=== PATIENT | male | born 1970 | race Caucasian/White ===

== ENCOUNTER 2024-03-23 19:51 | Emergency (ER) | payer MEDICARE, SELFPAY ==
[2024-03-23 20:01] VITALS: BP 140/60; PULSE 139; O2SAT 95
[2024-03-23 20:04] VITALS: BP 141/92; PULSE 102; RESP 14; TEMP 37.3; O2SAT 97; BMI 25.1
[2024-03-23 20:07] LABS: Glucose, Whole Blood 237 mg/dL (60-115)
[2024-03-23 20:10] VITALS: BP 141/92; PULSE 102; RESP 14; TEMP 37.3; O2SAT 97
--- NOTE | 2024-03-23 20:10 | PC.NURSE ---
Pt ca&ox4, no signs of distress. Pt reports chronic 9/10 knee and back pain. Pt reports here due to dm Plan of care ongoing.
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
--- NOTE | 2024-03-23 21:05 | ED_ITS ---
HPI - General Adult General Chief complaint: General Medical Stated complaint: DIZZY, FEELS SICK, HAD SOME LIQUOR TO DRINK Time Seen by Provider: 03/23/24 21:05 Source: patient Mode of arrival: ambulatory Limitations: no limitations History of Present Illness ED Provider: christin SHRESTHA narrative: Patient diabetic came here as he needs insulin prescription also been drinking outside ambulatory in his steady gait patient took his Lantus insulin a.m. blood sugar on arrival was 237 Related Data Previous Rx's ?Medication ?Instructions ?Recorded flash glucose sensor (FreeStyle #1 ea 03/23/24 [place] 14 Day Sensor kit) insulin glargine 100 unit/mL (3 50 unit (0.5 mL) subcut QPM #15 mL 03/23/24 mL) subcutaneous pen (Lantus Solostar U-100 Insulin) insulin lispro 100 unit/mL 1 sliding scale dose subcut 03/23/24 subcutaneous pen (Humalog KwikPen USEASDIRECTD #15 mL (U-100) Insulin) Allergies Allergy/AdvReac Type Severity Reaction Status Date / Time No Known Allergies Allergy Verified 03/23/24 20:07 Review of Systems Review of Systems: Yes all other systems are reviewed and are negative [facility] Social History Social History Alcohol intake: current Smoked in Last 30 Days: No Use of substances other than those prescribed or required for medical reasons: No Advance Directives: No Advance Directives Information Provided: No Do you have a plan to hurt others: No Plan Physical Exam ED Vital Signs: Vital Signs - 24 hr 03/23/24 20:04 03/23/24 20:10 03/23/24 21:20 Temperature 99.2 F 99.2 F 99.2 F Pulse Rate 102 H 102 H 102 H Respiratory Rate 14 14 14 Blood Pressure 141/92 H 141/92 H 141/92 H Pulse Oximetry 97 97 97 Oxygen Delivery Method Room Air Room Air Room Air BMI result Body Mass Index 25.1 Appearance: Alert. Oriented X3. No acute distress. Intoxicated walking in his steady gait Eyes: No pallor or icterus ENT: Pharynx normal. Oral Mucosa moist Neck: Normal inspection. Neck supple. CVS: Normal heart rate and rhythm. Pulses normal. Respiratory: No respiratory distress. Equal air entry bilateral, Abdomen: Soft and nontender. Bowel sounds are present, Skin: Skin warm and dry. Normal skin color. Normal skin turgor. Extremities: No lower extremity edema. No calf tenderness Neuro: Oriented X 3. No motor deficit. Normal gait Medical Decision Making Medical Decision Making [facility] Narrative: Patient's medications were refilled does not want any detox or any help regarding his alcohol use Lab Data [facility] Lab Attestation statement: I reviewed the patient's lab results. Labs: Lab Results 03/23/24 Range/Units 20:03 POC Glucose 237 H (60-115) mg/dL Discharge Plan Discharge Clinical Impression: Diabetes mellitus Patient Disposition: Home, Self-Care Instructions: Type 2 Diabetes Management for Adults (ED) Additional Instructions: stop Drink alcohol Take your insulin on time 3 times a day before meals as advised Prescriptions: New insulin glargine [Lantus Solostar U-100 Insulin] 100 unit/mL (3 mL) insulin pen 50 unit subcut QPM Qty: 15 1RF insulin lispro [Humalog KwikPen Insulin] 100 unit/mL insulin pen 1 sliding scale dose subcut USEASDIRECTD Qty: 15 1RF Rx Instructions: BG <111 0 units, 111-150 - 0 units, 151-200 2 units, 201-250 4 units, 251-300 6 units, 301-350 8 units, >350 10 units (DME) FreeStyle [place] 14 Day Sensor Kit See Rx Instructions .Route Qty: 1 0RF Rx Instructions: As directed Interventions: ED Discharge Assessment Last Done: 03/23/24 21:20 Discharge Date/Time: 03/23/24 21:29 Print Language: Hebrew
[2024-03-23 21:20] VITALS: BP 141/92; PULSE 102; RESP 14; TEMP 37.3; O2SAT 97
== END 2024-03-23 21:29 | disposition home or self-care (01) ==
PROVIDERS: Emergency Provider Internal Medicine
DX: E11.9 Type 2 diabetes mellitus without complications (principal)
CPT/HCPCS: 82947; 99283; 99284

== ENCOUNTER 2024-03-24 18:42 | Emergency (ER) | payer MEDICARE, SELFPAY ==
--- NOTE | ~2024-03-24 | CT_ITS ---
EXAMINATION: CT HEAD WITHOUT CONTRAST CT CERVICAL SPINE WITHOUT CONTRAST CLINICAL INFORMATION: Fall. Injury. COMPARISON: None available. TECHNIQUE: Contiguous axial imaging was performed from the skull base to vertex without intravenous administration of contrast. Contiguous axial imaging was performed from the upper chest through the skull base without intravenous administration of contrast. Coronal and sagittal reformats were obtained at the acquisition workstation. This CT examination was performed using dose optimization techniques as appropriate, variously including the following: *Automated exposure control. *Adjustment of mA and/or kV according to patient size (this includes techniques or standardized protocols for targeted exams where dose is matched to indication/reason for exam; i.e. extremities or head). *Use of iterative reconstruction technique. DLP: 1507 mGy-cm FINDINGS: Head: There is chronic encephalomalacia within the anterior right frontal lobe with associated volume loss. No additional loss of montanez-white matter differentiation. No evidence of acute intracranial hemorrhage. A few foci of hypoattenuation in the periventricular and deep white matter are consistent with mild microangiopathy. Proportional prominence of the ventricles and sulcal spaces without evidence of obstructive hydrocephalus. No abnormal mass effect or midline shift. No extra-axial fluid collections. No acute soft tissue or osseous abnormalities. Moderate mucosal thickening of the right maxillary sinus. Mild mucosal thickening of the remaining paranasal sinuses. The mastoid air cells and middle ear cavities are clear. Odontogenic enamel erosion and periapical lucencies of the maxillary left molar. Cervical Spine: The atlantooccipital and atlantoaxial articulations remain well aligned. Straightening of the normal cervical lordosis. Otherwise, there is anatomic alignment of the vertebral bodies and posterior elements. No evidence of acute fracture or subluxation. The vertebral body heights are maintained. Moderate degenerative disc disease at C3-C4 and C5-C6. Mild degenerative disc disease at all additional levels. Facet and uncovertebral joint arthropathy leads to osseous encroachment on the neural foramina from C5-C7. There is no prevertebral soft tissue swelling. The thyroid gland and remaining cervical soft tissues are within normal limits. The lung apices demonstrate no abnormalities. CT/CT cervical spine wo IV con IMPRESSION: 1. No evidence of acute intracranial hemorrhage or edematous territorial infarction. 2. Chronic encephalomalacia of the anterior right frontal lobe. Mild underlying microangiopathy and generalized cerebral volume loss. 3. No evidence of acute fracture or traumatic subluxation of the cervical spine. Mild to moderate multilevel degenerative spondyloarthropathy of the cervical spine. Electronically signed by: Stan Perez DO 03/24/2024 08:14 PM EDT RP
[2024-03-24 18:49] VITALS: BP 130/70; PULSE 120; O2SAT 95
--- NOTE | 2024-03-24 18:52 | ED_ITS ---
HPI - General Adult General Chief complaint: Fall Stated complaint: ETOH, FALL,DIABETIC Time Seen by Provider: 03/24/24 18:52 Source: patient and EMS Mode of arrival: EMS Limitations: no limitations History of Present Illness ED Provider: Chery Sena PA-C HPI narrative: Patient is a 54 year old assigned male at with a history of DM presenting to the emergency department today after a trip and fall. Patient states that he had been drinking this morning and while walking, he tripped and fell. Patient states that he hit his head but did not have any loss of consciousness. Patient denies any dizziness, lightheadedness, abdominal pain, nausea, vomiting, fever, chills, blurry vision, double vision, loss of vision, chest pain, difficulty breathing, shortness of breath, back pain, night sweats, pain with urination, increased urinary frequency, increased urinary urgency, blood in his urine or stool, syncope or a near syncopal episode, bowel incontinence, bladder incontinence, or any other complaints at this time. Relieving factors: none Exacerbating factors: none Associated symptoms: denies other symptoms Treatments prior to arrival: none Related Data Previous Rx's ?Medication ?Instructions ?Recorded flash glucose sensor (FreeStyle #1 ea 03/23/24 [place] 14 Day Sensor kit) insulin glargine 100 unit/mL (3 50 unit (0.5 mL) subcut QPM #15 mL 03/23/24 mL) subcutaneous pen (Lantus Solostar U-100 Insulin) insulin lispro 100 unit/mL 1 sliding scale dose subcut 03/23/24 subcutaneous pen (Humalog KwikPen USEASDIRECTD #15 mL (U-100) Insulin) Allergies Allergy/AdvReac Type Severity Reaction Status Date / Time No Known Allergies Allergy Verified 03/24/24 18:56 Review of Systems Constitutional: Constitutional: Reports no additional constitutional complaints, Denies chills, Denies fever(s) and Denies night sweats Eyes: Eyes: Reports no additional eye complaints, Denies blurry vision, Denies change in vision, Denies diplopia, Denies eye discharge, Denies loss of vision and Denies eye pain ENT: Denies dizziness Comments: dried blood present to the right ear secondary to abrasion - no gaping areas Cardiovascular: Cardiovascular: Reports no additional cardiovascular complaints, Denies chest pain, Denies lightheadedness, Denies Loss of Consciousness and Denies dyspnea Respiratory: Respiratory: Reports no additional respiratory complaints and Denies dyspnea Gastrointestinal: Gastrointestinal: Reports no additional gastrointestinal complaints, Denies abdominal pain, Denies melena, Denies hematochezia, Denies change in bowel habits and Denies change in stool character Genitourinary: Genitourinary: Reports no additional male genitourinary complaints, Denies hematuria, Denies oliguria, Denies difficulty urinating, Denies dysuria, Denies urinary frequency, Denies urinary hesitancy, Denies urinary incontinence and Denies urinary urgency Musculoskeletal: Musculoskeletal: Reports no additional musculoskeletal complaints, Denies numbness and Denies tingling Comments: dried blood to the bilateral lower secondary to abrasions - no open areas Neurologic: Denies dizziness, Denies loss of vision, Denies numbness and Denies tingling Psychiatric: Psychiatric: Reports no additional psychiatric complaints Endocrine: Endocrine: Reports no additional endocrine complaints Hematologic/Lymphatic: Hematologic/Lymphatic: Reports no additional hematologic/lymphatic complaints Allergic/Immunologic: Allergic/Immunologic: Reports no additional allergic/immunologic complaints PMFSH Past Medical History Attestation statement: The following information was validated with the patient. Source: old records reviewed and nursing notes reviewed Social History Social History Alcohol intake: current Alcohol intake frequency: 3 or more drinks per day Alcohol type: hard liquor Use of substances other than those prescribed or required for medical reasons: No Advance Directives: No Advance Directives Information Provided: No Do you have a plan to hurt others: No Plan Physical Exam ED Vital Signs: Vital Signs - 24 hr 03/24/24 18:55 03/24/24 20:29 Temperature 98.2 F 0 F L Pulse Rate 120 H 0 L Respiratory Rate 20 0 L Blood Pressure 126/78 0/0 L Pulse Oximetry 96 Oxygen Delivery Method Room Air BMI result Body Mass Index 23.2 Const General: cooperative, no acute distress, alert and awake Nutritional Appearance: well nourished Orientation/consciousness: patient oriented x3 Limitations: no limitations HENMT Other: dried blood in the right ear secondary to an abrasion - no gaping areas or active bleeding Ears: hearing grossly normal bilaterally General nose exam: Normal external nose present, no nasal discharge noted and no epistaxis Face and sinus: Yes normal facial exam, No abrasion and No laceration Mouth: Normal oral and palatal mucosa present, no drooling and no muffled voice Eyes General: appearance normal, both eyes and all related structures Periorbital: periorbital findings normal Eyelids: Yes eyelids normal Conjunctivae: conjunctivae normal Pupils: Equal, round and reactive pupils present EOM: EOMs intact bilaterally Neck Neck: Yes normal visual inspection, Yes full ROM and Yes no lymphadenopathy Chest Chest palpation & inspection: normal inspection of the chest Resp Effort & Inspection: normal respiratory effort and able to speak in complete sentences GI Inspection: Yes normal to inspection Neuro General: patient oriented x3 and moves all extremities Cranial nerves: Yes Equal, round and reactive pupils present Cognition (Neuro): normal cognition Extrem Other: bilateral lower leg abrasions with no active bleeding dried blood present to the bilateral lower legs General: Yes full ROM and Yes capillary refill normal Psych Appearance: grossly normal Mental Status: mental status grossly normal Affect: normal affect Attitude: cooperative Thought process: Normal thought process present Thought content: Normal thought content present Insight: Good insight present (Psych) Medical Decision Making Medical Decision Making MDM Narrative: Patient is a 54 year old assigned male at with a history of DM presenting to the emergency department today after a trip and fall, intoxicated. Patient's physical exam was as noted in the physical exam portion of this note. Patient removed his c-collar before I could evaluate him or before he obtained his CT scans. Patient's CT head and c-spine showed no acute process. I explained my physical exam findings as well as all test results to the patient. I answered all questions asked by the patient. Patient refused to allow us to clean the dried blood from his right ear or bilateral lower extremities. Patient was steady on his feet and requesting to leave as soon as possible so that he could get his property back from [place] [employer]. I stressed the importance of the patient taking his medication as directed (either prescribed or as the over the counter packaging recommends). I stressed the importance of the patient following up with his primary care provider. I stressed the importance of the patient returning to the emergency department immediately if his symptoms were to worsen or if he were to develop any dizziness, shortness of breath, difficulty breathing, chest pain, blurry vision, loss of vision, nausea, vomiting, abdominal pain, fever, chills, back pain, or any other complaints. Patient verbalized agreement and understanding with this treatment plan and dis charge. Patient requested to leave before he could be given his discharge paperwork. Differential Diagnosis Differential Diagnoses: The differential diagnosis associated with the presentation includes Fall Abrasions Alcohol intoxication Admission/Observation Consideration of admission/observation: Escalation of care including admission/observation considered Patient would have been admitted to the hospital had his work up had any findings where hospital admission was appropriate and his clinical presentation warranted hospital admission. Independent Interpretation I performed an independent interpretation of an: CT Scan Interpretation: My interpretation is in agreement with the radiologist's impression of these imaging studies. EXAMINATION: CT HEAD WITHOUT CONTRAST CT CERVICAL SPINE WITHOUT CONTRAST CLINICAL INFORMATION: Fall. Injury. COMPARISON: None available. TECHNIQUE: Contiguous axial imaging was performed from the skull base to vertex without intravenous administration of contrast. Contiguous axial imaging was performed from the upper chest through the skull base without intravenous administration of contrast. Coronal and sagittal reformats were obtained at the acquisition workstation. This CT examination was performed using dose optimization techniques as appropriate, variously including the following: *Automated exposure control. *Adjustment of mA and/or kV according to patient size (this includes techniques or standardized protocols for targeted exams where dose is matched to indication/reason for exam; i.e. extremities or head). *Use of iterative reconstruction technique. DLP: 1507 mGy-cm FINDINGS: Head: There is chronic encephalomalacia within the anterior right frontal lobe with associated volume loss. No additional loss of montanez-white matter differentiation. No evidence of acute intracranial hemorrhage. A few foci of hypoattenuation in the periventricular and deep white matter are consistent with mild microangiopathy. Proportional prominence of the ventricles and sulcal spaces without evidence of obstructive hydrocephalus. No abnormal mass effect or midline shift. No extra-axial fluid collections. No acute soft tissue or osseous abnormalities. Moderate mucosal thickening of the right maxillary sinus. Mild mucosal thickening of the remaining paranasal sinuses. The mastoid air cells and middle ear cavities are clear. Odontogenic enamel erosion and periapical lucencies of the maxillary left molar. Cervical Spine: The atlantooccipital and atlantoaxial articulations remain well aligned. Straightening of the normal cervical lordosis. Otherwise, there is anatomic alignment of the vertebral bodies and posterior elements. No evidence of acute fracture or subluxation. The vertebral body heights are maintained. Moderate degenerative disc disease at C3-C4 and C5-C6. Mild degenerative disc disease at all additional levels. Facet and uncovertebral joint arthropathy leads to osseous encroachment on the neural foramina from C5-C7. There is no prevertebral soft tissue swelling. The thyroid gland and remaining cervical soft tissues are within normal limits. The lung apices demonstrate no abnormalities. CT/CT head/brain wo IV con IMPRESSION: 1. No evidence of acute intracranial hemorrhage or edematous territorial infarction. 2. Chronic encephalomalacia of the anterior right frontal lobe. Mild underlying microangiopathy and generalized cerebral volume loss. 3. No evidence of acute fracture or traumatic subluxation of the cervical spine. Mild to moderate multilevel degenerative spondyloarthropathy of the cervical spine. Electronically signed by: Stan Perez DO 03/24/2024 08:14 PM EDT RP Dictated By: Rudy Perez DO Signed By: Electronically signed by Rudy Perez DO 03/24/242013 Radiology Impression Discussion of test interpretation with radiology: I have reviewed the radiolo gist's reading. Independent Historian Clinical information obtained from an independent historian. History obtained from or confirmed by: EMS (EMS provided additional history and confirmed the history provided by the patient.) Discharge Plan Discharge Clinical Impression: Fall, Alcohol intoxication Patient Disposition: Home, Self-Care Instructions: Abuse of Alcohol (DC), Fall Prevention (ED) Additional Instructions: Follow up with your primary care provider. Return to the emergency department immediately if your symptoms worsen or if you develop any dizziness, shortness of breath, difficulty breathing, chest pain, blurry vision, loss of vision, nausea, vomiting, abdominal pain, fever, chills, back pain, or any other complaints. Prescriptions: No Action insulin glargine [Lantus Solostar U-100 Insulin] 100 unit/mL (3 mL) insulin pen 50 unit subcut QPM Qty: 15 1RF insulin lispro [Humalog KwikPen Insulin] 100 unit/mL insulin pen 1 sliding scale dose subcut USEASDIRECTD Qty: 15 1RF Rx Instructions: BG <111 0 units, 111-150 - 0 units, 151-200 2 units, 201-250 4 units, 251-300 6 units, 301-350 8 units, >350 10 units (DME) FreeStyle [place] 14 Day Sensor Kit See Rx Instructions .Route Qty: 1 0RF Rx Instructions: As directed Referrals: [facility] [Provider Group] (Call to establish and follow up with a primary care provider. If you already have a primary care provider, please follow up with them.) [facility] Primary Care, [place] [Provider Group] (Call to establish and follow up with a primary care provider. If you already have a primary care provider, please follow up with them.) [facility] Primary Care,Amanda [Provider Group] (Call to establish and follow up with a primary care provider. If you already have a primary care provider, please follow up with them.) Interventions: ED Discharge Assessment Last Done: 03/24/24 20:29 Discharge Date/Time: 03/24/24 20:30 Print Language: Ukrainian
[2024-03-24 18:55] VITALS: BP 126/78; PULSE 120; RESP 20; TEMP 36.8; O2SAT 96; BMI 23.2
[2024-03-24 20:29] VITALS: BP 0/0; PULSE 0; RESP 0; TEMP -17.7; TEMP 0
== END 2024-03-24 20:30 | disposition home or self-care (01) ==
PROVIDERS: Emergency Provider Emergency Medicine Emergency Medical Services
DX: S09.90XA Unspecified injury of head, initial encounter (principal); F10.129 Alcohol abuse with intoxication, unspecified; E11.9 Type 2 diabetes mellitus without complications; Y90.9 Presence of alcohol in blood, level not specified; W01.10XA Fall on same level from slipping, tripping and stumbling with subsequent striking against unspecified object, initial encounter; Y93.89 Activity, other specified; Y92.89 Other specified places as the place of occurrence of the external cause; Y99.8 Other external cause status; Z79.4 Long term (current) use of insulin; Z79.899 Other long term (current) drug therapy
CPT/HCPCS: 70450; 72125; 99284

== ENCOUNTER 2024-08-30 13:25 | Emergency (ER) | payer MEDICARE, SELFPAY ==
--- NOTE | 2024-08-30 13:36 | ED_ITS ---
HPI - General Adult General Chief complaint: Psychiatric Symptoms Stated complaint: SI, COOPERATIVE, NON COMBATIVE PER EMS Time Seen by Provider: 08/30/24 13:36 Source: patient and EMS Mode of arrival: EMS Limitations: no limitations History of Present Illness ED Provider: Chery Sena PA-C HPI narrative: Patient is a 54 year old assigned male at with a history of DM presenting to the emergency department today with suicidal ideation. Patient states that he feels as though his life is unmanageable and he is having thoughts of hurting himself. Patient denies any dizziness, lightheadedness, abdominal pain, nausea, vomiting, fever, chills, blurry vision, double vision, loss of vision, chest pain, difficulty breathing, shortness of breath, back pain, night sweats, pain with urination, increased urinary frequency, increased urinary urgency, blood in his urine or stool, syncope or a near syncopal episode, recent trauma or falls, bowel incontinence, bladder incontinence, or any other complaints at this time. Relieving factors: none Exacerbating factors: none Associated symptoms: denies other symptoms Treatments prior to arrival: none Related Data Home Medications ?Medication ?Instructions ?Recorded ?Confirmed folic acid 1 mg tablet 1 mg PO QAM 08/30/24 furosemide 20 mg tablet 20 mg PO QAM 08/30/24 hydroxyzine pamoate 50 mg capsule 100 mg PO TID 08/30/24 Previous Rx's ?Medication ?Instructions ?Recorded flash glucose sensor (FreeStyle #1 ea 03/23/24 [place] 14 Day Sensor kit) insulin glargine 100 unit/mL (3 50 unit (0.5 mL) subcut QPM #15 mL 03/23/24 mL) subcutaneous pen (Lantus Solostar U-100 Insulin) insulin lispro 100 unit/mL 1 sliding scale dose subcut 03/23/24 subcutaneous pen (Humalog KwikPen USEASDIRECTD #15 mL (U-100) Insulin) Allergies Allergy/AdvReac Type Severity Reaction Status Date / Time No Known Allergies Allergy Verified 08/30/24 13:43 Review of Systems 2 Constitutional: Constitutional: Reports no additional constitutional complaints, Denies chills, Denies fever(s) and Denies night sweats Eyes: Eyes: Reports no additional eye complaints, Denies blurry vision, Denies change in vision, Denies diplopia, Denies eye discharge, Denies loss of vision and Denies eye pain ENT: Denies dizziness Cardiovascular: Cardiovascular: Reports no additional cardiovascular complaints, Denies chest pain, Denies lightheadedness, Denies Loss of Consciousness and Denies dyspnea Respiratory: Respiratory: Reports no additional respiratory complaints and Denies dyspnea Gastrointestinal: Gastrointestinal: Reports no additional gastrointestinal complaints, Denies abdominal pain, Denies melena, Denies hematochezia, Denies change in bowel habits and Denies change in stool character Genitourinary: Genitourinary: Reports no additional male genitourinary complaints, Denies hematuria, Denies oliguria, Denies difficulty urinating, Denies dysuria, Denies urinary frequency, Denies urinary hesitancy, Denies urinary incontinence and Denies urinary urgency Musculoskeletal: Musculoskeletal: Reports no additional musculoskeletal complaints, Denies numbness and Denies tingling Neurologic: Denies dizziness, Denies loss of vision, Denies numbness and Denies tingling Psychiatric: Psychiatric: Denies homicidal ideation and Reports suicidal ideation Endocrine: Endocrine: Reports no additional endocrine complaints Hematologic/Lymphatic: Hematologic/Lymphatic: Reports no additional hematologic/lymphatic complaints Allergic/Immunologic: Allergic/Immunologic: Reports no additional allergic/immunologic complaints PMFSH Past Medical History Attestation statement: The following information was validated with the patient. Source: old records reviewed and nursing notes reviewed Social History Social History Alcohol intake: current Alcohol intake frequency: 3 or more drinks per day Alcohol type: hard liquor Smoked in Last 30 Days: Yes Advance Directives: No Advance Directives Information Provided: Yes Physical Exam ED Vital Signs: Vital Signs - 24 hr 08/30/24 13:40 Temperature 98.9 F Pulse Rate 116 H Respiratory Rate 20 Blood Pressure 146/89 H Pulse Oximetry 97 Oxygen Delivery Method Room Air BMI result Body Mass Index 25.8 Const General: cooperative, no acute distress, alert and awake Nutritional Appearance: well nourished Orientation/consciousness: patient oriented x3 Limitations: no limitations HENMT Head: Yes normal to inspection and Yes atraumatic Ears: hearing grossly normal bilaterally and external ears normal General nose exam: Normal external nose present, no nasal discharge noted and no epistaxis Face and sinus: Yes normal facial exam, No abrasion and No laceration Mouth: Normal oral and palatal mucosa present, no drooling and no muffled voice Eyes General: appearance normal, both eyes and all related structures Periorbital: periorbital findings normal Eyelids: Yes eyelids normal Conjunctivae: conjunctivae normal Pupils: Equal, round and reactive pupils present EOM: EOMs intact bilaterally Neck Neck: Yes normal visual inspection, Yes full ROM and Yes no lymphadenopathy Chest Chest palpation & inspection: normal inspection of the chest Resp Effort & Inspection: normal respiratory effort and able to speak in complete sentences GI Inspection: Yes normal to inspection Neuro General: patient oriented x3, moves all extremities and CN's II-XI intact bilaterally Cranial nerves: Yes Equal, round and reactive pupils present Cognition (Neuro): normal cognition Extrem General: Yes normal to inspection, Yes full ROM and Yes capillary refill normal Psych Appearance: grossly normal Mental Status: mental status grossly normal Affect: normal affect Attitude: cooperative Thought process: Normal thought process present Thought content: Normal thought content present Insight: Good insight present (Psych) Medical Decision Making Medical Decision Making [facility] Narrative: Patient is a 54 year old assigned male at with a history of DM presenting to the emergency department today with suicidal ideation. Patient's physical exam was as noted in the physical exam portion of this note. Patient's blood work showed mildly elevated LFTs and a mild anemia - patient states that these are chronic for him. Patient's EKG was unremarkable. I explained my physical exam findings as well as all test results to the patient. I answered all questions asked by the patient. Patient's disposition is pending CARE team eval. Differential Diagnosis Differential Diagnoses: The differential diagnosis associated with the presentation includes SI Malingering Admission/Observation Consideration of admission/observation: Escalation of care including admission/observation considered Patient's disposition will be determined after CARE team evaluation. Lab Data [facility] Lab Attestation statement: I reviewed the patient's lab results. My interpretation of these results are in the MDM Rationale portion of this note. 08/30/24 13:59 08/30/24 13:59 Labs: Lab Results 08/30/24 08/30/24 Range/Units 13:58 13:59 WBC 3.9 L (4.8-10.8) X10*3/uL RBC 3.57 L (4.60-5.80) X10*6/uL Hgb 8.3 L (14.0-18.0) g/dl Hct 26.7 L (42.0-52.0) % MCV 74.8 L (80.0-98.0) fL MCH 23.2 L (27.0-33.0) pg MCHC 31.1 (31.0-36.0) g/dl RDW 18.1 H (11.0-16.0) % Plt Count 92 L (160-400) X10*3/uL MPV Not Reportable Immature Gran % (Auto) 0.5 H (0.0-0.4) % Neut % (Auto) 66.0 (45-73) % Lymph % (Auto) 16.4 L (20-40) % Dickenson % (Auto) 11.0 (2-11) % Eos % (Auto) 4.6 H (0-4) % Baso % (Auto) 1.5 (0-2) % Lymph # (Auto) 0.6 L (1.2-4.9) X10*3/uL Dickenson # (Auto) 0.4 (0.1-1.2) X10*3/uL Eos # (Auto) 0.2 (0.0-0.4) X10*3/uL Baso # (Auto) 0.1 (0.0-0.2) X10*3/uL Abs Immat Gran (auto) 0.02 (0.00-0.03) X10*3/uL Absolute Neuts (auto) 2.6 (2.0-8.3) x10*3/uL Absolute Nucleated RBC 0.000 (0.0-0.012) X10*3/uL Nucleated RBC % (auto) 0.0 (0.0-0.2) /100WBC Sodium 139 (135-145) mmol/L Potassium 4.2 (3.3-5.1) mmol/L Chloride 105 (96-108) mmol/L Carbon Dioxide 24 (22-29) mmol/L Anion Gap 14 (12-20) BUN 12 (9-16) mg/dL Creatinine 0.89 (0.5-1.4) mg/dL Estim Creat Clear Calc 90.7 Estimated GFR > 60 Random Glucose 230 H (60-115) mg/dL Calcium 8.8 (8.4-10.2) mg/dL Total Bilirubin 1.0 (0.0-1.0) mg/dL AST 51 H (5-37) U/L ALT 43 H (0-40) U/L Alkaline Phosphatase 176 H (39-117) U/L Total Protein 7.5 (6.5-8.0) g/dL Albumin 3.5 (3.5-5.0) g/dL Urine Color Yellow Urine Appearance Clear Urine pH 6.0 (5.0-9.0) Ur Specific Moffit >= 1.030 H (1.005-1.025) Urine Protein 100 (2+) H (Neg-Trace) mg/dL Urine Glucose (UA) >=1000 H (Negative) mg/dL Urine Ketones Negative (Negative) mg/dL Urine Blood Negative (Negative) Urine Nitrite Negative (Negative) Ur Leukocyte Esterase Negative (Negative) Urine RBC 0-2 (0-2) /HPF Urine WBC 0-5 (0-5) /HPF Ur Squamous Epith Cells 0-2 (0-2) /HPF Urine Bacteria None Seen (None Seen) Hyaline Casts 0-2 (0-2) /LPF Salicylates < 5.0 L (15-30) mg/dL Urine Opiates Screen Not Detected (Not Detect) Ur Buprenorphine Scrn Not Detected (Not Detect) ng/mL Ur Oxycodone Screen Not Detected (Not Detect) ng/mL Urine Methadone Screen Not Detected (Not Detect) ng/mL Urine Fentanyl Screen Not Detected (Not Detect) Acetaminophen < 3 (<30) mcg/mL Ur Barbiturates Screen Not Detected (Not Detect) Ur Phencyclidine Scrn Not Detected (Not Detect) Ur Amphetamines Screen Not Detected (Not Detect) U Benzodiazepines Scrn POSITIVE H (Not Detect) Urine Cocaine Screen Not Detected (Not Detect) U Marijuana (THC) Screen POSITIVE H (Not Detect) Ethyl Alcohol 78 mg/dL COVID-19 (SHIVA) Negative (Negative) COVID-19 Clin Com See Note Independent Interpretation I performed an independent interpretation of an: EKG Interpretation: Vent. Rate: 108 BPM Atrial Rate: 108 BPM P-R Int: 176 ms QRS Dur: 128 ms QT Int: 358 ms P-R-T Axes: 62 -17 41 degrees QTcB Int: 479 ms Sinus tachycardia Possible Left atrial enlargement Right bundle branch block No previous ECGs available DD/ 1513 Radiology Impression Discussion of test interpretation with radiology: I have reviewed the radiologist's reading. Independent Historian Clinical information obtained from an independent historian. History obtained from or confirmed by: EMS (EMS provided additional history and confirmed the history provided by the patient. ) Discharge Plan Discharge Clinical Impression: Suicidal ideation Patient Disposition: Still a Patient Prescriptions: No Action insulin glargine [Lantus Solostar U-100 Insulin] 100 unit/mL (3 mL) insulin pen 50 unit subcut QPM Qty: 15 1RF insulin lispro [Humalog KwikPen Insulin] 100 unit/mL insulin pen 1 sliding scale dose subcut USEASDIRECTD Qty: 15 1RF Rx Instructions: BG <111 0 units, 111-150 - 0 units, 151-200 2 units, 201-250 4 units, 251-300 6 units, 301-350 8 units, >350 10 units (DME) FreeStyle [place] 14 Day Sensor Kit See Rx Instructions .Route Qty: 1 0RF Rx Instructions: As directed hydroxyzine pamoate 50 mg capsule 100 mg PO TID folic acid 1 mg tablet 1 mg PO QAM furosemide 20 mg tablet 20 mg PO QAM Interventions: [place]-Suicide Risk Severity Scale Last Done: 08/30/24 13:44 Print Language: Yoruba
--- NOTE | 2024-08-30 13:37 | ECG_ITS ---
Test Reason : qt check Blood Pressure : */* mmHG Vent. Rate : 108 BPM Atrial Rate : 108 BPM P-R Int : 176 ms QRS Dur : 128 ms QT Int : 358 ms P-R-T Axes : 62 -17 41 degrees QTcB Int : 479 ms Sinus tachycardia Possible Left atrial enlargement Right bundle branch block Abnormal ECG No previous ECGs available Referred By: Chery Sena Electronically Signed By: Jesus Mendez
[2024-08-30 13:40] VITALS: BP 130/87; BP 146/89; PULSE 116; PULSE 120; RESP 20; TEMP 37.2; O2SAT 97; BMI 25.8
[2024-08-30 14:06] LABS: MANUAL DIFF FLAG NO
[2024-08-30 14:09] LABS: Appearance Urine Clear; Color Urine Yellow; Glucose Urine UA >=1000 mg/dL (Negative); Leukocyte Esterase Urine Negative (Negative); Nitrite Urine Negative (Negative); Specific Gravity - Urine >= 1.030 (1.005-1.025); UMIC TRIGGER UA YES; Urine Blood Negative (Negative); Urine Ketones Negative (Negative); Urine Protein 100 (2+) mg/dL (Neg-Trace)
[2024-08-30 14:16] LABS: Basophils Absolute Auto 0.1 X10*3/uL (0.0-0.2); Basophils Percent Auto 1.5 % (0-2); Eosinophils Absolute Auto 0.2 X10*3/uL (0.0-0.4); Eosinophils Percent Auto 4.6 % (0-4); Hematocrit 26.7 % (42.0-52.0); Hemoglobin 8.3 g/dl (14.0-18.0); Imm Gran Abs Auto 0.02 X10*3/uL (0.00-0.03); Imm Gran Pct Auto 0.5 % (0.0-0.4); Lymphocytes Absolute Auto 0.6 X10*3/uL (1.2-4.9); Lymphocytes Percent Auto 16.4 % (20-40); Mean Corpuscular HGB Conc 31.1 g/dl (31.0-36.0); Mean Corpuscular Hemoglobin 23.2 pg (27.0-33.0); Mean Corpuscular Volume 74.8 fL (80.0-98.0); Monocytes Absolute Auto 0.4 X10*3/uL (0.1-1.2); Neutrophils Absolute Auto 2.6 x10*3/uL (2.0-8.3); Red Blood Count 3.57 X10*6/uL (4.60-5.80); Red Cell Distribution Width 18.1 % (11.0-16.0); White Blood Count 3.9 X10*3/uL (4.8-10.8)
[2024-08-30 14:20] LABS: Amphetamine Screen Urine Not Detected (Not Detect); Barbiturates, Urine Not Detected (Not Detect); Benzodiazepines Screen Urine POSITIVE (Not Detect); Buprenorphine Scr Not Detected (Not Detect); Cannabinoid Screen Urine POSITIVE (Not Detect); Cocaine Screen Urine Not Detected (Not Detect); Fentanyl, urine Not Detected (Not Detect); Methadone Screen, Urine Not Detected (Not Detect); Opiate Screen Urine Not Detected (Not Detect); Oxycodone Screen Urine Not Detected (Not Detect); Phencyclidine Screen Urine Not Detected (Not Detect)
[2024-08-30 14:22] LABS: COVID-19 Test Negative (Negative); IDNOW Serial# 6674DD1D
[2024-08-30 14:24] LABS: Acetaminophen LAB < 3 mcg/mL (<30); Alanine Aminotransferase 43 U/L (0-40); Albumin Level 3.5 g/dL (3.5-5.0); Alkaline Phosphatase 176 U/L (39-117); Anion Gap 14 (12-20); Aspartate Amino Transferase 51 U/L (5-37); Blood Urea Nitrogen 12 mg/dL (9-16); Calcium 8.8 mg/dL (8.4-10.2); Carbon Dioxide 24 mmol/L (22-29); Chloride 105 mmol/L (96-108); Creatinine Clr Calc Pharmacy 90.7; Estimated Glomerular Filt Rate > 60; Ethanol 78 mg/dL; Glucose Random 230 mg/dL (60-115); Potassium 4.2 mmol/L (3.3-5.1); Salicylate < 5.0 mg/dL (15-30); Sodium 139 mmol/L (135-145); Total Protein 7.5 g/dL (6.5-8.0)
[2024-08-30 14:27] LABS: Bacteria Urine None Seen (None Seen); Hyaline Casts Urine 0-2 /LPF (0-2); RBC Urine 0-2 /HPF (0-2); Squamous Epithelial Cell Urine 0-2 /HPF (0-2); WBC Urine 0-5 /HPF (0-5)
--- OUTSIDE RECORDS SUMMARY | 2024-08-30 14:29 | XMS_ITS | Encounter Summary ---
[facility] Organization [facility] Address [address] [place] [address] Care Team Providers Care Car Record Clerk Name Role Phone Physician, No Pcp Primary Care Provider Unavaila ble Reason for Visit * Reason Comments Alcohol Intoxication Encounter Details Date Type Department Care Team (Late st Contact Info) Description 08/08/2024 8:18 PM EST - 08/10/2024 12:50 PM EST Emergency [facility] Emergency [address] [place] [id number] Mia Armas DO [address] [place] [id number] Preeti Glaser MD [address] [place] [address] Cornelio Morillo MD [address] [address] Jaquan Blas DO [address] [place] [id number] Justin Sue MD [address] [place] [address] Alcohol use (Primary Dx); Major depressive disorder, recurrent, severe with psychotic features (CMS/HCC) Discharge Disposition: Psychiatric Hospital Social History Tobacco Use Types Packs/Day Years Used Date Smoking Tobacco: Unknown Sex and Gender Information Value Date Recorded Sex Assigned at Male 08/08/2024 9:22 PM EST Gender Identity Male 08/08/2024 9:22 PM EST Sexual Orientation Straight 08/08/2024 9: 22 PM EST Job Start Date Occupation Industry Not on file Not on file Not on file documented as of this encounter Last Filed Vital Signs Vital Sign Reading Time Taken Comments Blood Pressure 129/85 08/10/2024 9:00 AM EST Pulse 68 08/10/2024 9:00 AM EST Temperature 36.7 ??C (98.1 ??F) 08/10/2024 9:00 AM ES T Respiratory Rate 16 08/10/2024 9:00 AM EST Oxygen Saturation 99% 08/10/2024 9:00 AM EST Inhaled Oxygen Concentration - - Weight 79.4 kg (175 lb) 08/08/2024 8:22 PM EST Height 175.3 cm (5' 9 ) 08/08/2024 8:22 PM EST Body Mass Index 25.84 08/08/2024 8:22 PM EST documented in this encounter Functional Status Functional Status Response Date of Assess ment Are you deaf or do you have serious difficulty h earing? No 08/10/2024 Are you blind or do you have serious difficulty seeing, even when wearing glasses? No 08/10/2024 Do you have serious difficul ty walking or climbing stairs? No 08/10/2024 Do you have serious difficulty dressing or bathi ng? No 08/10/2024 Because of a physical, menta l, or emotional condition, do you have serious difficulty doing errands alone such as visiting the doctor? No 08/10/2024 Cognitive Status Response Date of Assessm ent Because of a physical, menta l, or emotional condition, do you have serious difficulty concentrating, remembering, or making decisions? (5 years old or older) No 08/10/2024 documented as of this encounter Medications at Time of Discharge Medication Sig Dispensed Refills Start Date End Date citalopram (CeleXA) 20 mg tablet Take 1 tablet (20 mg total) by mouth 1 (one) time each day. 08/08/2024 folic acid (FOLVITE) 1 mg tablet Take 1 tablet (1 mg total) by mouth daily. 04/30/2024 furosemide (LASIX) 20 mg tablet Take 1 tablet (20 mg total) by mouth daily. 01/28/2024 hydrOXYzine pamoate (VISTARIL) 50 mg capsule Take 1 capsule (50 mg total) by mouth 4 (four) times a day if needed for anxiety. 08/08/2024 insulin glargine (LANTUS SoloStar) 100 unit/mL (3 mL) injection pen Inject 20 Units under the skin at bedtime. 04/30/2024 pantoprazole (PROTONIX) 40 mg EC tablet Take 1 tablet (40 mg total) by mouth daily. 01/28/2024 spironolactone (ALDACTONE) 50 mg tablet Take 1 tablet (50 mg total) by mouth daily. 04/30/2024 thiamine (thiamine mononitrate, vit B1,) 100 mg tablet Take 1 tablet (100 mg total) by mouth daily. 04/30/2024 traZODone (DESYREL) 50 mg tablet Take 1 tablet (50 mg total) by mouth at bedtime. 01/28/2024 insulin glargine (LANTUS) 100 unit/mL injection Inject 30 Units under the skin 1 (one) time each day in the morning. insulin lispro 100 unit/mL injection Inject under the skin 3 (three) times a day before meals. -Administer within 15 minutes of a meal documented as of this encounter Discharge Disposition Disposition Code Departure Means Destination Comment [facility] documented in this encounter Progress Notes * Gabriella Lee RN - 08/10/2024 10:23 AM EST Pt accepted at [facility] in [place] for [address] Ambriz accepting provider. [facility] called and transport scheduled for 1230 tile picker. * Gabriella Lee RN - 08/10/2024 9:42 AM EST Call to [facility] admitting-left message, call to [facility], left message. Pt has eczema- back of left calf, hadxeroform and ABD pad with paper tape over site, pt says it was bleeding yesterday. Area without anybleeding. Scant old blood on dsg. Area with faint old scratches. Dsg reapplied as it was. Pt also has small crusted area dime sized right buttock also 1 similar area on low back. States these are allfrom his eczema. * Opal Barney - 08/09/2024 3:05 PM EST Placement put on hold until tomorrow 08/10/24 due to patient having very high glucose levels when evaluated by ambulance prior to departure. S/W Amir from [facility], they will hold the bed until tomorrow when glucose levels are lowered. * Komal Tenorio RN - 08/09/2024 2:30 PM EST Patient accepted to [facility]. Upon EMS arrival for transport, ems noted a blood sugar >500. Pt was brought back into psych pod. This RN obtained sugar in pod and sugar was 482. Spoke with Dr Morillo about blood sugar levels. Orders were put in. Spoke with social work to determine the status of his bed. Komal Tenorio RN 08/09/24 1609 * Opal Barney - 08/09/2024 1:20 PM EST Patient accepted to [facility] by dr cheo lr for today 08/09/24 [place] [address] * Mike Tang - 08/09/2024 9:17 AM EST Images from the original note were not included. Database Marketing Analyst Note Kwame Xie 1970 [id number] Author: Mike Tang DOS: 08/09/2024 Kwame Xie is a 54 y.o. male with a history of EtOH misuse. I utilized active listening and motivational interviewing during this initial contact to help establish a positive working rapport and to begin to build trust. Mr. Xie was very polite and was engaged in our conversation but was also very clearly struggling mentally. (Mr. Xie stated that is to a celebrity in [place] and her security guards do not allow him to call her. He also asked if I would go to a door in a [place] in [place] next to a school to find his 3 bags.) In my opinion, Mr. Xie would initially benefit more from psych help than from recovery support services. Referrals: None Required at this time Harm Reduction: None required at this time SIGNATURES: Mike Tang Certified Database Marketing Analyst * Cornelio Morillo MD - 08/09/2024 8:04 AM EST ED Course as of 08/26/24 0708 Erika Aug 08, 2024 2159 54-year-old male presented hospital today for evaluation of detox resources for alcohol addiction. Will obtain screening lab for patient per psychiatric protocol here at this facility. Patient appeared to be clinically sober on my exam. Will have crisis team see the patient afterward to see if they could assist patient with further resources in the community. [TC] 7945 Reviewed patient lab where he does have some hyperglycemia 218. Slight increase in creatinine 1.37. Patient does have some anemia 9.6. This similar to his previous lab work. Patient ethanol level was elevated 154. Serum tox is negative. U tox is negative for any signs of other substance use. This time crisis team will be consulted at this time. Patient be signed out to oncoming provider. [TC] MonAug 09, 2024 0804 Received patient in signout patient is pending crisis and addiction medicine eval. [JL] 6751 Cleared by addiction medic medicine. Awaiting crisis evaluation [JL] 3620 Discussed the case with the crisis counselor and the patient will be a bed search for voluntary psyche admission. Patient has no SI or HI but he may require section 12 with safety concerns. But at this point his admission is voluntary [JL] 1308 Bed eval'd by crisis, will be sent to [facility] in [place] [JL] 2177 Apparently patient has not been able to take his diabetic management medications. Prior nurse was unable to verify his outpatient medications. Blood sugar is now 42. He will likely be unable to be transferred to [place] we will try to reserve his bed at [facility] for tomorrow. In the meantime we will try to medically stabilize his blood sugar using subcu and p.o. medications. He was started on Lantus 20 units which is his last baseline and a sliding scale. He was given a 10 unit dosage stat atthis time. [JL] ED Course User Index [JL] Cornelio Morillo MD [TC] Mia Armas DO Clinical Impressions as of 08/26/24 0708 Alcohol use Major depressive disorder, recurrent, severe with psychotic features (CMS/HCC) Data Unavailable 1. Alcohol use Procedures * Alissa Wilkerson RN - 08/08/2024 8:42 PM EST Pt [facility] seeking rehab from ETOH. Pt reports recently relapsed, was at [facility] and left. Pt denies drug use/SI/HI. Pt calm and cooperative with care. Pt denieshx of ETOH withdrawal, reports drinking about 1 pint of vodka today LPN PER DIEM. * Mia Armas DO - 08/08/2024 8:15 PM EST Emergency Medicine Note Patient Name: Kwame Xie Initial Evaluation: 08/08/2024 : 1970 Patient's PCP: No Pcp Physician Emergency Physician: Mia Armas DO History of Present Illness Chief Complaint: Chief Complaint Patient presents with Alcohol Intoxication HPI: This a 54-year-old male history of alcohol abuse presented hospital today for evaluation of further resources and detoxing alcohol. Patient stated that he had recent was at a rehab facility however he had left hip. He relapsed and drank more alcohol today. He drank some alcohol prior to arrival. Patient stated that he has twins on the way. His is currently in [place]. He stated that sheis a celebrity. He stated that he wants to get sober so he could take care of his family. Denies any homicidal ideation denies any suicidal ideation. He is asking for further resources and detox. No history of severe alcohol withdrawal in the past. ROS: I have performed a ROS with the pertinent positives and negatives documented in the history ofpresent illness. Previous History Past Medical History: Diagnosis Date Schizophrenia (CMS/HCC) No past surgical history on file. Social History Tobacco Use Smoking status: Unknown No family history on file. is allergic to gabapentin, other, and wellbutrin [bupropion hcl]. No current facility-administered medications on file prior to encounter. No current outpatient medications on file prior to encounter. Physical Exam ED Triage Vitals [08/08/242021] Temp Heart Rate Resp BP 37 ??C (98.6 ??F) (!) 115 18 122/77 SpO2 Temp Source Heart Rate Source Patient Position 97 % Oral Left Lying BP Location FiO2 (%) Right arm -- General: Pleasant, no distress, interacting appropriately Head: Normacephalic, atraumatic ENT: oral mucosa moist, neck supple, no tracheal deviation Cardiovascular: regular rate, regular rhythm, no murmurs, rubbing, gallops Respiratory: CTAB, no wheeze, rales, rhonchi Gastrointestinal: Soft, non distended, non tender, non guarding Neurological: Awake and alert, no facial droop noted Skin: Warm and dry Psychiatric: Appropriate mood and thoughts, appears to be clinically sober, denies SI or HI. Results Labs Reviewed COMPREHENSIVE METABOLIC PANEL - Abnormal Result Value Sodium 136 Potassium 4.1 Chloride 106 CO2 23 Anion Gap 7 Glucose 218 (*) BUN 27 (*) Creatinine 1.37 (*) eGFR 61 BUN/Creatinine Ratio 19.7 Calcium 9.0 AST (SGOT) 43 (*) ALT (SGPT) 45 Alkaline Phosphatase 220 (*) Total Protein 7.7 Albumin 3.6 Total Bilirubin 1.2 ETHANOL - Abnormal Ethanol Level 154 (*) SALICYLATE LEVEL - Abnormal Salicylate Level <1.7 (*) ACETAMINOPHEN LEVEL - Abnormal Acetaminophen Level <2.0 (*) CBC WITH AUTO DIFFERENTIAL - Abnormal WBC 7.5 RBC 3.70 (*) Hemoglobin 9.6 (*) Hematocrit 30.2 (*) MCV 81.4 MCH 25.9 (*) MCHC 31.8 (*) RDW 19.4 (*) Platelets 125 (*) MPV 11.9 (*) NRBC 0.0 NRBC Absolute 0.00 Neutrophils Relative 81.1 Lymphocytes Relative 7.5 Monocytes Relative 9.3 Eosinophils Relative 0.8 Basophils Relative 0.9 Immature Granulocytes Relative 0.4 Neutrophils Absolute 6.04 Lymphocytes Absolute 0.56 (*) Monocytes Absolute 0.69 Eosinophils Absolute 0.06 Basophils Absolute 0.07 Immature Granulocytes Absolute 0.03 DRUG ABUSE SCREEN 8A PANEL, URINE - Normal Amphetamine Screen, Ur Negative Barbiturate Screen, Ur Negative Benzodiazepine Screen, Ur Negative Cocaine Screen, Ur Negative Opiate Screen, Ur Negative Cannabinoid (THC) Screen, Ur Negative Oxycodone Screen, Ur Negative Fentanyl, Ur Negative Narrative: Assay cutoffs: Amphetamines 1000 ng/mL Barbiturates 200 ng/mL Benzodiazepines 200 ng/mL Cocaine 300 ng/mL Fentanyl 1 ng/mL Opiates 300 ng/mL Oxycodone 100 ng/mL THC 50 ng/mL Semi-quantitative assay for screening purposes only. Unconfirmed screening result should not be used for non-medical purposes. *ALTERNATE METHOD CONFIRMATION DONE UPON REQUEST ONLY* MAGNESIUM - Normal Magnesium 2.2 CBC AND DIFFERENTIAL Narrative: The following orders were created for panel order CBC and differential. Procedure Abnormality Status --------- ------ CBC auto differential[[id number]] Abnormal Final result Please view results for these tests on the individual orders. Abnormal Labs Reviewed COMPREHENSIVE METABOLIC PANEL - Abnormal; Notable for the following components: Result Value Glucose 218 (*) BUN 27 (*) Creatinine 1.37 (*) AST (SGOT) 43 (*) Alkaline Phosphatase 220 (*) All other components within normal limits ETHANOL - Abnormal; Notable for the following components: Ethanol Level 154 (*) All other components within normal limits SALICYLATE LEVEL - Abnormal; Notable for the following components: Salicylate Level <1.7 (*) All other components within normal limits ACETAMINOPHEN LEVEL - Abnormal; Notable for the following components: Acetaminophen Level <2.0 (*) All other components within normal limits CBC WITH AUTO DIFFERENTIAL - Abnormal; Notable for the following components: RBC 3.70 (*) Hemoglobin 9.6 (*) Hematocrit 30.2 (*) MCH 25.9 (*) MCHC 31.8 (*) RDW 19.4 (*) Platelets 125 (*) MPV 11.9 (*) Lymphocytes Absolute 0.56 (*) All other components within normal limits No orders to display I have discussed the incidental/abnormal imaging and/or lab abnormalities with the patient and haveinstructed them the need for further evaluation and workup with their primary care doctor. I have provided the patient with a paper copy of the abnormality. The laboratory results, imaging results and other diagnostic exam results were reviewed in the EMR. EKG Interpretation Critical Care Time None ? Medical Decision Making Medications - No data to display ED Course as of 08/08/242338 Erika Aug 08, [id number] 54-year-old male presented hospital today for evaluation of detox resources for alcohol addiction. Will obtain screening lab for patient per psychiatric protocol here at this facility. Patient appeared to be clinically sober on my exam. Will have crisis team see the patient afterward to see if they could assist patient with further resources in the community. [TC] 2337 Reviewed patient lab where he does have some hyperglycemia 218. Slight increase in creatinine 1.37. Patient does have some anemia 9.6. This similar to his previous lab work. Patient ethanol level was elevated 154. Serum tox is negative. U tox is negative for any signs of other substance use. This time crisis team will be consulted at this time. Patient be signed out to oncoming provider. [TC] ED Course User Index [TC] Mia Armas DO Clinical Impressions as of 08/08/242338 Alcohol use Procedures Procedures Diagnosis 1. Alcohol use Disposition Data Unavailable ED Prescriptions None Physician Attestation Mia Armas DO 08/08/242036 Mia Armas DO 08/08/242153 Mia Armas DO 08/08/242338 documented in this encounter Consult Notes * Justin Bello RN - 08/09/2024 9:41 AM ESTAssociated Order(s): IP CONSULT TO MAIL ORDER BILLER Images from the original note were not included. Behavioral Health Services - Crisis Assessment Important times Time of arrival: 08/08/242017 Time of referral: 913 Time of readiness: 0915 Time assessment started: 929 Time of disposition: 1030 Location: [facility] ED Consulted case with: ANTHONY Bowling Reason for Consultation / Presenting Problem: Kwame Gary Xie is being seen today for a consultiveservice at the request of Preeti Glaser MD to assess risk and identify appropriate level ofcare. Mr. Xie reported to [facility] ED after an unclear interaction with [employer]. He reportspolice officer asked if he was ok, while he was consuming alcohol somewhere in the City which resulted in transportation to [facility]. He state he was discharged from [facility] 08/08/24. MV confirms he wasadmitted for 13 days with dx of MDD and was on olazapine and citalopram. Mr. Xie reports relapse on ETOH yesterday drank 2/3 of a pint of vodka, he reasons that ETOH takes the pain away. He reports racing thoughts, depressed mood, hoplessness, guilt, insomnia (trouble falling asleep, and midnight awakenings from nightmares where he cannot fall back asleep), hyperalgia, fatigue/low energy. Additionally he reports irritability and anxious mood. Denies SI/HI/AH/VH. Mr. Xie demonstrates erotomania stating I am in a relationship with a much younger woman (29) who is a famous celebrity living in [place]. She is with my children. I can only contact her through my cell phone via text because she has had issues with stalkers in the past. I reach her through text messaging her security team. Additionally he reports being in a different country, so the marriage is notvalid in the . When asked who he is to or what country he is in he states I don't want to get into that. 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 He states he is 100% disabled but the can call him up as active at any time.He reports symptoms of nightmares and flashbacks from his traumatic experiences in the . Mr. Xie is help seeking, reporting he wants help to control his racing thoughts and depressed mood. His ultimate goal would be to get into a facility for a multi-week stabilization. History of Present Illness: Kwame is a 54 y.o. male with Chief Complaint Patient presents with Alcohol Intoxication Social/Educational History: Guardian - if Yes, provide contact information: no guardian. Status: Pt self reports he is a , no current State Agency Involvement: Pt reports full disability receives SSI Chetan's Order: No Marital Status: Reports being overseas. Alternative Placement Details: none Living Situation for patient: Pt reports living in [place], but currently staying in the area forhis 91 year old mother who lives in assisted living in the area. Household Members/Age: Unknown Friendships/Family/Social Peer Support/Relationships: Mom, 2 sisters, and 1 brother live in [facility] who he reports being estranged from and does not want us to contact. Highest level of education: Highschool. Occupation: Unemployed. Limitations of Daily Activities: None. Collaterals, contact information, and engagement level: Therapist: No Psychiatrist: No PCP: No Family: Unknown contact information Mental Status Speech: WNL Eye Contact: WNL Motor Activity: Restless Mood: Depressed Affect: Appropriate Sleep: Poor Appetite: Reports overeating, excessive hunger. Memory: Mild impairment AEB: Reports 3 days admission to [facility], [facility] reports 13 day admission. Attention / Concentration: WNL Behavior: Cooperative, Paranoid, and Restless Hallucinations: None Delusions: Erotomania reports being in relationship and having [address] children on [address] with a famous celebrity, whom he will not name, but reports she is 29 years old and she is living in [place]. Thought Content: His thought content is preoccupied by stabilizing himself so he can rejoin the woman he reports being in a relationship with. SI: Denied HI: Denied Thought Process: Pt self reports racing thoughts It feels like I am in a bar fight with 12 people and all I can do is duck and dodge my thoughts because they are just coming at me so fast. I can't even think straight. Orientation Impairment: None Insight: Insight is fair, he is here in the hospital seeking care for his inability to control racing thoughts and depressed mood, but he is preoccupied with erotomanic belief that he is in relationship with famous celebrity Judgment: Fair Impulse Control: WNL Substance Use History (Including family history): ETOH. Reports recent relapse on ETOH, had 2/3 of a pint of vodka yesterday, spent 13 days in [facility] discharged 08/08/24. Utox Results: Latest Reference Range & Units 08/08/24 20:40 08/08/24 21:01 Ethanol Level 0 - 10 mg/dL 154 (H) Amphetamine Screen, Ur Negative Negative Barbiturate Screen, Ur Negative Negative Benzodiazepine Screen, Ur Negative Negative Cocaine Screen, Ur Negative Negative Fentanyl, Ur Negative Negative Opiate Screen, Ur Negative Negative Oxycodone Screen, Ur Negative Negative Cannabinoid (THC) Screen, Ur Negative Negative (H): Data is abnormally high Substance Use Treatment History: Denies recent history Mental Health Treatment History: Outpatient Mental Health Treatment: No established care Previous or Current Psychological Diagnosis: 08/08/23 from [facility] Prior Psychiatric Hospitalizations/Residential Treatment Facilities: Listed Above Other Comments Regarding Mental Health Treatment History: [facility] had patient on olanzapine and citalopram Mental Health Concerns in Family: Pt reports one grandmother had nervous breakdown and two children who in her arms and she rocked for 2 days after they were . Trauma History: The patient reports a history of combat through which he identified as traumatic. Medications: Scheduled Meds: Continuous Infusions: PRN Meds: No medications at this time. Risk Assessment: Self-Harm: None Suicidal Behavior: None Homicidal Behavior: None Physical Assault: None Physical Aggression: None Property Damage: None Verbal Aggression: None Family history of suicide: denied Protective Factors: The patient is help seeking. Risk Factors: Actively psychotic, history of recent AUD relapse, no family or social support. Suicide Risk: Based on patient's history and current presentation, their level of risk for intentional lethal harm is considered Low Interventions: Active listening, motivational interviewing, emotional support. Response to interventions: Receptive DSM-5TR Diagnosis: F33.3 Major depressive disorder, recurrent, severe with psychotic features Plan: The patient meets criteria for MDD with psychotic features. He is help seeking for his racing thoughts and depressed mood. 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 He would benefit from [facility] for stabilization Recommendations were discussed with requesting provider. It was a pleasure to assist Kwame Xie here at [facility]. This report is written and finalized by: Justin Bello RN, PMHNP Student Behavioral Health Composition Mixer [facility] (Tel): [phone] / : [phone] documented in this encounter Plan of Treatment Not on file documented as of this encounter Procedures Procedure Name Priority Date/Time Associated Diagnosis Comments POCT GLUCOSE BLOOD Routine 08/10/2024 12 :09 PM EST POCT GLUCOSE BLOOD Routine 08/10/2024 8: 28 AM EST POCT GLUCOSE BLOOD Routine 08/09/2024 4: 34 PM EST POCT GLUCOSE BLOOD Routine 08/09/2024 2: 29 PM EST CBC WITH AUTO DIFFERENTIAL STAT 08/08/2024 9:01 PM EST CBC AND DIFFERENTIAL STAT 08/08/2024 9:01 PM EST MAGNESIUM STAT 08/08/2024 9:01 PM EST ETHANOL STAT 08/08/2024 9:01 PM EST ACETAMINOPHEN LEVEL STAT 08/08/2024 9 :01 PM EST SALICYLATE LEVEL STAT 08/08/2024 9:01 PM EST COMPREHENSIVE METABOLIC PANEL STAT 08/08/2024 9:01 PM EST DRUG ABUSE SCREEN 8A PANEL, URINE STAT 08/08/2024 8:40 PM EST ESPAÑA URINE CULTURE TUBE Routine 08/08/2024 8:36 PM EST TIGER TOP URINE TUBE Routine 08/08/2024 8:36 PM EST EXTRA TUBES Routine 08/08/2024 8:36 PM EST documented in this encounter Results * (ABNORMAL) POCT Glucose, blood (08/10/2024 12:09 PM EST) Glucose POCT 235(H) 70 - 100 mg/dL 08/10/2024 12:12 PM EST [facility] Blood Capillary blood specimen / Unknown 08/10/2024 12:09 PM EST 08/10/2024 12:13 PM EST Justin Sue MD LAB POINT OF CARE TE ST DOCKED DEVICE UNSOLICITED RESULTS [facility] [address] [place] [address], [place] [phone] * (ABNORMAL) POCT Glucose, blood (08/10/2024 8:28 AM EST) Glucose POCT 272(H) 70 - 100 mg/dL 08/10/2024 8:29 AM EST [facility] Blood Capillary blood specimen / Unknown 08/10/2024 8:28 AM EST 08/10/2024 8:31 AM EST Justin Sue MD LAB POINT OF CARE TE ST DOCKED DEVICE UNSOLICITED RESULTS Performing Organization Address City/[facility]/ZIP Co de Phone Number [facility] [address] [place] [address], [place] [phone] * (ABNORMAL) POCT Glucose, blood (08/09/2024 4:34 PM EST) Glucose POCT 386(H) 70 - 100 mg/dL 08/09/2024 4:34 PM EST [facility] Blood Capillary blood specimen / Unknown 08/09/2024 4:34 PM EST 08/09/2024 4:36 PM EST Jaquan Blas DO LAB POINT OF CARE TE ST DOCKED DEVICE UNSOLICITED RESULTS Performing Organization Address City/[facility]/ZIP Co de Phone Number [facility] [address] [place] [address], [place] [phone] * (ABNORMAL) POCT Glucose, blood (08/09/2024 2:29 PM EST) [facility] Glucose POCT 482(HH) 70 - 100 mg/dL 08/09/2024 2:30 PM [facility] POCT Comment RN Notified 08/09/2024 2:30 PM EST [facility] Blood Capillary blood specimen / Unknown 08/09/2024 2:29 PM EST 08/09/2024 2:31 PM EST Cornelio Morillo MD LAB POINT OF CARE T EST DOCKED DEVICE UNSOLICITED RESULTS [facility] [address] [place] [address], * (ABNORMAL) CBC auto differential (08/08/2024 9:01 PM EST) [facility] WBC 7.5 4.8 - 10.8 K/mcL LAB HEMETOLOGY METHOD 08/08/2024 9:34 PM [facility] RBC 3.70(L) 4.50 - 5.50 M/mcL LAB HEMETOLOGY METHOD 08/08/2024 9:34 PM [facility] Hemoglobin 9.6(L) 13.5 - 17.5 g/dL LAB HEMETOLOGY METHOD 08/08/2024 9:34 PM [facility] Hematocrit 30.2(L) 42.0 - 54.0 % LAB HEMETOLOGY METHOD 08/08/2024 9:34 PM [facility] MCV 81.4 79.0 - 98.0 FL LAB HEMETOLOGY METHOD 08/08/2024 9:34 PM [facility] MCH 25.9(L) 27.0 - 32.0 pcg LAB HEMETOLOGY METHOD 08/08/2024 9:34 PM [facility] MCHC 31.8(L) 32.0 - 37.0 g/dL LAB HEMETOLOGY METHOD 08/08/2024 9:34 PM [facility] RDW 19.4(H) 11.0 - 15.0 % LAB HEMETOLOGY METHOD 08/08/2024 9:34 PM [facility] Platelets 125(L) 130 - 400 K/mcL LAB HEMETOLOGY METHOD 08/08/2024 9:34 PM [facility] MPV 11.9(H) 7.0 - 11.0 FL LAB HEMETOLOGY METHOD 08/08/2024 9:34 PM [facility] NRBC 0.0 <1.0 % LAB HEMETOLOGY METHOD 08/08/2024 9:34 PM [facility] NRBC Absolute 0.00 <0.10 K/mcL LAB HEMETOLOGY METHOD 08/08/2024 9:34 PM [facility] Neutrophils Relative 81.1 % LAB HEMETOLOGY METHOD 08/08/2024 9:34 PM [facility] Lymphocytes Relative 7.5 % LAB HEMETOLOGY METHOD 08/08/2024 9:34 PM [facility] Monocytes Relative 9.3 % LAB HEMETOLOGY METHOD 08/08/2024 9:34 PM [facility] Eosinophils Relative 0.8 % LAB HEMETOLOGY METHOD 08/08/2024 9:34 PM [facility] Basophils Relative 0.9 % LAB HEMETOLOGY METHOD 08/08/2024 9:34 PM [facility] Immature Granulocytes Relative 0.4 % LAB HEMETOLOGY METHOD 08/08/2024 9:34 PM [facility] Neutrophils Absolute 6.04 1.50 - 7.00 K/mcL LAB HEMETOLOGY METHOD 08/08/2024 9:34 PM [facility] Lymphocytes Absolute 0.56(L) 1.00 - 5.00 K/[facility] LAB HEMETOLOGY METHOD 08/08/2024 9:34 PM EST [facility] Monocytes Absolute 0.69 0.20 - 1.00 K/[facility] LAB HEMETOLOGY METHOD 08/08/2024 9:34 PM EST [facility] Eosinophils Absolute 0.06 0.00 - 0.50 K/[facility] HEMETOLOGY METHOD 08/08/2024 9:34 PM EST [facility] Basophils Absolute 0.07 0.00 - 0.20 K/[facility] HEMETOLOGY METHOD 08/08/2024 9:34 PM EST [facility] Immature Granulocytes Absolute 0.03 0.00 - 0.03 K/[facility] HEMETOLOGY METHOD 08/08/2024 9:34 PM EST [facility] Blood Venous blood specimen / Unknown Venipuncture / Unknown 08/08/2024 9:01 PM EST 08/08/2024 9:20 PM EST Vincemateo Moreno Armas LAB BLOOD ORDERAB LES [facility] [address] [place] [address], [place] [phone] * (ABNORMAL) Acetaminophen level (08/08/2024 9:01 PM EST) Acetaminophen Level <2.0(L) 10.0 - 30.0 mcg/mL LAB CHEMISTRY METHOD 08/08/2024 10:04 PM EST [facility] Blood Venous blood specimen / Unknown Venipuncture / Unknown 08/08/2024 9:01 PM EST 08/08/2024 9:20 PM EST Vincemateo Moreno Armas LAB BLOOD ORDERAB LES [facility] [address] [place] [address], [place] [phone] * (ABNORMAL) Salicylate level (08/08/2024 9:01 PM EST) Salicylate Level <1.7(L) 2.0 - 29.0 mg/dL LAB CHEMISTRY METHOD 08/08/2024 9:57 PM EST [facility] Blood Venous blood specimen / Unknown Venipuncture / Unknown 08/08/2024 9:01 PM EST 08/08/2024 9:20 PM EST Mia Armas LAB BLOOD ORDERAB LES Performing Organization Address City/[facility]/ZIP Co de Phone Number [facility] [address] [place] [address], [place] [phone] * Magnesium (08/08/2024 9:01 PM EST) Magnesium 2.2 1.9 - 2.6 mg/dL LAB CHEMISTRY METHOD 08/08/2024 9:57 PM EST [facility] Blood Venous blood specimen / Unknown Venipuncture / Unknown 08/08/2024 9:01 PM EST 08/08/2024 9:20 PM EST Vincemateo Armas LAB BLOOD ORDERAB LES [facility] [address] [place] [address], * (ABNORMAL) Ethanol (08/08/2024 9:01 PM EST) Ethanol Level 154(H) 0 - 10 mg/dL LAB CHEMISTRY METHOD 08/08/2024 9:57 PM EST [facility] Blood Venous blood specimen / Unknown Venipuncture / Unknown 08/08/2024 9:01 PM EST 08/08/2024 9:20 PM EST Vincemateo Armas DO LAB BLOOD ORDERAB LES [facility] [address] [place] [address], * (ABNORMAL) Comprehensive metabolic panel (08/08/2024 9:01 PM EST) Sodium 136 133 - 145 mmol/L LAB CHEMISTRY METHOD 08/08/2024 9:57 PM EST [facility] Potassium 4.1 3.5 - 5.5 mmol/L LAB CHEMISTRY METHOD 08/08/2024 9:57 PM [facility] Chloride 106 96 - 110 mmol/L LAB CHEMISTRY METHOD 08/08/2024 9:57 PM [facility] CO2 23 21 - 32 mmol/L LAB CHEMISTRY METHOD 08/08/2024 9:57 PM [facility] Anion Gap 7 3 - 11 LAB CHEMISTRY METHOD 08/08/2024 9:57 PM [facility] Glucose 218(H) 70 - 100 mg/dL LAB CHEMISTRY METHOD 08/08/2024 9:57 PM [facility] BUN 27(H) 5 - 25 mg/dL LAB CHEMISTRY METHOD 08/08/2024 9:57 PM [facility] Creatinine 1.37(H) 0.70 - 1.30 mg/dL LAB CHEMISTRY METHOD 08/08/2024 9:57 PM [facility] eGFR 61 >=60 mL/min/1. 73m2 LAB CHEMISTRY METHOD 08/08/2024 9:57 PM [facility] Comment:Calculation based on the??Chronic Kidney Disease Epidemiology Collaboration (CKD-EPI) equation refit??without adjustment for race. BUN/Creatinine Ratio 19.7 LAB CHEMISTRY METHOD 08/08/2024 9:57 PM [facility] Calcium 9.0 8.5 - 10.5 mg/dL LAB CHEMISTRY METHOD 08/08/2024 9:57 PM [facility] AST (SGOT) 43(H) 10 - 42 unit/L LAB CHEMISTRY METHOD 08/08/2024 9:57 PM [facility] ALT (SGPT) 45 10 - 60 unit/L LAB CHEMISTRY METHOD 08/08/2024 9:57 PM [facility] Alkaline Phosphatase 220(H) 42 - 121 unit/L LAB CHEMISTRY METHOD 08/08/2024 9:57 PM [facility] Total Protein 7.7 6.0 - 8.0 g/dL LAB CHEMISTRY METHOD 08/08/2024 9:57 PM [facility] Albumin 3.6 3.2 - 5.0 g/dL LAB CHEMISTRY METHOD 08/08/2024 9:57 PM [facility] Total Bilirubin 1.2 0.0 - 1.4 mg/dL LAB CHEMISTRY METHOD 08/08/2024 9:57 PM [facility] Blood Venous blood specimen / Unknown Venipuncture / Unknown 08/08/2024 9:01 PM EST 08/08/2024 9:20 PM EST Mia Armas DO LAB BLOOD ORDERAB LES Performing Organization Address [facility]/State/ZIP Co de Phone Number [facility] [address] [place] [address], * Drug abuse screen 8a panel, urine (08/08/2024 8:40 PM EST) Amphetamine Screen, Ur Negative Negative LAB CHEMISTRY METHOD 08/08/2024 10:05 PM [facility] Comment:Certain OTC medicati ons containing ephedrine, phenylephrine, pseudoephedrine and phenylpropanolamine can cause false positive results. Barbiturate Screen, Ur Negative Negative LAB CHEMISTRY METHOD 08/08/2024 10:05 PM [facility] Benzodiazepine Screen, Ur Negative Negative LAB CHEMISTRY METHOD 08/08/2024 10:05 PM [facility] Cocaine Screen, Ur Negative Negative LAB CHEMISTRY METHOD 08/08/2024 10:05 PM EST [facility] Opiate Screen, Ur Negative Negative LAB CHEMISTRY METHOD 08/08/2024 10:05 PM EST [facility] Cannabinoid (THC) Screen, Ur Negative Negative LAB CHEMISTRY METHOD 08/08/2024 10:05 PM EST [facility] Comment:Specimens from patie nts taking pantoprazole sodium (Protonix) have been shown to produce false positive results. Oxycodone Screen, Ur Negative Negative LAB CHEMISTRY METHOD 08/08/2024 10:05 PM EST [facility] Fentanyl, Ur Negative Negative LAB CHEMISTRY METHOD 08/08/2024 10:05 PM [facility] Urine Urine specimen obtained by clean catch procedure / Unknown Non-blood Collection / Unknown 08/08/2024 8:40 PM EST 08/08/2024 9:19 PM EST [facility] - 08/08/2024 10:05 PM EST Assay cutoffs: Amphetamines ? 1000 ng/mL Barbiturates ?200 ng/mL Benzodiazepines ?? 200 ng/mL Cocaine ? 300 ng/mL Fentanyl ?1 ng/mL Opiates ? 300 ng/mL Oxycodone ? 100 ng/mL THC ?50 ng/mL Semi-quantitative assay for screening purposes only. Unconfirmed screening result should not be used for non-medical purposes. *ALTERNATE METHOD CONFIRMATION DONE UPON REQUEST ONLY* Mia Armas DO LAB URINE ORDERAB LES [facility]) [facility] [address] [place] [address], * [place] top urine tube (08/08/2024 8:36 PM EST) Extra Tube Hold for add-ons. 08/08/2024 11:01 PM EST [facility] Comment:Auto resulted. Urine Urine specimen obtained by clean catch procedure / Unknown 08/08/2024 8:36 PM EST 08/08/2024 9:20 PM EST Mia Armas LAB URINE ORDERAB LES Performing Organization Address City/[facility] Co de Phone Number [facility] [address] [place] [address], [place] [phone] * [place] urine culture tube (08/08/2024 8:36 PM EST) Extra Tube Hold for add-ons. 08/08/2024 11:01 PM EST [facility] Comment:Auto resulted. Urine Urine specimen obtained by clean catch procedure / Unknown 08/08/2024 8:36 PM EST 08/08/2024 9:20 PM EST Mia Armas LAB URINE ORDERAB LES Performing Organization Address [facility] de Phone Number [facility] [address] [place] [address], [place] [phone] documented in this encounter Visit Diagnoses Diagnosis Alcohol use- Primary Other problems related to lifestyle Major depressive disorder, recurrent, severe with psychotic features (CMS/HCC) Major depressive disorder, recurrent episode, severe, specified as with psychotic behavior documented in this encounter Administered Medications Inactive Administered Medications - up to 3 most recent administrations Medication Order MAR Action Action Date Dose Rate Site acetaminophen (TYLENOL) tablet 1,000 mg 1,000 mg, oral, Once, On Erika 08/08/24 at 2355, For 1 dose Given 08/09/2024 12:05 AM EST 1,000 mg acetaminophen (TYLENOL) tablet 650 mg 650 mg, oral, Every 6 hours PRN, mild pain, Starting on 08/09/24 at 1056 Given 08/09/2024 10:59 PM EST 650 mg Given 08/09/2024 11:36 AM EST 650 mg insulin glargine (LANTUS) injection 20 Units 20 Units, subcutaneous, Nightly, First dose on Mon08/09/24 at 2100, Notify provider: -If patient is currently or will become NPO -If TPN was or will be interrupted or discontinued -For approval to hold long acting insulin Given 08/09/2024 11:01 PM EST 20 Units Other insulin lispro injection 1-6 Units 1-6 Units, subcutaneous, 3 times daily before meals, First dose on Mon08/09/24 at 1630, Indication: Total Daily Dose (TDD) LESS than 40 units Correction Scale: Low Dose Administer with meal and/or mealtime dose of insulin to correct high blood glucose If mealtime insulin dose not given (e.g. patient NPO or not eating), still administer correction factor for high blood glucose Given 08/10/2024 12:17 PM EST 2 Units Left Upper Arm (Back ) Given 08/10/2024 8:40 AM EST 3 Units Le ft Upper Arm (Back) Given 08/09/2024 5:25 PM EST 5 Units Ri ght Upper Arm (Back) insulin regular (HumuLIN R) injection 10 Units 10 Units, subcutaneous, Once, On Mon08/09/24 at 1440, For 1 dose Given 08/09/2024 3:45 PM EST 10 Units Left Upper Arm (Back ) documented in this encounter Historical Medications * This list may reflect changes made after this encounter. Medication Sig Dispensed Refills Start Date End Date insulin glargine (LANTUS) 100 unit/mL injection Inject 30 Units under the skin 1 (one) time each day in the morning. insulin lispro 100 unit/mL injection Inject under the skin 3 (three) times a day before meals. -Administer within 15 minutes of a meal insulin glargine (LANTUS SoloStar) 100 unit/mL (3 mL) injection pen Inject 20 Units under the skin at bedtime. 04/30/2024 folic acid (FOLVITE) 1 mg tablet Take 1 tablet (1 mg total) by mouth daily. 04/30/2024 hydrOXYzine pamoate (VISTARIL) 50 mg capsule Take 1 capsule (50 mg total) by mouth 4 (four) times a day if needed for anxiety. 08/08/2024 pantoprazole (PROTONIX) 40 mg EC tablet Take 1 tablet (40 mg total) by mouth daily. 01/28/2024 traZODone (DESYREL) 50 mg tablet Take 1 tablet (50 mg total) by mouth at bedtime. 01/28/2024 thiamine (thiamine mononitrate, vit B1,) 100 mg tablet Take 1 tablet (100 mg total) by mouth daily. 04/30/2024 spironolactone (ALDACTONE) 50 mg tablet Take 1 tablet (50 mg total) by mouth daily. 04/30/2024 furosemide (LASIX) 20 mg tablet Take 1 tablet (20 mg total) by mouth daily. 01/28/2024 citalopram (CeleXA) 20 mg tablet Take 1 tablet (20 mg total) by mouth 1 (one) time each day. 08/08/2024 added in this encounter Active and Recently Administered Medications Times are shown in EST. Scheduled Medication Order 08/08/2024 08/09/2024 08/10/2024 acetaminophen (TYLENOL) tablet 1,000 mg (COMPLETED) 1,000 mg, oral, Once, On Erika 08/08/24 at 2355, For 1 dose 0005 (Given - Provider: Alissa Wilkerson RN) insulin glargine (LANTUS) injection 20 Units 20 Units, subcutaneous, Nightly, First dose on Mon08/09/24 at 2100, Notify provider: -If patient is currently or will become NPO -If TPN was or will be interrupted or discontinued -For approval to hold long acting insulin 2301 (Given - Provider: Sj Simon, HONEY) insulin lispro injection 1-6 Units 1-6 Units, subcutaneous, 3 times daily before meals, First dose on Mon08/09/24 at 1630, Indication: Total Daily Dose (TDD) LESS than 40 units Correction Scale: Low Dose Administer with meal and/or mealtime dose of insulin to correct high blood glucose If mealtime insulin dose not given (e.g. patient NPO or not eating), still administer correction factor for high blood glucose 1725 (Given - Provider: Komal Tenorio RN) 0840 (Given - Provider: Gabriella Lee, HONEY - Comment: bkfst not avialable yet)1217 (Given - Provider: Gabriella Lee RN) insulin regular (HumuLIN R) injection 10 Units (COMPLETED) 10 Units, subcutaneous, Once, On Mon08/09/24 at 1440, For 1 dose 1545 (Given - Provider: Komal Tenorio, HONEY) PRN Medication Order 08/08/2024 08/09/2024 08/10/2024 acetaminophen (TYLENOL) tablet 650 mg 650 mg, oral, Every 6 hours PRN, mild pain, Starting on Mon08/09/24 at 1056 1136 (Given - Provider: Julián Herman RN)2259 (Given - Provider: Sj Simon RN) dextrose (D50W) 50% injection 12.5 g 12.5 g, intravenous, Every 15 min PRN, low blood sugar, moderate hypoglycemia *Patient is Unconscious, NPO, unable to swallow: BG 54 - 69 mg/dl*, Starting on Mon08/09/24 at 1438 dextrose (D50W) 50% injection 25 g 25 g, intravenous, Every 15 min PRN, low blood sugar, severe hypoglycemia *Patient is Unconscious, NPO, unable to swallow: BG LESS than 54 mg/dL*, Starting on Mon08/09/24 at 1438 dextrose 15 gram/60 mL oral solution 15 g 15 g, oral, Every 15 min PRN, low blood sugar, hypoglycemia *Patient conscious AND able to drink and swallow safely*, Starting on Mon08/09/24 at 1438 dextrose 15 gram/60 mL oral solution 30 g 30 g, oral, Every 15 min PRN, low blood sugar, hypoglycemia *Patient conscious AND able to drink and swallow safely*, Starting on Mon08/09/24 at 1438 Glucagon HCl (rDNA) injection 1 mg 1 mg, intramuscular, Once as needed, low blood sugar, severe hypoglycemia, Starting on Mon08/09/24 at 1438, For 1 dose documented in this encounter Orders Medications Ordered That Tobi ht Not Have Been Administered Count Last Ordered Date First Ordered Date dextrose (D50W) 50% injection 12.5 g 07/24 dextrose (D50W) 50% injection 25 g 1 2024 dextrose 15 gram/60 mL oral solution 15 g 1 08/09/2024 dextrose 15 gram/60 mL oral solution 30 g 08/09/2024 Glucagon HCl (rDNA) injection 1 mg 1 01/17/ 2025 Consult Count Last Ordered Date First Orde red Date IP CONSULT TO MAIL ORDER BILLER 1 08/08/2024 documented in this encounter Care Teams Car Record Clerk Relationship Specialty Start Date End Date Physician, No Pcp PCP - General 08/02/24 documented as of this encounter
--- OUTSIDE RECORDS SUMMARY | 2024-08-30 14:29 | XMS_ITS | Encounter Summary ---
Author Organization [facility] Address [address] [place] [address] Care Team Providers Care Vessel Master Name Role Phone Physician, No Pcp Primary Care Provider Unavaila ble Reason for Visit * Reason Comments Hyperglycemia Encounter Details Date Type Department Care Team (Late st Contact Info) Description 08/02/2024 1:24 PM EST - 08/02/2024 4:51 PM EST Emergency [facility] Emergency [address] [place] [address] Jamison Jeong MD [address] [place] [address] Poorly controlled diabetes mellitus (CMS/HCC) (Primary Dx) Discharge Disposition: Home or Self Care Social History Tobacco Use Types Packs/Day Years Used Date Smoking Tobacco: Unknown Tobacco Cessation:Counseling Given: Not Answered Sex and Gender Information Value Date Recorded Sex Assigned at Male 08/08/2024 9:22 PM EST Gender Identity Male 08/08/2024 9:22 PM EST Sexual Orientation Straight 08/08/2024 9: 22 PM EST Job Start Date Occupation Industry Not on file Not on file Not on file documented as of this encounter Last Filed Vital Signs Vital Sign Reading Time Taken Comments Blood Pressure 137/86 08/02/2024 1:35 PM EST Pulse 91 08/02/2024 1:35 PM EST Temperature 36.6 ??C (97.8 ??F) 08/02/2024 1:35 PM ES T Respiratory Rate 16 08/02/2024 1:35 PM EST Oxygen Saturation 97% 08/02/2024 1:35 PM EST Inhaled Oxygen Concentration - - Weight 81.6 kg (180 lb) 08/02/2024 1:35 PM EST Height 177.8 cm (5' 10 ) 08/02/2024 1:35 PM EST Body Mass Index 25.83 08/02/2024 1:35 PM EST documented in this encounter Functional Status Functional Status Response Date of Assess ment Are you deaf or do you have serious difficulty h earing? No 08/02/2024 Are you blind or do you have serious difficulty seeing, even when wearing glasses? No 08/02/2024 Do you have serious difficul ty walking or climbing stairs? No 08/02/2024 Do you have serious difficulty dressing or bathi ng? No 08/02/2024 Because of a physical, menta l, or emotional condition, do you have serious difficulty doing errands alone such as visiting the doctor? No 08/02/2024 Cognitive Status Response Date of Assessm ent Because of a physical, menta l, or emotional condition, do you have serious difficulty concentrating, remembering, or making decisions? (5 years old or older) No 08/02/2024 documented as of this encounter Discharge Instructions * Discharge Instructions* Jamison Jeong MD - 08/02/2024 2:13 PM EST Patient has adequate medications, continues to use insulin sliding scale as well as his long-actinginsulin regimen, today he received fluids I did give him additional subcutaneous insulin, there is no evidence per blood work that he has any diabetic related emergencies, there is no specific indications for the patient to come back to the ER for hyperglycemia per se, he needs to make sure to staywell-hydrated with water, avoid hydrating with soda, otherwise continue with regular diet and his current regimen. documented in this encounter Medications at Time of Discharge Medication Sig Dispensed Refills Start Date End Date folic acid (FOLVITE) 1 mg tablet Take 1 tablet (1 mg total) by mouth daily. 04/30/2024 furosemide (LASIX) 20 mg tablet Take 1 tablet (20 mg total) by mouth daily. 01/28/2024 insulin glargine (LANTUS SoloStar) 100 unit/mL (3 [...] mg total) by mouth at bedtime. 01/28/2024 documented as of this encounter Discharge Disposition Disposition Code Departure Means Destination Comment s Home or Self Care documented in this encounter Progress Notes * Kermit Medina RN - 08/02/2024 4:45 PM EST Pt cleared for discharge, report given to [address] staff. Report given to EMS. Pt ambulated self to EMS stretcher without difficulty. Seen leaving department with EMS personnel. Kermit Medina RN 08/02/24 1646 * Kermit Medina RN - 08/02/2024 1:27 PM EST BIBA from [facility] for hyperglycemia, greater than 500 at facility, EMS reports POCT BS of 597. EMS gave approx 300ml NS. Pt c/o mild dizziness and abdominal pain. Pt is a voluntary admit to , however sent to [facility] on [address]. Pt asked for a cell phone or laptop to call his celebrity in [place]. Pt is calm and cooperative. Pt is ambulatory, a/ox3 * Jamison Jeong MD - 08/02/2024 1:15 PM EST Emergency Medicine Note Patient Name: Kwame Xie Initial Evaluation: 08/02/2024 : 1970 Patient's PCP: No primary care provider on file. Emergency Physician: Jamison Jeong MD History of Present Illness Chief Complaint: Chief Complaint Patient presents with ??? Hyperglycemia HPI: See MDM ROS: I have performed a ROS with the pertinent positives and negatives documented in the history ofpresent illness. Previous History Past Medical History: Diagnosis Date ??? Schizophrenia (CMS/HCC) History reviewed. No pertinent surgical history. Social History Tobacco Use ??? Smoking status: Unknown No family history on file. is allergic to gabapentin, other, and wellbutrin [bupropion hcl]. No current facility-administered medications on file prior to encounter. No current outpatient medications on file prior to encounter. Physical Exam ED Triage Vitals [08/02/24 1335] Temp Heart Rate Resp BP 36.6 ??C (97.8 ??F) 91 16 137/86 SpO2 Temp src Heart Rate Source Patient Position 97 % -- -- -- BP Location FiO2 (%) -- -- See [facility] Results Labs Reviewed POCT GLUCOSE, BLOOD - Abnormal Result Value Glucose POCT 389 (*) VENOUS BLOOD GAS pH, Clemente 7.36 pCO2, Clemente 47 pO2, Clemente 40 HCO3, Venous 24.7 O2 Sat, Clemente 54.7 Base Excess, Clemente 0.8 CBC AND DIFFERENTIAL Narrative: The following orders were created for panel order CBC and differential. Procedure Abnormality Status --------- ------ CBC auto differential[[id number]] In process Please view results for these tests on the individual orders. COMPREHENSIVE METABOLIC PANEL LIPASE URINALYSIS WITH REFLEX MICROSCOPIC Narrative: The following orders were created for panel order Urinalysis with reflex microscopic. Procedure Abnormality Status --------- ------ Urinalysis with reflex ...[[id number]] Please view results for these tests on the individual orders. MAGNESIUM OSMOLALITY BETA HYDROXYBUTYRATE CBC WITH AUTO DIFFERENTIAL URINALYSIS WITH REFLEX MICROSCOPIC POC GLUCOSE Abnormal Labs Reviewed POCT GLUCOSE, BLOOD - Abnormal; Notable for the following components: Result Value Glucose POCT 389 (*) All other components within normal limits [...] EMR. EKG Interpretation Critical Care Time None Medical Decision Making Medications - No data to display ED Course as of 08/02/24 1522 MonAug 02, 2024 1409 Patient is presenting from [facility] with concerns for hyperglycemia, I reviewed his records and he has long-acting and short acting insulin scheduled, EMS reported that he had [id number] glucose of 500 he was receiving fluids in ER initial glucose was 389 Patient is not lethargic no chest pain no dysuria reported, he states he chose to come to the ER because he was afraid he is going to be mismanaged and nervous that, he denies ongoing drug use, he states he checked himself into [facility] because of flashbacks and reports being a in [place]. Patient is also stating that he has a that is in [place] for photo shoot [KV] 1410 On physical examination he is well-appearing, he is alert to self location and situation, ableto discuss his medical issues, psychiatric dawson he likely has some delusions Otherwise no visual trauma to the face head neck area Lungs are clear, S1-S2 Abdomen is benign No lower extremity edema [KV] 1411 Patient does not appear to be in a diabetic emergency state, will give fluids, will give insulin, otherwise reviewed all his records and what he is receiving and the rest that he has an appropriate regimen and he has a sliding scale that should be utilized for his hyperglycemia, he is also requesting some food and I will feed him. Anticipating discharge [KV] ED Course User Index [KV] Jamison Jeong MD Clinical Impressions as of 08/02/24 1522 Poorly controlled diabetes mellitus (CMS/[facility]) Procedures Diagnosis No diagnosis found. Disposition Data Unavailable ED Prescriptions None Physician Attestation Jamison Jeong MD 08/02/24 1411 Jamison Jeong MD 08/02/24 1522 documented in this encounter Plan of Treatment Not on file documented as of this encounter Procedures Procedure Name Priority Date/Time Associated Diagnosis Comments POCT GLUCOSE BLOOD Routine 08/02/2024 3: 58 PM EST POCT GLUCOSE BLOOD Routine 08/02/2024 1: 52 PM EST BETA HYDROXYBUTYRATE STAT 08/02/2024 1:46 PM EST CBC WITH AUTO DIFFERENTIAL STAT 08/02/2024 1:46 PM EST CBC AND DIFFERENTIAL STAT 08/02/2024 1:46 PM EST OSMOLALITY STAT 08/02/2024 1:46 PM EST MAGNESIUM STAT 08/02/2024 1:46 PM EST LIPASE STAT 08/02/2024 1:46 PM EST VENOUS BLOOD GAS STAT 08/02/2024 1:46 PM EST COMPREHENSIVE METABOLIC PANEL STAT 08/02/2024 1:46 PM EST documented in this encounter Results * (ABNORMAL) POCT Glucose, blood (08/02/2024 3:58 PM EST) Glucose POCT 344(H) 70 - 100 mg/dL 08/02/2024 3:59 PM EST [facility] Blood Capillary blood specimen / Unknown 08/02/2024 3:58 PM EST 08/02/2024 4:00 PM EST Jamison Jeong MD LAB POINT OF CARE TEST DOCKED DEVICE UNSOLICITED RESULTS [facility] [address] [place] [address], * (ABNORMAL) POCT Glucose, blood (08/02/2024 1:52 PM EST) Glucose POCT 389(H) 70 - 100 mg/dL 08/02/2024 1:53 PM EST [facility] Blood Capillary blood specimen / Unknown 08/02/2024 1:52 PM EST 08/02/2024 1:54 PM EST Generic Provider Poct LAB POINT OF CARE TEST DOCKED DEVICE UNSOLICITED RESULTS [facility] [address] [place] [address], * (ABNORMAL) CBC auto differential (08/02/2024 1:46 PM EST) WBC 3.2(L) 4.8 - 10.8 K/mcL LAB HEMETOLOGY METHOD 08/02/2024 2:19 PM [facility] RBC 3.80(L) 4.50 - 5.50 M/mcL LAB HEMETOLOGY METHOD 08/02/2024 2:19 PM [facility] Hemoglobin 9.9(L) 13.5 - 17.5 g/dL LAB HEMETOLOGY METHOD 08/02/2024 2:19 PM [facility] Hematocrit 30.7(L) 42.0 - 54.0 % LAB HEMETOLOGY METHOD 08/02/2024 2:19 PM [facility] MCV 80.8 79.0 - 98.0 FL LAB HEMETOLOGY METHOD 08/02/2024 2:19 PM [facility] MCH 26.1(L) 27.0 - 32.0 pcg LAB HEMETOLOGY METHOD 08/02/2024 2:19 PM [facility] MCHC 32.2 32.0 - 37.0 g/dL LAB HEMETOLOGY METHOD 08/02/2024 2:19 PM [facility] RDW 19.5(H) 11.0 - 15.0 % LAB HEMETOLOGY METHOD 08/02/2024 2:19 PM [facility] Platelets 75(L) 130 - 400 K/mcL LAB HEMETOLOGY METHOD 08/02/2024 2:19 PM [facility] Comment:reviewed by sonia NOONAN LAB HEMETOLOGY METHOD 08/02/2024 2:19 PM [facility] Comment:Not Measured NRBC 0.0 <1.0 % LAB HEMETOLOGY METHOD 08/02/2024 2:19 PM [facility] NRBC Absolute 0.00 <0.10 K/mcL LAB HEMETOLOGY METHOD 08/02/2024 2:19 PM [facility] Neutrophils Relative 68.2 % LAB HEMETOLOGY METHOD 08/02/2024 2:19 PM [facility] Lymphocytes Relative 11.1 % LAB HEMETOLOGY METHOD 08/02/2024 2:19 PM [facility] Monocytes Relative 17.3 % LAB HEMETOLOGY METHOD 08/02/2024 2:19 PM [facility] Eosinophils Relative 2.2 % LAB HEMETOLOGY METHOD 08/02/2024 2:19 PM [facility] Basophils Relative 0.9 % LAB HEMETOLOGY METHOD 08/02/2024 2:19 PM [facility] Immature Granulocytes Relative 0.3 % LAB HEMETOLOGY METHOD 08/02/2024 2:19 PM [facility] Neutrophils Absolute 2.20 1.50 - 7.00 K/mcL LAB HEMETOLOGY METHOD 08/02/2024 2:19 PM [facility] Lymphocytes Absolute 0.36(L) 1.00 - 5.00 K/mcL LAB HEMETOLOGY METHOD 08/02/2024 2:19 PM [facility] Monocytes Absolute 0.56 0.20 - 1.00 K/mcL LAB HEMETOLOGY METHOD 08/02/2024 2:19 PM [facility] Eosinophils Absolute 0.07 0.00 - 0.50 K/mcL LAB HEMETOLOGY METHOD 08/02/2024 2:19 PM [facility] Basophils Absolute 0.03 0.00 - 0.20 K/[facility] LAB HEMETOLOGY METHOD 08/02/2024 2:19 PM EST [facility] Immature Granulocytes Absolute 0.01 0.00 - 0.03 K/[facility] LAB HEMETOLOGY METHOD 08/02/2024 2:19 PM EST [facility] Blood Venous blood specimen / Unknown Venipuncture / Unknown 08/02/2024 1:46 PM EST 08/02/2024 1:56 PM EST Jamison Jeong MD LAB BLOOD ORDERAB LES [facility] [address] [place] [address], * Venous blood gas (08/02/2024 1:46 PM EST) pH, Clemente 7.36 7.32 - 7.42 pH 08/02/2024 1:58 PM [facility] pCO2, Clemente 47 41 - 51 mmHg 08/02/2024 1:58 PM [facility] pO2, Clemente 40 25 - 40 mmHg 08/02/2024 1:58 PM [facility] HCO3, Venous 24.7 22.0 - 26.0 mmol/L 08/02/2024 1:58 PM [facility] O2 Sat, Clemente 54.7 % 08/02/2024 1:58 PM EST [facility] Base Excess, Clemente 0.8 -2.0 - 2.0 mmol/L 08/02/2024 1:58 PM [facility] Blood Venous blood specimen / Unknown Venipuncture / Unknown 08/02/2024 1:46 PM EST 08/02/2024 1:56 PM EST Jamison Jeong MD LAB BLOOD ORDERAB LES Performing Organization Address [facility] Co de Phone Number [facility] [address] [place] [address], * Beta hydroxybutyrate (08/02/2024 1:46 PM EST) Beta-Hydroxybu tyrate 0.8 0.2 - 2.8 mg/dL LAB CHEMISTRY METHOD 08/02/2024 2:51 PM EST [facility] Blood Venous blood specimen / Unknown Venipuncture / Unknown 08/02/2024 1:46 PM EST 08/02/2024 1:56 PM EST Jamison Jeong MD LAB BLOOD ORDERAB LES Performing Organization Address [facility] Co de Phone Number [facility] [address] [place] [address], * (ABNORMAL) Osmolality (08/02/2024 1:46 PM EST) Osmolality Kalpana 306(H) 280 - 300 mOsm/kg LAB CHEMISTRY METHOD 08/02/2024 4:11 PM EST [facility] Blood Venous blood specimen / Unknown Venipuncture / Unknown 08/02/2024 1:46 PM EST 08/02/2024 1:56 PM EST Jamison Jeong MD LAB BLOOD ORDERAB LES Performing Organization Address City/[facility]/ZIP Co de Phone Number [facility] [address] [place] [address], [place] [phone] * Magnesium (08/02/2024 1:46 PM EST) Magnesium 1.9 1.9 - 2.6 mg/dL LAB CHEMISTRY METHOD 08/02/2024 2:51 PM EST [facility] Blood Venous blood specimen / Unknown Venipuncture / Unknown 08/02/2024 1:46 PM EST 08/02/2024 1:56 PM EST Jamison Jeong MD LAB BLOOD ORDERAB LES Performing Organization Address City/[facility]/ZIP Co de Phone Number [facility] [address] [place] [address], [place] [phone] * Lipase (08/02/2024 1:46 PM EST) Pathologist [facility] Lipase 65 13 - 75 unit/L LAB CHEMISTRY METHOD 08/02/2024 2:51 PM [facility] Blood Venous blood specimen / Unknown Venipuncture / Unknown 08/02/2024 1:46 PM EST 08/02/2024 1:56 PM EST Jamison Jeong MD LAB BLOOD ORDERAB LES Performing Organization Address [facility]/ZIP Co de Phone Number [facility] [address] [place] [address], [place] [phone] * (ABNORMAL) Comprehensive metabolic panel (08/02/2024 1:46 PM EST) [facility] Sodium 135 133 - 145 mmol/L LAB CHEMISTRY METHOD 08/02/2024 2:53 PM [facility] Potassium 3.5 3.5 - 5.5 mmol/L LAB CHEMISTRY METHOD 08/02/2024 2:53 PM [facility] Chloride 104 96 - 110 mmol/L LAB CHEMISTRY METHOD 08/02/2024 2:53 PM [facility] CO2 24 21 - 32 mmol/L LAB CHEMISTRY METHOD 08/02/2024 2:53 PM [facility] Anion Gap 7 3 - 11 LAB CHEMISTRY METHOD 08/02/2024 2:53 PM [facility] Glucose 398(H) 70 - 100 mg/dL LAB CHEMISTRY METHOD 08/02/2024 2:53 PM [facility] BUN 23 5 - 25 mg/dL LAB CHEMISTRY METHOD 08/02/2024 2:53 PM [facility] Creatinine 0.99 0.70 - 1.30 mg/dL LAB CHEMISTRY METHOD 08/02/2024 2:53 PM [facility] eGFR 90 >=60 mL/min/1. 73m2 LAB CHEMISTRY METHOD 08/02/2024 2:53 PM [facility] Comment:Calculation based on the??Chronic Kidney Disease Epidemiology Collaboration (CKD-EPI) equation refit??without adjustment for race. BUN/Creatinine Ratio 23.2 LAB CHEMISTRY METHOD 08/02/2024 2:53 PM [facility] Calcium 8.4(L) 8.5 - 10.5 mg/dL LAB CHEMISTRY METHOD 08/02/2024 2:53 PM [facility] AST (SGOT) 24 10 - 42 unit/L LAB CHEMISTRY METHOD 08/02/2024 2:53 PM [facility] ALT (SGPT) 31 10 - 60 unit/L LAB CHEMISTRY METHOD 08/02/2024 2:53 PM [facility] Alkaline Phosphatase 167(H) 42 - 121 unit/L LAB CHEMISTRY METHOD 08/02/2024 2:53 PM [facility] Total Protein 6.7 6.0 - 8.0 g/dL LAB CHEMISTRY METHOD 08/02/2024 2:53 PM [facility] Albumin 3.2 3.2 - 5.0 g/dL LAB CHEMISTRY METHOD 08/02/2024 2:53 PM [facility] Total Bilirubin 1.1 0.0 - 1.4 mg/dL LAB CHEMISTRY METHOD 08/02/2024 2:53 PM [facility] Blood Venous blood specimen / Unknown Venipuncture / Unknown 08/02/2024 1:46 PM EST 08/02/2024 1:56 PM EST Jamison Jeong MD LAB BLOOD ORDERAB LES [facility] [address] [place] [address], documented in this encounter Visit Diagnoses Diagnosis Poorly controlled diabetes mellitus (CMS/HCC)- Primary Type II or unspecified type diabetes mellitus without mention of complication, not stated as uncontrolled documented in this encounter Administered Medications Inactive Administered Medications - up to 3 most recent administrations Medication Order MAR Action Action Date Dose Rate Site insulin lispro injection 15 Units 15 Units, subcutaneous, Once, On Mon08/02/24 at 1413, For 1 dose Given 08/02/2024 2:59 PM EST 15 Units Right Lower Abdomen sodium chloride 0.9 % bolus 1,000 mL 1,000 mL, intravenous, at 2,000 mL/hr, Administer over 30 Minutes, Once, On Mon08/02/24 at 1410, For 1 dose New Bag 08/02/2024 2:21 PM EST 1,000 mL 2000 mL/hr documented in this encounter Active and Recently Administered Medications Times are shown in EST. Scheduled Medication Order 07/31/2024 08/01/2024 08/02/2024 insulin lispro injection 15 Units (COMPLETED) 15 Units, subcutaneous, Once, On Mon08/02/24 at 1413, For 1 dose 1459 (Given - Provid er: Kermit Medina, HONEY) sodium chloride 0.9 % bolus 1,000 mL (COMPLETED) 1,000 mL, intravenous, at 2,000 mL/hr, Administer over 30 Minutes, Once, On Mon08/02/24 at 1410, For 1 dose 1421 (New Bag - Prov ider: Kermit Medina, HONEY)1548 (Stopped - Provider: Kermit Medina, RN) documented in this encounter Care Teams Vessel Master Relationship Specialty Start Date End Date Physician, No Pcp PCP - General 08/02/24 documented as of this encounter
--- OUTSIDE RECORDS SUMMARY | 2024-08-30 14:30 | XMS_ITS | Clinical Summary ---
Author Organization 299 [facility] Address [address] [place] [address] Phone Care Team Providers Care Scale And Skip Car Operator Name Role Phone Physician, No Pcp Primary Care Provider Unavaila ble Allergies Active Allergy Reactions Criticality Noted Date Comments Gabapentin Unknown 07/28/2023 Other 08/02/2024 SEAFOOD Bupropion Hcl 08/02/2024 Medications Medication Sig Dispensed Refills Start Date End Date Status citalopram (CeleXA) 20 mg tablet Take 1 tablet (20 mg total) by mouth 1 (one) time each day. 08/08/2024 Active furosemide (LASIX) 20 mg tablet Take 1 tablet (20 mg total) by mouth daily. 01/28/2024 Active spironolactone (ALDACTONE) 50 mg tablet Take 1 tablet (50 mg total) by mouth daily. 04/30/2024 Active thiamine (thiamine mononitrate, vit B1,) 100 mg tablet Take 1 tablet (100 mg total) by mouth daily. 04/30/2024 Active traZODone (DESYREL) 50 mg tablet Take 1 tablet (50 mg total) by mouth at bedtime. 01/28/2024 Active pantoprazole (PROTONIX) 40 mg EC tablet Take 1 tablet (40 mg total) by mouth daily. 01/28/2024 Active hydrOXYzine pamoate (VISTARIL) 50 mg capsule Take 1 capsule (50 mg total) by mouth 4 (four) times a day if needed for anxiety. 08/08/2024 Active folic acid (FOLVITE) 1 mg tablet Take 1 tablet (1 mg total) by mouth daily. 04/30/2024 Active insulin glargine (LANTUS SoloStar) 100 unit/mL (3 mL) injection pen Inject 20 Units under the skin at bedtime. 04/30/2024 Active insulin lispro 100 unit/mL injection Inject under the skin 3 (three) times a day before meals. -Administer within 15 minutes of a meal Active insulin glargine (LANTUS) 100 unit/mL injection Inject 30 Units under the skin 1 (one) time each day in the morning. Active Active Problems Problem Noted Date Diagnosed Date Schizophrenia Encounters Date Type Department Care Team Description 08/08/2024 8:18 PM EST - 08/10/2024 12:50 PM EST Emergency [facility] Emergency [address] [place] [address] Mia Armas DO Garvin, Meredith Kate, MD Landry, Jonathan P, MD Kim, Tae Hyong, DO Chambers, Patrick, MD Alcohol use (Primary Dx); Major depressive disorder, recurrent, severe with psychotic features (CMS/HCC) Discharge Disposition: [facility] 08/02/2024 1:24 PM EST - 08/02/2024 4:51 PM EST Emergency [facility] Emergency [address] [place] [address] Jamison Jeong MD Poorly controlled diabetes mellitus (CMS/HCC) (Primary Dx) Discharge Disposition: Home or Self Care 07/31/2024 Lab Requisition [facility] - Main Lab [address] [facility] [place] [place] [id number] Lorelei Samson NP Other ferry terminal agent (current) drug therapy from Last 3 Months Surgical History Surgery Date Site/Laterality Comments ESOPHAGOGASTRODUODENOSCOPY W/ BANDING Per EMR Medical History Medical History Date Comments Schizophrenia (CMS/HCC) Alcoholic cirrhosis of liver with ascites (CMS/H CC) per EMR Chronic anemia per emr HTN (hypertension) per emr 2019 Diabetes mellitus (CMS/HCC) per EMR 2019 Hyperlipidemia per EMR Chronic bilateral pleural effusions per EMR Cholelithiasis 03/2020 per EMR DJD (degenerative joint disease) per EMR Social History Tobacco Use Types Packs/Day Years Used Date Smoking Tobacco: Unknown Tobacco Cessation:Counseling Given: Not Answered Sex and Gender Information Value Date Recorded Sex Assigned at Male 08/08/2024 9:22 PM EST Gender Identity Male 08/08/2024 9:22 PM EST Sexual Orientation Straight 08/08/2024 9: 22 PM EST Job Start Date Occupation Industry Not on file Not on file Not on file Obstetrics History Last Filed Vital Signs Vital Sign Reading [...] Mass Index 25.84 08/08/2024 8:22 PM EST Plan of Treatment Health Maintenance Due Date Last Done Comments Diabetes: Annual Foot Exam 1979 Diabetes: Annual Retina Eye Exam 1979 Hepatitis A Vaccines (1 of 2 - Risk 2-dose series) 1988 Hepatitis B Vaccines (1 of 3 - 19+ 3-dose series) 1988 Zoster Vaccines (1 of 2) 2019 Pneumococcal Vaccine: Pediatrics (0 to 5 Years) and At-Risk Patients (6 to 64 Years) (2 of 2 - PCV) 04/23/2021 04/23/2020 Colorectal Cancer Screening: Colonoscopy 02/14/2024 Depression Screening 02/14/2024 HIV Screening 02/14/2024 Medicare Annual Wellness Visit 02/14/2024 Social Influencers of Health Screening 02/14/2024 COVID-19 Vaccine ( season) 2024 Diabetes: Annual Urine Albumin-Creatinine Ratio (uACR) 08/02/2024 Diabetes: Blood Sugar Control Test (HGBA1C) 01/28/2025 07/31/2024 Cholesterol Screening (Lipid Panel) 06/22/2025 06/22/2020 Diabetes: Annual GFR (Glomerular Filtration Rate) 08/08/2025 08/08/2024, 08/02/2024, 07/31/2024, Additional history exists Hypertension/CHF/CAD Annual BMP Blood Test 08/08/2025 08/08/2024, 08/02/2024, 07/31/2024, Additional history exists DTaP,Tdap,and Td Vaccines (3 - Td or Tdap) 07/28/2033 07/28/2023, 06/21/2016 Hepatitis C Screening Completed 06/22/2020 Influenza Vaccine Completed 04/30/2024, , 10/22/2019, Additional history exists HIB Vaccines Aged Out No longer eligi ble based on patient's age to complete this topic HPV Vaccines Aged Out No longer eligi ble based on patient's age to complete this topic IPV Vaccines Aged Out No longer eligi ble based on patient's age to complete this topic MMR Vaccines Aged Out No longer eligi ble based on patient's age to complete this topic Meningococcal ACWY Vaccine Aged Out N o longer eligible based on patient's age to complete this topic RSV Immunization Patients Under 20 months Aged Out No longer eligible based on patient's age to complete this topic Varicella Vaccines Aged Out No longer eligible based on patient's age to complete this topic Procedures Procedure Name Priority Date/Time Associated Diagnosis Comments POCT GLUCOSE BLOOD Routine 08/10/2024 12 :09 PM EST POCT GLUCOSE BLOOD Routine 08/10/2024 8: 28 AM EST POCT GLUCOSE BLOOD Routine 08/09/2024 4: 34 PM EST POCT GLUCOSE BLOOD Routine 08/09/2024 2: 29 PM EST CBC WITH AUTO DIFFERENTIAL STAT 08/08/2024 9:01 PM EST ACETAMINOPHEN LEVEL STAT 08/08/2024 9 :01 PM EST SALICYLATE LEVEL STAT 08/08/2024 9:01 PM EST MAGNESIUM STAT 08/08/2024 9:01 PM EST ETHANOL STAT 08/08/2024 9:01 PM EST COMPREHENSIVE METABOLIC PANEL STAT 08/08/2024 9:01 PM EST CBC AND DIFFERENTIAL STAT 08/08/2024 9:01 PM EST DRUG ABUSE SCREEN 8A PANEL, URINE STAT 08/08/2024 8:40 PM EST TIGER TOP URINE TUBE Routine 08/08/2024 8:36 PM EST [place] URINE CULTURE TUBE Routine 08/08/19 25 8:36 PM EST EXTRA TUBES Routine 08/08/2024 8:36 PM EST POCT GLUCOSE BLOOD Routine 08/02/2024 3: 58 PM EST POCT GLUCOSE BLOOD Routine 08/02/2024 1: 52 PM EST CBC WITH AUTO DIFFERENTIAL STAT 08/02/2024 1:46 PM EST VENOUS BLOOD GAS STAT 08/02/2024 1:46 PM EST BETA HYDROXYBUTYRATE STAT 08/02/2024 1:46 PM EST OSMOLALITY STAT 08/02/2024 1:46 PM EST MAGNESIUM STAT 08/02/2024 1:46 PM EST LIPASE STAT 08/02/2024 1:46 PM EST COMPREHENSIVE METABOLIC PANEL STAT 08/02/2024 1:46 PM EST CBC AND DIFFERENTIAL STAT 08/02/2024 1:46 PM EST HEMOGLOBIN A1C Routine 07/31/2024 7:00 AM EST Other ferry terminal agent (current) drug therapy BASIC METABOLIC PANEL Routine 07/31/2024 7:00 AM EST Other ferry terminal agent (current) drug therapy from Last 3 Months Results * (ABNORMAL) POCT Glucose, blood (08/10/2024 12:09 PM EST) Only the most recent of6 resultswithin the time period is included. [facility] Glucose POCT 235(H) 70 - 100 mg/dL 08/10/2024 12:[address] [facility] Blood Capillary blood specimen / Unknown 08/10/2024 12:09 PM EST 08/10/2024 12:13 PM EST Justin Sue MD LAB POINT OF CARE TE ST DOCKED DEVICE UNSOLICITED RESULTS [facility] [address] [place] [address], * (ABNORMAL) CBC auto differential (08/08/2024 9:01 PM EST) Only the most recent of2 resultswithin the time period is included. [facility] WBC 7.5 4.8 - 10.8 K/mcL LAB HEMETOLOGY METHOD 08/08/2024 9:[address] [facility] RBC 3.70(L) 4.50 - 5.50 M/mcL LAB HEMETOLOGY METHOD 08/08/2024 9:[address] [facility] Hemoglobin 9.6(L) 13.5 - 17.5 g/dL LAB HEMETOLOGY METHOD 08/08/2024 9:[address] [facility] Hematocrit 30.2(L) 42.0 - 54.0 % LAB HEMETOLOGY METHOD 08/08/2024 9:[address] [facility] MCV 81.4 79.0 - 98.0 FL LAB HEMETOLOGY METHOD 08/08/2024 9:[address] [facility] MCH 25.9(L) 27.0 - 32.0 pcg LAB HEMETOLOGY METHOD 08/08/2024 9:[address] [facility] MCHC 31.8(L) 32.0 - 37.0 g/dL LAB HEMETOLOGY METHOD 08/08/2024 9:[address] [facility] RDW 19.4(H) 11.0 - 15.0 % LAB HEMETOLOGY METHOD 08/08/2024 9:[address] [facility] Platelets 125(L) 130 - 400 K/mcL LAB HEMETOLOGY METHOD 08/08/2024 9:[address] [facility] MPV 11.9(H) 7.0 - 11.0 FL LAB HEMETOLOGY METHOD 08/08/2024 9:[address] [facility] NRBC 0.0 <1.0 % LAB HEMETOLOGY METHOD 08/08/2024 9:[address] [facility] NRBC Absolute 0.00 <0.10 K/mcL LAB HEMETOLOGY METHOD 08/08/2024 9:[address] [facility] Neutrophils Relative 81.1 % LAB HEMETOLOGY METHOD 08/08/2024 9:[address] [facility] Lymphocytes Relative 7.5 % LAB HEMETOLOGY METHOD 08/08/2024 9:[address] [facility] Monocytes Relative 9.3 % LAB HEMETOLOGY METHOD 08/08/2024 9:[address] [facility] Eosinophils Relative 0.8 % LAB HEMETOLOGY METHOD 08/08/2024 9:[address] [facility] Basophils Relative 0.9 % LAB HEMETOLOGY METHOD 08/08/2024 9:[address] [facility] Immature Granulocytes Relative 0.4 % LAB HEMETOLOGY METHOD 08/08/2024 9:[address] [facility] Neutrophils Absolute 6.04 1.50 - 7.00 K/mcL LAB HEMETOLOGY METHOD 08/08/2024 9:[address] [facility] Lymphocytes Absolute 0.56(L) 1.00 - 5.00 K/mcL LAB HEMETOLOGY METHOD 08/08/2024 9:34 PM EST [facility] Monocytes Absolute 0.69 0.20 - 1.00 K/mcL LAB HEMETOLOGY METHOD 08/08/2024 9:34 PM EST [facility] Eosinophils Absolute 0.06 0.00 - 0.50 K/[facility] LAB HEMETOLOGY METHOD 08/08/2024 9:34 PM EST [facility] Basophils Absolute 0.07 0.00 - 0.20 K/[facility] LAB HEMETOLOGY METHOD 08/08/2024 9:34 PM EST [facility] Immature Granulocytes Absolute 0.03 0.00 - 0.03 K/[facility] LAB HEMETOLOGY METHOD 08/08/2024 9:[address] [facility] Blood Venous blood specimen / Unknown Venipuncture / Unknown 08/08/2024 9:01 PM EST 08/08/2024 9:20 PM EST [facility] LES [facility] [address] [place] [address], * Magnesium (08/08/2024 9:01 PM EST) Only the most recent of2 resultswithin the time period is included. Magnesium 2.2 1.9 - 2.6 mg/dL LAB CHEMISTRY METHOD 08/08/2024 9:57 PM EST [facility] Blood Venous blood specimen / Unknown Venipuncture / Unknown 08/08/2024 9:01 PM EST 08/08/2024 9:20 PM EST [facility] BLOOD ORDERAB LES Performing Organization Address City/[facility]/ZIP Co de Phone Number [facility] [address] [place] [address], [place] [phone] * (ABNORMAL) Ethanol (08/08/2024 9:01 PM EST) Ethanol Level 154(H) 0 - 10 mg/dL LAB CHEMISTRY METHOD 08/08/2024 9:57 PM EST [facility] Blood Venous blood specimen / Unknown Venipuncture / Unknown 08/08/2024 9:01 PM EST 08/08/2024 9:20 PM EST Vincemateo Armas LAB BLOOD ORDERAB LES [facility] [address] [place] [address], [place] [phone] * (ABNORMAL) Acetaminophen level (08/08/2024 9:01 PM EST) Acetaminophen Level <2.0(L) 10.0 - 30.0 mcg/mL LAB CHEMISTRY METHOD 08/08/2024 10:04 PM EST [facility] Blood Venous blood specimen / Unknown Venipuncture / Unknown 08/08/2024 9:01 PM EST 08/08/2024 9:20 PM EST Vincemateo Armas LAB BLOOD ORDERAB LES Performing Organization Address City/[facility]/ZIP Co de Phone Number [facility] [address] [place] [address], [place] [phone] * (ABNORMAL) Salicylate level (08/08/2024 9:01 PM EST) Salicylate Level <1.7(L) 2.0 - 29.0 mg/dL LAB CHEMISTRY METHOD 08/08/2024 9:57 PM EST [facility] Blood Venous blood specimen / Unknown Venipuncture / Unknown 08/08/2024 9:01 PM EST 08/08/2024 9:20 PM EST Vincemateo Armas LAB BLOOD ORDERAB LES [facility] [address] [place] [address], [place] [phone] * (ABNORMAL) Comprehensive metabolic panel (08/08/2024 9:01 PM EST) Only the most recent of2 resultswithin the time period is included. Sodium 136 133 - 145 mmol/L LAB CHEMISTRY METHOD 08/08/2024 9:[address] [facility] Potassium 4.1 3.5 - 5.5 mmol/L LAB CHEMISTRY METHOD 08/08/2024 9:[address] [facility] Chloride 106 96 - 110 mmol/L LAB CHEMISTRY METHOD 08/08/2024 9:[address] [facility] CO2 23 21 - 32 mmol/L LAB CHEMISTRY METHOD 08/08/2024 9:[address] [facility] Anion Gap 7 3 - 11 LAB CHEMISTRY METHOD 08/08/2024 9:[address] [facility] Glucose 218(H) 70 - 100 mg/dL LAB CHEMISTRY METHOD 08/08/2024 9:[address] [facility] BUN 27(H) 5 - 25 mg/dL LAB CHEMISTRY METHOD 08/08/2024 9:[address] [facility] Creatinine 1.37(H) 0.70 - 1.30 mg/dL LAB CHEMISTRY METHOD 08/08/2024 9:[address] [facility] eGFR 61 >=60 mL/min/1. 73m2 LAB CHEMISTRY METHOD 08/08/2024 9:[address] [facility] Comment:Calculation based on the??Chronic Kidney Disease Epidemiology Collaboration (CKD-EPI) equation refit??without adjustment for race. BUN/Creatinine Ratio 19.7 LAB CHEMISTRY METHOD 08/08/2024 9:[address] [facility] Calcium 9.0 8.5 - 10.5 mg/dL LAB CHEMISTRY METHOD 08/08/2024 9:57 PM EST [facility] AST (SGOT) 43(H) 10 - 42 unit/L LAB CHEMISTRY METHOD 08/08/2024 9:[address] [facility] ALT (SGPT) 45 10 - 60 unit/L LAB CHEMISTRY METHOD 08/08/2024 9:[address] [facility] Alkaline Phosphatase 220(H) 42 - 121 unit/L LAB CHEMISTRY METHOD 08/08/2024 9:[address] [facility] Total Protein 7.7 6.0 - 8.0 g/dL LAB CHEMISTRY METHOD 08/08/2024 9:[address] [facility] Albumin 3.6 3.2 - 5.0 g/dL LAB CHEMISTRY METHOD 08/08/2024 9:[address] [facility] Total Bilirubin 1.2 0.0 - 1.4 mg/dL LAB CHEMISTRY METHOD 08/08/2024 9:[address] [facility] Blood Venous blood specimen / Unknown Venipuncture / Unknown 08/08/2024 9:01 PM EST 08/08/2024 9:20 PM EST Mia Armas DO LAB BLOOD ORDERAB LES Performing Organization Address [facility]/State/ZIP Co de Phone Number [facility] [address] [place] [address], * Drug abuse screen 8a panel, urine (08/08/2024 8:40 PM EST) Amphetamine Screen, Ur Negative Negative LAB CHEMISTRY METHOD 08/08/2024 10:[address] [facility] Comment:Certain OTC medicati ons containing ephedrine, phenylephrine, pseudoephedrine and phenylpropanolamine can cause false positive results. Barbiturate Screen, Ur Negative Negative LAB CHEMISTRY METHOD 08/08/2024 10:[address] [facility] Benzodiazepine Screen, Ur Negative Negative LAB CHEMISTRY METHOD 08/08/2024 10:05 PM EST [facility] Cocaine Screen, Ur Negative Negative LAB CHEMISTRY METHOD 08/08/2024 10:05 PM EST [facility] Opiate Screen, Ur Negative Negative LAB CHEMISTRY METHOD 08/08/2024 10:[address] [facility] Cannabinoid (THC) Screen, Ur Negative Negative LAB CHEMISTRY METHOD 08/08/2024 10:05 PM EST [facility] Comment:Specimens from patie nts taking pantoprazole sodium (Protonix) have been shown to produce false positive results. Oxycodone Screen, Ur Negative Negative LAB CHEMISTRY METHOD 08/08/2024 10:05 PM EST [facility] Fentanyl, Ur Negative Negative LAB CHEMISTRY METHOD 08/08/2024 10:[address] [facility] Urine Urine specimen obtained by clean catch procedure / Unknown Non-blood Collection / Unknown 08/08/2024 8:40 PM EST 08/08/2024 9:[address] [facility] - 08/08/2024 10:05 PM EST Assay [...] Mia Armas DO LAB URINE ORDERAB LES [facility]) [facility] [address] [place] [address], * [place] urine culture tube (08/08/2024 8:36 PM EST) Extra Tube Hold for add-ons. 08/08/2024 11:01 PM EST [facility] Comment:Auto resulted. Urine Urine specimen obtained by clean catch procedure / Unknown 08/08/2024 8:36 PM EST 08/08/2024 9:20 PM EST Vincemateo Armas LAB URINE ORDERAB LES Performing Organization Address City/[facility]/ZIP Co de Phone Number [facility] [address] [place] [address], [place] [phone] * [place] top urine tube (08/08/2024 8:36 PM EST) Extra Tube Hold for add-ons. 08/08/2024 11:01 PM EST [facility] Comment:Auto resulted. Urine Urine specimen obtained by clean catch procedure / Unknown 08/08/2024 8:36 PM EST 08/08/2024 9:20 PM EST Vincemateo Armas LAB URINE ORDERAB LES Performing Organization Address [facility] Co de Phone Number [facility] [address] [place] [address], [place] [phone] * Beta hydroxybutyrate (08/02/2024 1:46 PM EST) Beta-Hydroxybu tyrate 0.8 0.2 - 2.8 mg/dL LAB CHEMISTRY METHOD 08/02/2024 2:51 PM EST [facility] Blood Venous blood specimen / Unknown Venipuncture / Unknown 08/02/2024 1:46 PM EST 08/02/2024 1:56 PM EST Jamison Jeong MD LAB BLOOD ORDERAB LES Performing Organization Address City/[facility]/ZIP Co de Phone Number [facility] [address] [place] [address], [place] [phone] * (ABNORMAL) Osmolality (08/02/2024 1:46 PM EST) Pathologist [facility] Osmolality Kalpana 306(H) 280 - 300 mOsm/kg LAB CHEMISTRY METHOD 08/02/2024 4:11 PM EST [facility] Blood Venous blood specimen / Unknown Venipuncture / Unknown 08/02/2024 1:46 PM EST 08/02/2024 1:56 PM EST Jamison Jeong MD LAB BLOOD ORDERAB LES Performing Organization Address City/[facility]/ZIP Co de Phone Number [facility] [address] [place] [address], [place] [phone] * Lipase (08/02/2024 1:46 PM EST) [facility] Lipase 65 13 - 75 unit/L LAB CHEMISTRY METHOD 08/02/2024 2:51 PM EST [facility] Blood Venous blood specimen / Unknown Venipuncture / Unknown 08/02/2024 1:46 PM EST 08/02/2024 1:56 PM EST Jamison Jeong MD LAB BLOOD ORDERAB LES [facility] [address] [place] [address], [place] [phone] * Venous blood gas (08/02/2024 1:46 PM EST) Pathologist [facility] pH, Clemente 7.36 7.32 - 7.42 pH 08/02/2024 1:58 PM EST [facility] pCO2, [place] 47 41 - 51 mmHg 08/02/2024 1:58 PM EST [facility] pO2, [place] 40 25 - 40 mmHg 08/02/2024 1:58 PM EST [facility] HCO3, Venous 24.7 22.0 - 26.0 mmol/L 08/02/2024 1:58 PM EST [facility] O2 Sat, [place]e 54.7 % 08/02/2024 1:58 PM EST [facility] Base Excess, [place] 0.8 -2.0 - 2.0 mmol/L 08/02/2024 1:58 PM EST [facility] Blood Venous blood specimen / Unknown Venipuncture / Unknown 08/02/2024 1:46 PM EST 08/02/2024 1:56 PM EST Jamison Jeong MD LAB BLOOD ORDERAB LES Performing Organization Address [facility]/ZIP Co de Phone Number [facility] [address] [place] [address], [place] [phone] * (ABNORMAL) Hemoglobin A1c (07/31/2024 7:00 AM EST) Pathologist [facility] Hemoglobin A1C 7.1(H) <6.5 % LAB CHEMISTRY METHOD 07/31/2024 3:38 PM EST [facility] Mean Bld Glu Estim. 157 mg/dL LAB CHEMISTRY METHOD 07/31/2024 3:38 PM EST [facility] Blood Venous blood specimen / Unknown Venipuncture / Unknown 07/31/2024 7:00 AM EST 07/31/2024 12:30 PM EST Lorelei Samson NP LAB BLOOD ORDERABLES [facility] [address] [place] [address], [place] [phone] * (ABNORMAL) Basic metabolic panel (07/31/2024 7:00 AM EST) Sodium 129(L) 133 - 145 mmol/L LAB CHEMISTRY METHOD 07/31/2024 3:34 PM EST [facility] Potassium 4.9 3.5 - 5.5 mmol/L LAB CHEMISTRY METHOD 07/31/2024 3:[address] [facility] Chloride 99 96 - 110 mmol/L LAB CHEMISTRY METHOD 07/31/2024 3:[address] [facility] CO2 27 21 - 32 mmol/L LAB CHEMISTRY METHOD 07/31/2024 3:[address] [facility] Anion Gap 3 3 - 11 LAB CHEMISTRY METHOD 07/31/2024 3:[address] [facility] Glucose 432(HH) 70 - 100 mg/dL LAB CHEMISTRY METHOD 07/31/2024 3:[address] [facility] BUN 19 5 - 25 mg/dL LAB CHEMISTRY METHOD 07/31/2024 3:[address] [facility] Creatinine 1.01 0.70 - 1.30 mg/dL LAB CHEMISTRY METHOD 07/31/2024 3:[address] [facility] eGFR 88 >=60 mL/min/1. 73m2 LAB CHEMISTRY METHOD 07/31/2024 3:[address] [facility] Comment:Calculation based on the??Chronic Kidney Disease Epidemiology Collaboration (CKD-EPI) equation refit??without adjustment for race. BUN/Creatinine Ratio 18.8 LAB CHEMISTRY METHOD 07/31/2024 3:[address] [facility] Calcium 9.3 8.5 - 10.5 mg/dL LAB CHEMISTRY METHOD 07/31/2024 3:[address] [facility] Blood Venous blood specimen / Unknown Venipuncture / Unknown 07/31/2024 7:00 AM EST 07/31/2024 12:30 PM EST Lorelei Samson NP LAB BLOOD ORDERABLES [facility] [address] [place] [address], from Last 3 Months Advance Directives Documents on File Type Date Recorded Patient Taxi Proprietor Expl anation Health Care Decision (hx) 01/29/2024 AD BROWNLEE DIRECTIVE Health Care Decision (hx) 01/29/2024 AD BROWNLEE DIRECTIVE Care Teams Scale And Skip Car Operator Relationship Specialty Start Date End Date Physician, No Pcp PCP - General 08/02/24
--- OUTSIDE RECORDS SUMMARY | 2024-08-30 14:30 | XMS_ITS | Encounter Summary ---
Author Organization [facility] Address [address] [place] [address] Care Team Providers Care Preparation Plant Repairer Name Role Phone Physician, No Pcp Primary Care Provider Unavaila ble Encounter Details Date Type Department Care Team (Late st Contact Info) Description 07/31/2024 Lab Requisition [facility] - Main Lab [address] [facility] [place] [address] [place] [address] Other fci (current) drug therapy Social History Tobacco Use Types Packs/Day Years Used Date Smoking Tobacco: Never Assessed Sex and Gender Information Value Date Recorded Sex Assigned at Male 08/08/2024 9:22 PM EST Gender Identity Male 08/08/2024 9:22 PM EST Sexual Orientation Straight 08/08/2024 9: 22 PM EST Job Start Date Occupation Industry Not on file Not on file Not on file documented as of this encounter Plan of Treatment Not on file documented as of this encounter Procedures Procedure Name Priority Date/Time Associated Diagnosis Comments HEMOGLOBIN A1C Routine 07/31/2024 7:00 AM EST Other fci (current) drug therapy BASIC METABOLIC PANEL Routine 07/31/2024 7:00 AM EST Other fci (current) drug therapy documented in this encounter Results * (ABNORMAL) Hemoglobin A1c (07/31/2024 7:00 AM EST) Hemoglobin A1C 7.1(H) <6.5 % LAB CHEMISTRY METHOD 07/31/2024 3:38 PM EST [facility] Mean Bld Glu Estim. 157 mg/dL LAB CHEMISTRY METHOD 07/31/2024 3:38 PM [facility] Blood Venous blood specimen / Unknown Venipuncture / Unknown 07/31/2024 7:00 AM EST 07/31/2024 12:30 PM EST Lorelei Samson [facility] LAB BLOOD ORDERABLES [facility] [address] [place] [address], * (ABNORMAL) Basic metabolic panel (07/31/2024 7:00 AM EST) Sodium 129(L) 133 - 145 mmol/L LAB CHEMISTRY METHOD 07/31/2024 3:34 PM [facility] Potassium 4.9 3.5 - 5.5 mmol/L LAB CHEMISTRY METHOD 07/31/2024 3:34 PM [facility] Chloride 99 96 - 110 mmol/L LAB CHEMISTRY METHOD 07/31/2024 3:34 PM [facility] CO2 27 21 - 32 mmol/L LAB CHEMISTRY METHOD 07/31/2024 3:34 PM [facility] Anion Gap 3 3 - 11 LAB CHEMISTRY METHOD 07/31/2024 3:34 PM [facility] Glucose 432(HH) 70 - 100 mg/dL LAB CHEMISTRY METHOD 07/31/2024 3:34 PM [facility] BUN 19 5 - 25 mg/dL LAB CHEMISTRY METHOD 07/31/2024 3:34 PM [facility] Creatinine 1.01 0.70 - 1.30 mg/dL LAB CHEMISTRY METHOD 07/31/2024 3:34 PM [facility] eGFR 88 >=60 mL/min/1. 73m2 LAB CHEMISTRY METHOD 07/31/2024 3:34 PM [facility] Comment:Calculation based on the??Chronic Kidney Disease Epidemiology Collaboration (CKD-EPI) equation refit??without adjustment for race. BUN/Creatinine Ratio 18.8 LAB CHEMISTRY METHOD 07/31/2024 3:[address] [facility] Calcium 9.3 8.5 - 10.5 mg/dL LAB CHEMISTRY METHOD 07/31/2024 3:[address] [facility] Blood Venous blood specimen / Unknown Venipuncture / Unknown 07/31/2024 7:00 AM EST 07/31/2024 12:30 PM EST Lorelei Samson NP LAB BLOOD ORDERABLES [facility] [address] [place] [address], documented in this encounter Visit Diagnoses Diagnosis Other oil heaterman (current) drug therapy documented in this encounter Care Teams Preparation Plant Repairer Relationship Specialty Start Date End Date Physician, No Pcp PCP - General 08/02/24 documented as of this encounter
[2024-08-30 14:44] LABS: Platelet Count 92 X10*3/uL (160-400)
--- NOTE | 2024-08-30 14:48 | PC.NURSE ---
pt does not know what medication he takes. He says he used to take tons but was recently taken off a lot of them. He is unsure if he took his meds this morning stating i don't know it it is all such a blur . He says he used to take metformin but is unsure if he does now. His pharmacy fill list is not consistent with his current medications . per pharmacy fill list he filled lasix, hydroxyzine, and folic acid in july, but prior to that there hadn't been any fills since April. will reach out to pharmacy for assistance with this med rec
--- NOTE | 2024-08-30 19:52 | PHA.MEDREC ---
Pharmacy Consult ? Medication Reconciliation Pharmacy has completed the medication reconciliation. Med rec based on pt claims history
[2024-08-30 20:47] VITALS: BP 140/90; PULSE 99; RESP 18; TEMP 37; O2SAT 99
[2024-08-30 20:49] LABS: Glucose, Whole Blood 199 mg/dL (60-115)
[2024-08-30] MEDS: Insulin Glargine,Hum.rec.anlog 100 UNIT/ML 10 ML VIAL 20 UNIT SUBCUT (22:27)
[2024-08-30] MEDS: hydrOXYzine HCL 50 MG TABLET 100 MG PO (22:27)
[2024-08-31] MEDS: Cyclobenzaprine HCl 10 MG TABLET PO (03:36)
[2024-08-31 06:38] VITALS: BP 126/71; PULSE 93; RESP 16; TEMP 37.3; O2SAT 96
[2024-08-31 07:13] LABS: Glucose, Whole Blood 195 mg/dL (60-115)
[2024-08-31] MEDS: Furosemide 20 MG TABLET PO (07:14)
[2024-08-31] MEDS: Insulin Lispro 100 UNIT/ML 3 ML VIAL SUBCUT ×2 (07:14→13:36)
[2024-08-31] MEDS: Folic Acid 1 MG TABLET PO (07:14)
[2024-08-31] MEDS: hydrOXYzine HCL 50 MG TABLET 100 MG PO ×2 (07:14→14:32)
--- NOTE | 2024-08-31 07:50 | PC.NURSE ---
assumed care of patient at 0700, patient is up and awake, sat up and ate his breakfast at the table. patient medicated per MAR, covered with insulin 2u per MAR. patient is pleasant, able to make needs known appropriately. patient requested afrin, states he feels congested.
[2024-08-31 10:33] LABS: Glucose, Whole Blood 236 mg/dL (60-115)
--- NOTE | 2024-08-31 12:09 | PC.NURSE ---
assumed care of patient at 0700, patient medicated per MAR, patient talkative. patient able to make needs known. resp even and unlabored, skin dry and intact
--- NOTE | 2024-08-31 12:35 | MHC.CARE ---
patient is in review at [facility], contact is Rosibel [phone]
[2024-08-31 13:03] LABS: Glucose, Whole Blood 317 mg/dL (60-115)
[2024-08-31] MEDS: Oxymetazoline HCl 0.05 % Nasal 15 ML SPRAY 2 SPRAY NOSTRIL-B (16:00)
[2024-08-31 16:26] VITALS: BP 126/74; PULSE 114; RESP 20; TEMP 36.7; O2SAT 97
--- NOTE | 2024-08-31 16:38 | PC.NURSE ---
ems report given, patient calm and cooperative. patient belongings given.
== END 2024-08-31 16:37 ==
PROVIDERS: Physician Assistant Medical; Emergency Provider Emergency Medicine Emergency Medical Services
DX: F33.1 Major depressive disorder, recurrent, moderate (principal); R45.851 Suicidal ideations; E11.9 Type 2 diabetes mellitus without complications; R00.0 Tachycardia, unspecified; Z11.52 Encounter for screening for COVID-19; Z79.899 Other long term (current) drug therapy; Z79.4 Long term (current) use of insulin; Z51.81 Encounter for therapeutic drug level monitoring
CPT/HCPCS: 80053; 80143; 80179; 80307; 81001; 82947; 85025; 87635; 93005; 99285; S9485

== ENCOUNTER → 2024-08-30 13:37 | Outpatient (BNV) | payer MEDICARE, SELFPAY | PROVIDERS: Emergency Provider Emergency Medicine Emergency Medical Services; Visit Provider Internal Medicine Cardiovascular Disease | DX: I45.10 Unspecified right bundle-branch block (principal); R00.0 Tachycardia, unspecified | CPT/HCPCS: 93010 ==

== ENCOUNTER 2025-01-27 20:27 | Emergency (ER) | payer MEDICARE, SELFPAY ==
--- NOTE | ~2025-01-27 | CT_ITS ---
CLINICAL HISTORY: fall, etoh CT cervical spine without contrast Comparison: CT of the cervical spine from 03/24/2024 Findings: No acute fracture of the cervical spine. Straightening of the cervical lordosis. No significant listhesis. Mild worsening degenerative changes include disc osteophyte complexes, ligament calcifications, and facet arthropathy. Mild spinal canal stenosis include C5-C6, with moderate bilateral foraminal narrowing by CT. Additional foraminal narrowing includes the cervicothoracic junction. 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 No paraspinal hematoma. Calcifications of the pharynx as can be seen with chronic and/or prior infection and/or inflammation. Vascular calcifications are redemonstrated. Mild scarring of the imaged lung apices. IMPRESSION: No acute fracture of the cervical spine. This document has been electronically signed by: Shaji Loomis MD on 01/28/2025 00:49:03
--- NOTE | ~2025-01-27 | CT_ITS ---
CLINICAL HISTORY: fall, etoh CT head without contrast Comparison: Head CT from 03/24/2024 Findings: No acute intracranial hemorrhage. Mild volume loss is generalized without significant change. No midline shift or hydrocephalus. Cavum velum interpositum. 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 No large arterial territorial infarction by CT, accounting for artifacts. Question mild encephalomalacia of the anterior margin of the right frontal lobe, without significant change from comparison. Fluid and mucosal thickening of the imaged paranasal sinuses are multifocal. Partially imaged nasal bone deformities appear old/chronic. Trace left mastoid effusion. No acute skull fracture. IMPRESSION: 1. No acute intracranial abnormality by CT. 2. No significant change compared to 03/24/2024. This document has been electronically signed by: Shaji Loomis MD on 01/28/2025 00:52:39
[2025-01-27 20:32] VITALS: BP 119/70; BP 121/59; PULSE 107; RESP 20; TEMP 36.6; O2SAT 96; BMI 24.3
--- NOTE | 2025-01-27 21:32 | PC.NURSE ---
patient self removed his c collar. does not wish to have it re applied at this time.
--- NOTE | 2025-01-27 22:47 | ED_ITS ---
HPI - General Adult General Chief complaint: Fall Stated complaint: ETOH, weakness, unwit fall Time Seen by Provider: 01/27/25 20:39 Source: patient and EMS Mode of arrival: EMS Limitations: no limitations History of Present Illness ED Provider: Dr. Shivani Banks HPI narrative: Patient comes to the emergency room via EMS. According to EMS, the patient was [place] sleeping on [place] bike [place]. Patient admits that he has been drinking alcohol. Patient states that yesterday he was at [facility] for a fall. Patient reports that he is homeless. Patient admits to drinking 6 nips of vodka earlier today. Denies any headache no neck pain. Patient states that he has no complaints at this time. patient denies any chest pain or shortness of breath. Related Data Home Medications ?Medication ?Instructions ?Recorded ?Confirmed folic acid 1 mg tablet 1 mg PO DAILY 08/30/2408/30 furosemide 20 mg tablet 20 mg PO DAILY 08/30/2402/14 hydroxyzine pamoate 50 mg capsule 100 mg PO TID 08/30/24 insulin glargine 100 unit/mL (3 20 unit subcut BEDTIME 08/30/24 08/30/24 mL) subcutaneous pen (Lantus Solostar U-100 Insulin) insulin lispro 100 unit/mL See Protocol subcut QIDACHS 08/30/24 08/30/24 subcutaneous pen (Humalog KwikPen (U-100) Insulin) Previous Rx's ?Medication ?Instructions ?Recorded flash glucose sensor (FreeStyle #1 ea 03/23/24 [place] 14 Day Sensor kit) Allergies Allergy/AdvReac Type Severity Reaction Status Date / Time bupropion (From Wellbutrin) Allergy Shortness Verified 01/27/25 20:42 of Breath gabapentin Allergy Confusion Verified 01/27/25 20:42 seafood Allergy Anaphylaxis Verified 01/27/25 20:42 Review of Systems Review of Systems: Constitutional : No Weight loss, No Fever, No Chills, No Night Sweats, No Fatigue, No Malaise ENT/Mouth : No Hearing loss, No Ear Pain, No Nasal Congestion, No Sinus Pain, No Hoarseness, No sore throat, No Rhinorrhea, No Swallowing Difficulty Eyes: No Eye Pain, No Swelling, No Redness, No Foreign Body, No Discharge, No Vision Changes Cardiovascular : No Chest Pain, No SOB, No Dyspnea on Exertion, No Orthopnea, No Edema, No Palpitations Respiratory : No Cough, No Sputum, No Wheezing, No Smoke Exposure, No Dyspnea Gastrointestinal : No Nausea, No Vomiting, No Diarrhea, No Constipation, No abdominal Pain, No Hematochezia, No Melena Genitourinary : no irregular bleeding, No Dysuria, No Urinary Frequency, No Hematuria, No Urinary Incontinence, No Urgency, No Flank Pain, No Urinary Flow Changes, No Hesitancy Musculoskeletal : No joint pain, No Myalgias, No Joint Swelling Skin : No Skin Lesions, No rash Neuro : No Weakness, No Numbness, No Paresthesias, No Loss of Consciousness, No Dizziness, No Headache Psych : No Anxiety/Panic, No Depression, No SI/HI/AH/VH, Admit to drinking alcohol Heme/Lymph: No Bruising, No Bleeding,No Lymphadenopathy Endocrine : No Polyuria, No Polydipsia, No Temperature Intolerance [facility] Past Medical History Medical History Alcohol abuse Social History Social History Alcohol intake: current Alcohol intake frequency: 3 or more drinks per day Alcohol type: hard liquor Smoked in Last 30 Days: Yes Use of substances other than those prescribed or required for medical reasons: No Substance Use Type: Marijuana Advance Directives: No Advance Directives Information Provided: No Physical Exam ED Vital Signs: Vital Signs - 24 hr 01/27/25 20:32 01/28/25 01:13 01/28/25 01:13 Temperature 98 F 99.5 F 99.5 F Pulse Rate 107 H 110 H 110 H Respiratory Rate 20 16 16 Blood Pressure 121/59 L 130/75 130/75 Pulse Oximetry 96 95 95 Oxygen Delivery Method Room Air Room Air 01/28/25 01:27 Temperature 98.8 F Pulse Rate 101 H Respiratory Rate 16 Blood Pressure 104/58 L Pulse Oximetry 97 Oxygen Delivery Method Room Air BMI result Body Mass Index 24.3 Const Other: Appearance: Alert. Oriented X3. No acute distress. Eyes: Pupils equal, round and reactive to light. ENT: Pharynx normal. Neck: patient took his own C-collar off, no palpable step-offs, normal flexion and extension, Normal inspection. Neck supple. No lymph nodes noted. No crepitus CVS: Normal heart rate and rhythm. Pulses normal. Normal S1 and S2 Respiratory: No respiratory distress. Breath sounds normal. No Wheezing. No rales Abdomen: Soft and nontender. No rigidity. No distention. Skin: Skin warm and dry. Normal skin color. Normal skin turgor. Extremities: No lower extremity edema. No Lacerations. No Rash Neuro: Oriented X 3. No motor deficit. No sensory deficit. Moving all extremities. No slurred speech. CN 2 through 12 grossly intact Psych: calm, cooperative, normal affect Medical Decision Making Medical Decision Making MDM Narrative: patient's head CT and cervical spine CT did not show any acute abnormality. All of patient's vitals are stable patient ambulatory patient requesting that we done due labs. However, patient is willing to have us take his point of care and get an EKG glucose is 104 patient is interested in detox. Care team consult pending initially, patient was not sure about detox but now he is requesting it. All of patient's labs pending. Differential Diagnosis Differential Diagnoses: The differential diagnosis associated with the presentation includes ( ETOH, polysubstance abuse) Admission/Observation Consideration of admission/observation: Escalation of care including admiss ion/observation considered ( patient is under physician observation waiting to be seen by the care team or investment recovery technician for detox) Lab Data Labs: Lab Results 01/28/25 Range/Units 02:15 POC Glucose 104 (60-115) mg/dL Discharge Plan Discharge Clinical Impression: Alcohol abuse Instructions: Abuse of Alcohol (ED) Prescriptions: No Action (DME) FreeStyle [place] 14 Day Sensor Kit See Rx Instructions .Route Qty: 1 0RF Rx Instructions: As directed hydroxyzine pamoate 50 mg capsule 100 mg PO TID folic acid 1 mg tablet 1 mg PO DAILY furosemide 20 mg tablet 20 mg PO DAILY insulin lispro [Humalog KwikPen Insulin] 100 unit/mL insulin pen See Protocol subcut QIDACHS Protocol: Insulin Correction Scale Less than or equal to 110 ---- Give (units): 0 111 to 150 Give (units): 0 151 to 200 Give (units): 2 201 to 250 Give (units): 4 251 to 300 Give (units): 6 301 to 350 Give (units): 8 Greater than 350 Give (units): 10 Call MD if Blood Glucose > : 350 insulin glargine [Lantus Solostar U-100 Insulin] 100 unit/mL (3 mL) insulin pen 20 unit subcut BEDTIME Print Language: Greek
[2025-01-28 01:13] VITALS: BP 130/75; PULSE 110; RESP 16; TEMP 37.5; O2SAT 95
[2025-01-28 01:27] VITALS: BP 104/58; PULSE 101; RESP 16; TEMP 37.1; O2SAT 97
--- NOTE | 2025-01-28 02:09 | ECG_ITS ---
Test Reason : FALL Blood Pressure : */* mmHG Vent. Rate : 110 BPM Atrial Rate : 110 BPM P-R Int : 172 ms QRS Dur : 132 ms QT Int : 360 ms P-R-T Axes : 57 -7 37 degrees QTcB Int : 487 ms Sinus tachycardia Right bundle branch block Abnormal ECG When compared with ECG of 30-Aug-2024 15:13, No significant change was found Referred By: Shivani Banks Electronically Signed By: Jesus Mendez
[2025-01-28 02:18] LABS: Glucose, Whole Blood 104 mg/dL (60-115)
[2025-01-28 03:16] LABS: MANUAL DIFF FLAG NO
[2025-01-28 03:19] LABS: Hematocrit 28.9 % (42.0-52.0); Hemoglobin 9.2 g/dl (14.0-18.0); Imm Gran Abs Auto 0.01 X10*3/uL (0.00-0.03); Imm Gran Pct Auto 0.3 % (0.0-0.4); Lymphocytes Absolute Auto 0.7 X10*3/uL (1.2-4.9); Mean Corpuscular HGB Conc 31.8 g/dl (31.0-36.0); Mean Corpuscular Hemoglobin 23.0 pg (27.0-33.0); Mean Corpuscular Volume 72.3 fL (80.0-98.0); NRBC Abs Auto 0.000 X10*3/uL (0.0-0.012); NRBC Pct Auto 0.0 /100WBC (0.0-0.2); Platelet Count 74 X10*3/uL (160-400); Red Blood Count 4.00 X10*6/uL (4.60-5.80); White Blood Count 3.5 X10*3/uL (4.8-10.8)
[2025-01-28 03:43] LABS: Alanine Aminotransferase 32 U/L (0-40); Albumin Level 3.7 g/dL (3.5-5.0); Alkaline Phosphatase 100 U/L (39-117); Anion Gap 15 (12-20); Aspartate Amino Transferase 61 U/L (5-37); Blood Urea Nitrogen 7 mg/dL (9-16); Calcium 8.4 mg/dL (8.4-10.2); Carbon Dioxide 23 mmol/L (22-29); Chloride 106 mmol/L (96-108); Creatinine Clr Calc Pharmacy 124.2; Estimated Glomerular Filt Rate > 60; Magnesium 1.5 mg/dL (1.6-2.6); Potassium 3.3 mmol/L (3.3-5.1); Sodium 141 mmol/L (135-145); Total Protein 6.4 g/dL (6.5-8.0)
[2025-01-28 06:20] LABS: Cannabinoid Screen Urine POSITIVE (Not Detect)
--- NOTE | 2025-01-28 06:43 | PC.NURSE ---
pt refused to policy change clerk.
[2025-01-28 07:55] LABS: Glucose, Whole Blood 107 mg/dL (60-115)
[2025-01-28 08:21] VITALS: BP 133/63; PULSE 104; RESP 17; TEMP 37.2; O2SAT 97
--- NOTE | 2025-01-28 08:43 | PC.NURSE ---
Patient is a 54 yo male with a history of alcohol abuse comes to the emergency room via EMS. According to EMS, the [place] sleeping [place] bike [place]. Patient admits that he has been drinking alcohol. Patient states that yesterday he was at [facility] for a fall. Patient reports that he is homeless. Patient admits to drinking 6 nips of vodka earlier today. Patient evaluated by the care team and are pursuing a detox facility in [place]. Alert and oriented. c/o chronic back pain and requesting pain medication. Respirations even and non-labored. Abdomen soft, distended, non-tender with positive bowel sounds. Positive pedal pulses with no edema.
[2025-01-28 14:00] VITALS: BP 130/74; PULSE 123; RESP 16; TEMP 37.2; O2SAT 97
--- NOTE | 2025-01-28 14:41 | MHC.CARE ---
Pt has been accepted to [facility] for a detox admission for 8pm this evening. He will be sent in a Lyft at 7:30pm. Nurse and Ed provider informed of plan.
[2025-01-28 20:01] VITALS: BP 130/74; PULSE 123; RESP 16; TEMP 37.2; O2SAT 97
== END 2025-01-28 20:02 | disposition home or self-care (01) ==
PROVIDERS: Emergency Medicine; Emergency Provider Emergency Medicine Emergency Medical Services; PCP Family Medicine
DX: F10.10 Alcohol abuse, uncomplicated (principal); Y90.4 Blood alcohol level of 80-99 mg/100 ml; Z59.00 Homelessness unspecified; Z79.899 Other long term (current) drug therapy
CPT/HCPCS: 36415; 70450; 72125; 80048; 80076; 80307; 82947; 83735; 85025; 93005; 99285; S9485

== ENCOUNTER → 2025-01-27 22:46 | Outpatient (BNV) | payer MEDICARE, SELFPAY | PROVIDERS: Emergency Provider Emergency Medicine; PCP Family Medicine; Visit Provider Radiology Neuroradiology | DX: M50.30 Other cervical disc degeneration, unspecified cervical region (principal); F10.10 Alcohol abuse, uncomplicated | CPT/HCPCS: 70450; 72125 ==

== ENCOUNTER → 2025-01-28 02:09 | Outpatient (BNV) | payer MEDICARE, SELFPAY | PROVIDERS: Emergency Provider Emergency Medicine Emergency Medical Services; PCP Family Medicine; Visit Provider Internal Medicine Cardiovascular Disease | DX: I45.10 Unspecified right bundle-branch block (principal); R00.0 Tachycardia, unspecified | CPT/HCPCS: 93010 ==

== ENCOUNTER 2025-03-18 21:39 | Emergency (ER) | payer MEDICARE, MEDICAID, SELFPAY ==
--- NOTE | ~2025-03-18 | CT_ITS ---
CLINICAL HISTORY: RLQ abd pain CT abdomen and pelvis with contrast Comparison: None Findings: Lung bases demonstrate mild dependent changes. Several esophageal varices are present. The liver is cirrhotic. The spleen is significantly enlarged. Prominent adenopathy within the retroperitoneum. Gallstones are present. Kidneys, ureters and bladder are unremarkable. No bowel obstruction or free air. Normal appendix. No abscess or pneumatosis. Small volume ascites about the liver and spleen. Degenerative changes seen throughout the spine. Diffuse atherosclerotic disease. Impression: Cirrhosis with splenomegaly and small volume ascites. Multiple varices are present. Nonspecific retroperitoneal adenopathy. Lymphoproliferative disorder not excluded. Cholelithiasis. Normal appendix. This document has been electronically signed by: Jeremy Garner MD on 03/19/2025 06:39:25
[2025-03-18 21:46] VITALS: BP 142/84; BP 146/71; PULSE 86; PULSE 98; RESP 17; TEMP 36.6; O2SAT 98; BMI 25.1
[2025-03-18 22:07] LABS: Hemoglobin 8.7 g/dl (14.0-18.0); Imm Gran Abs Auto 0.01 X10*3/uL (0.00-0.03); NRBC Abs Auto 0.000 X10*3/uL (0.0-0.012); NRBC Pct Auto 0.0 /100WBC (0.0-0.2); SCAN SMEAR FLAG 1
[2025-03-18 22:08] LABS: Appearance Urine Clear; Glucose Urine UA Negative (Negative); PH 7.5 (5.0-9.0); Specific Gravity - Urine 1.025 (1.005-1.025)
[2025-03-18 22:09] LABS: Hematocrit 26.9 % (42.0-52.0); Imm Gran Pct Auto 0.3 % (0.0-0.4); Lymphocytes Absolute Auto 0.5 X10*3/uL (1.2-4.9); Mean Corpuscular HGB Conc 32.3 g/dl (31.0-36.0); Mean Corpuscular Hemoglobin 23.8 pg (27.0-33.0); Mean Corpuscular Volume 73.5 fL (80.0-98.0); Platelet Count 92 X10*3/uL (160-400); Red Blood Count 3.66 X10*6/uL (4.60-5.80); White Blood Count 3.9 X10*3/uL (4.8-10.8)
[2025-03-18 22:10] LABS: MANUAL DIFF FLAG SCAN; PLT ABN DIST 1
--- NOTE | 2025-03-18 22:16 | PC.NURSE ---
20gIV placed in the right AC - labs obtained/sent to lab. urine specimen collected/sent to lab. pt requesting drug screen.
[2025-03-18 22:21] LABS: Alanine Aminotransferase 28 U/L (0-40); Albumin Level 4.0 g/dL (3.5-5.0); Alkaline Phosphatase 174 U/L (39-117); Anion Gap 10 (12-20); Aspartate Amino Transferase 34 U/L (5-37); Blood Urea Nitrogen 16 mg/dL (9-16); Calcium 9.4 mg/dL (8.4-10.2); Carbon Dioxide 25 mmol/L (22-29); Chloride 107 mmol/L (96-108); Creatinine Clr Calc Pharmacy 85.0; Estimated Glomerular Filt Rate > 60; Lipase 60 U/L (8-78); Magnesium 1.7 mg/dL (1.6-2.6); Potassium 4.2 mmol/L (3.3-5.1); Sodium 138 mmol/L (135-145); Total Protein 7.1 g/dL (6.5-8.0)
--- OUTSIDE RECORDS SUMMARY | 2025-03-18 22:25 | XMS_ITS | Encounter Summary ---
Author Organization [facility] Address [address] [place] [address] Phone Care Team Providers Care Manufacturing Storeperson Name Role Phone Jamie Maher Primary Care Provider [phone] Encounter Details Date Type Department Care Team (Late st Contact Info) Description 10/25/2024 Procedure Pass [facility], Ct Scan - [facility] [address] [place] [address] Social History Tobacco Use Types Packs/Day Years Used Date Smoking Tobacco: Some Days Cigarettes 0.5 7 Started: 2012; Last attempted to quit: 2019 Smokeless Tobacco: Never Comments:off an on for 7 yea rs Alcohol Use Standard Drinks/Week Comments Not Currently 0 (1 standard drink = 0.6 oz pur e alcohol) sober x 3 weeks Education Answer Date Recorded Are you interested in more education? Not on sarahy e 11/18/2022 Are you concerned about learning? Not on file 11/18/2022 No 11/18/2022 No 11/18/2022 Food Answer Date Recorded Within the past 6 months we worried whether our food would run out before we got money to buy more. Often True 08/17/2024 Within the past 6 months the food we bought just didn't last and we didn't have enough money to get more. Often True Residential Stability Answer Date Recor ded What is your housing situation today? I do not have housing (staying in a hotel, in a halfway, living outside on the street, on a beach, in a car, or in a park) 08/17/2024 How many times have you move d in the past 12 months? Two or more times 08/17/2024 Paying for Meds Answer Date Recorded Do you have trouble paying for medicines? No 08/17/2024 Paying Utility Bills Answer Date Record ed Do you have trouble paying your heating or elect ricity bill? Yes 08/17/2024 Transportation Answer Date Recorded Has the lack of transportati on kept you from medical appointments or from getting medications? Yes 08/17/2024 Digital Access Answer Date Recorded Yes 08/17/2024 No 08/17/2024 Do you have reliable internet access at home? No 08/17/2024 Do you have a device (e.g., phone, tablet, computer) with a working camera? No 08/17/2024 Intimate Partner Violence Answer Date R ecorded Are you denied basic needs s uch as food, clothing, or medical care? No 10/25/2024 In the past 12 months have y ou been in a relationship with a person who hurts, threatens, or tries to control you? No 10/25/2024 Are you denied basic needs s uch as food, clothing, or medical care? No 10/25/2024 In the past 12 months have y ou been in a relationship with a person who hurts, threatens, or tries to control you? No 10/25/2024 Sex and Gender Information Value Date Recorded Sex Assigned at Male 07/01/2020 11:51 AM EST Legal Sex Male 2:45 PM EDT Gender Identity Male 07/01/2020 11:51 AM EST Sexual Orientation Straight 07/01/2020 11 :51 AM EST documented as of this encounter Functional Status * Calculated C-SSRS Risk Score (Lifetime/Recent) Answer Date of Assessment Author No Risk Indicated 10/25/2024 3:08 PM EDT Diamante Nuñez ma RN * [place] Suicide Severity Rating Scale (Screener/Recent Self-Report) Question Answer Date of Assessment Author 1. Wish to be (Past 1 Month) No 025 3:08 PM EDT Francie Nuñez, RN 2. Non-Specific Active Suici toni Thoughts (Past 1 Month) No 10/25/2024 3:08 PM EDT Francie Nuñez, RN 6. Suicidal Behavior (Lifetime) No 3:08 PM EDT Francie Nuñez, RN documented as of this encounter Plan of Treatment Not on file documented as of this encounter Visit Diagnoses Not on filedocumented in this encounter Additional Health Concerns Infection Onset Date Last Indicated Resolved Time CoV-Risk 10/25/2024 10/25/2024 11/05/2024 1:23 AM EDT documented as of this encounter Care Teams Manufacturing Storeperson Relationship Specialty Start Date End Date Jamie Maher PA [address] [place] [id number] PCP - General 08/13/24 documented as of this encounter Additional Source Comments The information contained in this document represents components of the legal health record. It is not the complete legal health record.[facility]
--- OUTSIDE RECORDS SUMMARY | 2025-03-18 22:25 | XMS_ITS | Clinical Summary ---
Author Organization [facility] Address [address] [address] Phone Care Team Providers Care Conservation Assistant Name Role Phone Jamie Maher Primary Care Provider [phone]- [phone] Allergies Active Allergy Reactions Criticality Noted Date Comments Bupropion Hives,Itching,Rash High 04/08/2014 Fish Derived Hives 10/25/2024 Gabapentin Hives 06/15/2020 Mental status changes Shellfish Containing Products Anaphylaxis High 08/17/2024 Medications furosemide (LASIX) 20 MG tablet Take 1 tablet (20 mg total) by mouth daily. 30 tablet Active Additional Information Patient not taking.Reported on 12/25/2024 spironolactone (ALDACTONE) 50 MG tablet Take 1 tablet (50 mg total) by mouth daily. 30 tablet Active pantoprazole (PROTONIX) 40 MG tablet Take 1 tablet (40 mg total) by mouth daily. 30 tablet Active Additional Information Patient taking differently:40 mg Oral2 times daily, Reported on 01/14/2025 albuterol 90 mcg/actuation inhaler Inhale 2 puffs into the lungs every 6 (six) hours as needed for wheezing. Active insulin lispro (ADMELOG, HUMALOG) 100 unit/mL injection pen Inject 10 Units under the skin 3 (three) times a day with meals. Active QUEtiapine (SEROQUEL) 100 MG tablet Take 1 tablet (100 mg total) by mouth nightly at bedtime as needed. Active QUEtiapine (SEROQUEL) 50 MG tablet Take 1 tablet (50 mg total) by mouth every morning AND 2 tablets (100 mg total) 2 (two) times a day. Please take 50 mg at 0600, and 100 mg at 1400 and 2100. Active COMB NO.42-FOLIC ACID ORAL Take 1 tablet by mouth Daily before dinner. Active clobetasol (TEMOVATE) 0.05 % cream Apply 1 Application topically 2 (two) times a day. 30 g 5 Active insulin glargine 100 unit/mL (3 mL) InPn injection pen Inject 24 Units under the skin nightly at bedtime. 9 mL 5 Active Additional Information Patient not taking.Reported on 12/25/2024 insulin lispro (ADMELOG, HUMALOG) 100 unit/mL injection pen Inject 0-12 Units under the skin 4 (four) times a day with meals and nightly. CORRECTIONAL INSULIN: Give even if patient is NPO/not receiving nutrition. Moderate dose Blood glucose (mg/dL): Insulin dose Glucose 70-150: 0 unit. Glucose 151-200: 2 units. Glucose 201-250: 4 units. Glucose 251-300: 6 units. Glucose 301-350: 8 units. Glucose 351-400: 10 units. Glucose >400: 12 units and call RC. For blood glucose < 70 mg/dL call RC AND if patient: 1. Able to take PO, give 15 g of carbohydrate (4 oz fruit juice, regular soda, 8 oz of skim milk, or 3 to 4 glucose tablets) 2. Unable to take PO and PIV PRESENT, administer D50W per prn medication order OR 3. Unable to take PO and NO PIV, call RC/SCRAP HOIST OPERATOR to obtain order for glucagon Check blood glucose in 15 minutes and repeat if < 80 mg/dL and call RCC 14.4 mL 5 Active morphine (MS CONTIN) 15 MG ER tablet Take 15 mg by mouth 2 (two) times a day as needed for pain (specific location in comments). 5 Active insulin lispro (ADMELOG, HUMALOG) 100 unit/mL injection pen Inject 10 Units under the skin 3 (three) times a day with meals for 10 days. 3 mL 5 Active Active Problems Problem Noted Date Diagnosed Date Hypophosphatemia 08/17/2024 Assessment & Plan (08/18/2024 12:46 PM EST): Replete prn Assessment & Plan (08/17/2024 11:30 AM EST): Replete prn Mood disorder 08/14/2024 Assessment & Plan (08/18/2024 12:46 PM EST): Appeared to be manic with disorganized thought and delusions of grandiosity on presentation. Wonder if recent alcohol use could be a precipitant. Ongoing labile mood. Ammonia wnl. Wonder if doug was medication induced (from lexapro). - Appreciate psych recs - Section 12a, cannot leave AMA - Discontinued celexa - Increased seroquel 50/ 100/ 100 - Sleep: melatonin 3 mg QHS, seroquel 100 mg QHS PRN - Moderate agitation: PO seroquel 25-50 mg q6h PRN - Severe agitation: Zyprexa 2.5- 5 mg PO/IV/IM q6h PRN Assessment & Plan (08/17/2024 11:30 AM EST): Appeared to be manic with disorganized thought and delusions of grandiosity on presentation. Wonder if recent alcohol use could be a precipitant. Ongoing labile mood. Ammonia wnl. Wonder if doug was medication induced (from lexapro). - Appreciate psych recs - Section 12a, cannot leave AMA - Discontinued celexa - Increased seroquel 50/ 100/ 100 - Sleep: melatonin 3 mg QHS, seroquel 25-50 mg QHS PRN - Moderate agitation: PO seroquel 25-50 mg q6h PRN - Severe agitation: Zyprexa 2.5- 5 mg PO/IV/IM q6h PRN Assessment & Plan (08/16/2024 12:36 PM EST): Appeared to be manic with disorganized thought and delusions of grandiosity on presentation. Wonder if recent alcohol use could be a precipitant. Ongoing labile mood. Ammonia wnl. Wonder if doug was medication induced (from lexapro). - Appreciate psych recs - Section 12a, cannot leave AMA - Discontinue celexa - Increased seroquel 50/ 100/ 100 - Sleep: melatonin 3 mg QHS, seroquel 25-50 mg QHS PRN - Moderate agitation: PO seroquel 25-50 mg q6h PRN - Severe agitation: Zyprexa 2.5- 5 mg PO/IV/IM q6h PRN Assessment & Plan (08/15/2024 4:38 PM EST): Appeared to be manic with disorganized thought and delusions of grandiosity on presentation. Wonder if recent alcohol use could be a precipitant. Ongoing labile mood. Ammonia wnl. Wonder if doug was medication induced (from lexapro). - Appreciate psych recs - Section 12a, cannot leave AMA - Discontinue celexa - Continue seroquel 50/ 50/ 100 - Sleep: melatonin 3 mg QHS, seroquel 25-50 mg QHS PRN - Moderate agitation: PO seroquel 25-50 mg q6h PRN - Severe agitation: Zyprexa 2.5- 5 mg PO/IV/IM q6h PRN Assessment & Plan (08/14/2024 5:10 PM EST): Appears to be manic on presentation. Recent alcohol use could be a precipitant. Per paperwork from [facility], pt was found in the street drinking alcohol by police and EMS and appeared to be manic and brought to [facility]. - Psychiatry following, appreciate recs - meets section 12a criteria, cannot leave AMA - ammonia level sent, discontinued celexa - started seroquel 50/50/100 standing, with prn doses qhs for insomnia and prn for agitation - [facility] monitoring Assessment & Plan (08/14/2024 12:48 AM EST): Appears to be manic on presentation. Recent alcohol use could be a precipitant. Unclear if previously on treatment for this. - psych assessment in AM - currently on section 12 Alcohol use 08/14/2024 Assessment & Plan (08/18/2024 12:58 PM EST): Last drink prior to admission 08/08. He does not appear to be in withdrawal and is probably outside the window by now. - CIWA monitoring q shift - Continue MVI, thiamine, B12 - can start naltrexone 7-10 days after last opioid dose (if no more opioid use can start 08/24), when starting naltrexone, start 25 mg day 1 followed by 50 mg daily thereafter if well tolerated Assessment & Plan (08/17/2024 11:30 AM EST): Last drink prior to admission 08/08. He does not appear to be in withdrawal and is probably outside the window by now. - Consult addiction SW to discuss DARELL, patient agreeable - CIWA monitoring q shift - Continue MVI, thiamine, B12 Assessment & Plan (08/16/2024 9:37 AM EST): Last drink prior to admission 08/08. He does not appear to be in withdrawal and is probably outside the window by now. - Consult addiction SW to discuss DARELL, patient agreeable - CIWA monitoring q shift - Continue MVI, thiamine, B12 Assessment & Plan (08/15/2024 5:12 PM EST): Last drink prior to admission 08/08. He does not appear to be in withdrawal and is probably outside the window by now. - CIWA monitoring q shift - Continue MVI, thiamine, B12 - Discuss DARELL prior to discharge Assessment & Plan (08/14/2024 5:10 PM EST): Last drink prior to 08/08. He does not appear to be in withdrawal and he is probably outside the window by now. My impression is that his alcohol use is tied to his PTSD/anxiety and cites recent flashbacks as a trigger for relapse. - CIWA monitoring - cont MVI, folate, B12. - high dose thiamine - discuss naltrexone prior to discharge Assessment & Plan (08/14/2024 12:48 AM EST): Last drink prior to 08/08. He does not appear to be in withdrawal and he is probably outside the window by now. My impression is that his alcohol use is tied to his PTSD/anxiety and cites recent flashbacks as a trigger for relapse. - discuss with psych better control of anxiety/PTSD with psychopharmacotherapy - no CIWA necessary - cont MVI, folate, thiamine, B12. - discuss naltrexone prior to discharge T2DM (type 2 diabetes mellitus) 08/14/2024 Assessment & Plan (08/18/2024 12:46 PM EST): A1c 11.3 in 03/2024. Last admission to [facility], 04/2024, discharged on glargine 20 units QHS. 07/2023 A1c 8.8 - Increase glargine 22U QHS (from 20) - Increased lispro 7U TID (from 5U) w/ mod dose sliding scale Assessment & Plan (08/17/2024 11:30 AM EST): A1c 11.3 in 03/2024. Last admission to [facility], 04/2024, discharged on glargine 20 units QHS. 07/2023 A1c 8.8 - Increase glargine 20U QHS - Increased lispro 5U TID (from 2U) w/ mod dose sliding scale Assessment & Plan (08/16/2024 9:37 AM EST): A1c 11.3 in 03/2024. Last admission to [facility], 04/2024, discharged on glargine 20 units QHS. 07/2023 A1c 8.8 - Increase glargine 20U QHS - Continue lispro 2U TID w/ mod dose sliding scale Assessment & Plan (08/15/2024 5:12 PM EST): A1c 11.3 in 03/2024. Last admission to [facility], 04/2024, discharged on glargine 20 units QHS - F/u A1c - Increase glargine 18U QHS - Continue lispro 2U TID w/ mod dose sliding scale Assessment & Plan (08/14/2024 5:10 PM EST): A1c 11.3 in 03/2024. Last admission to [facility], 04/2024, discharged on glargine 20 units nightly. Titrate insulin with increasing appetite / diet. - continue glargine 15 u qHS - switched to lispro sliding scale with standing lispro 2 u TID, titrate prn Assessment & Plan (08/14/2024 1:12 AM EST): A1c 11.3 in 03/2024. Last admission to [facility], 04/2024, discharged on glargine 20 units nightly. - given poor PO status will dose reduce to glargine 15U qHS and add RISS - POC glucose Q6h Norovirus 08/13/2024 Assessment & Plan (08/18/2024 12:46 PM EST): # Sepsis, resolved Presented with 3 days vomiting, abdominal pain. In the ED, febrile, tachycardic 120s. Labs with CHEL and lactate 3.4. Given 2L IVF. UA noninfectious. Bedside US in the ED w/o tappable pocket. CXR w/o evidence of pneumonia. CT AP w/ fluid filled stomach, small ascites, mod constipation. Stool studies + norovirus, all others including C. Diff negative. S/p dapto/cefepime 08/13- 08/15. Last fever 08/14 PM, HR improving. Bcx NGTD. Diarrhea improved. Assessment & Plan (08/17/2024 11:30 AM EST): # Sepsis, resolved Presented with 3 days vomiting, abdominal pain. In the ED, febrile, tachycardic 120s. Labs with CHEL and lactate 3.4. Given 2L IVF. UA noninfectious. Bedside US in the ED w/o tappable pocket. CXR w/o evidence of pneumonia. CT AP w/ fluid filled stomach, small ascites, mod constipation. Stool studies + norovirus, all others including C. Diff negative. S/p dapto/cefepime 08/13- 08/15. Last fever 08/14 PM, HR improving. - Monitor fever curve - F/u blood cultures: NGTD - IVF PRN Assessment & Plan (08/16/2024 9:37 AM EST): # Sepsis, resolved Presented with 3 days vomiting, abdominal pain. In the ED, febrile, tachycardic 120s. Labs with CHEL and lactate 3.4. Given 2L IVF. UA noninfectious. Bedside US in the ED w/o tappable pocket. CXR w/o evidence of pneumonia. CT AP w/ fluid filled stomach, small ascites, mod constipation. Stool studies + norovirus, all others including C. Diff negative. S/p dapto/cefepime 08/13- 08/15. Last fever 08/14 PM, HR improving. - Monitor fever curve - F/u blood cultures: NGTD - IVF PRN Assessment & Plan (08/15/2024 4:26 PM EST): # Norovirus Presented with 3 days vomiting, abdominal pain. In the ED, febrile, tachycardic 120s. Labs with CHEL and lactate 3.4. Given 2L IVF. UA noninfectious. Bedside US in the ED w/o tappable pocket. CXR w/o evidence of pneumonia. CT AP w/ fluid filled stomach, small ascites, mod constipation. Stool studies + norovirus, all others including C. Diff negative. Last fever 08/14 PM, HR improving. - Monitor fever curve - F/u blood cultures - Discontinue dapto / cefepime 08/13- 08/15 - IVF PRN Assessment & Plan (08/14/2024 10:45 AM EST): # Sepsis of unclear etiology Recent alcohol use on 08/08, history of cirrhosis c/b distal varices and splenomegaly, p/w 3 days of vomiting, abdominal pain, f/t/h tachycardia to 120s, fever here to 101.4F, lactate 3.4, CHEL with Cr 1.22 concerning for sepsis. S/p 2L IVF. CXR w/ no evidence of pneumonia. CT abdomen/pelvis w/ fluid filled stomach, small ascites, moderate constipation. Bedside US in ED with no tappable pocket. UA not convincing for UTI. Ddx: SBP given cirrhosis hx, also consider GI illness iso diarrhea. - f/u blood culture (only 1 bottle obtained in ED prior to abx) - pending work up: Urine strep pneumo/legionella antigens, eRVP, hepatitis panel [ ] abdominal US to eval for tappable pocket / diagnostic para - cont empiric dapto (due to vanc allergy) and cefepime for empiric coverage and SBP coverage Assessment & Plan (08/14/2024 12:48 AM EST): Recent alcohol use on 08/08, history of cirrhosis c/b distal varices and splenomegaly, p/w 3 days of vomiting, abdominal pain, f/t/h tachycardia to 120s, fever here to 101.4F, lactate 3.4, CHEL with Cr 1.22 concerning for sepsis. CXR showed no evidence of pneumonia. CT abdomen/pelvis showed fluid filled stomach, small ascites, moderate constipation. Bedside US in ED with no tappable pocket. UA not convincing for UTI given WBC <1, neg LE, nitrites. Given abdominal tenderness/guarding on exam, highest suspicion for SBP given cirrhosis hx. Dx: - f/u blood culture (only 1 bottle obtained in ED prior to abx) - Urine strep pneumo, legionella antigens - MRSA nares swab - add on for extended respiratory viral panel - formal US in AM to check for tappable pocket and proceed with diagnostic para Tx: - cont empiric dapto (due to vanc allergy) and cefepime started in ED. Although dapto may be insufficient for pulmonary infections there does not seem to be a pneumonia present on CXR - s/p 0.5L fluid bolus in ED, repeat with 1L NS given overall impression of volume depletion and trend lactate Altered mental status 04/28/2024 Assessment & Plan (04/29/2024 5:13 PM EDT): -Currently AAOx3. -CT head shows no acute pathology -Ammonia level 36 -May be related to alcohol withdrawal Cirrhosis 04/28/2024 Assessment & Plan (08/18/2024 12:46 PM EST): # Alcohol related cirrhosis Last seen by [facility] Sim 09/2020, ?follows with [facility] (message from GI 03/2024). Dx in 2014. Prior hospitalizations for alcoholic hepatitis. Was previously evaluated for transplant, but deferred given active alcohol use. Per GI note 2020, last EGD showed Grade I EV and PHG, CLS with portal colopathy. Was recently hospitalized 07/2024 for alcoholic intox/ withdrawal. - Volume: CTAP w/ small volume ascites, in the ED w/ untappable pocket - Restarted home lasix 20 mg daily, spironolactone 50 mg daily - Infection: no hx of SBP, but last fluid studies w/ low protein therefore patient at increased risk for SBP - Continue Bactrim for SBP ppx (had prolonged QTc w/ cipro), monitor for hyperkalemia - Bleeding: hx of esophageal varices, no active bleeding - Consider starting non-selective BB - Encephalopathy: not on lactulose or rifaximin, low concern for HE - Screening: acute hep panel negative, CTAP w/o suspicious liver lesions - Needs outpatient GI follow up for vaccinations (HAV, HBV), HCC screening w/ q6mo abd US, AFP - Avoid NSAIDs, hepatotoxins Assessment & Plan (08/17/2024 11:30 AM EST): # Alcohol related cirrhosis Last seen by [facility] Sim 09/2020, ?follows with [facility] (message from GI 03/2024). Dx in 2014. Prior hospitalizations for alcoholic hepatitis. Was previously evaluated for transplant, but deferred given active alcohol use. Per GI note 2020, last EGD showed Grade I EV and PHG, CLS with portal colopathy. Was recently hospitalized 07/2024 for alcoholic intox/ withdrawal. - Volume: CTAP w/ small volume ascites, in the ED w/ untappable pocket - Restarted home lasix 20 mg daily, spironolactone 50 mg daily - Infection: no hx of SBP, but last fluid studies w/ low protein therefore patient at increased risk for SBP - Continue Bactrim for SBP ppx (had prolonged QTc w/ cipro), monitor for hyperkalemia - Bleeding: hx of esophageal varices, no active bleeding - Consider starting non-selective BB - Encephalopathy: not on lactulose or rifaximin, low concern for HE - Screening: acute hep panel negative, CTAP w/o suspicious liver lesions - Needs outpatient GI follow up for vaccinations (HAV, HBV), HCC screening w/ q6mo abd US, AFP - Avoid NSAIDs, hepatotoxins Assessment & Plan (08/16/2024 9:37 AM EST): # Alcohol related cirrhosis Last seen by [facility] Sim 09/2020, ?follows with [facility] (message from GI 03/2024). Dx in 2014. Prior hospitalizations for alcoholic hepatitis. Was previously evaluated for transplant, but deferred given active alcohol use. Per GI note 2020, last EGD showed Grade I EV and PHG, CLS with portal colopathy. Was recently hospitalized 07/2024 for alcoholic intox/ withdrawal. - Volume: CTAP w/ small volume ascites, in the ED w/ untappable pocket - Restart home lasix 20 mg daily, spironolactone 50 mg daily - Infection: no hx of SBP, but last fluid studies w/ low protein therefore patient at increased risk for SBP - Continue Bactrim for SBP ppx (had prolonged QTc w/ cipro), monitor for hyperkalemia - Bleeding: hx of esophageal varices, no active bleeding - Consider starting non-selective BB - Encephalopathy: not on lactulose or rifaximin, low concern for HE - Screening: acute hep panel negative, CTAP w/o suspicious liver lesions - Needs outpatient GI follow up for vaccinations (HAV, HBV), HCC screening w/ q6mo abd US, AFP - Avoid NSAIDs, hepatotoxins Assessment & Plan (08/15/2024 4:38 PM EST): # Alcohol related cirrhosis Last seen by [facility] [place] Sim 09/2020, ?follows with [facility] (message from GI 03/2024). Dx in 2014. Prior hospitalizations for alcoholic hepatitis. Was previously evaluated for transplant, but deferred given active alcohol use. Per GI note 2020, last EGD showed Grade I EV and PHG, CLS with portal colopathy. Was recently hospitalized 07/2024 for alcoholic intox/ withdrawal. - Volume: CTAP w/ small volume ascites, in the ED w/ untappable pocket - Holding lasix, garcia due to CHEL - Infection: no hx of SBP, but last fluid studies w/ low protein therefore patient at increased risk for SBP - Start Bactrim for SBP ppx (had prolonged QTc w/ cipro) - Bleeding: hx of esophageal varices, no active bleeding - Consider starting non-selective BB - Encephalopathy: not on lactulose or rifaximin, low concern for HE - Screening: acute hep panel negative - Needs outpatient GI follow up for vaccinations (HAV, HBV), HCC screening w/ q6mo abd US, AFP - Avoid NSAIDs, hepatotoxins Assessment & Plan (08/14/2024 5:10 PM EST): # EtOH related Cirrhosis Unclear if patient follows with GI anymore, last GI visit was with Dr. Sim at [facility] 09/2020. Diagnosed in 2014. Was previously treated for Alc Hep in 2019 with 4 hospitalizations that year. Was previously evaluated for transplant, but deferred pending relapse prevention counseling. Per GI note 2020, EGD at that time with Grade I EV and PHG, colonoscopy with portal colopathy. Please see GI note from 10/20/2020 for more information. Reports not using EtOH in a while, besides a few sips recently, unclear if history is accurate. V: distended abdomen on exam with ascites seen in imaging - lasix and spironolactone on hold due to CHEL I: low c/f SBP but treating empirically as above B: Prior imaging with Grade I EV. Distal esophageal varices on CT. INR 1.4. E: low c/f HE S: will need referral to GI outpatient for screening US, AFP. - hep serologies pending - avoid NSAIDs and other liver-toxic medications Ensure hepatology follow up outpatient Assessment & Plan (08/14/2024 12:48 AM EST): V: lasix and spironolactone on hold due to CHEL I: suspect SBP and treat empirically as above. Attempt to obtain diagnostic paracentesis B: unclear when last EGD was but his chart documents history of distal esophageal varices and the CT abdomen confirms this here. INR 1.4. E: currently not in HE S: will need referral to GI outpatient for screening US, AFP. Check Hep serologies and ensure up to date on vaccines Assessment & Plan (04/29/2024 8:58 AM EDT): -Patient presents with abdominal pain -CT shows known cirrhosis and portal htn -Paracentesis performed in the ED does not show SBP -LFTs elevated AST 147, ALT 62 -Patient reports only drinking a few times in the past month. Early in March he was in rehab for alcohol detox and was then hospitalized at [facility] where he reported drinking 1/2 handle of alcohol per day -He was restarted on his diuretics, as well as his other meds and follow up appointments were made for him. He was unable to get transportation for any of this. He has not taken his meds since discharge Khangirina Discriminant Function: 29.54 Calculated using: PT*: 17.9 (04/29/2024: 5:26 AM) Total Bili: 2.4 (04/29/2024: 5:26 AM) *Assumes a normal PT of 12. MELD: 15 at 04/29/2024 5:26 AM Calculated from: Serum Creatinine: 0.50 mg/dL (Using min of 1 mg/dL) at 04/29/2024 5:26 AM Total Bilirubin: 2.4 mg/dL at 04/29/2024 5:26 AM INR(ratio): 1.6 at 04/29/2024 5:26 AM HTN (hypertension) 04/28/2024 Assessment & Plan (04/28/2024 8:32 PM EDT): -BP controlled -He has not been on any medications since his discharge from [facility] 04/09 Pancytopenia 04/28/2024 Assessment & Plan (08/18/2024 12:46 PM EST): Suspect chronic alcohol use as well as contribution of splenic sequestration. His lines are actually up which may be explained by volume contraction. B12, folate WNL. - Trend CBC Assessment & Plan (08/17/2024 11:30 AM EST): Suspect chronic alcohol use as well as contribution of splenic sequestration. His lines are actually up which may be explained by volume contraction. B12, folate WNL. - Trend CBC - F/u zinc, copper Assessment & Plan (08/16/2024 9:37 AM EST): Suspect chronic alcohol use as well as contribution of splenic sequestration. His lines are actually up which may be explained by volume contraction. B12, folate WNL. - Trend CBC - F/u zinc, copper Assessment & Plan (08/15/2024 5:12 PM EST): Suspect chronic alcohol use as well as contribution of splenic sequestration. His lines are actually up which may be explained by volume contraction. B12, folate WNL. - Trend CBC - F/u zinc, copper Assessment & Plan (08/14/2024 5:10 PM EST): Suspect chronic alcohol use as well as contribution of splenic sequestration. His lines are actually up which may be explained by volume contraction. B12, folate WNL. - zinc, copper pending - check hep C Assessment & Plan (08/14/2024 12:48 AM EST): Suspect chronic alcohol use as well as contribution of splenic sequestration. His lines are actually up which may be explained by volume contraction. - check B12, folate, zinc, copper - check hep C Assessment & Plan (04/28/2024 8:43 PM EDT): -Improved since last month Alcohol withdrawal 04/28/2024 Assessment & Plan (04/28/2024 8:59 PM EDT): -His alcohol level is 22 today -He is tachycardic and anxious in the ED and started on phenobarb -Monitor with CIWA -Supplement thiamine, folate, mvi E coli bacteremia 01/19/2020 Alcoholic cirrhosis of liver with ascites 2019 Cholelithiasis 12/28/2019 Alcohol dependence 01/10/2018 Diabetes mellitus 05/10/2017 Assessment & Plan (04/28/2024 8:59 PM EDT): -Uncontrolled. Recent Hba1c 11.3 -At [facility] last month he was being treated with lantus 65 units bid and lispro 40 u tid before meals -He reports his refrigerator and his insulin spoiled and he has not taken any in several weeks -Will start lantus at a lower dose for now as it is unclear how much he is eating with his abdominal pain, can titrate up quickly if he remains hyperglycemic -Monitor point of care, cover with insulin sliding scale as needed Psoriasis 05/06/2015 Assessment & Plan (08/18/2024 12:46 PM EST): Extensive plaques on upper and lower extremities. - Continue clobetasol 0.05% cream BID - Outpatient derm follow up Assessment & Plan (08/17/2024 11:30 AM EST): Extensive plaques on upper and lower extremities. - Continue clobetasol 0.05% cream BID - Outpatient derm follow up Assessment & Plan (08/16/2024 9:37 AM EST): Extensive plaques on upper and lower extremities. - Continue clobetasol 0.05% cream BID - Outpatient derm follow up Assessment & Plan (08/15/2024 5:12 PM EST): Extensive plaques on upper and lower extremities. - Continue clobetasol 0.05% cream BID - Outpatient derm follow up Assessment & Plan (08/14/2024 5:10 PM EST): Extensive plaques on upper and lower extremities. - outpatient followup with derm Assessment & Plan (08/14/2024 12:48 AM EST): Extensive plaques on upper and lower extremities. - outpatient followup with derm Resolved Problems Problem Noted Date Diagnosed Date Resolved Date CHEL (acute kidney injury) 08/14/2024 Assessment & Plan (08/18/2024 12:46 PM EST): Baseline Cr ~0.5- 0.6. On admit, Cr 1.5. Likely pre-renal due to vomiting/ diarrhea, and insensible losses from fevers. Improved s/p IVF. Assessment & Plan (08/17/2024 11:30 AM EST): Baseline Cr ~0.5- 0.6. On admit, Cr 1.5. Improving s/p IVF. Likely pre-renal due to vomiting/ diarrhea, and insensible losses from fevers. - Trend Cr - IVF PRN - Restarted lasix/ spironolatone Assessment & Plan (08/16/2024 9:37 AM EST): Baseline Cr ~0.5- 0.6. On admit, Cr 1.5. Improving s/p IVF. Likely pre-renal due to vomiting/ diarrhea, and insensible losses from fevers. - Trend Cr - IVF PRN - Restart lasix/ spironolatone Assessment & Plan (08/15/2024 4:26 PM EST): Baseline Cr ~0.5- 0.6. On admit, Cr 1.5. Improving s/p IVF. Likely pre-renal due to vomiting, insensible losses from fevers. - Trend Cr - IVF PRN - Hold lasix and spironolactone for now Assessment & Plan (08/14/2024 10:45 AM EST): Bl Cr is 0.5, on admit Cr is 1.5. Trending down after IV fluids. Likely pre- renal CHEL due to vomiting and insensible losses. - continue IV fluids as needed and trend lactate, Cr - hold lasix and spironolactone Assessment & Plan (08/14/2024 12:48 AM EST): Bl Cr is 0.5, on admit Cr is 1.5. Trending down to 1.05 after IV fluids in ED. Likely pre-renal CHEL due to vomiting and insensible losses. - continue IV fluids as needed and trend lactate, Cr - hold lasix and spironolactone Encounters Date Type Department Care Team Description 01/13/2025 5:34 PM EDT - 01/14/2025 3:42 PM EDT Emergency [facility] Emergency [address] [place] [id number] Stevan France MD Perez, Alberto Juan Ignacio, MD Discharge Disposition: Home or Self Care 12/26/2024 Telephone [facility] [address] [place] [address] Unknown, Unknown, MD Hematology Referral 12/25/2024 9:56 AM EDT - 12/25/2024 2:22 PM EDT Emergency [facility] Emergency [address] [place] [id number] Discharge Disposition: Home or Self Care from Last 3 Months Immunizations Immunization Administration Dates Next Due INFLUENZA, SPLIT VIRUS, TRIVALENT PF 04/30/2024, 05/04/2017 INFLUENZA, SPLIT VIRUS, TRIVALENT W/ PRESERVATIV E IM 06/13/2013 Influenza Quadrivalent MDCK Preservative Free IM 04/23/2020 Influenza Quadrivalent Preservative Free IM 09/23 Influenza Quadrivalent w/ Preservative IM 2014 Influenza, Unspecified Formulation 05/07/2014 Pneumococcal polysaccharide PPSV23 04/23/2020 Tdap 06/21/2016 Family History Medical History Relation Comments Hypertension Father Pancreatitis Father Atrial fibrillation Mother Relation Status Comments Father Mother Social History Tobacco Use Types Packs/Day Years Used Date Smoking Tobacco: Some Days Cigarettes 0.5 7 Started: 2012; Last attempted to quit: 2019 Smokeless Tobacco: Never Tobacco Cessation:Ready to Q uit: Not Asked; Counseling Given: Not Answered Comments:off an on for 7 years Alcohol Use Standard Drinks/Week Comments Not Currently [...] before we got money to buy more. Sometimes True 025 Within the past 6 months the food we bought just didn't last and we didn't have enough money to get more. Sometimes True 10/2024 Residential Stability Answer Date Recor ded What is your housing situation today? I have a place to live today, but I am worried about losing it in the next 3 months 12/25/2024 How many times have you move d in the past 12 months? One time 12/25/2024 Paying for Meds Answer Date Recorded Do you have trouble paying for medicines? No 12/25/2024 Paying Utility Bills Answer Date Record ed Do you have trouble paying your heating or elect ricity bill? No 12/25/2024 Transportation Answer Date Recorded Has the lack of transportati on kept you from medical appointments or from getting medications? Yes 12/25/2024 Digital Access Answer Date Recorded No 12/25/2024 Yes 12/25/2024 Do you have reliable internet access at home? Ye s 12/25/2024 Do you have a device (e.g., phone, tablet, computer) with a working camera? Yes 12/25/2024 Intimate Partner Violence Answer Date R ecorded Are you denied basic needs s uch as food, clothing, or medical care? No 01/13/2025 In the past 12 months have y ou been in a relationship with a person who hurts, threatens, or tries to control you? No 01/13/2025 Are you denied basic needs s uch as food, clothing, or medical care? No 01/13/2025 In the past 12 months have y ou been in a relationship with a person who hurts, threatens, or tries to control you? No 01/13/2025 Sex and Gender Information Value Date Recorded Sex Assigned at Male 07/01/2020 11:51 AM EST Legal Sex Male 2:45 PM EDT Gender Identity Male 07/01/2020 11:51 AM EST Sexual Orientation Straight 07/01/2020 11 :51 AM EST Last Filed Vital Signs Vital Sign Reading Time Taken Comments Blood Pressure 132/71 01/14/2025 6:40 AM EDT Pulse 88 01/14/2025 6:40 AM EDT Temperature 36.4 C (97.5 F) 01/14/2025 6:40 AM EDT temporal Respiratory Rate 16 01/14/2025 6:40 AM EDT Oxygen Saturation 95% 01/14/2025 6:40 AM EDT Inhaled Oxygen Concentration - - Weight 71.7 kg (158 lb) 01/13/2025 5:17 PM EDT Height 175.3 cm (5' 9 ) 01/13/2025 5:17 PM EDT Body Mass Index 23.33 01/13/2025 5:17 PM EDT Plan of Treatment Health Maintenance Due Date Last Done Comments BLOOD PRESSURE 1969 DEPRESSION SCREENING 1981 HEPATITIS A VACCINES (1 of 2 - Risk 2-dose series) 1988 COLOGUARD 2014 COLONOSCOPY 2014 FIT TEST 2014 SIGMOIDOSCOPY 2014 VIRTUAL COLONOSCOPY 2014 ZOSTER VACCINES (1 of 2) 2019 DIABETIC EYE EXAM 08/05/2020 URINE MICROALBUMIN/CREATININE RATIO 03/03/2021 03/03/2020 PNEUMOCOCCAL VACCINES (50+ years) (2 of 2 - PCV) 04/23/2021 04/23/2020 LIPID PANEL 06/22/2021 06/22/2020 COLORECTAL CANCER SCREENING 11/05/2022 FOBT 11/05/2022 11/05/2021 COVID-19 VACCINE ( - season) 2024 12/09/2020, 11/11/2020 HEMOGLOBIN A1C 02/17/2025 11/18/2024, 07/25, 07/31/2024, Additional history exists INFLUENZA VACCINE (#1) 2025 , 05/18/2020, 04/23/2020, Additional history exists SMOKING Hx and SMOKELESS TOBACCO SCREENING 10/25/2025 10/25/2024 POTASSIUM LEVEL 01/13/2026 01/13/2025, 051 01/2025, 10/25/2024, Additional history exists Adult Td,Tdap Booster 06/21/2026 06/21/2016 HIV ONE-TIME SCREENING (18-65 YEARS) Completed 06/22/2020 HEPATITIS C SCREENING Completed 08/14/2024 , 06/22/2020, 02/03/2020, Additional history exists HIB VACCINES Aged Out No longer eligi ble based on patient's age to complete this topic MENINGOCOCCAL VACCINES (ACWY) Aged Out No longer eligible based on patient's age to complete this topic MENINGOCOCCAL VACCINES (B) Aged Out N o longer eligible based on patient's age to complete this topic Medical Devices Not on file Procedures Procedure Name Priority Date/Time Associated Diagnosis Comments POCT GLUCOSE Routine 01/14/2025 3:08 PM EDT POCT GLUCOSE Routine 01/14/2025 11:02 AM EDT TOXICOLOGY SCREEN, URINE STAT 01/13/2025 9:49 PM EDT ECG 12-LEAD STAT 01/13/2025 5:54 PM EDT SALICYLATES STAT 01/13/2025 5:39 PM EDT ACETAMINOPHEN LEVEL STAT 01/13/2025 5 :39 PM EDT ETHANOL, BLOOD STAT 01/13/2025 5:38 PM EDT LFTS (HEPATIC PANEL) STAT 01/13/2025 5:38 PM EDT BASIC METABOLIC PANEL STAT 01/13/2025 5:38 PM EDT CBC AND DIFFERENTIAL STAT 01/13/2025 5:38 PM EDT US LOWER EXTREMITY VEINS DUPLEX (RIGHT) Routine 12/25/2024 12:33 PM EDT Right leg pain XR KNEE 4 OR MORE VIEWS (RIGHT) Routine 12/25/2024 10:29 AM EDT HEMOGLOBIN A1C Routine 08/15/2024 8:01 AM EST HEPATITIS ACUTE PANEL Routine 08/14/2024 6:25 AM EST LIPID PANEL Routine 06/22/2020 11:01 AM EST Preoperative cardiovascular examination Organ transplant candidate Cirrhosis Alcoholic cirrhosis of liver Decompensated liver disease from Last 3 Months or Most Recently Relevant to Health Maintenance Results * (ABNORMAL) POCT Glucose (01/14/2025 3:08 PM EDT) Only the most recent of2 resultswithin the time period is included. Glucose, POCT 248(H) 70 - 100 mg/dL [facility] 01/14/2025 3:08 PM EDT 01/14/2025 3:10 PM EDT us Juan Miguel Adams MD POINT OF CARE TEST ORDERABLES Final Result [facility] [address] [place] [address] * (ABNORMAL) Toxicology screen, urine (01/13/2025 9:49 PM EDT) URINE CANNABINOIDS Positive(A) NONE DETECTED [facility] Comment:Cutoff: 50 ng/mL URINE COCAINE METAB NONE DETECTED NONE DETECTED [facility] Comment:Cutoff: 300 ng/mL URINE AMPHETAMINES NONE DETECTED NONE DETECTED [facility] Comment:Cutoff: 1000 ng/mL URINE METHADONE NONE DETECTED NONE DETECTED [facility] Comment:Cutoff: 300 ng/mL URINE OPIATES NONE DETECTED NONE DETECTED [facility] Comment:Cutoff: 300 ng/mL URINE PHENCYCLIDINE NONE DETECTED NONE DETECTED [facility] Comment:Cutoff: 25 ng/mL URINE OXYCODONE NONE DETECTED NONE DETECTED [facility] Comment:Cutoff: 300 ng/mL URINE BARBITURATES NONE DETECTED NONE DETECTED [facility] Comment:Cutoff: 200 ng/mL URINE BENZODIAZEPINE NONE DETECTED NONE DETECTED [facility] Comment:Cutoff: 200 ng/mL URINE BUPRENORPHINE NONE DETECTED NONE DETECTED [facility] Comment:Cutoff: 5 ng/mL Fentanyl, urine NONE DETECTED NONE DETECTED [facility] Comment: Cutoff: 5 ng/mL INTERPRETATION FOR TOXICOLOGY PANEL: These results are unconfirmed and should be used for Medical Treatment purposes only. Urine (Urine) 01/13/2025 9:4 9 PM EDT 01/14/2025 2:09 PM EDT us Stevan France MD URINE ORDERABLES Final R esult Performing Organization Address City/State/[facility] Co de Phone Number [address] [address] * ECG 12-LEAD (01/13/2025 5:54 PM EDT) Ventricular Rate EKG/MIN 94 BPM [facility] Atrial Rate 94 BPM [facility] RI Interval 182 ms [facility] QRS Duration 128 ms [facility] QT Interval 382 ms [facility] QTC Interval 477 ms [facility] P Morris 45 degrees [facility] R Wave Morris -8 degrees [facility] T Wave Morris 17 degrees [facility] 01/13/2025 5:54 PM EDT 01/15/2025 7:49 AM EDT Narrative [facility] - 01/15/2025 7:49 AM EDT Normal sinus rhythm Possible Left atrial enlargement Non-specific intra-ventricular conduction block Abnormal ECG When compared with ECG of 07-Dec-2024 18:55, Non-specific intra-ventricular conduction block has replaced Right bundle branch block Confirmed by Geovany Damon ([id number]) on 01/15/2025 7:49:13 AM Barbara DE [facility]-[place] ECG ORDERABLES Final Result Performing Organization Address City/[facility]/ZIP Co de Phone Number [facility] * (ABNORMAL) Acetaminophen level (01/13/2025 5:39 PM EDT) ACETAMINOPHEN <5.0(L) 15.0 - 30.0 ug/mL [facility] Blood 01/13/2025 5:39 PM EDT 01/13/2025 5:56 PM EDT [facility] LAB BLOOD ORDERABLES Final R esult Performing Organization Address [facility] Co de Phone Number [address] [address] * (ABNORMAL) Salicylates (01/13/2025 5:39 PM EDT) SALICYLATES <0.3(L) 2.8 - 19.9 mg/dL [facility] Blood 01/13/2025 5:39 PM EDT 01/13/2025 5:56 PM EDT [facility] LAB BLOOD ORDERABLES Final R esult Performing Organization Address [facility] Co de Phone Number [address] [address] * Ethanol, blood (01/13/2025 5:38 PM EDT) ETHANOL <10 <10 mg/dL [facility] Blood 01/13/2025 5:38 PM EDT 01/13/2025 5:55 PM EDT us Stevan France MD LAB BLOOD ORDERABLES Fin al Result [address] [address] * (ABNORMAL) LFTs (hepatic panel) (01/13/2025 5:38 PM EDT) ALKALINE PHOSPHATASE 202(H) 39 - 117 U/L [facility] TOTAL BILIRUBIN 1.3(H) 0.0 - 1.2 mg/dL [facility] DIRECT BILIRUBIN 0.5(H) 0.0 - 0.2 mg/dL [facility] Bilirubin (Indirect) 0.8 0 - 1.5 mg/dL [facility] AST 55(H) 0 - 37 U/L [facility] ALT 37 0 - 40 U/L [facility] TOTAL PROTEIN 8.0 6.5 - 8.0 g/dL [facility] ALBUMIN 4.2 3.9 - 4.8 g/dL [facility] GLOBULIN 3.8 1 - 4.8 g/dL [facility] A/G Ratio 1.11 1.00 - 4.80 RATIO [facility] Blood 01/13/2025 5:38 PM EDT 01/13/2025 5:55 PM EDT us Stevan France MD LAB BLOOD ORDERABLES Fin al Result [address] [address] * (ABNORMAL) CBC and differential (01/13/2025 5:38 PM EDT) WBC 5.08 4.00 - 11.00 K/uL [facility] RBC 4.36(L) 4.50 - 5.90 M/uL [facility] HGB 10.1(L) 13.5 - 17.5 g/dL [facility] HCT 33.0(L) 41.0 - 53.0 % [facility] PLT 108(L) 150 - 450 K/uL [facility] MCV 75.7(L) 80.0 - 100.0 fL [facility] MCH 23.2(L) 27.0 - 31.0 pg [facility] MCHC 30.6(L) 32.0 - 36.0 g/dL [facility] RDW 18.7(H) 11.5 - 14.5 % [facility] MPV Not measured 8.4 - 12.0 fL [facility] NRBC 0.00 0.00 /100 WBCs [facility] ABSOLUTE NRBC 0.00 0.00 K/uL [facility] DIFF METHOD Auto [facility] NEUTS 72.0 48.0 - 76.0 % [facility] LYMPHS 12.6(L) 18.0 - 41.0 % [facility] MONOS 12.0(H) 4.0 - 11.0 % [facility] EOS 1.8 0.0 - 5.0 % [facility] BASOS 1.2 0.0 - 1.5 % [facility] Granulocytes, immature (%) 0.4 0.0 - 0.9 % [facility] ABSOLUTE NEUTS 3.66 1.92 - 7.60 K/uL [facility] ABSOLUTE LYMPHS 0.64(L) 0.72 - 4.10 K/uL [facility] ABSOLUTE MONOS 0.61 0.16 - 1.10 K/uL [facility] ABSOLUTE EOS 0.09 0.00 - 0.50 K/uL [facility] ABSOLUTE BASOS 0.06 0.00 - 0.15 K/uL [facility] Granulocytes, immature 0.02 0.00 - 0.09 K/uL [facility] Blood 01/13/2025 5:38 PM EDT 01/13/2025 5:55 PM EDT us Stevan France MD LAB BLOOD ORDERABLES Fin al Result [facility] [address] [place] [address] * (ABNORMAL) Basic metabolic panel (01/13/2025 5:38 PM EDT) SODIUM 138 133 - 146 mmol/L [facility] CHLORIDE 103 96 - 108 mmol/L [facility] POTASSIUM 4.2 3.3 - 5.1 mmol/L [facility] CO2 26 21 - 35 mmol/L [facility] BUN 15 6 - 19 mg/dL [facility] CREATININE 0.80 0.5 - 1.5 mg/dL [facility] GLUCOSE 220(H) 70 - 99 mg/dL [facility] CALCIUM 9.8 8.4 - 10.3 mg/dL [facility] EGFR 105 >59 mL/min/1.7 3m2 [facility] Comment:Estimated glomerular filtration rate calculated using the CKD-EPI refit equation. ANION GAP 13 10 - 20 mmol/L [facility] Blood 01/13/2025 5:38 PM EDT 01/13/2025 5:55 PM EDT us Stevan France MD LAB BLOOD ORDERABLES Fin al Result Performing Organization Address City/State/[facility] Co de Phone Number [address] [address] * US Lower Extremity Veins Duplex (Right) (12/25/2024 12:33 PM EDT) Anatomical Region Laterality Modality Hip Right, Thigh Right, Knee Right, Leg Right, Ankle Right, Foot Right Ultrasound 12/25/2024 1:38 PM EDT Impressions 12/25/2024 1:39 PM EDT No deep vein thrombosis in the visualized veins of the right lower extremity. Narrative 12/25/2024 1:39 PM EDT US LOWER EXTREMITY VEINS DUPLEX (RIGHT) Referring clinician's provided indication for this examination in Epic: Right Leg Pain TECHNIQUE: Lower extremity venous ultrasound with color and spectral Doppler. COMPARISON: None FINDINGS: Right lower extremity Common femoral vein: Normal compressibility and flow characteristics. Femoral vein: Normal compressibility and flow characteristics. Proximal profunda femoral vein: Normal compressibility. Popliteal vein: Normal compressibility and flow characteristics. Posterior tibial veins: Normal compressibility. Peroneal veins: Normal compressibility. Gastrocnemius veins: Normal compressibility. Great saphenous vein: Normal compressibility at the saphenofemoral junction. Other: None. Left lower extremity Left common femoral vein: No images provided. Procedure Note Pramod Ashby MD, PhD - 12/25/2024 US LOWER EXTREMITY VEINS DUPLEX (RIGHT) Referring clinician's provided indication for this examination in [facility]:Right Leg Pain TECHNIQUE: Lower extremity venous ultrasound with color and spectralDoppler. COMPARISON: None FINDINGS: Right lower extremity Common femoral vein: Normal compressibility and flow characteristics. Femoral vein: Normal compressibility and flow characteristics. Proximal profunda femoral vein: Normal compressibility. Popliteal vein: Normal compressibility and flow characteristics. Posterior tibial veins: Normal compressibility. Peroneal veins: Normal compressibility. Gastrocnemius veins: Normal compressibility. Great saphenous vein: Normal compressibility at the saphenofemoraljunction. Other: None. Left lower extremity Left common femoral vein: No images provided. IMPRESSION: No deep vein thrombosis in the visualized veins of the right lowerextremity. Antoine Pepe PA-C CV VASCULAR Final Result * XR KNEE 4 OR MORE VIEWS (RIGHT) (12/25/2024 10:29 AM EDT) Anatomical Region Laterality Modality Knee Right Computed Radiogr aphy 12/25/2024 11:4 7 AM EDT Impressions 12/25/2024 11:50 AM EDT No fracture or dislocation. Narrative 12/25/2024 11:50 AM EDT XR KNEE 4 OR MORE VIEWS (RIGHT) Referring clinician's provided indication for this examination in [facility]: Pain; knee pain, felt a pop, no trauma. Previous surgeries COMPARISON: None available. FINDINGS: Right Knee: No acute fracture or dislocation. The alignment is maintained. Minimal reduction the medial tibiofemoral joint space. No joint effusion. Vascular calcification. Unremarkable soft tissues. Procedure Note Rinku Kang MBBS - 12/25/2024 XR KNEE 4 OR MORE VIEWS (RIGHT) Referring clinician's provided indication for this examination in Epic:Pain; knee pain, felt a pop, no trauma. Previous surgeries COMPARISON: None available. FINDINGS: Right Knee: No acute fracture or dislocation. The alignment is maintained.Minimal reduction the medial tibiofemoral joint space. No joint effusion.Vascular calcification. Unremarkable soft tissues. IMPRESSION: No fracture or dislocation. us Juan Miguel Adams MD IMG XR LOWER EXTRE MITY Final Result * (ABNORMAL) Hemoglobin A1c (08/15/2024 8:01 AM EST) HEMOGLOBIN A1C 8.8(H) 4.2 - 5.6 % [facility] Comment: HbA1c levels 5.7-6.4% represent pre-diabetes, indicating impaired glucose control and an increased risk of developing diabetes. The diagnostic HbA1c level for diabetes is 6.5% or greater. HbA1c is performed by the Bhargav Malka-quant immunoassay method which does not detect (incidental) hemoglobin variants. Hemoglobin electrophoresis should be ordered in patients with suspected hemoglobinopathies. CALC MEAN BLD GLUC 205 mg/dL [facility] Comment:The Calculated Mean Blood Glucose (CMBG) represents the estimated average glucose calculated from the measured hemoglobin A1c (HbA1c). There is no established normal range for the CMBG, however a 5.6% HbA1c (upper limit of normal) represents a CMBG of 114 mg/dL. 08/15/2024 8:01 AM EST 08/15/2024 9:11 AM EST Comment:#A1[place] [id number] @1712 Lyndsey Roy PA-C LAB BLOOD ORDERABLES Final Result [facility] [address] [place] [id number] * Hepatitis acute panel (08/14/2024 6:25 AM EST) HBV SURFACE ANTIGEN Nonreactive (HBsAg Negative) Nonreactive (HBsAg Negative) [facility] Hepatitis A Antibody, IgM Nonreactive Nonreactive [facility] HEP B CORE IGM AB Nonreactive Nonreactive [facility] HCV Nonreactive Nonreactive [facility] Blood 08/14/2024 6:25 AM EST 08/14/2024 6:29 AM EST Rudy Hairston MD LAB BLOOD ORDERABLES Final Resu lt [facility] [address] [place] [address] * (ABNORMAL) Lipid panel (06/22/2020 11:01 AM EST) HDL 59 35 - 100 mg/dL [facility] CHOLESTEROL 178 <200 mg/dL [facility] TRIGLYCERIDES 387(H) 40 - 150 mg/dL [facility] LDL 42(L) 50 - 129 mg/dL [facility] CARDIAC RISK RATIO 3.0 0.0 - 5.0 [facility] NON-HDL CHOLESTEROL 119 mg/dL [facility] Comment:NCEP ATP III guideli claudio suggest a non-HDL cholesterol goal 30 mg/dl higher than the patient-specific LDL goal. 06/22/2020 11:0 1 AM EST 06/22/2020 12:47 PM EST Oly Yeager CNP LAB BLOOD ORDERABLES Final Re sult [facility] [address] [place] [address] from Last 3 Months or Most Recently Relevant to Health Maintenance Insurance [facility] [employer] MEDICARE REPLACEMENT MEDICARE REPLACEMENT Member Subscriber Plan / Payer (Ef fective 2023-Present) Name:Kwame Xie Relation to Subscriber:Self Name:Kwame Xie Payer ID:[id number] (NAIC) Type:Medicare Address: [place] [id number] MEDICARE REPLACEMENT MEDICARE REPLAC[place] [address] [address] [address] MEDICARE REPLACEMENT Member Subscriber Plan / Payer (Ef fective 2023-Present) Name:Kwame Xie Relation to Subscriber:Self Name:Kwame Xie Payer ID:[id number] (NAIC) Type:Medicare Address: [place] [id number] MEDICARE REPLACEMENT Advance Directives For more information, please contact: [phone] (9AM - 5PM [place], Monday-Monday) * Full Code (Latest Code Status on File) Date Activated Date Inactivated Comments 08/13/2024 10:29 PM Question Answer Comments Code Status Confirmed With: Patient * Full Code Date Activated Date Inactivated Comments 04/28/2024 8:28 PM 08/13/2024 10:29 PM Question Answer Comments Code Status Confirmed With: Patient Care Teams Conservation Assistant Relationship Specialty Start Date End Date Jamie Maher PA [address] [place] [id number] PCP - General 08/13/24 Additional Source Comments The information contained in this document represents components of the legal health record. It is not the complete legal health record.[facility]
--- OUTSIDE RECORDS SUMMARY | 2025-03-18 22:25 | XMS_ITS | Clinical Summary ---
Author Organization [address] [facility] Address [address] [place] [address] Phone Care Team Providers Care Tire Mounter Name Role Phone Physician, No Pcp Primary Care Provider Unavaila ble Allergies Active Allergy Reactions Criticality Noted Date Comments Gabapentin Unknown 07/28/2023 Other 08/02/2024 SEAFOOD Bupropion Hcl 08/02/2024 Medications citalopram (CeleXA) 20 mg tablet Take 1 [...] time each day in the morning. Active acetaminophen (TYLENOL) 325 mg tablet Take 3 tablets (975 mg total) by mouth every 6 (six) hours if needed for mild pain for up to 10 days. 40 each 02/06/2025 02/17/20 25 nabumetone (RELAFEN) 750 mg tablet Take 1 tablet (750 mg total) by mouth 2 (two) times a day if needed for mild pain for up to 10 days. 20 each 02/06/2025 02/17/20 25 Active Problems Problem Noted Date Diagnosed Date Schizophrenia ([facility] V24, [facility] V28) Encounters Date Type Department Care Team Description 02/20/2025 1:35 PM EDT - 02/20/2025 4:52 PM EDT Emergency [facility] Emergency [address] [place] [id number] Siddharth Cueva MD Encounter for medical screening examination (Primary Dx); Schizophrenia, unspecified type (CMS/HCC V24, CMS/HCC V28); Hypomagnesemia; Pancytopenia (CMS/HCC V24, CMS/[facility] V28); Hepatic cirrhosis, unspecified hepatic cirrhosis type, unspecified whether ascites present ([facility] V24, [facility] V28) Discharge Disposition: Home or Self Care 02/06/2025 10:46 AM EDT - 02/06/2025 11:31 AM EDT Emergency [facility] Emergency [address] [place] [address] Sprain of left ankle, unspecified ligament, subsequent encounter (Primary Dx) Discharge Disposition: Home or Self Care from Last 3 Months Surgical History Surgery Date Site/Laterality Comments ESOPHAGOGASTRODUODENOSCOPY W/ BANDING Per EMR Medical History Medical History Date Comments Schizophrenia (CMS/HCC V24, CMS/[facility] V28) Alcoholic cirrhosis of liver with ascites ([facility]/HCC V24, [facility]/HCC V28) per EMR Chronic anemia per emr HTN (hypertension) per emr 2020 Diabetes mellitus ([facility] V24, [facility] V28) per EMR 2020 Hyperlipidemia per EMR Chronic bilateral pleural effusions per EMR Cholelithiasis 03/2020 per EMR DJD (degenerative joint disease) per EMR Social History Tobacco Use Types Packs/Day Years Used Date Smoking Tobacco: Unknown Tobacco Cessation:Counseling Given: Not Answered Sex and Gender Information Value Date Recorded Sex Assigned at Male 08/08/2024 9:22 PM EST Legal Sex Male 1:36 PM EDT Gender Identity Male 08/08/2024 9:22 PM EST Sexual Orientation Straight 08/08/2024 9: 22 PM EST Obstetrics History Last Filed Vital Signs Vital Sign Reading Time Taken Comments Blood Pressure 118/64 02/20/2025 1:49 PM EDT Pulse 88 02/20/2025 1:49 PM EDT Temperature 36.5 C (97.7 F) 02/20/2025 1:49 PM EDT Respiratory Rate 16 02/20/2025 1:49 PM EDT Oxygen Saturation 98% 02/20/2025 1:49 PM EDT Inhaled Oxygen Concentration - - Weight 74.8 kg (165 lb) 02/20/2025 1:49 PM EDT Height 175.3 cm (5' 9 ) 02/20/2025 1:49 PM EDT Body Mass Index 24.37 02/20/2025 1:49 PM EDT Plan of Treatment Health Maintenance Due Date Last Done Comments Diabetes: Annual Foot Exam 1979 Diabetes: Annual Retina Eye Exam 1979 Hepatitis A Vaccines (1 of 2 - Risk 2-dose series) 1988 Hepatitis B Vaccines (1 of 3 - 19+ 3-dose series) 1988 Zoster Vaccines (1 of 2) 2019 Pneumococcal Vaccine: 50+ Years (2 of 2 - PCV) 04/23/2021 04/23/2020 Colorectal Cancer Screening: Colonoscopy 02/14/2024 HIV Screening 02/14/2024 Medicare Annual Wellness Visit 02/14/2024 Social Influencers of Health Screening 02/14/2024 COVID-19 Vaccine ( season) 2024 Depression Screening 07/24/2024 Diabetes: Annual Urine Albumin-Creatinine Ratio (uACR) 08/02/2024 Influenza Vaccine (#1) 2025 , 04/23/2020, 10/22/2019, Additional history exists Diabetes: Blood Sugar Control Test (HGBA1C) 05/20/2025 11/18/2024, 07/31/2024 Cholesterol Screening (Lipid Panel) 06/22/2025 06/22/2020 Diabetes: Annual GFR (Glomerular Filtration Rate) 02/20/2026 02/20/2025, 08/14/2024, 08/08/2024, Additional history exists Hypertension/CHF/CAD Annual BMP Blood Test 02/20/2026 02/20/2025, 08/14/2024, 08/08/2024, Additional history exists DTaP,Tdap,and Td Vaccines (3 - Td or Tdap) 07/28/2033 07/28/2023, 06/21/2016 Hepatitis C Screening Completed 08/14/2024, 020 HIB Vaccines Aged Out No longer eligi [...] patient's age to complete this topic Meningococcal B Vaccine Aged Out No l onger eligible based on patient's age to complete this topic RSV Immunization Patients Under 20 months Aged Out No longer eligible based on patient's age to complete this topic Varicella Vaccines Aged Out No longer eligible based on patient's age to complete this topic Procedures Procedure Name Priority Date/Time Associated Diagnosis Comments ECG ANNOTATED 02/21/2025 DRUG ABUSE SCREEN 8A PANEL, URINE STAT 02/20/2025 3:06 PM EDT RHYTHM ECG, REPORT Routine 02/20/2025 2: 54 PM EDT ECG 12-LEAD STAT 02/20/2025 2:29 PM EDT CBC WITH AUTO DIFFERENTIAL STAT 02/20/2025 2:21 PM EDT TROPONIN I HIGH SENSITIVITY STAT 02/20/2025 2:21 PM EDT MAGNESIUM STAT 02/20/2025 2:21 PM EDT PROTHROMBIN TIME WITH INR STAT 02/20/2025 2:21 PM EDT COMPREHENSIVE METABOLIC PANEL STAT 02/20/2025 2:21 PM EDT CBC AND DIFFERENTIAL STAT 02/20/2025 2:21 PM EDT ETHANOL STAT 02/20/2025 2:21 PM EDT HEMOGLOBIN A1C Routine 07/31/2024 7:00 AM EST Other [facility] (current) drug therapy from Last 3 Months or Most Recently Relevant to Health Maintenance Results * ECG-Annotated (02/21/2025) us Provider Onbase MD ECG ORDERABLES Final Result * Drug abuse screen 8a panel, urine (02/20/2025 3:06 PM EDT) Amphetamine Screen, Ur Negative Negative LAB CHEMISTRY METHOD 02/20/2025 4:06 PM EDT [facility] Comment:Certain OTC medicati ons containing ephedrine, phenylephrine, pseudoephedrine and phenylpropanolamine can cause false positive results. Barbiturate Screen, Ur Negative Negative LAB CHEMISTRY METHOD 02/20/2025 4:06 PM EDT [facility] Benzodiazepine Screen, Ur Negative Negative LAB CHEMISTRY METHOD 02/20/2025 4:06 PM EDT [facility] Cocaine Screen, Ur Negative Negative LAB CHEMISTRY METHOD 02/20/2025 4:06 PM EDT [facility] Opiate Screen, Ur Negative Negative LAB CHEMISTRY METHOD 02/20/2025 4:06 PM EDT [facility] Cannabinoid (THC) Screen, Ur Negative Negative LAB CHEMISTRY METHOD 02/20/2025 4:06 PM EDT [facility] Comment:Specimens from patie nts taking pantoprazole sodium (Protonix) have been shown to produce false positive results. Oxycodone Screen, Ur Negative Negative LAB CHEMISTRY METHOD 02/20/2025 4:06 PM EDT [facility] Fentanyl, Ur Negative Negative LAB CHEMISTRY METHOD 02/20/2025 4:06 PM EDT [facility] Urine Urine specimen obtained by clean catch procedure / Unknown Non-blood Collection / Unknown 02/20/2025 3:06 PM EDT 02/20/2025 3:23 PM EDT Narrative [facility] - 02/20/2025 4:06 PM EDT Assay cutoffs: Amphetamines 1000 ng/mL Barbiturates 200 ng/mL Benzodiazepines 200 ng/mL Cocaine 300 ng/mL Fentanyl 1 ng/mL Opiates 300 ng/mL Oxycodone 100 ng/mL THC 50 ng/mL Semi-quantitative assay for screening purposes only. Unconfirmed screening result should not be used for non-medical purposes. *ALTERNATE METHOD CONFIRMATION DONE UPON REQUEST ONLY* us Siddharth Cueva MD LAB URINE ORDERABLES Final Res ult [facility] [address] [place] [address], * RHYTHM ECG, REPORT (02/20/2025 2:54 PM EDT) Narrative Siddharth Cueva MD - 02/20/2025 2:54 PM EDT Siddharth Cueva MD 02/20/2025 7:02 PM ECG Rhythm Interpretation and Report Date/Time: 02/20/2025 2:54 PM Performed by: Siddharth Cueva MD Authorized by: Siddharth Cueva MD ECG interpreted by ED Physician in the absence of a wait staff: yes Previous ECG: Previous ECG: Compared to current Comments: EKG shows sinus rhythm at 74 with right bundle branch block, no ST changes, T wave inversion in V2 and V3, normal axis, early R wave transition, decrease in rate by 47 bpm compared with EKG from -, otherwise unchanged, independently reviewed and interpreted contemporaneously by me as an abnormal but nonischemic EKG. us Siddharth Cueva MD ECG ORDERABLES Final Result * ECG 12 lead (02/20/2025 2:29 PM EDT) [facility] Ventricular Rate ECG 74 BPM GEMUSE Atrial Rate 74 BPM GEMUSE P-R Interval 188 ms GEMUSE QRS Duration 142 ms GEMUSE Q-T Interval 432 ms GEMUSE QTc 479 ms GEMUSE P Wave [place] 30 degrees GEMUSE R [place] -9 degrees GEMUSE T [place] 23 degrees GEMUSE ECG Interpretation Normal sinus rhythm Right bundle branch block Abnormal ECG When compared with ECG of 25-MAR-2024 19:01, Vent. rate has decreased BY 47 BPM Confirmed by Porsche PATINO JAMES ([id number]) on 02/20/2025 6:06:06 PM GEMUSE 02/20/2025 2:29 PM EDT 02/20/2025 6:06 PM EDT Siddharth Cueva MD ECG ORDERABLES Final Result GEMUSE * Troponin I high sensitivity (02/20/2025 2:21 PM EDT) [facility] High Sensitivity Troponin I <3 <=79 ng/L LAB CHEMISTRY METHOD 02/20/2025 3:08 PM EDT [facility] Blood Venous blood specimen / Unknown Venipuncture / Unknown 02/20/2025 2:21 PM EDT 02/20/2025 2:41 PM EDT Narrative [facility] - 02/20/2025 3:08 PM EDT High levels of biotin in samples may falsely decrease hsTroponin values. Use caution when interpreting hsTroponin results in patients taking biotin who exhibit renal impairment (eGFR <60) or in patients taking more than 20 mg/day of biotin. us Siddharth Cueva MD LAB BLOOD ORDERABLES Final Res ult [facility] [address] [place] [address], * (ABNORMAL) CBC auto differential (02/20/2025 2:21 PM EDT) WBC 3.2(L) 4.8 - 10.8 K/mcL LAB HEMETOLOGY METHOD 02/20/2025 3:36 PM EDT [facility] RBC 3.90(L) 4.50 - 5.50 M/mcL LAB HEMETOLOGY METHOD 02/20/2025 3:36 PM EDT [facility] Hemoglobin 9.0(L) 13.5 - 17.5 g/dL LAB HEMETOLOGY METHOD 02/20/2025 3:36 PM EDT [facility] Hematocrit 29.9(L) 42.0 - 54.0 % LAB HEMETOLOGY METHOD 02/20/2025 3:36 PM EDT [facility] MCV 76.5(L) 79.0 - 98.0 FL LAB HEMETOLOGY METHOD 02/20/2025 3:36 PM EDT [facility] MCH 23.0(L) 27.0 - 32.0 pcg LAB HEMETOLOGY METHOD 02/20/2025 3:36 PM EDT [facility] MCHC 30.1(L) 32.0 - 37.0 g/dL LAB HEMETOLOGY METHOD 02/20/2025 3:36 PM EDT [facility] RDW 18.5(H) 11.0 - 15.0 % LAB HEMETOLOGY METHOD 02/20/2025 3:36 PM EDT [facility] Platelets 87(L) 130 - 400 K/mcL LAB HEMETOLOGY METHOD 02/20/2025 3:36 PM EDT [facility] Comment:reviewed by sonia NOONAN LAB HEMETOLOGY METHOD 02/20/2025 3:36 PM EDT [facility] Comment:Not Measured NRBC 0.0 <1.0 % LAB HEMETOLOGY METHOD 02/20/2025 3:36 PM EDT [facility] NRBC Absolute 0.00 <0.10 K/mcL LAB HEMETOLOGY METHOD 02/20/2025 3:36 PM EDT [facility] Neutrophils Relative 75.4 % LAB HEMETOLOGY METHOD 02/20[facility]25 [facility] Lymphocytes Relative 11.7 % LAB HEMETOLOGY METHOD 02/20/2025 3:36 [facility] Monocytes Relative 8.6 % LAB HEMETOLOGY METHOD 02/20/2025 3:36 PM [facility] Eosinophils Relative 3.1 % LAB HEMETOLOGY METHOD 02/20/2025 3:36 PM [facility] Basophils Relative 0.9 % LAB HEMETOLOGY METHOD 02/20/2025 3:36 PM [facility] Immature Granulocytes Relative 0.3 % LAB HEMETOLOGY METHOD 02/20/2025 3:36 PM [facility] Neutrophils Absolute 2.44 1.50 - 7.00 K/mcL LAB HEMETOLOGY METHOD 02/20/2025 3:36 PM EDT [facility] Lymphocytes Absolute 0.38(L) 1.00 - 5.00 K/mcL LAB HEMETOLOGY METHOD 02/20/2025 3:36 [facility] Monocytes Absolute 0.28 0.20 - 1.00 K/mcL LAB HEMETOLOGY METHOD 02/20/2025 3:36 [facility] Eosinophils Absolute 0.10 0.00 - 0.50 K/mcL LAB HEMETOLOGY METHOD 02/20/2025 3:36 PM EDT [facility] Basophils Absolute 0.03 0.00 - 0.20 K/[facility] LAB HEMETOLOGY METHOD 02/20/2025 3:36 PM EDT [facility] Immature Granulocytes Absolute 0.01 0.00 - 0.03 K/[facility] LAB HEMETOLOGY METHOD 02/20/2025 3:36 PM EDT [facility] Blood Venous blood specimen / Unknown Venipuncture / Unknown 02/20/2025 2:21 PM EDT 02/20/2025 2:41 PM EDT us Siddharth Cueva MD LAB BLOOD ORDERABLES Final Res ult Performing Organization Address [facility]/ZIP Co de Phone Number [facility] [address] [place] [address], [place] [phone] * (ABNORMAL) Prothrombin time with INR (02/20/2025 2:21 PM EDT) Protime 14.9(H) 10.6 - 13.9 sec LAB COAGULATION METHOD 02/20/2025 2:53 PM EDT [facility] INR 1.2 LAB COAGULATION METHOD 02/20/2025 2:53 PM EDT [facility] Blood Venous blood specimen / Unknown Venipuncture / Unknown 02/20/2025 2:21 PM EDT 02/20/2025 2:41 PM EDT us Siddharth Cueva MD LAB BLOOD ORDERABLES Final Res ult Performing Organization Address City/[facility]/ZIP Co de Phone Number [facility] [address] [place] [address], [place] [phone] * (ABNORMAL) Magnesium (02/20/2025 2:21 PM EDT) Magnesium 1.8(L) 1.9 - 2.6 mg/dL LAB CHEMISTRY METHOD 02/20/2025 3:09 PM EDT [facility] Blood Venous blood specimen / Unknown Venipuncture / Unknown 02/20/2025 2:21 PM EDT 02/20/2025 2:40 PM EDT us Siddharth Cueva MD LAB BLOOD ORDERABLES Final Res ult Performing Organization Address City/[facility]/ZIP Co de Phone Number [facility] [address] [place] [address], [place] [phone] * Ethanol (02/20/2025 2:21 PM EDT) Ethanol Level <3 0 - 10 mg/dL LAB CHEMISTRY METHOD 02/20/2025 3:12 PM EDT [facility] Blood Venous blood specimen / Unknown Venipuncture / Unknown 02/20/2025 2:21 PM EDT 02/20/2025 2:40 PM EDT us Siddharth Cueva MD LAB BLOOD ORDERABLES Final Res ult Performing Organization Address [facility]/ZIP Co de Phone Number [facility] [address] [place] [address], [place] [phone] * (ABNORMAL) Comprehensive metabolic panel (02/20/2025 2:21 PM EDT) Sodium 139 133 - 145 mmol/L LAB CHEMISTRY METHOD 02/20/2025 3:15 PM EDT [facility] Potassium 4.1 3.5 - 5.5 mmol/L LAB CHEMISTRY METHOD 02/20/2025 3:15 PM EDT [facility] Chloride 108 96 - 110 mmol/L LAB CHEMISTRY METHOD 02/20/2025 3:15 PM EDT [facility] CO2 26 21 - 32 mmol/L LAB CHEMISTRY METHOD 02/20/2025 3:15 PM EDT [facility] Anion Gap 5 3 - 11 LAB CHEMISTRY METHOD 02/20/2025 3:15 PM [facility] Glucose 106(H) 70 - 100 mg/dL LAB CHEMISTRY METHOD 02/20/2025 3:15 PM [facility] BUN 13 5 - 25 mg/dL LAB CHEMISTRY METHOD 02/20/2025 3:15 PM [facility] Creatinine 0.94 0.70 - 1.30 mg/dL LAB CHEMISTRY METHOD 02/20/2025 3:15 PM [facility] eGFR 96 >=60 mL/min/1. 73m2 LAB CHEMISTRY METHOD 02/20/2025 3:15 PM [facility] Comment:Calculation based on the Chronic Kidney Disease Epidemiology Collaboration (CKD-EPI) equation refit without adjustment for race. BUN/Creatinine Ratio 13.8 LAB CHEMISTRY METHOD 02/20/2025 3:15 PM [facility] Calcium 9.3 8.5 - 10.5 mg/dL LAB CHEMISTRY METHOD 02/20/2025 3:15 PM [facility] AST (SGOT) 32 10 - 42 unit/L LAB CHEMISTRY METHOD 02/20/2025 3:15 PM [facility] ALT (SGPT) 27 10 - 60 unit/L LAB CHEMISTRY METHOD 02/20/2025 3:15 PM [facility] Alkaline Phosphatase 148(H) 42 - 121 unit/L LAB CHEMISTRY METHOD 02/20/2025 3:15 PM [facility] Total Protein 7.7 6.0 - 8.0 g/dL LAB CHEMISTRY METHOD 02/20/2025 3:15 PM [facility] Albumin 3.7 3.2 - 5.0 g/dL LAB CHEMISTRY METHOD 02/20/2025 3:15 PM [facility] Total Bilirubin 0.9 0.0 - 1.4 mg/dL LAB CHEMISTRY METHOD 02/20/2025 3:15 PM EDT [facility] Blood Venous blood specimen / Unknown Venipuncture / Unknown 02/20/2025 2:21 PM EDT 02/20/2025 2:40 PM EDT Siddharth Cueva MD LAB BLOOD ORDERABLES Final Res ult Performing Organization Address City/[facility]/ZIP Co de Phone Number [facility] [address] [place] [address], [place] [phone] * (ABNORMAL) Hemoglobin A1c (07/31/2024 7:00 AM EST) Hemoglobin A1C 7.1(H) <6.5 % LAB CHEMISTRY METHOD 07/31/2024 3:38 PM EST [facility] Mean Bld Glu Estim. 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
--- OUTSIDE RECORDS SUMMARY | 2025-03-18 22:25 | XMS_ITS | Encounter Summary ---
Author Organization [employer] Address [address] [facility] 7 [place] [address] Care Team Providers Care Boring Mill Set Up Operator Vertical Name Role Phone Lashay Rangel MD Primary Care Provider [phone] Reason for Visit * Reason Onset Date Comments Care Coordination 03/18/2025 Encounter Details Date Type Department Care Team (Late st Contact Info) Description 03/18/2025 Telephone [facility] MEDICAL [address] [place] [address] Lashay Rangel MD [address] [place] [phone] Care Coordination Social History Tobacco Use Types Packs/Day Years Used Date Smoking Tobacco: Never Assessed Sex and Gender Information Value Date Recorded Sex Assigned at Male 10/12/2023 3:21 PM EDT Legal Sex Male 4:04 PM EDT Gender Identity Male 05/20/2022 4:04 PM EDT Sexual Orientation Lesbian or Graham 05/20/2022 4: 04 PM EDT documented as of this encounter Miscellaneous Notes * Telephone Encounter - Ghazala Pedraza - 03/18/2025 2:40 PM EDT LMOM for Franca to call back. * Telephone Encounter - Fadia Beal - 03/18/2025 12:08 PM EDT Franca from [facility] called regarding the patient Patient was admitted to [facility] on 03/03 Please call back with med list and diagnoses And coordinate appointment with Dr Rangel as soon as possible. Program can make sure patient attends the appointment that gets scheduled Patient currently has metformin for his diabetes but program has incomplete or incorrect med list for this patient documented in this encounter Plan of Treatment Upcoming Encounters Date Type Department Care Team (Late st Contact Info) Description 05/02/2025 10:40 AM EDT Office Visit [facility] MED[facility] [address] [place] [address] Lashay Rangel MD [address] [place] [address] documented as of this encounter Visit Diagnoses Diagnosis Peptic ulcer Peptic ulcer, unspecified site, unspecified as acute or chronic, without mention of hemorrhage, perforation, or obstruction Cirrhosis of liver with ascites, unspecified hepatic cirrhosis type (CMS/HCC) (CMS/HCC) documented in this encounter Care Teams Boring Mill Set Up Operator Vertical Relationship Specialty Start Date End Date Lashay Rangel MD [address] [place] [address] PCP - General Family Medicine 10/28/24 documented as of this encounter
--- OUTSIDE RECORDS SUMMARY | 2025-03-18 22:25 | XMS_ITS | Encounter Summary ---
Author Organization [employer] Address [address] [facility] [address] [place] [address] Care Team Providers Care Solutions Executive Security Name Role Phone Lashay Rangel MD Primary Care Provider [phone] Encounter Details Date Type Department Care Team (Late st Contact Info) Description 01/30/2025 Orders Only [facility] [address] [place] [address] Lashay Rangel MD [address] [place] [address] Social History Tobacco Use Types Packs/Day Years Used Date Smoking Tobacco: Never Assessed Sex and Gender Information Value Date Recorded Sex Assigned at Male 10/12/2023 3:21 PM EDT Legal Sex Male 4:04 PM EDT Gender Identity Male 05/20/2022 4:04 PM EDT Sexual Orientation Lesbian or Graham 05/20/2022 4: 04 PM EDT documented as of this encounter Plan of Treatment Upcoming Encounters Date Type Department Care Team (Late st Contact Info) Description 05/02/2025 10:40 AM EDT Office Visit [facility] MEDICAL [address] [place] [address] Lashay Rangel MD [address] [place] [address] documented as of this encounter Procedures Procedure Name Priority Date/Time Associated Diagnosis Comments CBC WITH AUTO DIFFERENTIAL Routine 01/28/2025 10:47 AM EDT ECG 12-LEAD Routine 01/28/2025 10:46 AM EDT documented in this encounter Results * CBC auto differential (01/28/2025 10:47 AM EDT) Blood Venous blood specimen / Unknown us Lashay Rangel MD LAB BLOOD ORDERABLES Final Res ult * ECG 12 lead (01/28/2025 10:46 AM EDT) us Lashay Rangel MD ECG ORDERABLES Final Result documented in this encounter Visit Diagnoses Not on filedocumented in this encounter Care Teams Solutions Executive Security Relationship Specialty Start Date End Date Lashay Rangel MD [address] [place] [address] PCP - General Family Medicine 10/28/24 documented as of this encounter
--- OUTSIDE RECORDS SUMMARY | 2025-03-18 22:25 | XMS_ITS | Encounter Summary ---
Author Organization [facility] Address [address] [place] [address] Phone Care Team Providers Care Vocational Adviser Name Role Phone Jamie Maher Primary Care Provider [phone] Encounter Details Date Type Department Care Team (Late st Contact Info) Description 10/07/2024 Procedure Pass OR Admitting Dept - Virtual Department [address] [place] [address] Social History Tobacco Use Types Packs/Day Years Used Date Smoking Tobacco: Some Days Cigarettes 0.5 7 Started: 2012; Last attempted to quit: 2019 Smokeless Tobacco: Never Comments:off an on for 7 yea rs Alcohol Use Standard Drinks/Week Comments Yes 0 (1 standard drink = 0.6 oz pure alcohol) 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 No 10/07/2024 In the past 12 months have y ou been in a relationship with a person who hurts, threatens, or tries to control you? No 10/07/2024 Are you denied basic needs s uch as food, clothing, or medical care? No 10/07/2024 In the past 12 months have y ou been in a relationship with a person who hurts, threatens, or tries to control you? No 10/07/2024 Sex and Gender Information Value Date Recorded Sex Assigned at Male 07/01/2020 11:51 AM EST Legal Sex Male 2:45 PM EDT Gender Identity Male 07/01/2020 11:51 AM EST Sexual Orientation Straight 07/01/2020 11 :51 AM EST documented as of this encounter Functional Status * Calculated C-SSRS Risk Score (Lifetime/Recent) Answer Date of Assessment Author No Risk Indicated 10/07/2024 9:33 AM Sarah Randall RN * [place] Suicide Severity Rating Scale (Screener/Recent Self-Report) Question Answer Date of Assessment Author 1. Wish to be (Past 1 Month) No 10/07/2024 9:33 AM Sarah Randall RN 2. Non-Specific Active Suici toni Thoughts (Past 1 Month) No 10/07/2024 9:33 AM Ninfa Randall cia, RN 6. Suicidal Behavior (Lifetime) No 9:33 AM Sarah Randall RN documented as of this encounter Plan of Treatment Not on file documented as of this encounter Visit Diagnoses Not on filedocumented in this encounter Additional Health Concerns Infection Onset Date Last Indicated Resolved Time CoV-Risk 10/25/2024 10/25/2024 11/05/2024 1:23 AM EDT documented as of this encounter Care Teams Vocational Adviser Relationship Specialty Start Date End Date Jamie Maher PA [address] [place] [id number] PCP - General 08/13/24 documented as of this encounter Additional Source Comments The information contained in this document represents components of the legal health record. It is not the complete legal health record.[facility]
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
--- OUTSIDE RECORDS SUMMARY | 2025-03-18 22:25 | XMS_ITS | Encounter Summary ---
Author Organization [facility] Address [address] [facility] [address] [place] [address] Phone Care Team Providers Care Melon Packer Name Role Phone Jamie Maher Primary Care Provider [phone] Encounter Details Date Type Department Care Team (Late st Contact Info) Description 10/07/2024 Procedure Pass [facility], Ct Scan - [facility] [address] [place] [address] Social History Tobacco Use Types Packs/Day Years [...] housing (staying in a hotel, in a [place] [facility] [place], living outside on the street, on a [...] 10/07/2024 9:33 AM Sarah Randall RN * [place] Suicide Severity Rating Scale (Screener/Recent Self-Report) Question [...] documented as of this encounter Care Teams Melon Packer Relationship Specialty Start Date End Date Jamie Maher PA [address] [place] [address] PCP - General 08/13/24 documented as of this encounter Additional Source Comments The information contained in this document represents components of the legal health record. It is not the complete legal health record.[facility]
--- OUTSIDE RECORDS SUMMARY | 2025-03-18 22:25 | XMS_ITS | Encounter Summary ---
Author Organization [facility] Address [address] [facility] [address] [place] [address] Phone Care Team Providers Care Chief Security Officer Name Role Phone Jack Howard MD Primary Care Provi keiry Jamie Maher Primary Care Provider [phone] Encounter Details Date Type Department Care Team (Late st Contact Info) Description 04/28/2024 Procedure Pass [facility], Ct Scan - [address] [address] Social History Tobacco Use Types Packs/Day Years [...] on file 11/18/2022 No 11/18/2022 No 11/18/2022 Digital Access Answer Date Recorded No 12/17/2022 No 12/17/2022 Reliable internet access at home? Not on file 12/17/2022 Device with a working camera? Not on file Intimate Partner Violence Answer Date R ecorded Are you denied basic needs s uch as food, clothing, or medical care? No 04/28/2024 In the past 12 months have y ou been in a relationship with a person who hurts, threatens, or tries to control you? No 04/28/2024 Are you denied basic needs s uch as food, clothing, or medical care? No 04/28/2024 In the past 12 months have y ou been in a relationship with a person who hurts, threatens, or tries to control you? No 04/28/2024 Sex and Gender Information Value Date Recorded Sex Assigned at Male 07/01/2020 11:51 AM EST Legal Sex Male 2:45 PM EDT Gender Identity Male 07/01/2020 11:51 AM EST Sexual Orientation Straight 07/01/2020 11 :51 AM EST documented as of this encounter Functional Status * Calculated C-SSRS Risk Score (Lifetime/Recent) Answer Date of Assessment Author No Risk Indicated 04/28/2024 9:20 PM EDT Chata Wallace RN * [place] Suicide Severity Rating Scale (Screener/Recent Self-Report) Question Answer Date of Assessment Author 1. Wish to be (Past 1 Month) No 024 9:20 PM JOANT Chata Wallace RN 2. Non-Specific Active Suici toni Thoughts (Past 1 Month) No 04/28/2024 9:20 PM EDT Cj Wallace RN 6. Suicidal Behavior (Lifetime) No 4 9:20 PM JOANT Chata Wallace RN 6. Suicidal Behavior (3 Months) No 4 9:20 PM EDT Chata Wallace RN documented as of this encounter Plan of Treatment Not on file documented as of this encounter Visit Diagnoses Not on filedocumented in this encounter Additional Health Concerns Infection Onset Date Last Indicated Resolved Time CoV-Risk Comment:Neg covid 04/28/2024 04/28/2024 04/29/2024 9:33 AM E DT CoV-Risk Comment:Per note documentation 08/13/2024 08/13/2024 9:33 PM EST CDiff-Risk 08/14/2024 08/14/2024 08/15/2024 12:4 9 AM EST Norovirus 08/14/2024 08/14/2024 08/26/2024 1:25 AM EST CoV-Risk 08/19/2024 08/19/2024 08/30/2024 1:22 AM EST CoV-Risk 10/25/2024 10/25/2024 11/05/2024 1:23 AM EDT documented as of this encounter Care Teams Chief Security Officer Relationship Specialty Start Date End Date Jack Howard MD [address] [place] [address] PCP - General Internal Medicine 07/01/20 04/29/24 Jamie Maher PA [address] [place] [id number] PCP - General 08/13/24 documented as of this encounter Additional Source Comments The information contained in this document represents components of the legal health record. It is not the complete legal health record.[facility]
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
--- OUTSIDE RECORDS SUMMARY | 2025-03-18 22:25 | XMS_ITS | Encounter Summary ---
Author Organization [facility] Address [address] [facility] [address] [place] [address] Phone Care Team Providers Care Migratory Game Bird Biologist Name Role Phone Jamie Maher Primary Care Provider [phone] Encounter Details Date Type Department Care Team (Late st Contact Info) Description 10/07/2024 Procedure Pass [facility] [address] [place] [address] Social History Tobacco Use Types Packs/Day Years [...] housing (staying in a hotel, in a group home, living outside on the street, on a [...] 10/07/2024 9:33 AM Sarah Randall RN * [place] Suicide Severity Rating Scale (Screener/Recent Self-Report) Question [...] documented as of this encounter Care Teams Migratory Game Bird Biologist Relationship Specialty Start Date End Date Jamie Maher PA [address] [place] [id number] PCP - General 08/13/24 documented as of this encounter Additional Source Comments The information contained in this document represents components of the legal health record. It is not the complete legal health record.[facility]
--- OUTSIDE RECORDS SUMMARY | 2025-03-18 22:25 | XMS_ITS | Encounter Summary ---
Author Organization [employer] Address [address] [facility] 7t [place] [address] Care Team Providers Care Director Of Cath Lab Name Role Phone Lashay Rangel MD Primary Care Provider [phone] Encounter Details Date Type Department Care Team (Late st Contact Info) Description 01/28/2025 Orders Only [facility] Information Management [address] [place] [address] Lashay Rangel MD [address] [place] [address] Social History Tobacco Use Types Packs/Day Years [...] Description 05/02/2025 10:40 AM EDT Office Visit [facility] MEDICAL [address] [place] [address] Lashay Rangel MD [address] [place] [address] documented as of this encounter Procedures Procedure Name Priority Date/Time Associated Diagnosis Comments CT CERVICAL SPINE WO CONTRAST Routine 01/27/2025 10:[address] HEAD WO CONTRAST Routine 01/27/2025 10:13 AM EDT documented in this encounter Results * CT Cervical Spine w/o Contrast (01/27/2025 10:14 AM EDT) Anatomical Region Laterality Modality Spine, C-spine Computed Tomogra phy us Lashay Rangel MD IMG CT PROCEDURES Final Result * CT HEAD WO CONTRAST (01/27/2025 10:13 AM EDT) Anatomical Region Laterality Modality Computed Tomogra phy Lashay Rangel MD IMG CT PROCEDURES Final Result documented in this encounter Visit Diagnoses Not on filedocumented in this encounter Care Teams Director Of Cath Lab Relationship Specialty Start Date End Date Lashay Rangel MD [address] [place] [address] PCP - General Family Medicine 10/28/24 documented as of this encounter
--- OUTSIDE RECORDS SUMMARY | 2025-03-18 22:25 | XMS_ITS | Encounter Summary ---
Author Organization [facility] Address [address] [place] [address] Phone Care Team Providers Care Data Storage Specialist Name Role Phone Jamie Maher Primary Care Provider [phone]- [phone] Encounter Details Date Type Department Care Team (Late st Contact Info) Description 08/13/2024 Procedure Pass [facility] [address] [place] [address] Social History Tobacco Use Types Packs/Day Years [...] housing (staying in a hotel, in a penitentiary, living outside on the street, on a [...] as food, clothing, or medical care? No 08/17/2024 In the past 12 months have y ou been in a relationship with a person who hurts, threatens, or tries to control you? No 08/17/2024 Are you denied basic needs s uch as food, clothing, or medical care? No 08/17/2024 In the past 12 months have y ou been in a relationship with a person who hurts, threatens, or tries to control you? No 08/17/2024 Sex and Gender Information Value Date Recorded Sex Assigned at Male 07/01/2020 11:51 AM EST Legal Sex Male 2:45 PM EDT Gender Identity Male 07/01/2020 11:51 AM EST Sexual Orientation Straight 07/01/2020 11 :51 AM EST documented as of this encounter Functional Status * Calculated C-SSRS Risk Score (Lifetime/Recent) Answer Date of Assessment Author No Risk Indicated 08/13/2024 8:20 PM Mary Kate Zaragoza RN * [place] Suicide Severity Rating Scale (Screener/Recent Self-Report) Question Answer Date of Assessment Author 1. Wish to be (Past 1 Month) No 08/13/2024 8:20 PM Mary Kate Madrid RN 2. Non-Specific Active Suicidal Thoughts (Past 1 Month) No 08/13/2024 8:20 PM Mary Kate Madrid RN 6. Suicidal Behavior (Lifetime) No 08/13/2024 8:20 PM Mary Kate Madrid RN documented as of this encounter Plan of Treatment Not on file documented as of this encounter Visit Diagnoses Not on filedocumented in this encounter Additional Health Concerns Infection Onset Date Last Indicated Resolved Time CoV-Risk Comment:Per note documentation 08/13/2024 08/13/2024 9:33 PM EST CDiff-Risk 08/14/2024 08/14/2024 08/15/2024 12:4 9 AM EST Norovirus 08/14/2024 08/14/2024 08/26/2024 1:25 AM EST CoV-Risk 08/19/2024 08/19/2024 08/30/2024 1:2 2 AM EST CoV-Risk 10/25/2024 10/25/2024 11/05/2024 1:23 AM EDT documented as of this encounter Care Teams Data Storage Specialist Relationship Specialty Start Date End Date Jamie Maher PA [address] [place] [id number] PCP - General 08/13/24 documented as of this encounter Additional Source Comments The information contained in this document represents components of the legal health record. It is not the complete legal health record.[facility]
--- OUTSIDE RECORDS SUMMARY | 2025-03-18 22:25 | XMS_ITS | Encounter Summary ---
Author Organization [facility] Address [address] [place] [address] Phone Care Team Providers Care Basket Filler Name Role Phone Jamie Maher Primary Care Provider [phone]- [phone] Encounter Details Date Type Department Care Team (Late st Contact Info) Description 10/07/2024 Procedure Pass [facility] [address] [place] [address] Social History Tobacco Use Types Packs/Day Years [...] 10/07/2024 9:33 AM Sarah Randall RN * [place] Suicide Severity Rating Scale (Screener/Recent Self-Report) Question [...] documented as of this encounter Care Teams Basket Filler Relationship Specialty Start Date End Date Jamie Maher PA [address] [place] [id number] PCP - General 08/13/24 documented as of this encounter Additional Source Comments The information contained in this document represents components of the legal health record. It is not the complete legal health record.[facility]
--- OUTSIDE RECORDS SUMMARY | 2025-03-18 22:25 | XMS_ITS | Encounter Summary ---
Author Organization [facility] Address [address] [place] [address] Phone Care Team Providers Care Hospice Registered Nurse Name Role Phone Jamie Maher Primary Care Provider [phone]- [phone] Encounter Details Date Type Department Care Team (Late st Contact Info) Description 10/25/2024 Procedure Pass [facility] - [facility] [address] [place] [address] Social History Tobacco Use Types Packs/Day Years [...] housing (staying in a hotel, in a fpc, living outside on the street, on a [...] PM EDT Diamante Nuñez ma RN * [place] Suicide Severity Rating Scale (Screener/Recent Self-Report) Question [...] documented as of this encounter Care Teams Hospice Registered Nurse Relationship Specialty Start Date End Date Jamie Maher PA [address] [place] [id number] PCP - General 08/13/24 documented as of this encounter Additional Source Comments The information contained in this document represents components of the legal health record. It is not the complete legal health record.[facility]
--- OUTSIDE RECORDS SUMMARY | 2025-03-18 22:25 | XMS_ITS | Encounter Summary ---
Author Organization [facility] Address [address] [place] [address] Care Team Providers Care Station Mechanic Name Role Phone Physician, No Pcp Primary Care Provider Unavaila ble Encounter Details Date Type Department Care Team (Late st Contact Info) Description 07/31/2024 Lab Requisition [facility] - Main Lab [address] [place] [address] [place] [address] Other long-term (current) drug therapy Social History Tobacco Use Types Packs/Day Years Used Date Smoking Tobacco: Never Assessed Sex and Gender Information Value Date Recorded Sex Assigned at Male 08/08/2024 9:22 PM EST Legal Sex Male 1:36 PM EDT Gender Identity Male 08/08/2024 9:22 PM EST Sexual Orientation Straight 08/08/2024 9: 22 PM EST documented as of this encounter Plan of Treatment Not on file documented as of this encounter Procedures Procedure Name Priority Date/Time Associated Diagnosis Comments HEMOGLOBIN A1C Routine 07/31/2024 7:00 AM EST Other long-term (current) drug therapy BASIC METABOLIC PANEL Routine 07/31/2024 7:00 AM EST Other terminal operator (current) drug therapy documented in this encounter Results * (ABNORMAL) Hemoglobin A1c (07/31/2024 7:00 AM EST) Hemoglobin A1C 7.1(H) <6.5 % LAB CHEMISTRY METHOD 07/31/2024 3:38 PM [facility] Mean Bld Glu Estim. 157 mg/dL LAB CHEMISTRY METHOD 07/31/2024 3:38 PM [facility] Blood Venous blood specimen / Unknown Venipuncture / Unknown 07/31/2024 7:00 AM EST 07/31/2024 12:30 PM EST Lorelei Samson NP LAB BLOOD ORDERABLES Final Res ult [facility] [address] [place] [address], * (ABNORMAL) Basic metabolic panel (07/31/2024 7:00 AM EST) Sodium 129(L) 133 - 145 mmol/L LAB CHEMISTRY METHOD 07/31/2024 3:34 PM [facility] Potassium 4.9 3.5 - 5.5 mmol/L LAB CHEMISTRY METHOD 07/31/2024 3:34 PM [facility] Chloride 99 96 - 110 mmol/L LAB CHEMISTRY METHOD 07/31/2024 3:34 PM [facility] CO2 27 21 - 32 mmol/L LAB CHEMISTRY METHOD 07/31/2024 3:34 PM [facility] Anion Gap 3 3 - 11 LAB CHEMISTRY METHOD 07/31/2024 3:34 PM [facility] Glucose 432(HH) 70 - 100 mg/dL LAB CHEMISTRY METHOD 07/31/2024 3:34 PM [facility] BUN 19 5 - 25 mg/dL LAB CHEMISTRY METHOD 07/31/2024 3:34 PM [facility] Creatinine 1.01 0.70 - 1.30 mg/dL LAB CHEMISTRY METHOD 07/31/2024 3:34 PM [facility] eGFR 88 >=60 mL/min/1. 73m2 LAB CHEMISTRY METHOD 07/31/2024 3:34 PM EST [facility] Comment:Calculation based on the Chronic Kidney Disease Epidemiology Collaboration (CKD-EPI) equation refit without adjustment for race. BUN/Creatinine Ratio 18.8 LAB CHEMISTRY METHOD 07/31/2024 3:34 PM EST [facility] Calcium 9.3 8.5 - 10.5 mg/dL LAB CHEMISTRY METHOD 07/31/2024 3:34 PM EST [facility] Blood Venous blood specimen / Unknown Venipuncture / Unknown 07/31/2024 7:00 AM EST 07/31/2024 12:30 PM EST us Lorelei Samson NP LAB BLOOD ORDERABLES Final Res ult [facility] [address] [place] [address], documented in this encounter Visit Diagnoses Diagnosis Other long-term (current) drug therapy documented in this encounter Care Teams Station Mechanic Relationship Specialty Start Date End Date Physician, No Pcp PCP - General 08/02/24 documented as of this encounter
[2025-03-18 22:26] VITALS: BP 141/71; PULSE 79; RESP 16; TEMP 36.9; O2SAT 97
[2025-03-18 22:34] LABS: Cannabinoid Screen Urine Not Detected (Not Detect)
[2025-03-19] VITALS (8 sets, daily range): BP systolic 106–126; BP diastolic 61–76; PULSE 94–112; RESP 16; TEMP 36.6–36.8; O2SAT 94–99
--- NOTE | 2025-03-19 00:08 | PC.NURSE ---
pt medicated per mar.
--- NOTE | 2025-03-19 00:48 | PC.NURSE ---
Notified provider pt in pain, prior medication not helpful, pt awaiting to be seen.
--- NOTE | 2025-03-19 01:30 | PC.NURSE ---
pt reposition for comfort, awaiting provider.
[2025-03-19] MEDS: Lactated Ringers 1,000 ML 999 ML IV (05:41)
[2025-03-19] MEDS: oxyCODONE HCl Immed Release 5 MG TABLET PO (05:43)
--- NOTE | 2025-03-19 05:46 | PC.NURSE ---
pt medicated per mar.
[2025-03-19] MEDS: iohexoL 350 MG/ML 100 ML INFUS..BTL 85 ML IV (06:11)
--- NOTE | 2025-03-19 06:56 | ED.ABDPAIN ---
HPI - Abdominal Pain General Chief Complaint: Abdominal Pain Stated Complaint: hx of kidney stones, ab pain radiating to back n/v Time Seen by Provider: 03/19/25 04:44 Source: patient Mode of arrival: ambulatory Limitations: no limitations History of Present Illness ED Provider: Dr. Preeti Glaser HPI narrative: 55-year-old male with a history of alcohol use, alcoholic liver cirrhosis, diabetes and hypertension presenting with abdominal pain that began about 30 minutes prior to arrival. Patient describes severe pain that starts in his lower abdomen and radiates to his chest. Pain has been constant since it started. No change with movement or food. No associated fever. Has had several episodes of vomiting associated with this pain. Also describes several episodes of diarrhea over the last couple of days. Denies dysuria or hematuria but does have a history of kidney stones. Denies testicular pain or swelling. Admits he has been sober for many years but does have occasional slip ups, most recent was about 3 months ago. Denies other illicit substance use. Related Data Home Medications ?Medication ?Instructions ?Recorded ?Confirmed folic acid 1 mg tablet 1 mg PO DAILY 08/30/24 08/30/24 furosemide 20 mg tablet 20 mg PO DAILY 08/30/24 08/30/24 hydroxyzine pamoate 50 mg capsule 100 mg PO TID 08/30/24 08/30/24 insulin glargine 100 unit/mL (3 20 unit subcut BEDTIME 08/30/24 08/30/24 mL) subcutaneous pen (Lantus Solostar U-100 Insulin) insulin lispro 100 unit/mL See Protocol subcut QIDACHS 08/30/24 08/30/24 subcutaneous pen (Humalog KwikPen (U-100) Insulin) Previous Rx's ?Medication ?Instructions ?Recorded flash glucose sensor (FreeStyle #1 ea 03/23/24 [place] 14 Day Sensor kit) dicyclomine 20 mg tablet 20 mg PO TID #10 tabs 03/19/25 ondansetron 4 mg disintegrating 4 mg PO Q8H PRN nausea and 03/19/25 tablet vomiting #10 tabs Allergies Allergy/AdvReac Type Severity Reaction Status Date / Time bupropion (From Wellbutrin) Allergy Shortness Verified 03/18/25 21:48 of Breath gabapentin Allergy Confusion Verified 03/18/25 21:48 seafood Allergy Anaphylaxis Verified 03/18/25 21:48 Review of Systems Review of Systems As per HPI, full review of systems performed and negative but for the above mentioned pertinent positives and negatives. [facility] Past Medical History Medical History Alcohol abuse Social History Social History Alcohol intake: current Alcohol intake frequency: 3 or more drinks per day Alcohol type: hard liquor Smoked in Last 30 Days: No Use of substances other than those prescribed or required for medical reasons: No Substance Use Type: Marijuana Advance Directives: No Advance Directives Information Provided: No Do you have a plan to hurt others: No Plan Physical Exam ED Exam Exam: GENERAL: Ill-Appearing, appears uncomfortable. SKIN: Normal skin color for ethnicity, warm, dry, no rashes noted. HEENT: Normocephalic, atraumatic, no stridor, dry mucous membranes, dentition intact, EOMI, PERRLA. NECK: Soft, supple, full ROM, midline structures nontender, no step-offs, no deformities, no lymphadenopathy. CHEST: Heart regular tachycardia, no murmurs, symmetric chest rise and fall. PULMONARY: Clear to auscultation bilaterally, diminished at the bases, no labored breathing, no wheezes/rhales/rhonchi. ABDOMINAL: Soft, nondistended, diffusely tender to palpation with voluntary guarding, hyperactive bowel sounds in all quadrants. : Deferred. MUSCULOSKELETAL: Normal tone, full range of motion, no deformities, no peripheral edema. NEURO: Alert and oriented x3, CN II through XII intact, equal strength and sensation bilateral upper and lower extremities, no focal neurologic deficits. PSYCHIATRIC: Flat affect, fluid speech, good eye contact and appropriate demeanor. Vital Signs: Vital Signs - 24 hr 03/18/25 21:46 03/18/25 22:26 03/19/25 00:45 Temperature 97.9 F 98.4 F 98.3 F Pulse Rate 86 79 94 Respiratory Rate 17 16 16 Blood Pressure 146/71 H 141/71 H 109/61 Pulse Oximetry 98 97 97 Oxygen Delivery Method Room Air Room Air Room Air 03/19/25 02:58 03/19/25 04:54 03/19/25 06:46 Temperature 98.0 F 98.1 F 98.0 F Pulse Rate 96 95 96 Respiratory Rate 16 16 16 Blood Pressure 111/65 121/67 126/76 Pulse Oximetry 97 99 98 Oxygen Delivery Method Room Air Room Air Room Air BMI result Body Mass Index 25.1 Medical Decision Making Medical Decision Making [facility] Narrative: This patient presents today with a chief complaint of abdominal pain. Differential diagnosis for this patient is broad. It includes appendicitis, cholecystitis, bowel obstruction, peptic ulcer disease, pyelonephritis, vascular pathology, among many others. A broad-based workup based on history and physical examination was obtained. Patient is rather tender on exam. We will add on a CT to evaluate this further. Blood work is reassuring. He does have pancytopenia which is baseline for him. No significant elevation of LFTs or evidence of biliary obstruction. Urine is clean. No evidence of infection or stone. 7:37 AM 03/19/2025 (Dr. Preeti Glaser, D.O.) CT shows some liver cirrhosis and splenomegaly with some retroperitoneal lymphadenopathy which is nonspecific. I suspect that his pancytopenia is related to his alcoholic liver cirrhosis and most of his symptoms today are associated with that. No evidence of SBP today. He is nontoxic, tolerating oral intake and resting comfortably after pain medications. Plan will be to discharge back to his sober house with outpatient follow-up with GI. Discussed importance of follow-up as well as strict return precautions. Discharged home in stable condition. Differential Diagnosis Differential Diagnoses: The differential diagnosis associated with the presentation includes (As above) Admission/Observation Consideration of admission/observation: Escalation of care including admission/observation considered Lab Data [facility] Lab Attestation statement: I reviewed the patient's lab results. 03/18/25 21:59 03/18/25 21:59 Labs: Lab Results 03/18/25 Range/Units 21:59 WBC 3.9 L (4.8-10.8) X10*3/uL RBC 3.66 L (4.60-5.80) X10*6/uL Hgb 8.7 L (14.0-18.0) g/dl Hct 26.9 L (42.0-52.0) % MCV 73.5 L (80.0-98.0) fL MCH 23.8 L (27.0-33.0) pg MCHC 32.3 (31.0-36.0) g/dl RDW 18.1 H (11.0-16.0) % Plt Count 92 L (160-400) X10*3/uL MPV Not Reportable Immature Gran % (Auto) 0.3 (0.0-0.4) % Neut % (Auto) 72.5 (45-73) % Lymph % (Auto) 13.7 L (20-40) % Catron % (Auto) 9.2 (2-11) % Eos % (Auto) 3.8 (0-4) % Baso % (Auto) 0.5 (0-2) % Lymph # (Auto) 0.5 L (1.2-4.9) X10*3/uL Catron # (Auto) 0.4 (0.1-1.2) X10*3/uL Eos # (Auto) 0.2 (0.0-0.4) X10*3/uL Baso # (Auto) 0.0 (0.0-0.2) X10*3/uL Abs Immat Gran (auto) 0.01 (0.00-0.03) X10*3/uL Absolute Neuts (auto) 2.9 (2.0-8.3) x10*3/uL Absolute Nucleated RBC 0.000 (0.0-0.012) X10*3/uL Nucleated RBC % (auto) 0.0 (0.0-0.2) /100WBC Smear Tech's Comments VERIFIED Sodium 138 (135-145) mmol/L Potassium 4.2 D (3.3-5.1) mmol/L Chloride 107 (96-108) mmol/L Carbon Dioxide 25 (22-29) mmol/L Anion Gap 10 L (12-20) BUN 16 (9-16) mg/dL Creatinine 0.97 (0.5-1.4) mg/dL Estim Creat Clear Calc 85.0 Estimated GFR > 60 Random Glucose 194 H (60-115) mg/dL Calcium 9.4 D (8.4-10.2) mg/dL Magnesium 1.7 (1.6-2.6) mg/dL Total Bilirubin 1.0 (0.0-1.0) mg/dL Direct Bilirubin 0.4 (0.0-0.5) mg/dL AST 34 (5-37) U/L ALT 28 (0-40) U/L Alkaline Phosphatase 174 H (39-117) U/L Total Protein 7.1 (6.5-8.0) g/dL Albumin 4.0 (3.5-5.0) g/dL Lipase 60 (8-78) U/L Urine Color Yellow Urine Appearance Clear Urine pH 7.5 (5.0-9.0) Ur Specific [place] 1.025 (1.005-1.025) Urine Protein Trace (Neg-Trace) mg/dL Urine Glucose (UA) Negative (Negative) mg/dL Urine Ketones Negative (Negative) mg/dL Urine Blood Negative (Negative) Urine Nitrite Negative (Negative) Ur Leukocyte Esterase Negative (Negative) Urine RBC 0-2 (0-2) /HPF Urine WBC 0-5 (0-5) /HPF Ur Squamous Epith Cells 0-2 (0-2) /HPF Urine Bacteria None Seen (None Seen) Hyaline Casts 0-2 (0-2) /LPF Urine Opiates Screen Not Detected (Not Detect) Ur Buprenorphine Scrn Not Detected (Not Detect) ng/mL Ur Oxycodone Screen Not Detected (Not Detect) ng/mL Urine Methadone Screen Not Detected (Not Detect) ng/mL Urine Fentanyl Screen Not Detected (Not Detect) Ur Barbiturates Screen Not Detected (Not Detect) Ur Phencyclidine Scrn Not Detected (Not Detect) Ur Amphetamines Screen Not Detected (Not Detect) U Benzodiazepines Scrn Not Detected (Not Detect) Urine Cocaine Screen Not Detected (Not Detect) U Marijuana (THC) Screen Not Detected (Not Detect) Radiology Impression Discussion of test interpretation with radiology: I have reviewed the radiologist's reading. Radiologist Impression: CT abdomen and pelvis with contrast Comparison: None Findings: Lung bases demonstrate mild dependent changes. Several esophageal varices are present. The liver is cirrhotic. The spleen is significantly enlarged. Prominent adenopathy within the retroperitoneum. Gallstones are present. Kidneys, ureters and bladder are unremarkable. No bowel obstruction or free air. Normal appendix. No abscess or pneumatosis. Small volume ascites about the liver and spleen. Degenerative changes seen throughout the spine. Diffuse atherosclerotic disease. Impression: Cirrhosis with splenomegaly and small volume ascites. Multiple varices are present. Nonspecific retroperitoneal adenopathy. Lymphoproliferative disorder not excluded. Cholelithiasis. Normal appendix. External Record Review External record reviewed: Outpatient record Prescription Management I considered prescription management with: Pain Medication and Other (antiemetic) Chronic Conditions Patient?s care impacted by: Other (Alcoholic liver cirrhosis) Social Determinants Patient?s care significantly limited by Social Determinants of Health including: Problems related to primary support group and Other Social Determinant of Health Medications Administered Discontinued Medications Generic Name Dose Route Start Last Admin Trade Name Angelq PRN Reason Stop Dose Admin Lactated Ringer's 1,000 mls @ 999 mls/hr 03/19/25 05:33 03/19/25 06:56 Lr IV 03/19/25 06:33 Infused .Q1H1M ONE Infusion Iohexol 85 ml 03/19/25 06:08 03/19/25 06:11 Iohexol 350 Mg/Ml 100 Ml Infus..Btl IV 03/19/25 06:09 85 ml ONCE ONE Administration Ketorolac Tromethamine 30 mg 03/18/25 23:55 03/19/25 00:07 Ketorolac Tromethamine 30 Mg/Ml Vial IVPUSH 03/18/25 23:56 30 mg ONCE ONE Administration Ketorolac Tromethamine 15 mg 03/19/25 05:32 03/19/25 05:43 Ketorolac Tromethamine 15 Mg/Ml Vial IVPUSH 03/19/25 05:33 15 mg ONCE ONE Administration Ondansetron HCl 4 mg 03/19/25 05:31 03/19/25 05:43 Ondansetron Odt 4 Mg Tab.Rapdis TRANSLINGU 03/19/25 05:32 4 mg ONCE ONE Administration Oxycodone HCl 5 mg 03/19/25 05:31 03/19/25 05:43 Oxycodone Hcl Immed Release 5 Mg Tablet PO 03/19/25 05:32 5 mg ONCE ONE Administration Discharge Plan Discharge Clinical Impression: Abdominal pain, acute, Alcoholic cirrhosis of liver with ascites, Pancytopenia Patient Disposition: Home, Self-Care Instructions: Cirrhosis of the Liver (ED), Acute Abdominal Pain (ED) Additional Instructions: Please follow-up with gastroenterology as an outpatient. Call the office to make an appointment as soon as possible regarding your liver. Use Bentyl for abdominal cramping, Zofran for nausea. Return to the emergency department with any new or worsening symptoms including: Worsening pain despite medications, fevers greater than 100 degrees, chest pain or difficulty breathing, any new symptom that concerns you. Call 911 with any medical emergency. Prescriptions: New dicyclomine 20 mg tablet 20 mg PO TID Qty: 10 0RF ondansetron 4 mg tablet,disintegrating 4 mg PO Q8H PRN (Reason: nausea and vomiting) Qty: 10 0RF No Action (DME) FreeStyle [place] 14 Day Sensor Kit See Rx Instructions .Route Qty: 1 0RF Rx Instructions: As directed hydroxyzine pamoate 50 mg capsule 100 mg PO TID folic acid 1 mg tablet 1 mg PO DAILY furosemide 20 mg tablet 20 mg PO DAILY insulin lispro [Humalog KwikPen Insulin] 100 unit/mL insulin pen See Protocol subcut QIDACHS Protocol: Insulin Correction Scale Less than or equal to 110 ---- Give (units): 0 111 to 150 Give (units): 0 151 to 200 Give (units): 2 201 to 250 Give (units): 4 251 to 300 Give (units): 6 301 to 350 Give (units): 8 Greater than 350 Give (units): 10 Call if Blood Glucose > : 350 insulin glargine [Lantus Solostar U-100 Insulin] 100 unit/mL (3 mL) insulin pen 20 unit subcut BEDTIME Referrals: [facility] [Provider Group, Gastroenterology] Clinical Impression: Alcoholic cirrhosis of liver with ascites Print Language: Sammarinese
== END 2025-03-19 08:23 | disposition home or self-care (01) ==
PROVIDERS: Emergency Provider Emergency Medicine
DX: K70.31 Alcoholic cirrhosis of liver with ascites (principal); D61.818 Other pancytopenia; R10.9 Unspecified abdominal pain; R11.2 Nausea with vomiting, unspecified; E11.9 Type 2 diabetes mellitus without complications; I10 Essential (primary) hypertension; R19.7 Diarrhea, unspecified; Z79.4 Long term (current) use of insulin; F12.90 Cannabis use, unspecified, uncomplicated
CPT/HCPCS: 36415; 74177; 80053; 80307; 81001; 82248; 83690; 83735; 85025; 99285; J1630; J1885; J7120; Q9967

== ENCOUNTER → 2025-03-19 05:31 | Outpatient (BNV) | payer MEDICARE, MEDICAID, SELFPAY | PROVIDERS: Emergency Provider Emergency Medicine; Visit Provider Radiology Vascular & Interventional Radiology | DX: R18.8 Other ascites (principal) | CPT/HCPCS: 74177 ==

== ENCOUNTER 2025-03-26 08:40 | Emergency (ER) | payer MEDICARE, SELFPAY ==
[2025-03-26] VITALS (8 sets, daily range): BP systolic 116–142; BP diastolic 59–81; PULSE 72–82; RESP 16–18; TEMP 36.4–36.6; O2SAT 95–97; BMI 23.6
--- NOTE | 2025-03-26 08:53 | ED.EPISTAXIS ---
History of Present Illness General Chief Complaint: Epistaxis Stated Complaint: bloody nose Time Seen by Provider: 03/26/25 08:53 Source: patient and RN notes reviewed Mode of arrival: ambulatory Limitations: no limitations History of Present Illness ED Provider: Mary Alice Robbins PA-C HPI Narrative: This is a 55-year-old male, with a past medical history of alcohol use, alcoholic liver cirrhosis, diabetes, and hypertension, who presents emergency department with complaints of nosebleed. Patient reports that when he awoke this morning, he immediately had blood dripping out of his left nostril. He states that he attempted to pack it however continued to bleed. He states that he has a history of nosebleeds, typically gets them on a daily basis. He states that this time it would not stop. He reports mild headache, no dizziness. No head trauma. Denies picking his nose, denies any intranasal drug use. He states that he does drink alcohol however states that he has not drank in several months. He currently is residing at a [facility] program for alcohol. Location: Yes left naris Onset/current episode: Yes hour(s) Duration: Yes constant Pertinent past history: Yes hypertension Context: Yes history of previous nose bleed and Yes hypertension Associated symptoms: Yes headache Treatment prior to arrival: Yes stuff nose with tissue Related Data Home Medications ?Medication ?Instructions ?Recorded ?Confirmed folic acid 1 mg tablet 1 mg PO DAILY 08/30/24 08/30/24 furosemide 20 mg tablet 20 mg PO DAILY 08/30/24 08/30/24 hydroxyzine pamoate 50 mg capsule 100 mg PO TID 08/30/24 08/30/24 insulin glargine 100 unit/mL (3 20 unit subcut BEDTIME 08/30/24 08/30/24 mL) subcutaneous pen (Lantus Solostar U-100 Insulin) insulin lispro 100 unit/mL See Protocol subcut QIDACHS 08/30/24 08/30/24 subcutaneous pen (Humalog KwikPen (U-100) Insulin) Previous Rx's ?Medication ?Instructions ?Recorded flash glucose sensor (FreeStyle #1 ea 03/23/24 Milan 14 Day Sensor kit) dicyclomine 20 mg tablet 20 mg PO TID #10 tabs 03/19/25 ondansetron 4 mg disintegrating 4 mg PO Q8H PRN nausea and 03/19/25 tablet vomiting #10 tabs acetaminophen 500 mg tablet 500 - 1,000 mg (1 - 2 x 500 mg) PO 03/26/25 (Tylenol Extra Strength) Q8H PRN pain #30 tabs cephalexin 500 mg capsule 500 mg PO QID 5 days #20 caps 03/26/25 ferrous sulfate 325 mg (65 mg 325 mg PO Q OTHER DAY #30 tabs 03/26/25 iron) tablet Allergies Allergy/AdvReac Type Severity Reaction Status Date / Time bupropion (From Wellbutrin) Allergy Shortness Verified 03/26/25 08:45 of Breath gabapentin Allergy Confusion Verified 03/26/25 08:45 seafood Allergy Anaphylaxis Verified 03/26/25 08:45 Review of Systems Review of Systems: Constitutional : No Fever, No Chills ENT/Mouth : No sore throat, No Rhinorrhea, +epistaxis Eyes: No Eye Pain, No Swelling, No Redness Cardiovascular : No Chest Pain, No SOB Respiratory : No Cough, No Sputum Gastrointestinal : No Nausea, No Vomiting, No Diarrhea, No abdominal Pain Genitourinary : No Dysuria, No Hematuria Musculoskeletal : No joint pain, No Myalgias, No Joint Swelling Skin : No Skin Lesions, positive skin rash Neuro : No Weakness, No Numbness, No Headache All other systems reviewed and are negative Yes all other systems are reviewed and are negative Constitutional: Constitutional: Reports as per [facility] Past Medical History Medical History Alcohol abuse Social History Social History Alcohol intake: current Alcohol intake frequency: 3 or more drinks per day Alcohol type: hard liquor Substance Use Type: Marijuana Advance Directives: No Advance Directives Information Provided: Yes Do you have a plan to hurt others: No Plan Physical Exam Vital Signs: Vital Signs: Last Vital Signs Temp 97.7 F 03/26/25 16:18 Pulse 75 03/26/25 16:18 Resp 18 03/26/25 16:18 BP 142/81 H 03/26/25 16:18 Pulse Ox 97 03/26/25 16:18 O2 Del Method Room Air 03/26/25 16:18 BMI result Body Mass Index 23.6 Const: General: cooperative, comfortable and no acute distress Orientation/consciousness: patient oriented x3 Limitations: no limitations HEENT: Other: No active bleeding noted, there is a slight ulceration noted to the left septum, 2 mm in size. No posterior bleed, no septal hematoma noted. No blood or blood clot noted in the posterior oropharynx. Head: Yes normal to inspection, Yes normocephalic and Yes atraumatic Ears: hearing grossly normal bilaterally General nose exam: Normal external nose present Face and sinus: Yes normal facial exam Mouth: Normal oral and palatal mucosa present, oropharynx normal and moist mucous membranes Throat: Yes posterior oropharynx normal Eyes: General: appearance normal, both eyes and all related structures Eyelids: Yes eyelids normal Conjunctivae: conjunctivae normal Sclerae: sclerae normal Pupils: Equal, round and reactive pupils present EOM: EOMs intact bilaterally Neck: Neck: Yes normal visual inspection, Yes full ROM and Yes no lymphadenopathy Lymphatic: no lymphadenopathy noted Chest: Chest palpation & inspection: normal inspection of the chest Resp: Effort & Inspection: normal respiratory effort and able to speak in complete sentences Auscultation: clear to auscultation bilaterally, no crackles, no rales, no rhonchi and no wheezes Cardio: Rate: regular rate Rhythm: regular rhythm Heart sounds: S1 normal heart sound present and S2 normal heart sound present GI: Inspection: Yes normal to inspection Skin: General skin exam: no rashes or lesions noted Trauma: no lacerations or abrasions Wounds: no wounds Neuro: General: patient oriented x3 and moves all extremities Cranial nerves: Yes Equal, round and reactive pupils present Extrem: General: Yes normal to inspection Right upper extremity: normal to inspection Left upper extremity: normal to inspection Right lower extremity: normal to inspection Left lower extremity: normal to inspection Medications Administered Discontinued Medications Generic Name Dose Route Start Last Admin Trade Name Angelq PRN Reason Stop Dose Admin Cephalexin HCl 500 mg 03/26/25 12:54 03/26/25 13:55 Cephalexin 500 Mg Capsule PO 03/26/25 12:55 500 mg ONCE ONE Administration Cocaine HCl 4 ml 03/26/25 10:26 03/26/25 11:29 Cocaine Hcl 4 % 4 Ml Solution TOPICAL 03/26/25 10:27 4 ml ONCE ONE Administration Protocol Acetaminophen 1,000 mg in 100 mls @ 400 mls/hr 03/26/25 14:02 03/26/25 15:13 Ofirmev IV 03/26/25 14:16 Infused ONCE ONE Infusion Lidocaine/Epinephrine 5 ml 03/26/25 11:26 03/26/25 12:06 Lidocaine Hcl 1%/Epi 1:100,000 20 Ml Vial INFILTRATI 03/26/25 11:27 Not Given ONCE ONE Lidocaine/Epinephrine 5 ml 03/26/25 11:45 03/26/25 12:06 Lidocaine Hcl 1%/Epi 1:100,000 10 Ml Vial INFILTRATI 03/26/25 11:46 5 ml ONCE ONE Administration Morphine Sulfate 4 mg 03/26/25 15:51 03/26/25 16:04 Morphine Sulfate 4 Mg/Ml Cartridge IVPUSH 03/26/25 15:52 4 mg ONCE ONE Administration Protocol Silver Nitrate 1 appl 03/26/25 10:26 03/26/25 11:29 Silver Nitrate Applicator Stick..Ea. TOPICAL 03/26/25 10:27 1 appl ONCE ONE Administration Medical Decision Making Medical Decision Making MDM Narrative: This is a 55-year-old male, with a history of alcohol use disorder, and hypertension, who presents emergency department with complaints of nosebleed restarted approximately 2 hours ago. On arrival, vital signs within normal limits. He is speaking in full sentences under no distress. Patient's left naris is packed, no active bleeding noted however will reassess. Given nosebleed for approximately 2 hours, and history anemia, will obtain CBC to ensure he has not lost a significant amount of blood. Plan: Labs, reassess 11:28 AM 03/26/2025 (Mary Alice Robbins PA-C): Packing was removed from the nare, no active bleeding noted, however there is a ulceration noted in the anterior left nare, overlying the septum. Patient was also examined might my attending, Dr. Bai. Will pack with cocaine, and use silver nitrate over this ulcerated area. Labs were obtained, patient does have a microcytic anemia with an H&H of 7.2/22.7, he has baseline appears to be at at around 8.5. We only have labs since August of 2024 therefore unclear if this is a steady decline or not however last hemoglobin and hematocrit that was performed on March 18, 2025 was 8.7/26.9. Given this, as well as patient having some lightheadedness, will transfuse with 1 unit of packed red blood cells which should ideally increased to where his baseline is. We will continue to closely monitor pending overall workup. 12:52 PM 03/26/2025 (Mary Alice Robbins PA-C): Nose was pack x2 with cocaine, no active bleeding. Nose was cauterized with silver nitrate stick, patient tolerated procedure well, nose was eventually packed with merocel packing and inflated with lidocaine with epinephrine. Patient awaiting to receive 1 L packed red blood cells. 4:06 PM 03/26/2025 (Mary Alice Robbins PA-C): Patient is still receiving packed red blood cells, still complaining of headaches, despite IV Tylenol, will medicate with IV morphine. We will continue to closely monitor. He does have a ride home. 4:55 PM 03/26/2025 (Mary Alice Robbins PA-C): Patient feeling much better, has not had any resumption of epistaxis. Patient will follow-up with ENT in 4 days. Stressed the importance of making an appointment. We will also start on iron supplementation. Advised to follow-up with GI specialist given microcytic anemia. Patient stable for discharge. Differential Diagnosis Differential Diagnoses: The differential diagnosis associated with the presentation includes Epistaxis, anemia, anterior bleed, posterior bleed Lab Data MDM Lab Attestation statement: I reviewed the patient's lab results. See MDM and course 03/26/25 09:26 03/26/25 09:26 Labs: Lab Results 03/26/25 03/26/25 Range/Units 09:26 10:38 WBC 3.7 L (4.8-10.8) X10*3/uL RBC 3.07 L (4.60-5.80) X10*6/uL Hgb 7.2 L (14.0-18.0) g/dl Hct 22.7 L (42.0-52.0) % MCV 73.9 L (80.0-98.0) fL MCH 23.5 L (27.0-33.0) pg MCHC 31.7 (31.0-36.0) g/dl RDW 17.5 H (11.0-16.0) % Plt Count 82 L (160-400) X10*3/uL MPV Not Reportable Immature Gran % (Auto) 0.5 H (0.0-0.4) % Neut % (Auto) 77.8 H (45-73) % Lymph % (Auto) 9.7 L (20-40) % [place] % (Auto) 8.8 (2-11) % Eos % (Auto) 2.7 (0-4) % Baso % (Auto) 0.5 (0-2) % Lymph # (Auto) 0.4 L (1.2-4.9) X10*3/uL [place] # (Auto) 0.3 (0.1-1.2) X10*3/uL Eos # (Auto) 0.1 (0.0-0.4) X10*3/uL Baso # (Auto) 0.0 (0.0-0.2) X10*3/uL Abs Immat Gran (auto) 0.02 (0.00-0.03) X10*3/uL Absolute Neuts (auto) 2.9 (2.0-8.3) x10*3/uL Absolute Nucleated RBC 0.000 (0.0-0.012) X10*3/uL Nucleated RBC % (auto) 0.0 (0.0-0.2) /100WBC Sodium 140 (135-145) mmol/L Potassium 4.0 (3.3-5.1) mmol/L Chloride 106 (96-108) mmol/L Carbon Dioxide 27 (22-29) mmol/L Anion Gap 11 L (12-20) BUN 19 H (9-16) mg/dL Creatinine 0.88 (0.5-1.4) mg/dL Estim Creat Clear Calc 93.7 Estimated GFR > 60 Random Glucose 159 H (60-115) mg/dL Calcium 9.0 (8.4-10.2) mg/dL Iron 22 L (45-160) mcg/dL TIBC 327 (228-428) mcg/dL % Saturation 7 L (15-50) % Unsat Iron Binding 305 ug/dL Total Bilirubin 0.8 (0.0-1.0) mg/dL AST 26 (5-37) U/L ALT 18 (0-40) U/L Alkaline Phosphatase 128 H (39-117) U/L Total Protein 7.0 (6.5-8.0) g/dL Albumin 3.6 (3.5-5.0) g/dL Blood Type B Positive Antibody Screen NEGATIVE Crossmatch See Detail Procedures Epistaxis Control Time Out Performed: Yes Nostril: Yes left Nose prepped with: Yes cocaine 4% and Yes lidocaine Direct inspection: Yes anterior source identified Direct inspection method: Yes nasal speculum Epistaxis treatment: Yes silver nitrate cautery Results of treatment: Yes bleeding controlled and Yes treatment well tolerated Complications: Yes none Discharge Plan Discharge Clinical Impression: Epistaxis Patient Disposition: Home, Self-Care Instructions: Nosebleed (ED) Additional Instructions: You were seen in the emergency department due to a nosebleed. Your blood count dropped therefore we needed to give you 1 unit of blood. We packed your left nostril with packing, this needs to stay in place for 4 days. Do not remove. You need to follow-up with the ear nose and throat to have this removed. You also have an evidence of anemia, you need to follow-up with the primary care physician as well as a GI specialist for further workup. If any new or worsening symptoms occur including but not limited to return of nosebleed, please seek emergent care. We are also starting you on an antibiotic to prevent infection given packing that is in your nose. Take Keflex 500 mg 4 times a day for the next 5 days. You also appear to be iron deficient, I am starting you on iron supplementation. Please be advised that this can increased constipation therefore I am recommending you take it every other day. Take Tylenol 500 mg to 1000 mg every 8 hours as needed for headache/pain. Drinking plenty of fluids and get plenty of rest. Cold compresses to your head can also help. Please also use protein supplementation drinks to help with nutrition. If any new or worsening symptoms occur including but not limited to worsening headache, worsening lightheadedness, dizziness, if the bleeding returns from your nose, please seek emergent care. Prescriptions: New acetaminophen [Tylenol Extra Strength] 500 mg tablet 500 - 1,000 mg PO Q8H PRN (Reason: pain) Qty: 30 0RF ferrous sulfate 325 mg (65 mg iron) tablet 325 mg PO Q OTHER DAY Qty: 30 0RF cephalexin 500 mg capsule 500 mg PO QID 5 Days Qty: 20 0RF No Action (DME) FreeStyle Milan 14 Day Sensor Kit See Rx Instructions .Route Qty: 1 0RF Rx Instructions: As directed hydroxyzine pamoate 50 mg capsule 100 mg PO TID folic acid 1 mg tablet 1 mg PO DAILY furosemide 20 mg tablet 20 mg PO DAILY insulin lispro [Humalog KwikPen Insulin] 100 unit/mL insulin pen See Protocol subcut QIDACHS Protocol: Insulin Correction Scale Less than or equal to 110 ---- Give (units): 0 111 to 150 Give (units): 0 151 to 200 Give (units): 2 201 to 250 Give (units): 4 251 to 300 Give (units): 6 301 to 350 Give (units): 8 Greater than 350 Give (units): 10 Call MD if Blood Glucose > : 350 insulin glargine [Lantus Solostar U-100 Insulin] 100 unit/mL (3 mL) insulin pen 20 unit subcut BEDTIME dicyclomine 20 mg tablet 20 mg PO TID Qty: 10 0RF ondansetron 4 mg tablet,disintegrating 4 mg PO Q8H PRN (Reason: nausea and vomiting) Qty: 10 0RF Referrals: [facility] [Provider Group, Gastroenterology] Enrique Cantor [Physician, Ear, Nose, Throat] Referral Note: epistaxis - needs packing removed and reassess Print Language: Trinidadian
[2025-03-26 09:29] LABS: MANUAL DIFF FLAG NO
--- OUTSIDE RECORDS SUMMARY | 2025-03-26 09:39 | XMS_ITS | Clinical Summary ---
Author Organization [email or web address] Address [address] [place] [address] Care Team Providers Care Marine Equipment Engineer Name Role Phone Lashay Rangel MD Primary Care Provider [phone] Allergies Active Allergy Reactions Criticality Noted Date [...] Once per day. 90 tablet 025 Active insulin glargine (Lantus SoloStar) 100 UNIT/ML penIndications :Insulin-requi ring or dependent type II diabetes mellitus (CMS/HCC) Inject 10 Units under the skin in the morning. 6 mL Active insulin lispro (HumaLOG) 100 UNIT/ML injectionIndic ations:Insulin -requiring or dependent type II diabetes mellitus (CMS/HCC) Inject 10 Units under the skin with breakfast, with lunch, and with evening meal. 3 mL Active clobetasol (Temovate) 0.05 % ointmentIndica tions:Psoriasi s Apply topically 2 times daily. 60 g 2 025 2025 Active insulin pen needle (Global Ease Inject Pen [place]) 32G x 4 mm miscIndication s:Insulin-requ iring or dependent type II diabetes mellitus (CMS/HCC) Use as instructed 100 each Active magnesium oxide (Mag-Ox) 400 MG tabletIndicati ons:Cirrhosis of liver with ascites, unspecified hepatic cirrhosis type (CMS/HCC) (CMS/HCC) TAKE 1 TABLET BY MOUTH EVERY DAY 30 tablet Active Continuous Glucose Sensor (FreeStyle Milan 2 Plus Sensor) miscIndication s:Insulin-requ iring or dependent type II diabetes mellitus (CMS/HCC) 1 Device every 14 (fourteen) days. 2 each 025 2025 Active naltrexone (Depade) 50 MG tablet Take 50 mg by mouth Once per day. Active hydrOXYzine HCl (Atarax) 25 MG tabletIndicati ons:Psoriasis Take 1 tablet (25 mg) by mouth every 8 (eight) hours if needed for itching. 1-2 tabs bid prn 90 tablet Active traZODone (Desyrel) 100 MG tabletIndicati ons:Insomnia, unspecified type Take 1 tablet (100 mg) by mouth at bedtime. 30 tablet Active metFORMIN (Glucophage) 500 MG tabletIndicati ons:Insulin-re quiring or dependent type II diabetes mellitus (CMS/HCC) Take 1 tablet (500 mg) by mouth with breakfast and with evening meal. 180 tablet Active ibuprofen 600 MG tablet Take 1 tablet (600 mg) by mouth every 8 (eight) hours if needed for moderate pain. 30 tablet Active pantoprazole (ProtoNix) 40 MG EC tabletIndicati ons:Peptic ulcer Take 1 tablet (40 mg) by mouth 2 times daily. 180 tablet Active fluticasone (Flonase) 50 MCG/ACT nasal spray Administer 2 sprays into each nostril Once per day. 16 g Active thiamine (Vitamin B-1) 100 MG tabletIndicati ons:Cirrhosis of liver with ascites, unspecified hepatic cirrhosis type (CMS/HCC) (CMS/HCC) Take 1 tablet (100 mg) by mouth Once per day. 90 tablet 3 025 2025 Active furosemide (Lasix) 20 MG tabletIndicati ons:Cirrhosis of liver with ascites, unspecified hepatic cirrhosis type (CMS/HCC) (CMS/HCC) Take 1 tablet (20 mg) by mouth Once per day. 90 tablet Active folic acid (Folvite) 1 MG tabletIndicati ons:Alcohol abuse Take 1 tablet (1 mg) by mouth Once per day. 90 tablet Active thiamine (Vitamin B-1) 100 MG tabletIndicati ons:Cirrhosis of liver with ascites, unspecified hepatic cirrhosis type (CMS/HCC) (CMS/HCC) Take 1 tablet (100 mg) by mouth Once per day. 90 tablet 3 025 2024 Discontinued(R eorder (will not trigger notification to Pharmacy)) pantoprazole (ProtoNix) 40 MG EC tabletIndicati ons:Peptic ulcer Take 1 tablet (40 mg) by mouth 2 times daily. 180 tablet 025 2024 Discontinued pantoprazole (ProtoNix) 40 MG EC tabletIndicati ons:Peptic ulcer TAKE 1 TABLET BY MOUTH 2 TIMES DAILY 180 tablet 025 2024 Discontinued(R eorder (will not trigger notification to Pharmacy)) hydrOXYzine HCl (Atarax) 25 MG tablet Take 25 mg by mouth. 1-2 tabs bid prn 025 2024 Discontinued(R eorder (will not trigger notification to Pharmacy)) traZODone (Desyrel) 100 MG tablet Take 100 mg by mouth at bedtime. 025 2024 Discontinued(R eorder (will not trigger notification to Pharmacy)) metFORMIN (Glucophage) 500 MG tablet Take 500 mg by mouth with breakfast and with evening meal. 025 2024 Discontinued(R eorder (will not trigger notification to Pharmacy)) ibuprofen 600 MG tablet Take 600 mg by mouth 3 times daily. 025 2024 Discontinued(R eorder (will not trigger notification to Pharmacy)) fluticasone (Flonase) 50 MCG/ACT nasal spray Administer 2 sprays into each nostril Once per day. 025 2024 Discontinued(R eorder (will not trigger notification to Pharmacy)) folic acid (Folvite) 1 MG tablet Take 1 mg by mouth Once per day. 023 2024 Discontinued(R eorder (will not trigger notification to Pharmacy)) furosemide (Lasix) 20 MG tablet Take 20 mg by mouth Once per day. 023 2024 Discontinued(R eorder (will not trigger notification to Pharmacy)) Active Problems Problem Noted Date Diagnosed Date Altered mental status 04/28/2024 Anemia of chronic disease 11/11/2021 Hepatic cirrhosis 02/08/2021 Thrombocytopenia 03/31/2020 Esophageal varices 03/05/2020 Cholelithiasis 12/28/2019 Decompensated liver disease 12/10/2019 Gastroesophageal reflux disease without esophagi tis 12/04/2018 Insulin-requiring or dependent type II diabetes mellitus 05/10/2017 Chronic back pain 07/29/2014 Encounters Date Type Department Care Team Description 03/18/2025 Telephone [facility] MED[facility] [address] [place] [address] Lashay Rangel MD Care Coordination 03/06/2025 Refill [facility] MED[facility] [address] [place] [address] Lashay Rangel MD Peptic ulcer 01/30/2025 Orders Only [facility] Information Management [address] [place] [address] Lashay Rangel MD 01/29/2025 Telephone [facility] [address] [place] [address] Lashay Rangel MD Care Coordination; Paperwork/Forms 01/28/2025 Orders Only [facility] Information Management [address] [place] [id number] Lashay Rangel MD 01/28/[address] [address] Lashay Rangel MD 01/15/[address] [address] Lashay Rangel MD RX lost/stolen, request new RX sent 01/14/[address] [address] Lashay Rangel MD Medication Question; [facility] Health Admission ; Care Coordination 01/13/[address] [address] Lashay Rangel MD Prior Authorization (mairaizi) 01/07/[address] [address] Lashay Rangel MD Insulin-requiring or dependent type II diabetes mellitus ([facility]/HCC) 12/30/[address] [address] Lashay Rangel MD Sensor Falling Off 12/24/[address] [address] Lashay Rangel MD from Last 3 Months [...] 05/02/2025 10:40 AM EDT Office Visit [facility] [address] [place] [address] Lashay Rangel MD [address] [place] [address] Health Maintenance Due Date Last Done Comments [...] Insulin-requiring or dependent type II diabetes mellitus ([facility]) from Last 3 Months or Most Recently [...] Most Recently Relevant to Health Maintenance Insurance [facility] STANDARD Care Teams Marine Equipment Engineer Relationship Specialty Start Date End Date Lashay Rangel MD [address] [place] [address] PCP - General Family Medicine 10/28/24
--- OUTSIDE RECORDS SUMMARY | 2025-03-26 09:39 | XMS_ITS | Encounter Summary ---
Author Organization [employer] Address [address] [facility] [address] [place] [address] Care Team Providers Care Paper Products Machine Operator Name Role Phone Lashay Rangel MD Primary Care Provider [phone] Encounter Details Date Type Department Care Team (Late Contact Info) Description 01/30/2025 Orders Only [facility] Information Management [address] [place] [address] Lashay Rangel MD [address] [place] [address] Social History Tobacco Use Types Packs/Day Years [...] Description 05/02/2025 10:40 AM EDT Office Visit [facility] MEDICAL [address] [place] [address] Lashay Rangel MD [address] [place] [address] documented as of this encounter Procedures Procedure [...] on filedocumented in this encounter Care Teams Paper Products Machine Operator Relationship Specialty Start Date End Date Lashay Rangel MD [address] [place] [address] PCP - General Family Medicine 10/28/24 documented as of this encounter
--- OUTSIDE RECORDS SUMMARY | 2025-03-26 09:39 | XMS_ITS | Encounter Summary ---
Author Organization [employer] Address [address] [facility] [address] [place] [address] Care Team Providers Care Apartment Rental Agent Name Role Phone Lashay Rangel MD Primary Care Provider [phone] Encounter Details Date Type Department Care Team (Late st Contact Info) Description 01/28/2025 Orders Only [facility] Information Management [address] [place] [address] Lashay Rangel MD [address] [place] [address] Social History Tobacco Use Types Packs/Day Years [...] Description 05/02/2025 10:40 AM EDT Office Visit [facility] MEDICAL [address] [place] [address] Lashay Rangel MD [address] [place] [address] documented as of this encounter Procedures Procedure [...] on filedocumented in this encounter Care Teams Apartment Rental Agent Relationship Specialty Start Date End Date Lashay Rangel MD [address] [place] [address] PCP - General Family Medicine 10/28/24 documented as of this encounter
--- OUTSIDE RECORDS SUMMARY | 2025-03-26 09:39 | XMS_ITS | Clinical Summary ---
Author Organization [facility] Address [address] [address] Phone Care Team Providers Care Trailer Assembler Name Role Phone Jamie Maher Primary Care Provider [phone] Allergies Active Allergy Reactions Criticality Noted Date [...] to take PO and NO PIV, call RC/OCCUPATIONAL THERAPIST PER DIEM to obtain order for glucagon Check blood [...] could be a precipitant. Per paperwork from [facility], pt was found in the street drinking alcohol by police and EMS and appeared to be manic and brought to [facility]. - Psychiatry following, appreciate recs - meets section 12a criteria, cannot leave AMA - ammonia level sent, discontinued celexa - started seroquel 50/50/100 standing, with prn doses qhs for insomnia and prn for agitation - [facility] monitoring Assessment & Plan (08/14/2024 12:48 [...] A1c 11.3 in 03/2024. Last admission to [facility], 04/2024, discharged on glargine 20 units QHS. 07/2023 A1c 8.8 - Increase glargine 22U QHS (from 20) - Increased lispro 7U TID (from 5U) w/ mod dose sliding scale Assessment & Plan (08/17/2024 11:30 AM EST): A1c 11.3 in 03/2024. Last admission to [facility], 04/2024, discharged on glargine 20 units QHS. 07/2023 A1c 8.8 - Increase glargine 20U QHS - Increased lispro 5U TID (from 2U) w/ mod dose sliding scale Assessment & Plan (08/16/2024 9:37 AM EST): A1c 11.3 in 03/2024. Last admission to [facility], 04/2024, discharged on glargine 20 units QHS. 07/2023 A1c 8.8 - Increase glargine 20U QHS - Continue lispro 2U TID w/ mod dose sliding scale Assessment & Plan (08/15/2024 5:12 PM EST): A1c 11.3 in 03/2024. Last admission to [facility], 04/2024, discharged on glargine 20 units QHS - F/u A1c - Increase glargine 18U QHS - Continue lispro 2U TID w/ mod dose sliding scale Assessment & Plan (08/14/2024 5:10 PM EST): A1c 11.3 in 03/2024. Last admission to [facility], 04/2024, discharged on glargine 20 units nightly. Titrate insulin with increasing appetite / diet. - continue glargine 15 u qHS - switched to lispro sliding scale with standing lispro 2 u TID, titrate prn Assessment & Plan (08/14/2024 1:12 AM EST): A1c 11.3 in 03/2024. Last admission to [facility], 04/2024, discharged on glargine 20 units nightly. [...] # Alcohol related cirrhosis Last seen by [facility] GI Dr. Sim 09/2020, ?follows with [facility] (message from GI 03/2024). Dx in 2014. [...] # Alcohol related cirrhosis Last seen by [facility] Dr. Sim 09/2020, ?follows with [facility] (message from GI 03/2024). Dx in 2014. [...] # Alcohol related cirrhosis Last seen by [facility] Dr. Sim 09/2020, ?follows with [facility] (message from GI 03/2024). Dx in 2014. [...] # Alcohol related cirrhosis Last seen by [facility] Dr. Sim 09/2020, ?follows with [facility] (message from GI 03/2024). Dx in 2014. [...] GI visit was with Dr. Sim at [facility] 09/2020. Diagnosed in 2014. Was previously treated [...] alcohol detox and was then hospitalized at [facility] [place] where he reported drinking 1/2 handle of [...] on any medications since his discharge from [facility] [place] 04/09 Pancytopenia 04/28/2024 Assessment & Plan (08/18/2024 [...] PM EDT): -Uncontrolled. Recent Hba1c 11.3 -At [facility] [place] last month he was being treated with [...] EDT - 01/14/2025 3:42 PM EDT Emergency [facility] Emergency [address] [place] [id number] Stevan France MD Perez, Alberto Juan Ignacio, MD Discharge Disposition: Home or Self Care 12/26/2024 Telephone [facility] [address] [place] [address] Unknown, Unknown, MD Hematology Referral 12/25/2024 9:56 AM EDT - 12/25/2024 2:22 PM EDT Emergency [facility] Emergency [address] [place] [id number] Discharge Disposition: Home or Self Care from [...] Glucose, POCT 248(H) 70 - 100 mg/dL [facility] 01/14/2025 3:08 PM EDT 01/14/2025 3:10 PM EDT us Juan Miguel Adams MD POINT OF CARE TEST ORDERABLES Final Result [facility] [address] [place] [address] * (ABNORMAL) Toxicology screen, urine (01/13/2025 9:49 PM EDT) URINE CANNABINOIDS Positive(A) NONE DETECTED [facility] Comment:Cutoff: 50 ng/mL URINE COCAINE METAB NONE DETECTED NONE DETECTED [facility] Comment:Cutoff: 300 ng/mL URINE AMPHETAMINES NONE DETECTED NONE DETECTED [facility] Comment:Cutoff: 1000 ng/mL URINE METHADONE NONE DETECTED NONE DETECTED [facility] Comment:Cutoff: 300 ng/mL URINE OPIATES NONE DETECTED NONE DETECTED [facility] Comment:Cutoff: 300 ng/mL URINE PHENCYCLIDINE NONE DETECTED NONE DETECTED [facility] Comment:Cutoff: 25 ng/mL URINE OXYCODONE NONE DETECTED NONE DETECTED [facility] Comment:Cutoff: 300 ng/mL URINE BARBITURATES NONE DETECTED NONE DETECTED [facility] Comment:Cutoff: 200 ng/mL URINE BENZODIAZEPINE NONE DETECTED NONE DETECTED [facility] Comment:Cutoff: 200 ng/mL URINE BUPRENORPHINE NONE DETECTED NONE DETECTED [facility] Comment:Cutoff: 5 ng/mL Fentanyl, urine NONE DETECTED NONE DETECTED [facility] Comment: Cutoff: 5 ng/mL INTERPRETATION FOR TOXICOLOGY PANEL: These results are unconfirmed and should be used for Medical Treatment purposes only. Urine (Urine) 01/13/2025 9:4 9 PM EDT 01/14/2025 2:09 PM EDT us Stevan France MD URINE ORDERABLES Final R esult Performing Organization Address City/State/[facility] Co de Phone Number [address] [address] * ECG 12-LEAD (01/13/2025 5:54 PM EDT) Ventricular Rate EKG/MIN 94 BPM [facility] Atrial Rate 94 BPM [facility] LA Interval 182 ms [facility] QRS Duration 128 ms [facility] QT Interval 382 ms [facility] QTC Interval 477 ms [facility] P [place] 45 degrees [facility] R Wave [place] -8 degrees [facility] T Wave [place] 17 degrees [facility] 01/13/2025 5:54 PM EDT [...] ECG ORDERABLES Final Result Performing Organization Address City/[facility]/ZIP Co de Phone Number [facility] * (ABNORMAL) Acetaminophen level (01/13/2025 5:39 PM EDT) ACETAMINOPHEN <5.0(L) 15.0 - 30.0 ug/mL [facility] Blood 01/13/2025 5:39 PM EDT 01/13/2025 5:56 PM EDT [facility] [place] BLOOD ORDERABLES Final R esult Performing Organization Address [facility] Co de Phone Number [address] [address] * (ABNORMAL) Salicylates (01/13/2025 5:39 PM EDT) SALICYLATES <0.3(L) 2.8 - 19.9 mg/dL [facility] Blood 01/13/2025 5:39 PM EDT 01/13/2025 5:56 PM EDT [facility] LAB BLOOD ORDERABLES Final R esult Performing Organization Address [facility] Co de Phone Number [address] [address] * Ethanol, blood (01/13/2025 5:38 PM EDT) ETHANOL <10 <10 mg/dL [facility] Blood 01/13/2025 5:38 PM EDT 01/13/2025 5:55 PM EDT us Stevan Frnace MD LAB BLOOD ORDERABLES Fin al Result [address] [address] * (ABNORMAL) LFTs (hepatic panel) (01/13/2025 5:38 PM EDT) ALKALINE PHOSPHATASE 202(H) 39 - 117 U/L [facility] TOTAL BILIRUBIN 1.3(H) 0.0 - 1.2 mg/dL [facility] DIRECT BILIRUBIN 0.5(H) 0.0 - 0.2 mg/dL [facility] Bilirubin (Indirect) 0.8 0 - 1.5 mg/dL [facility] AST 55(H) 0 - 37 U/L [facility] ALT 37 0 - 40 U/L [facility] TOTAL PROTEIN 8.0 6.5 - 8.0 g/dL [facility] ALBUMIN 4.2 3.9 - 4.8 g/dL [facility] GLOBULIN 3.8 1 - 4.8 g/dL [facility] A/G Ratio 1.11 1.00 - 4.80 RATIO [facility] Blood 01/13/2025 5:38 PM EDT 01/13/2025 5:55 PM EDT us Stevan France MD LAB BLOOD ORDERABLES Fin al Result [address] [address] * (ABNORMAL) CBC and differential (01/13/2025 5:38 PM EDT) WBC 5.08 4.00 - 11.00 K/uL [facility] RBC 4.36(L) 4.50 - 5.90 M/uL [facility] HGB 10.1(L) 13.5 - 17.5 g/dL [facility] HCT 33.0(L) 41.0 - 53.0 % [facility] PLT 108(L) 150 - 450 K/uL [facility] MCV 75.7(L) 80.0 - 100.0 fL [facility] MCH 23.2(L) 27.0 - 31.0 pg [facility] MCHC 30.6(L) 32.0 - 36.0 g/dL [facility] RDW 18.7(H) 11.5 - 14.5 % [facility] MPV Not measured 8.4 - 12.0 fL [facility] NRBC 0.00 0.00 /100 WBCs [facility] ABSOLUTE NRBC 0.00 0.00 K/uL [facility] DIFF METHOD Auto [facility] NEUTS 72.0 48.0 - 76.0 % [facility] LYMPHS 12.6(L) 18.0 - 41.0 % [facility] MONOS 12.0(H) 4.0 - 11.0 % [facility] EOS 1.8 0.0 - 5.0 % [facility] BASOS 1.2 0.0 - 1.5 % [facility] Granulocytes, immature (%) 0.4 0.0 - 0.9 % [facility] ABSOLUTE NEUTS 3.66 1.92 - 7.60 K/uL [facility] ABSOLUTE LYMPHS 0.64(L) 0.72 - 4.10 K/uL [facility] ABSOLUTE MONOS 0.61 0.16 - 1.10 K/uL [facility] ABSOLUTE EOS 0.09 0.00 - 0.50 K/uL [facility] ABSOLUTE BASOS 0.06 0.00 - 0.15 K/uL [facility] Granulocytes, immature 0.02 0.00 - 0.09 K/uL [facility] Blood 01/13/2025 5:38 PM EDT 01/13/2025 5:55 PM EDT us Stevan France MD LAB BLOOD ORDERABLES Fin al Result [facility] [address] [place] [address] * (ABNORMAL) Basic metabolic panel (01/13/2025 5:38 PM EDT) SODIUM 138 133 - 146 mmol/L [facility] CHLORIDE 103 96 - 108 mmol/L [facility] POTASSIUM 4.2 3.3 - 5.1 mmol/L [facility] CO2 26 21 - 35 mmol/L [facility] BUN 15 6 - 19 mg/dL [facility] CREATININE 0.80 0.5 - 1.5 mg/dL [facility] GLUCOSE 220(H) 70 - 99 mg/dL [facility] CALCIUM 9.8 8.4 - 10.3 mg/dL [facility] EGFR 105 >59 mL/min/1.7 3m2 [facility] Comment:Estimated glomerular filtration rate calculated using the CKD-EPI refit equation. ANION GAP 13 10 - 20 mmol/L [facility] Blood 01/13/2025 5:38 PM EDT 01/13/2025 5:55 PM EDT us Stevan France MD LAB BLOOD ORDERABLES Fin al Result Performing Organization Address City/State/[facility] Co de Phone Number [address] [address] * US Lower Extremity Veins Duplex (Right) [...] clinician's provided indication for this examination in [facility]:Right Leg Pain TECHNIQUE: Lower extremity venous [...] clinician's provided indication for this examination in [facility]: Pain; knee pain, felt a pop, [...] HEMOGLOBIN A1C 8.8(H) 4.2 - 5.6 % [facility] Comment: HbA1c levels 5.7-6.4% represent [...] 08/15/2024 9:11 AM EST Comment:#[place] [id number] 15 @1711 Lyndsey Roy PA-C LAB BLOOD ORDERABLES Final Result [facility] [address] [place] [address] * Hepatitis acute panel (08/14/2024 6:25 AM EST) HBV SURFACE ANTIGEN Nonreactive (HBsAg Negative) Nonreactive (HBsAg Negative) [facility] Hepatitis A Antibody, IgM Nonreactive Nonreactive [facility] HEP B CORE IGM AB Nonreactive Nonreactive [facility] HCV Nonreactive Nonreactive [facility] Blood 08/14/2024 6:25 AM EST 08/14/2024 6:29 AM EST Rudy Hairston MD LAB BLOOD ORDERABLES Final Resu lt [facility] [address] [place] [address] * (ABNORMAL) Lipid panel (06/22/2020 11:01 AM EST) HDL 59 35 - 100 mg/dL [facility] CHOLESTEROL 178 <200 mg/dL [facility] TRIGLYCERIDES 387(H) 40 - 150 mg/dL [facility] LDL 42(L) 50 - 129 mg/dL [facility] CARDIAC RISK RATIO 3.0 0.0 - 5.0 [facility] NON-HDL CHOLESTEROL 119 mg/dL [facility] Comment:NCEP ATP III guideli claudio suggest a non-HDL cholesterol goal 30 mg/dl higher than the patient-specific LDL goal. 06/22/2020 11:0 1 AM EST 06/22/2020 12:47 PM EST Oly Yeager CNP LAB BLOOD ORDERABLES Final Re sult [facility] [address] [place] [address] from Last 3 Months or Most Recently Relevant to Health Maintenance Insurance [facility] [employer] MEDICARE REPLACEMENT MEDICARE REPLACEMENT Member Subscriber Plan / Payer (Ef fective 2023-Present) Name:Kwame Xie Relation to Subscriber:Self Name:Kwame Xie Payer ID:[id number] (NAIC) Type:Medicare Address: [place] [id number] MEDICARE REPLACEMENT [place]IC[place] [place] [address] MEDICARE REPLACEMENT Member Subscriber Plan / Payer (Ef fective 2023-Present) Name:Kwame Xie Relation to Subscriber:Self Name:Kwame Xie Payer ID:[id number] (NAIC) Type:Medicare Address: [place] [phone] MEDICARE REPLACEMENT Advance Directives For more information, please contact: [phone] (9AM - 5PM [place], Monday-Monday) * Full Code (Latest Code Status on File) Date Activated Date Inactivated Comments 08/13/2024 10:29 PM Question Answer Comments Code Status Confirmed With: Patient * Full Code Date Activated Date Inactivated Comments 04/28/2024 8:28 PM 08/13/2024 10:29 PM Question Answer Comments Code Status Confirmed With: Patient Care Teams Trailer Assembler Relationship Specialty Start Date End Date Jamie Maher PA [address] [place] [id number] PCP - General 08/13/24 Additional Source Comments The information contained in this document represents components of the legal health record. It is not the complete legal health record.[facility]
--- OUTSIDE RECORDS SUMMARY | 2025-03-26 09:39 | XMS_ITS | Clinical Summary ---
Author Organization [address] [facility] Address [address] [place] [address] Phone Care Team Providers Care Air Traffic Instructor Name Role Phone Physician, No Pcp Primary [...] Problems Problem Noted Date Diagnosed Date Schizophrenia ([facility] [place], [facility] V28) Encounters Date Type Department Care Team Description 02/20/2025 1:35 PM EDT - 02/20/2025 4:52 PM EDT Emergency [facility] Emergency [address] [place] [id number] Siddharth Cueva MD Encounter for medical screening examination (Primary Dx); Schizophrenia, unspecified type ([facility] V24, [facility] V28); Hypomagnesemia; Pancytopenia ([facility] V24, [facility] V28); Hepatic cirrhosis, unspecified hepatic cirrhosis type, unspecified whether ascites present ([facility] V24, [facility] V28) Discharge Disposition: Home or Self Care 02/06/2025 10:46 AM EDT - 02/06/2025 11:31 AM EDT [facility] Emergency [address] [place] [id number] Sprain of left ankle, unspecified ligament, subsequent encounter (Primary Dx) Discharge Disposition: Home or Self Care from Last 3 Months Surgical History Surgery Date Site/Laterality Comments ESOPHAGOGASTRODUODENOSCOPY W/ BANDING Per EMR Medical History Medical History Date Comments Schizophrenia ([facility] V24, [facility] V28) Alcoholic cirrhosis of liver with ascites ([facility] V24, [facility] V28) per EMR Chronic anemia per emr HTN (hypertension) per emr 2019 Diabetes mellitus ([facility] V24, [facility] V28) per EMR 2019 Hyperlipidemia per EMR Chronic [...] 02/14/2024 Social Influencers of Health Screening 02/14/2024 Depression Screening 07/24/2024 Diabetes: Annual Urine Albumin-Creatinine Ratio (uACR) 08/02/2024 COVID-19 Vaccine ( season) 2025 Influenza Vaccine (#1) 2025 , 04/23/2020, 10/22/2019, [...] A1C Routine 07/31/2024 7:00 AM EST Other skilled nursing (current) drug therapy from Last 3 Months or Most Recently Relevant to Health Maintenance Results * ECG-Annotated (02/21/2025) us Provider Onbase MD ECG ORDERABLES Final Result * Drug abuse screen 8a panel, urine (02/20/2025 3:06 PM EDT) Amphetamine Screen, Ur Negative Negative LAB CHEMISTRY METHOD 02/20/2025 4:06 PM EDT [facility] Comment:Certain OTC medicati ons containing ephedrine, phenylephrine, pseudoephedrine and phenylpropanolamine can cause false positive results. Barbiturate Screen, Ur Negative Negative LAB CHEMISTR[facility] Benzodiazepine Screen, Ur Negative Negative LAB CHEMISTRY METHOD 02/20/2025 4:06 PM [facility] Cocaine Screen, Ur Negative Negative LAB CHEMISTRY METHOD 02/20/2025 4:06 [facility] Opiate Screen, Ur Negative Negative LAB CHEMISTRY METHOD 02/20/2025 4:06 PM [facility] Cannabinoid (THC) Screen, Ur Negative Negative LAB CHEMISTRY METHOD 02/20/2025 4:06 PM [facility] Comment:Specimens from patie nts taking pantoprazole sodium (Protonix) have been shown to produce false positive results. Oxycodone Screen, Ur Negative Negative LAB CHEMISTRY METHOD 02/20/2025 4:06 PM [facility] Fentanyl, Ur Negative Negative LAB CHEMISTRY METHOD 02/20/2025 4:06 PM EDT [facility] Urine Urine specimen obtained by clean catch procedure / Unknown Non-blood Collection / Unknown 02/20/2025 3:06 PM EDT 02/20/2025 3:23 PM EDT Katherine [facility] - 02/20/2025 4:06 PM EDT [...] MD LAB URINE ORDERABLES Final Res ult [facility] [address] [place] [address], [place] [phone] * RHYTHM ECG, REPORT (02/20/2025 2:54 PM EDT) Siddharth Paiz MD - 02/20/2025 2:54 PM EDT Siddharth Cueva MD 02/20/2025 7:02 PM ECG Rhythm Interpretation and Report Date/Time: 02/20/2025 2:54 PM Performed by: Siddharth Cueva MD Authorized by: Siddharth Cueva MD ECG interpreted by ED Physician in the absence of a peanut sheller: yes Previous ECG: Previous ECG: Compared to current Comments: EKG shows sinus rhythm at 74 with right bundle branch block, no ST changes, T wave inversion in V2 and V3, normal axis, early R wave transition, decrease in rate by 47 bpm compared with EKG from 9-24, otherwise unchanged, independently reviewed and interpreted contemporaneously by me as an abnormal but nonischemic EKG. us Siddharth Cueva MD ECG ORDERABLES Final Result * ECG 12 lead (02/20/2025 2:29 PM EDT) [facility] Ventricular Rate ECG 74 BPM GEMUSE Atrial Rate 74 BPM GEMUSE P-R Interval 188 ms GEMUSE QRS Duration 142 ms GEMUSE Q-T Interval 432 ms GEMUSE QTc 479 ms GEMUSE P Wave [place] 30 degrees GEMUSE R [place] -9 degrees GEMUSE T [place] 23 degrees GEMUSE ECG Interpretation Normal sinus rhythm Right bundle branch block Abnormal ECG When compared with ECG of 25-MAR-2024 19:01, Vent. rate has decreased BY 47 BPM Confirmed by Porsche PATINO JAMES ([id number]) on 02/20/2025 6:06:06 PM GEMUSE 02/20/2025 2:29 PM EDT 02/20/2025 6:06 PM EDT us Siddharth Cueva MD ECG ORDERABLES Final Result Performing Organization Address [facility] Co de Phone Number GEMUSE * Troponin I high sensitivity (02/20/2025 2:21 PM EDT) [facility] High Sensitivity Troponin I <3 <=79 ng/L LAB CHEMISTRY METHOD 02/20/2025 3:08 PM EDT [facility] Blood Venous blood specimen / Unknown Venipuncture / Unknown 02/20/2025 2:21 PM EDT 02/20/2025 2:41 PM EDT Narrative [facility] - 02/20/2025 3:08 PM EDT High levels of biotin in samples may falsely decrease hsTroponin values. Use caution when interpreting hsTroponin results in patients taking biotin who exhibit renal impairment (eGFR <60) or in patients taking more than 20 mg/day of biotin. us Siddharth Cueva MD LAB BLOOD ORDERABLES Final Res ult [facility] [address] [place] [address], [place] [phone] * (ABNORMAL) CBC auto differential (02/20/2025 2:21 PM EDT) [facility] WBC 3.2(L) 4.8 - 10.8 K/mcL LAB HEMETOLOGY METHOD 02/20/2025 3:36 PM [facility] RBC 3.90(L) 4.50 - 5.50 M/mcL LAB HEMETOLOGY METHOD 02/20/2025 3:36 PM [facility] Hemoglobin 9.0(L) 13.5 - 17.5 g/dL LAB HEMETOLOGY METHOD 02/20/2025 3:36 PM [facility] Hematocrit 29.9(L) 42.0 - 54.0 % LAB HEMETOLOGY METHOD 02/20/2025 3:36 PM [facility] MCV 76.5(L) 79.0 - 98.0 FL LAB HEMETOLOGY METHOD 02/20/2025 3:36 PM [facility] MCH 23.0(L) 27.0 - 32.0 pcg LAB HEMETOLOGY METHOD 02/20/2025 3:36 PM [facility] MCHC 30.1(L) 32.0 - 37.0 g/dL LAB HEMETOLOGY METHOD 02/20/2025 3:36 PM [facility] RDW 18.5(H) 11.0 - 15.0 % LAB HEMETOLOGY METHOD 02/20/2025 3:36 PM [facility] Platelets 87(L) 130 - 400 K/mcL LAB HEMETOLOGY METHOD 02/20/2025 3:36 PM [facility] Comment:reviewed by slide SHAISTA LAB HEMETOLOGY METHOD 02/20/2025 3:36 PM [facility] Comment:Not Measured NRBC 0.0 <1.0 % LAB HEMETOLOGY METHOD 02/20/2025 3:36 PM [facility] NRBC Absolute 0.00 <0.10 K/mcL LAB HEMETOLOGY METHOD 02/20/2025 3:36 PM EDT [facility] Neutrophils Relative 75.4 % LAB HEMETOLOGY METHOD 02/20/2025 3:36 PM EDT [facility] Lymphocytes Relative 11.7 % LAB HEMETOLOGY METHOD 02/20/2025 3:36 PM EDT [facility] Monocytes Relative 8.6 % LAB HEMETOLOGY METHOD 02/20/2025 3:36 PM EDT [facility] Eosinophils Relative 3.1 % LAB HEMETOLOGY METHOD 02/20/2025 3:36 PM EDT [facility] Basophils Relative 0.9 % LAB HEMETOLOGY METHOD 02/20/2025 3:36 PM [facility] Immature Granulocytes Relative 0.3 % LAB HEMETOLOGY METHOD 02/20/2025 3:36 PM EDT [facility] Neutrophils Absolute 2.44 1.50 - 7.00 K/mcL LAB HEMETOLOGY METHOD 02/20/2025 3:36 PM [facility] Lymphocytes Absolute 0.38(L) 1.00 - 5.00 K/mcL LAB HEMETOLOGY METHOD 02/20/2025 3:36 PM [facility] Monocytes Absolute 0.28 0.20 - 1.00 K/mcL LAB HEMETOLOGY METHOD 02/20/2025 3:36 PM EDT [facility] Eosinophils Absolute 0.10 0.00 - 0.50 K/mcL LAB HEMETOLOGY METHOD 02/20/2025 3:36 PM EDT [facility] Basophils Absolute 0.03 0.00 - 0.20 K/mcL LAB HEMETOLOGY METHOD 02/20/2025 3:36 PM [facility] Immature Granulocytes Absolute 0.01 0.00 - 0.03 K/mcL LAB HEMETOLOGY METHOD 02/20/2025 3:36 PM EDT [facility] Blood Venous blood specimen / Unknown Venipuncture / Unknown 02/20/2025 2:21 PM EDT 02/20/2025 2:41 PM EDT us Siddharth Cueva MD LAB BLOOD ORDERABLES Final Res ult Performing Organization Address [facility]/ZIP Co de Phone Number [facility] [address] [place] [address], [place] [phone] * (ABNORMAL) Prothrombin time with INR (02/20/2025 2:21 PM EDT) Protime 14.9(H) 10.6 - 13.9 sec LAB COAGULATION METHOD 02/20/2025 2:53 PM EDT [facility] INR 1.2 LAB COAGULATION METHOD 02/20/2025 2:53 PM EDT [facility] Blood Venous blood specimen / Unknown Venipuncture / Unknown 02/20/2025 2:21 PM EDT 02/20/2025 2:41 PM EDT us Siddharth Cueva MD LAB BLOOD ORDERABLES Final Res ult Performing Organization Address [facility]/ZIP Co de Phone Number [facility] [address] [place] [address], [place] [phone] * (ABNORMAL) Magnesium (02/20/2025 2:21 PM EDT) Magnesium 1.8(L) 1.9 - 2.6 mg/dL LAB CHEMISTRY METHOD 02/20/2025 3:09 PM EDT [facility] Blood Venous blood specimen / Unknown Venipuncture / Unknown 02/20/2025 2:21 PM EDT 02/20/2025 2:40 PM EDT us Siddharth Cueva MD LAB BLOOD ORDERABLES Final Res ult [facility] [address] [place] [address], [place] [phone] * Ethanol (02/20/2025 2:21 PM EDT) [facility] Ethanol Level <3 0 - 10 mg/dL LAB CHEMISTRY METHOD 02/20/2025 3:12 PM EDT [facility] Blood Venous blood specimen / Unknown Venipuncture / Unknown 02/20/2025 2:21 PM EDT 02/20/2025 2:40 PM EDT Siddharth Cueva MD LAB BLOOD ORDERABLES Final Res ult Performing Organization Address [facility]/ZIP Co de Phone Number [facility] [address] [place] [address], [place] [phone] * (ABNORMAL) Comprehensive metabolic panel (02/20/2025 2:21 PM EDT) [facility] Sodium 139 133 - 145 mmol/L LAB CHEMISTRY METHOD 02/20/2025 3:15 PM EDT [facility] Potassium 4.1 3.5 - 5.5 mmol/L LAB CHEMISTRY METHOD 02/20/2025 3:15 PM T [facility] Chloride 108 96 - 110 mmol/L LAB CHEMISTRY METHOD 02/20/2025 3:15 PM EDT [facility] CO2 26 21 - 32 mmol/L LAB CHEMISTRY METHOD 02/20/2025 3:15 PM EDT [facility] Anion Gap 5 3 - 11 LAB CHEMISTRY METHOD 02/20/2025 3:15 PM [facility] Glucose 106(H) 70 - 100 mg/dL LAB CHEMISTRY METHOD 02/20/2025 3:15 PM EDT [facility] BUN 13 5 - 25 mg/dL LAB CHEMISTRY METHOD 02/20/2025 3:15 PM EDT [facility] Creatinine 0.94 0.70 - 1.30 mg/dL LAB CHEMISTRY METHOD 02/20/2025 3:15 PM EDT [facility] eGFR 96 >=60 mL/min/1. 73m2 LAB CHEMISTRY METHOD 02/20/2025 3:15 PM T [facility] Comment:Calculation based on the Chronic Kidney Disease Epidemiology Collaboration (CKD-EPI) equation refit without adjustment for race. BUN/Creatinine Ratio 13.8 LAB CHEMISTRY METHOD 02/20/2025 3:15 PM EDT [facility] Calcium 9.3 8.5 - 10.5 mg/dL LAB CHEMISTRY METHOD 02/20/2025 3:15 PM T [facility] AST (SGOT) 32 10 - 42 unit/L LAB CHEMISTRY METHOD 02/20/2025 3:15 PM [facility] ALT (SGPT) 27 10 - 60 unit/L LAB CHEMISTRY METHOD 02/20/2025 3:15 PM [facility] Alkaline Phosphatase 148(H) 42 - 121 unit/L LAB CHEMISTRY METHOD 02/20/2025 3:15 PM [facility] Total Protein 7.7 6.0 - 8.0 g/dL LAB CHEMISTRY METHOD 02/20/2025 3:15 PM [facility] Albumin 3.7 3.2 - 5.0 g/dL LAB CHEMISTRY METHOD 02/20/2025 3:15 PM EDT [facility] Total Bilirubin 0.9 0.0 - 1.4 mg/dL LAB CHEMISTRY METHOD 02/20/2025 3:15 PM [facility] Blood Venous blood specimen / Unknown Venipuncture / Unknown 02/20/2025 2:21 PM EDT 02/20/2025 2:40 PM EDT us Siddharth Cueva MD LAB BLOOD ORDERABLES Final Res ult [facility] [address] [place] [address], [place] [phone] * (ABNORMAL) Hemoglobin A1c (07/31/2024 7:00 AM EST) Hemoglobin A1C 7.1(H) <6.5 % LAB CHEMISTRY METHOD 07/31/2024 3:38 PM EST [facility] Mean Bld Glu Estim. 157 mg/dL LAB CHEMISTRY METHOD 07/31/2024 3:38 PM EST [facility] Blood Venous blood specimen / Unknown Venipuncture / Unknown 07/31/2024 7:00 AM EST 07/31/2024 12:30 PM EST Lorelei Samson NP LAB BLOOD ORDERABLES Final Res ult [facility] [address] [place] [address], [place] [phone] from Last 3 Months or Most Recently Relevant to Health Maintenance Insurance MEDICAID - [place] [employer] MEDICARE Advance Directives Documents on File Type Date Recorded Patient Nursing Service Director Expl anation Health Care Decision (hx) 01/29/2024 AD BROWNLEE DIRECTIVE Health Care Decision (hx) 01/29/2024 AD BROWNLEE DIRECTIVE Care Teams Air Traffic Instructor Relationship Specialty Start Date End Date Physician, No Pcp PCP - General 08/02/24
--- OUTSIDE RECORDS SUMMARY | 2025-03-26 09:39 | XMS_ITS | Encounter Summary ---
Author Organization [facility] Address [address] [facility] [address] [place] [address] Phone Care Team Providers Care Measuring Machine Tender Name Role Phone Jamie Maher Primary Care Provider [phone]- [phone] Encounter Details Date Type Department Care Team (Late st Contact Info) Description 10/07/2024 Procedure Pass [facility], Ct Scan - [facility] [address] [place] [address] Social History Tobacco Use Types Packs/Day Years [...] 10/07/2024 9:33 AM Sarah Randall RN * [place] Suicide Severity Rating Scale (Screener/Recent Self-Report) Question [...] documented as of this encounter Care Teams Measuring Machine Tender Relationship Specialty Start Date End Date Jamie Maher PA [address] [place] [address] PCP - General 08/13/24 documented as of this encounter Additional Source Comments The information contained in this document represents components of the legal health record. It is not the complete legal health record.[facility]
--- OUTSIDE RECORDS SUMMARY | 2025-03-26 09:39 | XMS_ITS | Encounter Summary ---
Author Organization [facility] Address [address] [place] [address] Phone Care Team Providers Care Senior Technical Trainer Name Role Phone Jamie Maher Primary Care Provider [phone] Encounter Details Date Type Department Care Team (Late st Contact Info) Description 10/07/2024 Procedure Pass [place] Admitting Dept - Virtual Department [address] [place] [address] Social History Tobacco Use Types Packs/Day Years [...] housing (staying in a hotel, in a nursing home, living outside on the street, on [...] 10/07/2024 9:33 AM Sarah Randall RN * [place] Suicide Severity Rating Scale (Screener/Recent Self-Report) Question [...] documented as of this encounter Care Teams Senior Technical Trainer Relationship Specialty Start Date End Date Jamie Maher PA [address] [place] [id number] PCP - General 08/13/24 documented as of this encounter Additional Source Comments The information contained in this document represents components of the legal health record. It is not the complete legal health record.[facility]
--- OUTSIDE RECORDS SUMMARY | 2025-03-26 09:39 | XMS_ITS | Encounter Summary ---
Author Organization [employer] Address [address] [facility] 7 [place] [address] Care Team Providers Care Towel Rolling Machine Operator Name Role Phone Lashay Rangel MD Primary Care Provider [phone] Reason for Visit * Reason Onset Date Comments RX lost/stolen, request new RX sent 01/15/2025 Encounter Details Date Type Department Care Team ([facility] st Contact Info) Description 01/15/[address] [facility] MEDICAL [address] [place] [address] Lashay Rangel MD [address] [place] [address] RX lost/stolen, request new RX sent Social [...] 2:38 PM EDT Cipriano ([facility] [place]) called stating the patient put a glucose [...] company can say it's okay. Preferred Pharmacy: [facility] [id number] ([id number]) - [place], [place] - [address] [facility] [[id number]] Cipriano states she would like a call back at [phone] to discuss further, thank you! documented in this encounter Plan of Treatment Upcoming Encounters Date Type Department Care Team (Late st Contact Info) Description 05/02/2025 10:40 AM EDT Office Visit [facility] [address] [place] [address] Lashay Rangel MD [address] [place] [address] documented as of this encounter Visit Diagnoses Diagnosis Insulin-requiring or dependent type II diabetes mellitus ([facility]) Type II or unspecified type diabetes mellitus without mention of complication, not stated as uncontrolled documented in this encounter Care Teams Towel Rolling Machine Operator Relationship Specialty Start Date End Date Lashay Rangel MD [address] [place] [address] PCP - General Family Medicine 10/28/24 documented as of this encounter
--- OUTSIDE RECORDS SUMMARY | 2025-03-26 09:39 | XMS_ITS | Encounter Summary ---
Author Organization [facility] Address [address] [facility] [address] [place] [address] Phone Care Team Providers Care Perforator Operator Name Role Phone Jamie Maher Primary Care Provider [phone] Encounter Details Date Type Department Care Team (Late st Contact Info) Description 10/25/2024 Procedure Pass [facility], Ct Scan - [facility] [address] [place] [address] Social History Tobacco Use Types Packs/Day Years [...] housing (staying in a hotel, in a retirement, living outside on the street, on a [...] PM EDT Diamante Nuñez ma RN * [place] Suicide Severity Rating Scale (Screener/Recent Self-Report) Question [...] documented as of this encounter Care Teams Perforator Operator Relationship Specialty Start Date End Date Jamie Maher PA [address] [place] [phone] PCP - General 08/13/24 documented as of this encounter Additional Source Comments The information contained in this document represents components of the legal health record. It is not the complete legal health record.[facility]
--- OUTSIDE RECORDS SUMMARY | 2025-03-26 09:39 | XMS_ITS | Encounter Summary ---
Author Organization [facility] Address [address] [place] [address] Phone Care Team Providers Care Information Technology Audit Manager Name Role Phone Jamie Maher Primary Care Provider [phone] Encounter Details Date Type Department Care Team (Late st Contact Info) Description 10/25/2024 Procedure Pass [facility], Ct Scan - [facility] [address] [place] [address] Social History Tobacco Use Types Packs/Day Years [...] housing (staying in a hotel, in a intermediate, living outside on the street, on a [...] PM EDT Diamante Nuñez ma RN * [place] Suicide Severity Rating Scale (Screener/Recent Self-Report) Question [...] documented as of this encounter Care Teams Information Technology Audit Manager Relationship Specialty Start Date End Date Jamie Maher PA [address] [place] [phone] PCP - General 08/13/24 documented as of this encounter Additional Source Comments The information contained in this document represents components of the legal health record. It is not the complete legal health record.[facility]
--- OUTSIDE RECORDS SUMMARY | 2025-03-26 09:39 | XMS_ITS | Encounter Summary ---
Author Organization [facility] Address [address] [address] [place] [address] Phone Care Team Providers Care Hansard Reporter Name Role Phone Jamie Maher Primary Care Provider [phone]- [phone] Encounter Details Date Type Department Care Team (Late st Contact Info) Description 10/07/2024 Procedure Pass [facility] [address] [place] [address] Social History Tobacco Use Types Packs/Day Years [...] housing (staying in a hotel, in a senior care, living outside on the street, on a [...] 10/07/2024 9:33 AM Sarah Randall RN * [place] Suicide Severity Rating Scale (Screener/Recent Self-Report) Question [...] documented as of this encounter Care Teams Hansard Reporter Relationship Specialty Start Date End Date Jamie Maher PA [address] [place] [phone] PCP - General 08/13/24 documented as of this encounter Additional Source Comments The information contained in this document represents components of the legal health record. It is not the complete legal health record.[facility]
--- OUTSIDE RECORDS SUMMARY | 2025-03-26 09:39 | XMS_ITS | Encounter Summary ---
Author Organization [facility] Address [address] [place] [address] Care Team Providers Care Pocket Operator Name Role Phone Physician, No Pcp Primary Care Provider Unavaila ble Encounter Details Date Type Department Care Team (Late st Contact Info) Description 07/31/2024 Lab Requisition [facility] - Main Lab [address] [place] [address] [place] [address] Other termite renewal inspector (current) drug therapy Social History Tobacco Use [...] A1C Routine 07/31/2024 7:00 AM EST Other half-way (current) drug therapy BASIC METABOLIC PANEL Routine 07/31/2024 7:00 AM EST Other termite renewal inspector (current) drug therapy documented in this encounter Results * (ABNORMAL) Hemoglobin A1c (07/31/2024 7:00 AM EST) Hemoglobin A1C 7.1(H) <6.5 % LAB CHEMISTRY METHOD 07/31/2024 3:[address] [facility] Mean Bld Glu Estim. 157 mg/dL LAB CHEMISTRY METHOD 07/31/2024 3:[address] [facility] Blood Venous blood specimen / Unknown Venipuncture / Unknown 07/31/2024 7:00 AM EST 07/31/2024 12:30 PM EST Lorelei Samson NP LAB BLOOD ORDERABLES Final Res ult [facility] [address] [place] [address], * (ABNORMAL) Basic metabolic panel (07/31/2024 7:00 AM EST) Sodium 129(L) 133 - 145 mmol/L LAB CHEMISTRY METHOD 07/31/2024 3:[address] [facility] Potassium 4.9 3.5 - 5.5 [...] LAB CHEMISTRY METHOD 07/31/2024 3:34 PM EST [facility] Comment:Calculation based on the Chronic Kidney Disease Epidemiology Collaboration (CKD-EPI) equation refit without adjustment for race. BUN/Creatinine Ratio 18.8 LAB CHEMISTRY METHOD 07/31/2024 3:34 PM EST [facility] Calcium 9.3 8.5 - 10.5 mg/dL LAB CHEMISTRY METHOD 07/31/2024 3:34 PM EST [facility] Blood Venous blood specimen / Unknown Venipuncture / Unknown 07/31/2024 7:00 AM EST 07/31/2024 12:30 PM EST us Lorelei Samson NP LAB BLOOD ORDERABLES Final Res ult [facility] [address] [place] [address], documented in this encounter Visit Diagnoses Diagnosis Other half-way (current) drug therapy documented in this encounter Care Teams Pocket Operator Relationship Specialty Start Date End Date Physician, No Pcp PCP - General 08/02/24 documented as of this encounter
--- OUTSIDE RECORDS SUMMARY | 2025-03-26 09:39 | XMS_ITS | Encounter Summary ---
Author Organization [facility] Address [address] [place] [address] Phone Care Team Providers Care Hat Forming Machine Operator Name Role Phone Jamie Maher Primary Care Provider [phone] Encounter Details Date Type Department Care Team (Late st Contact Info) Description 10/07/2024 Procedure Pass [facility] [address] [place] [address] Social History Tobacco Use Types Packs/Day Years [...] 10/07/2024 9:33 AM Sarah Randall RN * [place] Suicide Severity Rating Scale (Screener/Recent Self-Report) Question [...] documented as of this encounter Care Teams Hat Forming Machine Operator Relationship Specialty Start Date End Date Jamie Maher PA [address] [place] [address] PCP - General 08/13/24 documented as of this encounter Additional Source Comments The information contained in this document represents components of the legal health record. It is not the complete legal health record.[facility]
--- OUTSIDE RECORDS SUMMARY | 2025-03-26 09:39 | XMS_ITS | Encounter Summary ---
Author Organization [facility] Address [address] [place] [address] Phone Care Team Providers Care On Air Announcer Name Role Phone Jack Howard MD Primary Care Provi keiry Jamie Maher Primary Care Provider [phone]- [phone] Encounter Details Date Type Department Care Team (Late st Contact Info) Description 04/28/2024 Procedure Pass [facility], Ct Scan - [address] [address] Social History Tobacco Use Types Packs/Day Years [...] 9:20 PM EDT Chata Wallace RN * [place] Suicide Severity Rating Scale (Screener/Recent Self-Report) Question [...] documented as of this encounter Care Teams On Air Announcer Relationship Specialty Start Date End Date Jack Howard MD [address] [place] [address] PCP - General Internal Medicine 07/01/20 04/29/24 Jamie Maher PA [address] [place] [address] PCP - General 08/13/24 documented as of this encounter Additional Source Comments The information contained in this document represents components of the legal health record. It is not the complete legal health record.[facility]
--- OUTSIDE RECORDS SUMMARY | 2025-03-26 09:40 | XMS_ITS | Encounter Summary ---
Author Organization [facility] Address [address] [place] [address] Phone Care Team Providers Care House Mother Name Role Phone Jamie Maher Primary Care Provider [phone]- [phone] Encounter Details Date Type Department Care Team (Late st Contact Info) Description 08/13/2024 Procedure Pass [facility] [address] [place] [address] Social History Tobacco Use Types Packs/Day Years [...] 8:20 PM Mary Kate Zaragoza RN * [place] Suicide Severity Rating Scale (Screener/Recent Self-Report) Question [...] documented as of this encounter Care Teams House Mother Relationship Specialty Start Date End Date Jamie Maher PA [address] [place] [address] PCP - General 08/13/24 documented as of this encounter Additional Source Comments The information contained in this document represents components of the legal health record. It is not the complete legal health record.[facility]
--- OUTSIDE RECORDS SUMMARY | 2025-03-26 09:40 | XMS_ITS | Encounter Summary ---
Author Organization [facility] Address [address] [place] [address] Phone Care Team Providers Care Hearing Therapy Director Name Role Phone Jack Howard MD Primary Care Provi keiry Jamie Maher Primary Care Provider [phone]- [phone] Encounter Details Date Type Department Care Team (Late st Contact Info) Description 04/28/2024 Procedure Pass [facility], Ct Scan - [address] [address] Social History Tobacco Use Types Packs/Day Years [...] 9:20 PM EDT Chata Wallace RN * [place] Suicide Severity Rating Scale (Screener/Recent Self-Report) Question [...] documented as of this encounter Care Teams Hearing Therapy Director Relationship Specialty Start Date End Date Jack Howard MD [address] [place] [address] PCP - General Internal Medicine 07/01/20 04/29/24 Jamie Maher PA [address] [place] [address] PCP - General 08/13/24 documented as of this encounter Additional Source Comments The information contained in this document represents components of the legal health record. It is not the complete legal health record.[facility]
[2025-03-26 09:49] LABS: Hematocrit 22.7 % (42.0-52.0); Hemoglobin 7.2 g/dl (14.0-18.0); Imm Gran Abs Auto 0.02 X10*3/uL (0.00-0.03); Imm Gran Pct Auto 0.5 % (0.0-0.4); Lymphocytes Absolute Auto 0.4 X10*3/uL (1.2-4.9); Mean Corpuscular HGB Conc 31.7 g/dl (31.0-36.0); Mean Corpuscular Hemoglobin 23.5 pg (27.0-33.0); Mean Corpuscular Volume 73.9 fL (80.0-98.0); NRBC Abs Auto 0.000 X10*3/uL (0.0-0.012); NRBC Pct Auto 0.0 /100WBC (0.0-0.2); Platelet Count 82 X10*3/uL (160-400); Red Blood Count 3.07 X10*6/uL (4.60-5.80); White Blood Count 3.7 X10*3/uL (4.8-10.8)
[2025-03-26 09:52] LABS: Alanine Aminotransferase 18 U/L (0-40); Albumin Level 3.6 g/dL (3.5-5.0); Alkaline Phosphatase 128 U/L (39-117); Anion Gap 11 (12-20); Aspartate Amino Transferase 26 U/L (5-37); Blood Urea Nitrogen 19 mg/dL (9-16); Calcium 9.0 mg/dL (8.4-10.2); Carbon Dioxide 27 mmol/L (22-29); Chloride 106 mmol/L (96-108); Creatinine Clr Calc Pharmacy 93.7; Estimated Glomerular Filt Rate > 60; Potassium 4.0 mmol/L (3.3-5.1); Sodium 140 mmol/L (135-145); Total Protein 7.0 g/dL (6.5-8.0)
[2025-03-26 10:47] LABS: Iron 22 mcg/dL (45-160); Percent Iron Saturation 7 % (15-50); Total Iron Binding Capacity 327 mcg/dL (228-428); Unsaturated Iron Binding 305 ug/dL
[2025-03-26] MEDS: Cocaine HCl 4 % 4 ML SOLUTION TOPICAL (11:29)
[2025-03-26] MEDS: Silver Nitrate Applicator STICK..EA. 1 APPL TOPICAL (11:29)
[2025-03-26] MEDS: Lidocaine HCl 1%/Epi 1:100,000 10 ML VIAL 5 ML INFILTRATI (12:06)
--- NOTE | 2025-03-26 12:11 | PC.NURSE ---
PRBC ordered, awaiting for provider to obtain consent.
== END 2025-03-26 17:29 | disposition home or self-care (01) ==
PROVIDERS: Physician Assistant Medical; Emergency Provider Emergency Medicine Emergency Medical Services; PCP Physician Assistant Medical
DX: R04.0 Epistaxis (principal); J34.0 Abscess, furuncle and carbuncle of nose; I10 Essential (primary) hypertension; D64.9 Anemia, unspecified; F10.10 Alcohol abuse, uncomplicated; E61.1 Iron deficiency; K70.30 Alcoholic cirrhosis of liver without ascites; Z79.899 Other long term (current) drug therapy
CPT/HCPCS: 30901; 36415; 36430; 80053; 83540; 85025; 86850; 86900; 86901; 86923; 96365; 96375; 99284; 99285; C9143; J0131; J2004; J2270; P9016

== ENCOUNTER 2025-04-04 10:42 | Emergency (ER) | payer MEDICARE, SELFPAY ==
--- OUTSIDE RECORDS SUMMARY | 2025-04-02 12:00 | XMS_ITS | Encounter Summary ---
Author Organization [employer] Address [address] [facility] [address] [place] [address] Care Team Providers Care Relay Tester Name Role Phone Lashay Rangel MD Primary Care Provider [phone] Reason for Visit * Reason Comments Follow-up Hospital follow up Encounter Details Date Type Department Care Team (Late st Contact Info) Description 04/02/2025 12:00 PM EDT Office Visit [facility] [address] [place] [address] Alaina Saavedra MD [address] [place] [address] Cirrhosis of liver with ascites, unspecified hepatic cirrhosis type (CMS/HCC) (CMS/HCC) (Primary Dx); Insulin-requiring or dependent type II diabetes mellitus (CMS/HCC); Chronic low back pain, unspecified back pain laterality, unspecified whether sciatica present; Pancytopenia (CMS/HCC); Schizophrenia, unspecified type (CMS/HCC); Hypomagnesemia; History of alcohol abuse Social History Tobacco Use Types Packs/Day Years Used Date Smoking Tobacco: Never Assessed Alcohol Answer Date Recorded How often do you have a drink containing alcohol ? 0 04/02/2025 Average Number of Drinks Not on file 025 How often do you have six or more drinks on one occasion? 0 04/02/2025 Depression Answer Date Recorded Patient Health Questionnaire-9 Score 04/02/2025 Patient Health Questionnaire-9 Score 04/02/2025 Last PHQ-9: Questionnaire Data Not on file 0 04/02/2025 Housing Stability Answer Date Recorded What is your housing situation today? I have maxwell goel 04/02/[address] you li ve. Do you have problems with any of the following? Mold;Water leaks;I am not sure 04/02/2025 Food Insecurity Answer Date Recorded Within the past 12 months, y ou worried that your food would run out before you got money to buy more: Sometimes True 2024 Within the past 12 months,th e food you bought just didn't last and you didn't have enough money to get more: Often true 04/02/2025 Transportation Answer Date Recorded In the past 12 months, has l ack of transportation kept you from medical appts, meetings, work or from getting things needed for daily living? Yes, it has kept me from non-medical meetings, work, or getting things that I need 04/02/2025 Utilities Answer Date Recorded In the past 12 months, has t he electric, gas, oil or water company threatened to shut off services in your home? No 04/02/2025 Depression Answer Date Recorded Patient Health Questionnaire-2 Score 6 04/02/2025 Internet Access Answer Date Recorded Internet Access Q1 Yes 04/02/2025 Internet Access Q2 Not on file 04/02/2025 Sex and Gender Information Value Date Recorded Sex Assigned at Male 10/12/2023 3:21 PM EDT Legal Sex Male 4:04 PM EDT Gender Identity Male 05/20/2022 4:04 PM EDT Sexual Orientation Lesbian or Graham 05/20/2022 4: 04 PM EDT documented as of this encounter Last Filed Vital Signs Vital Sign Reading Time Taken Comments Blood Pressure 146/83 04/02/2025 12:11 PM EDT Pulse 79 04/02/2025 12:11 PM EDT Temperature 36.1 C (96.9 F) 04/02/2025 12:11 PM EDT Respiratory Rate - - Oxygen Saturation 97% 04/02/2025 12:11 PM EDT Inhaled Oxygen Concentration - - Weight 72.6 kg (160 lb) 04/02/2025 12:11 PM EDT Height 175.3 cm (5' 9 ) 04/02/2025 12:11 PM EDT Body Mass Index 23.63 04/02/2025 12:11 PM EDT documented in this encounter Functional Status * Over the past 2 weeks, how often have you been bothered by any of the following problems? Question Answer Date of Assessment Author Patient Health Questionnaire-2 Score 6 03/24 1:08 PM EDT Ramesh Brown * Little interest or pleasure in doing things Answer Date of Assessment Author Nearly every day 04/02/2025 1:08 PM EDT Koby Browni * Feeling down, depressed, or hopeless Answer Date of Assessment Author Nearly every day 04/02/2025 1:08 PM EDT Ramesh Brown * Trouble falling or staying asleep, or sleeping too much Answer Date of Assessment Author Nearly every day 04/02/2025 1:08 PM EDT Ramesh Brown * Feeling tired or having little energy Answer Date of Assessment Author Nearly every day 04/02/2025 1:08 PM EDT Ramesh Brown * Poor appetite or overeating Answer Date of Assessment Author Nearly every day 04/02/2025 1:08 PM EDT Ramesh Brown * Feeling bad about yourself - or that you are a failure or have let yourself or your family down Answer Date of Assessment Author Nearly every day 04/02/2025 1:08 PM EDT Ramesh Brown * Trouble concentrating on things, such as reading the newspaper or watching television Answer Date of Assessment Author Nearly every day 04/02/2025 1:08 PM EDT Ramesh Brown * Moving or speaking so slowly that other people could have noticed? Or the opposite - being so fidgety or restless that you have been moving around a lot more than usual. Answer Date of Assessment Author More than half the days 04/02/2025 1:08 PM EDT Ramesh Driscoll * Thoughts that you would be better off or hurting yourself in some way Answer Date of Assessment Author Not at all 04/02/2025 1:08 PM EDT Grant Brown * Patient Health Questionnaire-9 Score Answer Date of Assessment Author 23 04/02/2025 1:08 PM EDT Grant Brown * How difficult have these problems made it for you to do your work, take care of things at home, or get along with other people? Answer Date of Assessment Author Extremely difficult 04/02/2025 1:08 PM EDT Ramesh Atkinson * Over the last 2 weeks, how often have you been bothered by any of the following problems? Question Answer Date of Assessment Author Feeling nervous, anxious, or on edge 3 03/24 1:09 PM EDT Econom Ramesh Not being able to stop or co ntrol worrying 2 04/02/2025 1:09 PM EDT Econom Ramesh Worrying too much about different things 3 04/02/2025 1:09 PM EDT Econom Ramesh Trouble relaxing 3 04/02/2025 1:09 PM EDT E conom, Ramesh Being so restless that it is hard to sit still 2 04/02/2025 1:09 PM EDT Econom, Ramesh Becoming easily annoyed or irritable 3 03/24 1:09 PM EDT Econom Ramesh Feeling afraid as if somethi ng awful might happen 2 04/02/2025 1:09 PM EDT Econom Ramesh MARCO-7 Total Score 18 04/02/2025 1:09 PM EDT Stephanie Ramesh documented as of this encounter Plan of Treatment Upcoming Encounters Date Type Department Care Team (Late st Contact Info) Description 05/02/2025 10:40 AM EDT Office Visit [facility] [address] [place] [address] Lashay Rangel MD [address] [place] [address] Scheduled Orders Name Type Priority Associated Diagnoses Orde r Schedule CBC auto differential Lab Routine Cirrhosis of liver with ascites, unspecified hepatic cirrhosis type (CMS/HCC) (CMS/HCC) Pancytopenia (CMS/HCC) Ordered: 04/02/2025 Comprehensive Metabolic Panel [[id number]] Lab Routine Cirrhosis of liver with ascites, unspecified hepatic cirrhosis type (CMS/HCC) (CMS/HCC) Expected: 04/02/2025, Expires: 04/02/2026 Magnesium [id number] Lab Routine Hypomagnesemia Expected: 04/02/2025, Expires: 04/02/2026 ToxAssure Flex 15, Urine Lab Routine History of alcohol abuse Expected: 04/02/2025 (Approximate), Expires: 04/02/2026 documented as of this encounter Procedures Procedure Name Priority Date/Time Associated Diagnosis Comments ALBUMIN/CREATININE RATIO, RANDOM URINE Routine 04/02/2025 2:53 PM EDT Insulin-requiring or dependent type II diabetes mellitus (CMS/HCC) POCT GLYCOSYLATED HEMOGLOBIN (HGB A1C) Routine 04/02/2025 12:47 PM EDT Insulin-requiring or dependent type II diabetes mellitus (CMS/HCC) documented in this encounter Results * Albumin/Creatinine Ratio, Random Urine (04/02/2025 2:53 PM EDT) Creatinine, Random Urine 210.5 Not Estab. mg/dL [facility] 1 Albumin, Urine 10.7 Not Estab. ug/mL [facility] 1 Albumin/Creatini ne Ratio 5 0 - 29 mg/g creat [facility] 1 Comment: Normal: 0 - 29 Moderately increased: 30 - 300 Severely increased: >300 Urine (Urine, Random) 04/02/2025 2:53 PM EDT 04/02/2025 Narrative Resulting Agency Comment Performed at: 01 - [facility] [address] [id number] Generator Man: Bobbi Dia MD, Phone: [phone] us Alaina Saavedra MD LAB URINE ORDERABLES Final Resul t [facility] 1 * (ABNORMAL) POCT glycosylated hemoglobin (Hgb A1c) (04/02/2025 12:47 PM EDT) Hemoglobin A1C 6.5(A) 4.0 - 5.7 % Blood Capillary blood specimen / Unknown 04/02/2025 12:47 PM EDT us Alaina Saavedra MD POINT OF CARE TEST ENTER/EDIT OR DERABLES Final Result documented in this encounter Visit Diagnoses Diagnosis Cirrhosis of liver with ascites, unspecified hepatic cirrhosis type (CMS/HCC) (CMS/HCC)- Primary Insulin-requiring or dependent type II diabetes mellitus (CMS/HCC) Type II or unspecified type diabetes mellitus without mention of complication, not stated as uncontrolled Chronic low back pain, unspecified back pain laterality, unspecified whether sciatica present Pancytopenia (CMS/HCC) Schizophrenia, unspecified type (CMS/HCC) Hypomagnesemia Disorders of magnesium metabolism History of alcohol abuse Nondependent alcohol abuse, in remission documented in this encounter Additional Health Concerns Assessment Noted Time PHQ-9 Depression Total Score: 23 025 1:08 PM EDT documented as of this encounter Care Teams Relay Tester Relationship Specialty Start Date End Date Lashay Rangel MD [address] [place] [address] PCP - General Family Medicine 10/28/24 documented as of this encounter
[2025-04-04 11:00] VITALS: BP 124/59; PULSE 96; RESP 18; TEMP 36.3; O2SAT 97; BMI 24.0
--- NOTE | 2025-04-04 11:01 | ED.GENADULT ---
HPI - General Adult General Chief complaint: Epistaxis Stated complaint: Nose Bleed Time Seen by Provider: 04/04/25 12:48 Source: patient Mode of arrival: ambulatory Limitations: no limitations History of Present Illness HPI narrative: This is 55 years old male presented to the emergency department complaining of epistaxis of the left nostril he was seen here on March 26 he required packing. He states that he blowing nose today and it started to bleed from left nostril Onset (ago): hour(s) (2) Location: left Radiation: non-radiation Severity: mild Quality: burning Pain Consistency: constant Relieving factors: none Related Data Home Medications ?Medication ?Instructions ?Recorded ?Confirmed folic acid 1 mg tablet 1 mg PO DAILY 08/30/24 08/30/24 furosemide 20 mg tablet 20 mg PO DAILY 08/30/24 08/30/24 hydroxyzine pamoate 50 mg capsule 100 mg PO TID 08/30/24 08/30/24 insulin glargine 100 unit/mL (3 20 unit subcut BEDTIME 08/30/24 08/30/24 mL) subcutaneous pen (Lantus Solostar U-100 Insulin) insulin lispro 100 unit/mL See Protocol subcut QIDACHS 08/30/24 08/30/24 subcutaneous pen (Humalog KwikPen (U-100) Insulin) Previous Rx's ?Medication ?Instructions ?Recorded flash glucose sensor (FreeStyle #1 ea 03/23/24 [place] 14 Day Sensor kit) dicyclomine 20 mg tablet 20 mg PO TID #10 tabs 03/19/25 ondansetron 4 mg disintegrating 4 mg PO Q8H PRN nausea and 03/19/25 tablet vomiting #10 tabs acetaminophen 500 mg tablet 500 - 1,000 mg (1 - 2 x 500 mg) PO 03/26/25 (Tylenol Extra Strength) Q8H PRN pain #30 tabs cephalexin 500 mg capsule 500 mg PO QID 5 days #20 caps 03/26/25 ferrous sulfate 325 mg (65 mg 325 mg PO Q OTHER DAY #30 tabs 03/26/25 iron) tablet Allergies Allergy/AdvReac Type Severity Reaction Status Date / Time bupropion (From Wellbutrin) Allergy Shortness Verified 04/04/25 11:01 of Breath gabapentin Allergy Confusion Verified 04/04/25 11:01 seafood Allergy Anaphylaxis Verified 04/04/25 11:01 Review of Systems Constitutional: Constitutional: Reports as per HPI ENT: Reports as per [facility]PI [facility] Past Medical History Attestation statement: The following information was validated with the patient. Medical History Alcohol abuse Social History Social History Alcohol intake: current Alcohol intake frequency: 3 or more drinks per day Alcohol type: hard liquor Substance Use Type: Marijuana Advance Directives: No Advance Directives Information Provided: Yes Physical Exam ED Exam Exam: He looks well is not toxic-appearing Vital Signs: Vital Signs - 24 hr 04/04/25 11:00 04/04/25 13:50 Temperature 97.3 F 97.3 F Pulse Rate 96 96 Respiratory Rate 18 18 Blood Pressure 124/59 L 124/59 L Pulse Oximetry 97 97 Oxygen Delivery Method Room Air Room Air BMI result Body Mass Index 24.0 Const General: cooperative Nutritional Appearance: well nourished HENMT Head: Yes normal to inspection General nose exam: Normal external nose present and Other nasal findings present (Left nostril no active bleeding at this time) Mouth: Normal oral and palatal mucosa present Neck Neck: Yes normal visual inspection Chest Chest palpation & inspection: normal inspection of the chest Resp Effort & Inspection: normal respiratory effort Auscultation: clear to auscultation bilaterally Cardio Jugular venous distension: no JVD Palpation: normal PMI Rate: regular rate Rhythm: regular rhythm GI Inspection: Yes normal to inspection Palpation (GI): Soft to palpation Skin General skin exam: no rashes or lesions noted Lesions: no lesions Rashes: no rashes Extrem General: Yes normal to inspection and Yes full ROM Course Course Course Narrative: Rapid medical examination performed in triage by Chery Sena PA-C. Patient is a 55 year old assigned male at presenting to the emergency department with a left sided nose bleed. Patient states that he was here recently for a nosebleed that was cauterized and packed. Blew his nose today and it is now bleeding again. Detailed physical exam and review of systems are deferred to the sorting livestock worker. Patient placed back in the waiting room pending room availability. Reevaluation(s) Reevaluation #1: No bleeding we will discharge home Time: 13:38 Medications Administered Discontinued Medications Generic Name Dose Route Start Last Admin Trade Name Freq PRN Reason Stop Dose Admin Oxymetazoline HCl 2 spray 04/04/25 13:02 04/04/25 13:44 Oxymetazoline Hcl 0.05 % Nasal 15 Ml [place] NOSTRIL-B 04/04/25 13:03 2 spray ONCE ONE Administration Medical Decision Making Medical Decision Making [facility] Narrative: Patient presented with a left nosebleed that they at this time and there is no bleeding Differential Diagnosis Differential Diagnoses: The differential diagnosis associated with the presentation includes Epistaxis/clot Admission/Observation Consideration of admission/observation: Escalation of care including admission/observation considered External Record Review External record reviewed: Other (ED record) Discharge Plan Discharge Clinical Impression: Epistaxis Patient Disposition: Home, Self-Care Prescriptions: No Action (DME) [employer] [place] 14 Day Sensor Kit See Rx Instructions .Route Qty: 1 0RF Rx Instructions: As directed hydroxyzine pamoate 50 mg capsule 100 mg PO TID folic acid 1 mg tablet 1 mg PO DAILY furosemide 20 mg tablet 20 mg PO DAILY insulin lispro [Humalog KwikPen Insulin] 100 unit/mL insulin pen See Protocol subcut QIDACHS Protocol: Insulin Correction Scale Less than or equal to 110 ---- Give (units): 0 111 to 150 Give (units): 0 151 to 200 Give (units): 2 201 to 250 Give (units): 4 251 to 300 Give (units): 6 301 to 350 Give (units): 8 Greater than 350 Give (units): 10 Call MD if Blood Glucose > : 350 insulin glargine [Lantus Solostar U-100 Insulin] 100 unit/mL (3 mL) insulin pen 20 unit subcut BEDTIME dicyclomine 20 mg tablet 20 mg PO TID Qty: 10 0RF ondansetron 4 mg tablet,disintegrating 4 mg PO Q8H PRN (Reason: nausea and vomiting) Qty: 10 0RF acetaminophen [Tylenol Extra Strength] 500 mg tablet 500 - 1,000 mg PO Q8H PRN (Reason: pain) Qty: 30 0RF ferrous sulfate 325 mg (65 mg iron) tablet 325 mg PO Q OTHER DAY Qty: 30 0RF cephalexin 500 mg capsule 500 mg PO QID 5 Days Qty: 20 0RF Referrals: Jamie Maher PA-C [Primary Care Provider, Family Practice] - 04/07/25 Stand Alone Forms: Work/School Release Interventions: ED Discharge Assessment Last Done: 04/04/25 13:50 Discharge Date/Time: 04/04/25 13:50 Print Language: Amharic
[2025-04-04] MEDS: Oxymetazoline HCl 0.05 % Nasal 15 ML SPRAY 2 SPRAY NOSTRIL-B (13:44)
[2025-04-04 13:50] VITALS: BP 124/59; PULSE 96; RESP 18; TEMP 36.3; O2SAT 97
--- OUTSIDE RECORDS SUMMARY | 2025-04-04 15:02 | XMS_ITS | Encounter Summary ---
Author Organization [employer] Address 75 [facility] 7t [place] [address] Care Team Providers Care Diesel Electrician Name Role Phone Lashay Rangel MD Primary Care Provider [phone] Encounter Details Date Type Department Care Team (Late st Contact Info) Description 01/28/2025 Orders Only [facility] Information Management [address] [place] [address] Lashay Rangel MD [address] [place] [address] Social History Tobacco Use Types Packs/Day Years [...] Description 05/02/2025 10:40 AM EDT Office Visit [facility] MED[facility] [address] [place] [address] Lashay Rangel MD [address] [place] [address] documented as of this encounter Procedures Procedure [...] on filedocumented in this encounter Care Teams Diesel Electrician Relationship Specialty Start Date End Date Lashay Rangel MD [address] [place] [address] PCP - General Family Medicine 10/28/24 documented as of this encounter
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
--- OUTSIDE RECORDS SUMMARY | 2025-04-04 15:02 | XMS_ITS | Clinical Summary ---
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 Plant Operator Name Role Phone Physician, No Pcp [...] Problems Problem Noted Date Diagnosed Date Sch[place] [place] [facility] [place] Encounters Date Type Department Care Team Description 02/20/2025 1:35 PM EDT - 02/20/2025 4:52 PM EDT Emergency [facility] Emergency [address] [place] [phone] Siddharth Cueva MD Encounter for medical screening examination (Primary Dx); Schizophrenia, unspecified type ([facility] V24, [facility] V28); Hypomagnesemia; Pancytopenia [place] [place] [facility] [place] Hepatic cirrhosis, unspecified hepatic cirrhosis type, unspecified whether ascites present ([facility] V24, [facility] V28) Discharge Disposition: Home or Self Care 02/06/2025 10:46 AM EDT - 02/06/2025 11:31 AM EDT [facility] Emergency [address] [place] [phone] Sprain of left ankle, unspecified ligament, subsequent encounter (Primary Dx) Discharge Disposition: Home or Self Care from Last 3 Months Surgical History Surgery Date Site/Laterality Comments ESOPHAGOGASTRODUODENOSCOPY W/ BANDING Per EMR Medical History Medical History Date Comments Schizophrenia ([facility] V24, [facility] V28) Alcoholic cirrhosis of liver with ascites ([facility] V24, [facility] V28) per EMR Chronic anemia per emr HTN (hypertension) per emr 2019 Diabetes mellitus ([facility] V24, [facility] V28) per EMR 2019 Hyperlipidemia per EMR [...] A1C Routine 07/31/2024 7:00 AM EST 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 Barbiturate Screen, Ur Negative Negative LAB CHEMISTRY METHOD [facility]/20[facility]2025 [facility] Benzodiazepine Screen, Ur Negative Negative LAB CHEMISTRY METHOD 02/20/2025 4:[address] [facility] Cocaine Screen, Ur Negative Negative LAB CHEMISTRY METHOD 02/20/2025 4:06 [facility] Opiate Screen, Ur Negative Negative LAB CHEMISTRY METHOD 02/20/2025 4:[address] [facility] Cannabinoid (THC) Screen, Ur Negative Negative LAB CHEMISTRY METHOD 02/20/2025 4:[address] [facility] Comment:Specimens from patie nts taking pantoprazole sodium (Protonix) have been shown to produce false positive results. Oxycodone Screen, Ur Negative Negative LAB CHEMISTRY METHOD 02/20/2025 4:06 PM [facility] Fentanyl, Ur Negative Negative LAB CHEMISTRY METHOD 02/20/2025 4:06 PM EDT [facility] Urine Urine specimen obtained by clean catch procedure / Unknown Non-blood Collection / Unknown 02/20/2025 3:06 PM EDT 02/20/2025 3:23 PM EDT Katherine [facility] - 02/20/2025 4:06 PM EDT [...] MD LAB URINE ORDERABLES Final Res ult [facility] [address] [place] [address], [place] [phone] * RHYTHM ECG, REPORT (02/20/2025 2:54 PM EDT) Siddharth Paiz MD - 02/20/2025 2:54 PM EDT Siddharth Cueva MD 02/20/2025 7:02 PM ECG Rhythm Interpretation and Report Date/Time: 02/20/2025 2:54 PM Performed by: Siddharth Cueva MD Authorized by: Siddharth Cueva MD ECG interpreted by ED Physician in the absence of a wind projects supervisor: yes Previous ECG: Previous ECG: Compared to [...] ECG 12 lead (02/20/2025 2:29 PM EDT) [facility] Ventricular Rate ECG 74 BPM GEMUSE Atrial Rate 74 BPM GEMUSE P-R Interval 188 ms GEMUSE QRS Duration 142 ms GEMUSE Q-T Interval 432 ms GEMUSE QTc 479 ms GEMUSE P Wave [place] 30 degrees GEMUSE R [place] -9 degrees GEMUSE T [place] 23 degrees GEMUSE ECG Interpretation Normal sinus rhythm Right bundle branch block Abnormal ECG When compared with ECG of 25-MAR-2024 19:01, Vent. rate has decreased BY 47 BPM Confirmed by Porsche PATINO JAMES ([id number]) on 02/20/2025 6:06:06 PM GEMUSE 02/20/2025 2:29 PM EDT 02/20/2025 6:06 PM EDT us Siddharth Cueva MD ECG ORDERABLES Final Result Performing Organization Address [facility] Co de Phone Number GEMUSE * Troponin I high sensitivity (02/20/2025 2:21 PM EDT) [facility] High Sensitivity Troponin I <3 <=79 ng/L LAB CHEMISTRY METHOD 02/20/2025 3:08 PM EDT [facility] Blood Venous blood specimen / Unknown Venipuncture / Unknown 02/20/2025 2:21 PM EDT 02/20/2025 2:41 PM EDT Narrative [facility] - 02/20/2025 3:08 PM EDT High levels of biotin in samples may falsely decrease hsTroponin values. Use caution when interpreting hsTroponin results in patients taking biotin who exhibit renal impairment (eGFR <60) or in patients taking more than 20 mg/day of biotin. us Siddharth Cueva MD LAB BLOOD ORDERABLES Final Res ult [facility] [address] [place] [address], [place] [phone] * (ABNORMAL) CBC auto differential (02/20/2025 2:21 PM EDT) [facility] WBC 3.2(L) 4.8 - 10.8 K/mcL LAB HEMETOLOGY METHOD 02/20/2025 3:36 PM [facility] RBC 3.90(L) 4.50 - 5.50 M/mcL LAB HEMETOLOGY METHOD 02/20/2025 3:[address] [facility] Hemoglobin 9.0(L) 13.5 - 17.5 g/dL LAB HEMETOLOGY METHOD 02/20/2025 3:36 PM [facility] Hematocrit 29.9(L) 42.0 - 54.0 % LAB HEMETOLOGY METHOD 02/20/2025 3:[address] [facility] MCV 76.5(L) 79.0 - 98.0 FL LAB HEMETOLOGY METHOD 02/20/2025 3:[address] [facility] MCH 23.0(L) 27.0 - 32.0 pcg LAB HEMETOLOGY METHOD 02/20/2025 3:[address] [facility] MCHC 30.1(L) 32.0 - 37.0 g/dL LAB HEMETOLOGY METHOD 02/20/2025 3:[address] [facility] RDW 18.5(H) 11.0 - 15.0 % LAB HEMETOLOGY METHOD 02/20/2025 3:[address] [facility] Platelets 87(L) 130 - 400 K/mcL LAB HEMETOLOGY METHOD 02/20/2025 3:[address] [facility] Comment:reviewed by slide SHAISTA LAB HEMETOLOGY METHOD 02/20/2025 3:[address] [facility] Comment:Not Measured NRBC 0.0 <1.0 % LAB HEMETOLOGY METHOD 02/20/2025 3:36 PM [facility] NRBC Absolute 0.00 <0.10 K/mcL LAB HEMETOLOGY METHOD 02/20/2025 3:36 PM EDT [facility] Neutrophils Relative 75.4 % LAB HEMETOLOGY METHOD 02/20/2025 3:36 PM EDT [facility] Lymphocytes Relative 11.7 % LAB HEMETOLOGY METHOD 02/20/2025 3:36 PM EDT [facility] Monocytes Relative 8.6 % LAB HEMETOLOGY METHOD 02/20/2025 3:36 PM EDT [facility] Eosinophils Relative 3.1 % LAB HEMETOLOGY METHOD 02/20/2025 3:36 PM EDT [facility] Basophils Relative 0.9 % LAB HEMETOLOGY METHOD 02/20/2025 3:36 PM [facility] Immature Granulocytes Relative 0.3 % LAB HEMETOLOGY METHOD 02/20/2025 3:36 PM EDT [facility] Neutrophils Absolute 2.44 1.50 - 7.00 K/mcL LAB HEMETOLOGY METHOD 02/20/2025 3:36 PM [facility] Lymphocytes Absolute 0.38(L) 1.00 - 5.00 K/mcL LAB HEMETOLOGY METHOD 02/20/2025 3:36 PM [facility] Monocytes Absolute 0.28 0.20 - 1.00 K/mcL LAB HEMETOLOGY METHOD 02/20/2025 3:36 PM EDT [facility] Eosinophils Absolute 0.10 0.00 - 0.50 K/mcL LAB HEMETOLOGY METHOD 02/20/2025 3:36 PM EDT [facility] Basophils Absolute 0.03 0.00 - 0.20 K/mcL LAB HEMETOLOGY METHOD 02/20/2025 3:36 PM [facility] Immature Granulocytes Absolute 0.01 0.00 - 0.03 K/mcL LAB HEMETOLOGY METHOD 02/20/2025 3:36 PM EDT [facility] Blood Venous blood specimen / Unknown Venipuncture / Unknown 02/20/2025 2:21 PM EDT 02/20/2025 2:41 PM EDT us Siddharth Cueva MD LAB BLOOD ORDERABLES Final Res ult Performing Organization Address [facility]/ZIP Co de Phone Number [facility] [address] [place] [address], [place] [phone] * (ABNORMAL) Prothrombin time with INR (02/20/2025 2:21 PM EDT) Protime 14.9(H) 10.6 - 13.9 sec LAB COAGULATION METHOD 02/20/2025 2:53 PM EDT [facility] INR 1.2 LAB COAGULATION METHOD 02/20/2025 2:53 PM EDT [facility] Blood Venous blood specimen / Unknown Venipuncture / Unknown 02/20/2025 2:21 PM EDT 02/20/2025 2:41 PM EDT us Siddharth Cueva MD LAB BLOOD ORDERABLES Final Res ult Performing Organization Address [facility]/ZIP Co de Phone Number [facility] [address] [place] [address], [place] [phone] * (ABNORMAL) Magnesium (02/20/2025 2:21 PM EDT) Magnesium 1.8(L) 1.9 - 2.6 mg/dL LAB CHEMISTRY METHOD 02/20/2025 3:09 PM EDT [facility] Blood Venous blood specimen / Unknown Venipuncture / Unknown 02/20/2025 2:21 PM EDT 02/20/2025 2:40 PM EDT us Siddharth Cueva MD LAB BLOOD ORDERABLES Final Res ult [facility] [address] [place] [address], [place] [phone] * Ethanol (02/20/2025 2:21 PM EDT) [facility] Ethanol Level <3 0 - 10 mg/dL LAB CHEMISTRY METHOD 02/20/2025 3:12 PM EDT [facility] Blood Venous blood specimen / Unknown Venipuncture / Unknown 02/20/2025 2:21 PM EDT 02/20/2025 2:40 PM EDT Siddharth Cueva MD LAB BLOOD ORDERABLES Final Res ult Performing Organization Address [facility]/ZIP Co de Phone Number [facility] [address] [place] [address], [place] [phone] * (ABNORMAL) Comprehensive metabolic panel (02/20/2025 2:21 PM EDT) [facility] Sodium 139 133 - 145 mmol/L LAB CHEMISTRY METHOD 02/20/2025 3:15 PM EDT [facility] Potassium 4.1 3.5 - 5.5 mmol/L LAB CHEMISTRY METHOD 02/20/2025 3:15 PM T [facility] Chloride 108 96 - 110 mmol/L LAB CHEMISTRY METHOD 02/20/2025 3:15 PM EDT [facility] CO2 26 21 - 32 mmol/L LAB CHEMISTRY METHOD 02/20/2025 3:15 PM EDT [facility] Anion Gap 5 3 - 11 LAB CHEMISTRY METHOD 02/20/2025 3:[address] [facility] Glucose 106(H) 70 - 100 mg/dL LAB CHEMISTRY METHOD 02/20/2025 3:15 PM EDT [facility] BUN 13 5 - 25 mg/dL LAB CHEMISTRY METHOD 02/20/2025 3:15 PM EDT [facility] Creatinine 0.94 0.70 - 1.30 mg/dL LAB CHEMISTRY METHOD 02/20/2025 3:15 PM EDT [facility] eGFR 96 >=60 mL/min/1. 73m2 LAB CHEMISTRY METHOD 02/20/2025 3:15 PM T [facility] Comment:Calculation based on the Chronic Kidney Disease Epidemiology Collaboration (CKD-EPI) equation refit without adjustment for race. BUN/Creatinine Ratio 13.8 LAB CHEMISTRY METHOD 02/20/2025 3:15 PM EDT [facility] Calcium 9.3 8.5 - 10.5 mg/dL LAB CHEMISTRY METHOD 02/20/2025 3:15 PM T [facility] AST (SGOT) 32 10 - 42 unit/L LAB CHEMISTRY METHOD 02/20/2025 3:[address] [facility] ALT (SGPT) 27 10 - 60 unit/L LAB CHEMISTRY METHOD 02/20/2025 3:[address] [facility] Alkaline Phosphatase 148(H) 42 - 121 unit/L LAB CHEMISTRY METHOD 02/20/2025 3:[address] [facility] Total Protein 7.7 6.0 - 8.0 g/dL LAB CHEMISTRY METHOD 02/20/2025 3:[address] [facility] Albumin 3.7 3.2 - 5.0 g/dL LAB CHEMISTRY METHOD 02/20/2025 3:15 PM EDT [facility] Total Bilirubin 0.9 0.0 - 1.4 mg/dL LAB CHEMISTRY METHOD 02/20/2025 3:[address] [facility] Blood Venous blood specimen / Unknown Venipuncture / Unknown 02/20/2025 2:21 PM EDT 02/20/2025 2:40 PM EDT us Siddharth Cueva MD LAB BLOOD ORDERABLES Final Res ult [facility] [address] [place] [address], [place] [phone] * (ABNORMAL) Hemoglobin A1c (07/31/2024 7:00 AM EST) Hemoglobin A1C 7.1(H) <6.5 % LAB CHEMISTRY METHOD 07/31/2024 3:38 PM EST [facility] Mean Bld Glu Estim. 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
--- OUTSIDE RECORDS SUMMARY | 2025-04-04 15:02 | XMS_ITS | Encounter Summary ---
Author Organization [employer] Address [address] [facility] [address] [place] [address] Care Team Providers Care Collar Packer Name Role Phone Lashay Rangel MD Primary Care Provider [phone] Encounter Details Date Type Department Care Team (Late Contact Info) Description 01/30/2025 Orders Only [facility] [address] [place] [address] Lashay Rangel MD [address] [place] [address] Social History Tobacco Use Types Packs/Day Years [...] Description 05/02/2025 10:40 AM EDT Office Visit [facility] MEDICAL [address] [place] [address] Lashay Rangel MD [address] [place] [address] documented as of this encounter Procedures Procedure [...] on filedocumented in this encounter Care Teams Collar Packer Relationship Specialty Start Date End Date Lashay Rangel MD [address] [place] [address] PCP - General Family Medicine 10/28/24 documented as of this encounter
--- OUTSIDE RECORDS SUMMARY | 2025-04-04 15:02 | XMS_ITS | Clinical Summary ---
Author Organization [employer] Address [address] [facility] [address] [place] [address] Care Team Providers Care Vertical Mill Operator Name Role Phone Lashay Rangel MD Primary Care Provider [phone] Allergies Active Allergy Reactions Criticality Noted Date Comments Amoxicillin Hives,Itching High 04/21/2020 Tolerating cefazolin October 2021 also tolerating oxacillin October 2021 Bupropion Hives,Itching,Rash,U n known High 04/08/2014 Fish Allergy Unknown 03/31/2024 Fish-Derived Products Anaphylaxis High 05/26/2023 Gabapentin Anxiety,Hives,Itchin g ,Unknown High 01/24/2018 Other Reaction(s): Memory Loss Mental status changes Other 08/02/2024 SEAFOOD Shellfish Allergy Anaphylaxis High 05/26/2023 Vancomycin Hives,Itching,Rash High 01/18/2020 Medications lactulose (Chronulac) 10 GM/15ML solution Take 20 g by mouth if needed in the morning and at bedtime. 023 Active Risankizumab-rza a (Skyrizi Pen) 150 MG/ML solution auto-injectorInd ications:Psoriat ic arthritis (CMS/HCC) INJECT 1 PEN (150MG) SUBQUETANEOUSLY AT WEEK 0. AGAIN AT WEEK 4. THAN EVERY 12 WEEKS THEREAFTER. 1 mL 2 025 Active Additional Information Patient not taking.Reported on 04/02/2025 nadolol (Corgard) 40 MG tabletIndication s:Cirrhosis of liver with ascites, unspecified hepatic cirrhosis type (CMS/HCC) (CMS/HCC) Take 1 tablet (40 mg) by mouth Once per day. 90 tablet 04/28/2 025 Active insulin glargine (Lantus SoloStar) 100 UNIT/ML penIndications:I nsulin-requiring or dependent type II diabetes mellitus (CMS/HCC) Inject 10 Units under the skin in the morning. 6 mL Active Additional Information Patient not taking.Reported on 04/02/2025 insulin lispro (HumaLOG) 100 UNIT/ML injectionIndicat ions:Insulin-req uiring or dependent type II diabetes mellitus (CMS/HCC) Inject 10 Units under the skin with breakfast, with lunch, and with evening meal. 3 mL Active Additional Information Patient not taking.Reported on 04/02/2025 clobetasol (Temovate) 0.05 % ointmentIndicati ons:Psoriasis Apply topically 2 times daily. 60 g 2 2025 Active insulin pen needle (Global Ease Inject Pen [place]) 32G x 4 mm miscIndications: Insulin-requirin g or dependent type II diabetes mellitus (CMS/HCC) Use as instructed 100 each Active Additional Information Patient not taking.Reported on 04/02/2025 magnesium oxide (Mag-Ox) 400 MG tabletIndication s:Cirrhosis of liver with ascites, unspecified hepatic cirrhosis type (CMS/HCC) (CMS/HCC) TAKE 1 TABLET BY MOUTH EVERY DAY 30 tablet Active Additional Information Patient not taking.Reported on 04/02/2025 Continuous Glucose Sensor (FreeStyle [place] 2 Plus Sensor) miscIndications: Insulin-requirin g or dependent type II diabetes mellitus (CMS/HCC) 1 Device every 14 (fourteen) days. 2 each 2025 Active Additional Information Patient not taking.Reported on 04/02/2025 naltrexone (Depade) 50 MG tablet Take 50 mg by mouth Once per day. Active hydrOXYzine HCl (Atarax) 25 MG tabletIndication s:Psoriasis Take 1 tablet (25 mg) by mouth every 8 (eight) hours if needed for itching. 1-2 tabs bid prn 90 tablet Active traZODone (Desyrel) 100 MG tabletIndication s:Insomnia, unspecified type Take 1 tablet (100 mg) by mouth at bedtime. 30 tablet Active metFORMIN (Glucophage) 500 MG tabletIndication s:Insulin-requir ing or dependent type II diabetes mellitus (CMS/HCC) Take 1 tablet (500 mg) by mouth with breakfast and with evening meal. 180 tablet Active ibuprofen 600 MG tablet Take 1 tablet (600 mg) by mouth every 8 (eight) hours if needed for moderate pain. 30 tablet Active pantoprazole (ProtoNix) 40 MG EC tabletIndication s:Peptic ulcer Take 1 tablet (40 mg) by mouth 2 times daily. 180 tablet Active Additional Information Patient not taking.Reported on 04/02/2025 fluticasone (Flonase) 50 MCG/ACT nasal spray Administer 2 sprays into each nostril Once per day. 16 g Active thiamine (Vitamin B-1) 100 MG tabletIndication s:Cirrhosis of liver with ascites, unspecified hepatic cirrhosis type (CMS/HCC) (CMS/HCC) Take 1 tablet (100 mg) by mouth Once per day. 90 tablet 3 025 2025 Active Additional Information Patient not taking.Reported on 04/02/2025 furosemide (Lasix) 20 MG tabletIndication s:Cirrhosis of liver with ascites, unspecified hepatic cirrhosis type (CMS/HCC) (CMS/HCC) Take 1 tablet (20 mg) by mouth Once per day. 90 tablet Active folic acid (Folvite) 1 MG tabletIndication s:Alcohol abuse Take 1 tablet (1 mg) by mouth Once per day. 90 tablet Active triamcinolone (Kenalog) 0.1 % cream Apply 1 Application. topically 2 times daily. Active spironolactone (Aldactone) 50 MG tablet Take 50 mg by mouth Once per day. 023 Active ondansetron ODT (Zofran-ODT) 4 MG disintegrating tablet Take 4 mg by mouth every 12 (twelve) hours if needed for nausea. Active lidocaine (Lidoderm) 5 % patch Apply 1 patch topically Once per day. Active hydrOXYzine pamoate (Vistaril) 50 MG capsule Take 50 mg by mouth if needed in the morning, at noon, in the evening, and at bedtime. Active doxazosin (Cardura) 1 MG tablet Take 1 mg by mouth at bedtime. Active citalopram (CeleXA) 10 MG tablet Take 10 mg by mouth Once per day. Active citalopram (CeleXA) 20 MG tablet Take 20 mg by mouth Once per day. 024 Active Multiple Vitamin (multivitamin) tablet Take 1 tablet by mouth Once per day. Active therapeutic multivitamin-iro n-minerals (Theragran-M) tablet Take 1 tablet by mouth Once per day. 30 tablet 1 Active therapeutic multivitamin-iro n-minerals (Theragran-M) tablet Take 1 tablet by mouth Once per day. 023 2024 Discontinued( Reorder (will not trigger notification to Pharmacy)) thiamine (Vitamin B-1) 100 MG tabletIndication s:Cirrhosis of liver with ascites, unspecified hepatic cirrhosis type (CMS/HCC) (CMS/HCC) Take 1 tablet (100 mg) by mouth Once per day. 90 tablet 3 025 2024 Discontinued( Reorder (will not trigger notification to Pharmacy)) pantoprazole (ProtoNix) 40 MG EC tabletIndication s:Peptic ulcer Take 1 tablet (40 mg) by mouth 2 times daily. 180 tablet 025 2024 Discontinued pantoprazole (ProtoNix) 40 MG EC tabletIndication s:Peptic ulcer TAKE 1 TABLET BY MOUTH 2 TIMES DAILY 180 tablet 025 2024 Discontinued( Reorder (will not trigger notification to Pharmacy)) hydrOXYzine HCl (Atarax) 25 MG tablet Take 25 mg by mouth. 1-2 tabs bid prn 025 2024 Discontinued( Reorder (will not trigger notification to Pharmacy)) traZODone (Desyrel) 100 MG tablet Take 100 mg by mouth at bedtime. 025 2024 Discontinued( Reorder (will not trigger notification to Pharmacy)) metFORMIN (Glucophage) 500 MG tablet Take 500 mg by mouth with breakfast and with evening meal. 025 2024 Discontinued( Reorder (will not trigger notification to Pharmacy)) ibuprofen 600 MG tablet Take 600 mg by mouth 3 times daily. 025 2024 Discontinued( Reorder (will not trigger notification to Pharmacy)) fluticasone (Flonase) 50 MCG/ACT nasal spray Administer 2 sprays into each nostril Once per day. 025 2024 Discontinued( Reorder (will not trigger notification to Pharmacy)) folic acid (Folvite) 1 MG tablet Take 1 mg by mouth Once per day. 023 2024 Discontinued( Reorder (will not trigger notification to Pharmacy)) furosemide (Lasix) 20 MG tablet Take 20 mg by mouth Once per day. 023 2024 Discontinued( Reorder (will not trigger notification to Pharmacy)) Active Problems Problem Noted Date Diagnosed Date Altered mental status 04/28/2024 Anemia of chronic disease 11/11/2021 Hepatic cirrhosis 02/08/2021 Thrombocytopenia 03/31/2020 Esophageal varices 03/05/2020 Cholelithiasis 12/28/2019 Decompensated liver disease 12/10/2019 Gastroesophageal reflux disease without esophagi tis 12/04/2018 Insulin-requiring or dependent type II diabetes mellitus 05/10/2017 Chronic back pain 07/29/2014 Encounters Date Type Department Care Team Description 04/02/2025 12:00 PM EDT Office Visit [facility] [address] [place] [address] Alaina Saavedra MD Cirrhosis of liver with ascites, unspecified hepatic cirrhosis type (CMS/HCC) (CMS/HCC) (Primary Dx); Insulin-requiring or dependent type II diabetes mellitus (CMS/HCC); Chronic low back pain, unspecified back pain laterality, unspecified whether sciatica present; Pancytopenia (CMS/HCC); Schizophrenia, unspecified type (CMS/HCC); Hypomagnesemia; History of alcohol abuse 04/02/[address] [facility] [address] [place] [id number] Lashay Rangel MD Epistaxis (Primary Dx); Cirrhosis of liver with ascites, unspecified hepatic cirrhosis type (CMS/HCC) (CMS/HCC); History of alcohol abuse 03/18/[address] [address] Lashay Rangel MD Care Coordination 03/06/2025 Refill [facility] [address] [place] [address] Lashay Rangel MD Peptic ulcer 01/30/2025 Orders Only [facility] Information Management [address] [place] [address] Lashay Rangel MD 01/29/[address] [address] Lashay Rangel MD Care Coordination; Paperwork/Forms 01/28/2025 Orders Only [facility] [address] [place] [address] Lashay Rangel MD 01/28/2025 Telephone [facility] Information [address] [address] Lashay Rangel MD 01/15/[address] [address] Lashay Rangel MD RX lost/stolen, request new RX sent 01/14/[address] [address] Lashay Rangel MD Medication Question; Behavior Health Admission ; Care Coordination 01/13/[address] [address] Lashay Rangel MD Prior Authorization (skyrizi) 01/07/[address] [address] Lashay Rangel MD Insulin-requiring or dependent type II diabetes mellitus (CMS/HCC) from Last 3 Months Social History Tobacco Use Types Packs/Day Years Used Date Smoking Tobacco: Never Assessed Alcohol Answer Date Recorded How often do you have a drink containing alcohol ? 0 04/02/2025 Average Number of Drinks Not on file 025 How often do you have six or more drinks on one occasion? 0 04/02/2025 Depression Answer Date Recorded Patient Health Questionnaire-9 Score 23 04/02/2025 Patient Health Questionnaire-9 Score 23 04/02/2025 Last PHQ-9: Questionnaire Data Not on [...] F) 04/02/2025 12:11 PM EDT Respiratory Rate 16 12/09/2024 10:48 AM EDT Oxygen Saturation 97% 04/02/2025 12:11 PM EDT Inhaled Oxygen Concentration - - Weight 72.6 kg (160 lb) 04/02/2025 12:11 PM EDT Height 175.3 cm (5' 9 ) 04/02/2025 12:11 PM EDT Body Mass Index 23.63 04/02/2025 12:11 PM EDT Plan of Treatment Upcoming Encounters Date Type Department Care Team (Late st Contact Info) Description 05/02/2025 10:40 AM EDT Office Visit [facility] [address] [place] [address] Lashay Rangel MD [address] [place] [address] Health Maintenance Due Date Last Done Comments CT Colonography 1969 Colonoscopy 1969 Colorectal Cancer Screening 1969 FIT DNA/Cologuard 1969 FIT 1969 FOBT 1969 Lipid Panel 1969 Sigmoidoscopy 1969 Diabetes: Foot Exam 1979 Eye Exam 1979 Tobacco Screening 1981 Hepatitis C Screening 1987 Hepatitis A Vaccines (1 of 2 - Risk 2-dose series) 1988 Hepatitis B Vaccines (1 of 3 - 19+ 3-dose series) 1988 Zoster Vaccines (1 of 2) 2019 Pneumococcal Vaccine: 50+ Years (2 of 2 - PCV) 04/23/2021 04/23/2020 COVID-19 Vaccine (3 - season) 2025 12/09/2020, 11/11/2020 Influenza Vaccine (#1) 2025 , 04/23/2020, 10/22/2019, Additional history exists Depression Monitoring 09/30/2025 04/02/2025, 025 Diabetes: Hemoglobin A1C 09/30/2025 025, 11/18/2024, 08/15/2024, Additional history exists Alcohol/Substance Use Screening 04/02/2026 04/02/2025 Diabetes: Urine Protein Screening 04/02/2026 04/02/2025 Disability Screening 04/02/2026 04/02/2025 SDOH Screening 04/02/2026 04/02/2025 DTaP/Tdap/Td Vaccines (2 - Td or Tdap) [...] or dependent type II diabetes mellitus (CMS/HCC) CBC WITH AUTO DIFFERENTIAL Routine 01/28/2025 10:47 AM EDT ECG 12-LEAD Routine 01/28/2025 10:[address] CERVICAL SPINE WO CONTRAST Routine 01/27/2025 10:[address] HEAD WO CONTRAST Routine 01/27/2025 1 0:13 AM EDT from Last 3 Months Results * Albumin/Creatinine Ratio, Random Urine (04/02/2025 [...] Agency Comment Performed at: 01 - [facility] [address] [id number] Technical Sales Manager: Bobbi Dia MD, Phone: [phone] Alaina Saavedra MD LAB URINE ORDERABLES Final Resul t [facility] 1 * (ABNORMAL) POCT glycosylated hemoglobin (Hgb A1c) (04/02/2025 12:47 PM EDT) Hemoglobin A1C 6.5(A) 4.0 - 5.7 % Blood Capillary blood specimen / Unknown 04/02/2025 12:47 PM EDT Result [facility] Alaina Saavedra MD POINT OF CARE TEST ENTER/EDIT OR DERABLES Final Result * CBC auto differential (01/28/2025 10:47 AM [...] Rangel MD IMG CT PROCEDURES Final Result from Last 3 Months Insurance [facility] DUAL COMPLETE HMO [facility] STANDARD Care Teams Vertical Mill Operator Relationship Specialty Start Date End Date Lashay Rangel MD [address] [place] [id number] PCP - General Family Medicine 10/28/24
--- OUTSIDE RECORDS SUMMARY | 2025-04-04 15:03 | XMS_ITS | Encounter Summary ---
Author Organization [employer] Address [address] [facility] 7 [place] [address] Care Team Providers Care Oracle Specialist Name Role Phone Lashay Rangel MD Primary Care Provider [phone] Reason for Referral * Consultation (Routine) - Pending Review Specialty Diagnoses / Procedures Referred By Alber gramajo Referred To Contact Otolaryngology Diagnoses Epistaxis Alaina Saavedra MD [address] [place] [address] Phone: tel: fax: [facility] [address] Phone: tel: fax: Referral ID Status Reason Start Date Expiration Date Visits Requested Visits Authorized [id number] Pending Review Specialty Services Required 04/03/2025 04/03/2026 1 1 Encounter Details Date Type Department Care Team (Late st Contact Info) Description 04/02/2025 Ari Alonso [facility] [address] [place] [address] Lashay Rangel MD [address] [place] [address] Epistaxis (Primary Dx); Cirrhosis of liver with ascites, unspecified hepatic cirrhosis type (CMS/HCC) (CMS/HCC); History of alcohol abuse Social History Tobacco [...] is your housing situation today? I have maxwlel goel 04/02/[address] you [...] PM EDT documented as of this encounter Functional Status * Over the past 2 weeks, how often have you been bothered by any of the following problems? Question Answer Date of Assessment Author Patient Health Questionnaire-2 Score 6 03/24 1:08 PM EDT Ramesh Brown * Little interest or pleasure in doing things Answer Date of Assessment Author Nearly every day 04/02/2025 1:08 PM EDT Ramesh Brown * Feeling down, depressed, or hopeless Answer [...] EDT Ramesh Brown Worrying too much about different things 3 04/02/2025 1:09 PM EDT Ramesh Brown Trouble relaxing 3 04/02/2025 1:09 PM EDT E conom, Ramesh Being so restless that it is hard to sit still 2 04/02/2025 1:09 PM EDT Ramesh Brown Becoming easily annoyed or irritable 3 03/24 1:09 PM EDT Ramesh Brown Feeling afraid as if somethi ng awful might happen 2 04/02/2025 1:09 PM EDT Ramesh Brown MARCO-7 Total Score 18 04/02/2025 1:09 PM EDT Ramesh Brown documented as of this encounter Miscellaneous Notes * Telephone Encounter - Alaina Saavedra MD - 04/03/2025 4:13 PM EDT I sent the rx for MTV and placed referral for ENT. Can you please try to get the notes from his recent ER visits. He did not remember where he went. thanks * Telephone Encounter - Ghazala Pedraza - 04/03/2025 10:14 AM EDT Franca Vega Staff nurse called back stating he was supposed to ask for a referral to ENT, per the ED after packing. Patient is also requesting a multivitamin. * Telephone Encounter - Ramesh Brown - 04/02/2025 2:25 PM EDT Pharmacy was changed to [facility].Please sent medications. * Telephone Encounter - Lizbet Littlejohn - 04/02/2025 1:01 PM EDT Patient states that he spoke with Dr Saavedra today regarding his medications and he wants them sent to [facility]. Not the pharmacy affiliated with the program, patient made it clear that he wants [facility] [place] on [address] documented in this encounter Plan of Treatment Upcoming Encounters Date Type Department Care Team (Late st Contact Info) Description 05/02/2025 10:40 AM EDT Office Visit [facility] [address] [place] [address] Lashay Rangel MD [address] [place] [address] Scheduled Referrals Name Type Priority Associated Diagnoses Orde r Schedule Referral to ENT Outpatient Referral Routine Epistaxis Expected: 04/03/2025 (Approximate), Expires: 04/03/2026 documented as of this encounter Visit Diagnoses Diagnosis Epistaxis- Primary Cirrhosis of liver with ascites, unspecified hepatic cirrhosis type (CMS/HCC) (CMS/HCC) History of alcohol abuse Nondependent alcohol abuse, in remission documented in this encounter Additional Health Concerns Assessment Noted Time PHQ-9 Depression Total Score: 23 025 1:08 PM EDT documented as of this encounter Care Teams Oracle Specialist Relationship Specialty Start Date End Date Lashay Rangel MD [address] [place] [address] PCP - General Family Medicine 10/28/24 documented as of this encounter
--- OUTSIDE RECORDS SUMMARY | 2025-04-04 15:03 | XMS_ITS | Encounter Summary ---
Author Organization [facility] Address [address] [place] [address] Care Team Providers Care Senior Computer Specialist Name Role Phone Physician, No Pcp Primary Care Provider Unavaila ble Encounter Details Date Type Department Care Team (Late st Contact Info) Description 07/31/[address] [facility] - [facility] [address] [place] [address] [place] [address] Other usp (current) drug therapy Social History Tobacco Use [...] A1C Routine 07/31/2024 7:00 AM EST Other usp (current) drug therapy BASIC METABOLIC PANEL Routine 07/31/2024 7:00 AM EST Other continuous churn buttermaker (current) drug therapy documented in this encounter Results * (ABNORMAL) Hemoglobin A1c (07/31/2024 7:00 AM EST) Hemoglobin A1C 7.1(H) <6.5 % LAB CHEMISTRY METHOD 07/31/2024 3:38 PM [facility] Mean Bld Glu Estim. 157 mg/dL LAB CHEMISTRY METHOD 07/31/2024 3:38 PM [facility] Blood Venous blood specimen / Unknown Venipuncture / Unknown 07/31/2024 7:00 AM EST 07/31/2024 12:30 PM EST Lorelei Samson NP LAB BLOOD ORDERABLES Final Res ult [facility] [address] [place] [address], * (ABNORMAL) Basic metabolic panel (07/31/2024 7:00 AM EST) Sodium 129(L) 133 - 145 mmol/L LAB CHEMISTRY METHOD 07/31/2024 3:34 PM [facility] Potassium 4.9 3.5 - 5.5 mmol/L LAB CHEMISTRY METHOD 07/31/2024 3:34 PM [facility] Chloride 99 96 - 110 mmol/L LAB CHEMISTRY METHOD 07/31/2024 3:34 PM [facility] CO2 27 21 - 32 mmol/L LAB CHEMISTRY METHOD 07/31/2024 3:34 PM [facility] Anion Gap 3 3 - 11 LAB CHEMISTRY METHOD 07/31/2024 3:34 PM [facility] Glucose 432(HH) 70 - 100 mg/dL LAB CHEMISTRY METHOD 07/31/2024 3:34 PM [facility] BUN 19 5 - 25 mg/dL LAB CHEMISTRY METHOD 07/31/2024 3:34 PM [facility] Creatinine 1.01 0.70 - 1.30 mg/dL LAB CHEMISTRY METHOD 07/31/2024 3:34 PM [facility] eGFR 88 >=60 mL/min/1. 73m2 LAB CHEMISTRY METHOD 07/31/2024 3:34 PM EST [facility] Comment:Calculation based on the Chronic Kidney Disease Epidemiology Collaboration (CKD-EPI) equation refit without adjustment for race. BUN/Creatinine Ratio 18.8 LAB CHEMISTRY METHOD 07/31/2024 3:34 PM EST [facility] Calcium 9.3 8.5 - 10.5 mg/dL LAB CHEMISTRY METHOD 07/31/2024 3:34 PM EST [facility] Blood Venous blood specimen / Unknown Venipuncture / Unknown 07/31/2024 7:00 AM EST 07/31/2024 12:30 PM EST us Lorelei Samson NP LAB BLOOD ORDERABLES Final Res ult [facility] [address] [place] [address], documented in this encounter Visit Diagnoses Diagnosis Other continuous churn buttermaker (current) drug therapy documented in this encounter Care Teams Senior Computer Specialist Relationship Specialty Start Date End Date Physician, No Pcp PCP - General 08/02/24 documented as of this encounter
== END 2025-04-04 13:50 | disposition home or self-care (01) ==
PROVIDERS: Emergency Provider Emergency Medicine; PCP Physician Assistant Medical
DX: R04.0 Epistaxis (principal); Z79.899 Other long term (current) drug therapy
CPT/HCPCS: 99282

== ENCOUNTER 2025-04-05 13:35 | Emergency (ER) | payer MEDICARE, MEDICAID, SELFPAY ==
--- OUTSIDE RECORDS SUMMARY | 2025-04-02 12:00 | XMS_ITS | Encounter Summary ---
Author Organization [employer] Address 75 [facility] 7t [place] [address] Care Team Providers Care Carpet Yarn Winder Operator Name Role Phone Lashay Rangel MD Primary Care Provider [phone] Reason for Visit * Reason Comments Follow-up Hospital follow up Encounter Details Date Type Department Care Team (Late st Contact Info) Description 04/02/2025 12:00 PM EDT Office Visit [facility] MEDICAL [address] [place] [address] Alaina Saavedra MD [address] [place] [address] Cirrhosis of liver with ascites, unspecified hepatic cirrhosis type (CMS/HCC) (CMS/HCC) (Primary Dx); Insulin-requiring or dependent type II diabetes mellitus (CMS/HCC); Chronic low back pain, unspecified back pain laterality, unspecified whether sciatica present; Pancytopenia (CMS/HCC); Hypomagnesemia; History of alcohol abuse; Gastroesophageal reflux disease without esophagitis; Insomnia, unspecified type Social History Tobacco Use Types Packs/Day Years [...] on edge 3 03/24 1:09 PM EDT Ramesh Brown Not being able to stop or co ntrol worrying 2 04/02/2025 1:09 PM EDT Ramesh Brown Worrying too much about diff erent things 3 04/02/2025 1:09 PM EDT Koby Browni Trouble relaxing 3 04/02/2025 1:09 PM EDT E conom, Ramesh Being so restless that it is hard to sit still 2 04/02/2025 1:09 PM EDT Econom, Ramesh Becoming easily annoyed or irritable 3 03/24 1:09 PM EDT Econom Ramesh Feeling afraid as if somethi ng awful might happen 2 04/02/2025 1:09 PM EDT Koby Browni MARCO-7 Total Score 18 04/02/2025 1:09 PM EDT Koby Browni documented as of this encounter Progress Notes * Alaina Saavedra MD - 04/02/2025 12:00 PM EDT 04/01/25 Kwame Xie [id number] HPI: Kwame Xie is a 55 y.o. male with hx of schizophrenia , hepatic cirrhosis seen in ER 02/20,the day after a dental procedure, complaining of persistent dental pain, nausea and bleeding from mouth. Went in to get stabilized. Was concerned for dehydration. Notes reviewed. Wbc 3.2, H/H 04/21, platelets 87, mg 1.9. Pt discharged home. Pt here today for follow up. He states he was most recently in ER a couple weeks ago with stomach pain and ankle injury, but he is not sure which hospital. No notes available. Pt currently in inpatient program in [place] for drug and ETOH rehab. Pt sober X 14+ years. Pt tells me he recently drank ETOH in order to get into the rehab.. Hx of cirrhosis - was referred to GI , pt thinks he has upcoming appt but he doesn't know for sure,say they don't tell him anything at the facility. Also hx of anemia - pt states he had nose cauterized a few weeks back in the ER, needed packing. Nonotes available. Pt was also referred to hematology by PCP- has not seen them yet either. Today, pt complains of stomach cramps. No fever, some chills and sweats at night. + nausea, pt states he was vomiting blood a couple weeks ago, not currently. Normal weight about 183. Pt says he has lost several pounds recently. No blood in stool, some dark stool, diarrhea. Also gets some bad stomach cramps. Pt currently not on insulin. HgA1c today 6.5 Pt asking to get urine drug screen today. Patient Active Problem List Diagnosis Date Noted Altered mental status 04/28/2024 Anemia of chronic disease 11/11/2021 Hepatic cirrhosis ([facility]) 02/08/2021 Thrombocytopenia ([facility]) 03/31/2020 Esophageal varices ([facility]) 03/05/2020 Cholelithiasis 12/28/2019 Decompensated liver disease ([facility]) 12/10/2019 Gastroesophageal reflux disease without esophagitis 12/04/2018 Insulin-requiring or dependent type II diabetes mellitus ([facility]) 05/10/2017 Chronic back pain 07/29/2014 Medical History[1] Surgical History[2] Medications Ordered Prior to Encounter[3] Allergies[4] Social History[5] Social History Social History Narrative Not on file Review of Symptoms: Review of Systems Constitutional: Positive for unexpected weight change. Negative for fever. Gastrointestinal: Positive for abdominal pain (crampy stomach), nausea and vomiting (not today). Negative for blood in stool. Physical Exam: Vitals: 04/02/25 1211 BP: (!) 146/83 Pulse: 79 Temp: 96.9 ??F (36.1 ??C) SpO2: 97% Physical Exam Constitutional: General: He is not in acute distress. Appearance: He is not ill-appearing, toxic-appearing or diaphoretic. HENT: Head: Normocephalic and atraumatic. Cardiovascular: Rate and Rhythm: Normal rate and regular rhythm. Pulmonary: Effort: Pulmonary effort is normal. Breath sounds: No wheezing, rhonchi or rales. Abdominal: Tenderness: There is no abdominal tenderness. There is no right CVA tenderness, left CVA tendernessor guarding. Comments: No subxyphoid tenderness Musculoskeletal: General: Normal range of motion. Cervical back: Normal range of motion. Skin: Coloration: Skin is not jaundiced. Neurological: Mental Status: He is alert. ASSESSMENT AND PLAN 1. Cirrhosis of liver with ascites, unspecified hepatic cirrhosis type (CMS/HCC) (CMS/HCC) (Primary) Was referred to GI by PCP Awaiting appt. - CBC auto differential - Comprehensive Metabolic Panel [[id number]]; Future - Comprehensive Metabolic Panel [[id number]] 2. Insulin-requiring or dependent type II diabetes mellitus (CMS/HCC) HgA1c 6.5 today Pt no longer on insulin. - Albumin/Creatinine Ratio, Random Urine - POCT glycosylated hemoglobin (Hgb A1c) 3. Chronic low back pain, unspecified back pain laterality, unspecified whether sciatica present 4. Pancytopenia (CMS/HCC) Will repeat CBC today Recently referred to heme by PCP - CBC auto differential 5. Hypomagnesemia Noted in last available ER notes, will recheck today - Magnesium [id number]; Future - Magnesium [id number] 6. History of alcohol abuse Pt requesting urine drug screen - ToxAssure?? Flex 15, Urine; Future 7. Gastroesophageal reflux disease without esophagitis Hx of peptic ulcer and esophageal varices per chart Rx recently sent for pantoprazole by pcp 8. Insomnia, unspecified type Alaina Saavedra MD [1] No past medical history on file. [2] No past surgical history on file. [3] Current Outpatient Medications on File Prior to Visit Medication Sig Dispense Refill clobetasol (Temovate) 0.05 % ointment Apply topically 2 times daily. 60 g 2 Continuous Glucose Sensor (FreeStyle [place] 2 Plus Sensor) misc 1 Device every 14 (fourteen) days. 2each 11 fluticasone (Flonase) 50 MCG/ACT nasal spray Administer 2 sprays into each nostril Once per day. 16g 0 folic acid (Folvite) 1 MG tablet Take 1 tablet (1 mg) by mouth Once per day. 90 tablet 0 furosemide (Lasix) 20 MG tablet Take 1 tablet (20 mg) by mouth Once per day. 90 tablet 0 hydrOXYzine HCl (Atarax) 25 MG tablet Take 1 tablet (25 mg) by mouth every 8 (eight) hours if needed for itching. 1-2 tabs bid prn 90 tablet 0 ibuprofen 600 MG tablet Take 1 tablet (600 mg) by mouth every 8 (eight) hours if needed for moderate pain. 30 tablet 0 insulin glargine (Lantus SoloStar) 100 UNIT/ML pen Inject 10 Units under the skin in the morning. 6mL 0 insulin lispro (HumaLOG) 100 UNIT/ML injection Inject 10 Units under the skin with breakfast, with lunch, and with evening meal. 3 mL 0 insulin pen needle (Global Ease Inject Pen [place]) 32G x 4 mm [facility] Use as instructed 100 each 0 lactulose (Chronulac) 10 GM/15ML solution Take 20 g by mouth if needed in the morning and at bedtime. magnesium oxide (Mag-Ox) 400 MG tablet TAKE 1 TABLET BY MOUTH EVERY DAY 30 tablet 0 metFORMIN (Glucophage) 500 MG tablet Take 1 tablet (500 mg) by mouth with breakfast and with evening meal. 180 tablet 0 nadolol (Corgard) 40 MG tablet Take 1 tablet (40 mg) by mouth Once per day. 90 tablet 0 naltrexone (Depade) 50 MG tablet Take 50 mg by mouth Once per day. pantoprazole (ProtoNix) 40 MG EC tablet Take 1 tablet (40 mg) by mouth 2 times daily. 180 tablet 0 Risankizumab-rzaa (Skyrizi Pen) 150 MG/ML solution auto-injector INJECT 1 PEN (150MG) SUBQUETANEOUSLY AT WEEK 0. AGAIN AT WEEK 4. THAN EVERY 12 WEEKS THEREAFTER. 1 mL 2 therapeutic omtpfmduptmz-gmnh-igomyboc (Theragran-M) tablet Take 1 tablet by mouth Once per day. thiamine (Vitamin B-1) 100 MG tablet Take 1 tablet (100 mg) by mouth Once per day. 90 tablet 3 traZODone (Desyrel) 100 MG tablet Take 1 tablet (100 mg) by mouth at bedtime. 30 tablet 0 No current facility-administered medications on file prior to visit. [4] Allergies Allergen Reactions Amoxicillin Hives and Itching Tolerating cefazolin October 2021 also tolerating oxacillin October 2021 Bupropion Hives, Itching, Rash and Unknown Shellfish Allergy Anaphylaxis Vancomycin Hives, Itching and Rash [5] documented in this encounter Plan of Treatment Upcoming Encounters Date Type Department Care Team (Late st Contact Info) Description 05/02/2025 10:40 AM EDT Office Visit [facility] MED[facility] [address] [place] [address] Lashay Rangel MD [address] [place] [address] Scheduled Orders Name Type Priority Associated Diagnoses Orde r Schedule CBC auto differential Lab Routine Cirrhosis of liver with ascites, unspecified hepatic cirrhosis type (CMS/HCC) (CMS/HCC) Pancytopenia (CMS/HCC) Ordered: 04/02/2025 Comprehensive Metabolic Panel [[id number]] Lab Routine Cirrhosis of liver with ascites, unspecified hepatic cirrhosis type (CMS/HCC) (CMS/HCC) Expected: 04/02/2025, Expires: 04/02/2026 Magnesium [id number] Lab Routine Hypomagnesemia Expected: 04/02/2025, Expires: 04/02/2026 [...] Agency Comment Performed at: 01 - [facility] [address] [id number] University Relations Vice President: Bobbi Dia MD, Phone: [phone] Alaina Saavedra MD LAB URINE ORDERABLES Final Resul t [facility] 1 * (ABNORMAL) POCT glycosylated hemoglobin (Hgb A1c) (04/02/2025 12:47 PM EDT) Hemoglobin A1C 6.5(A) 4.0 - 5.7 % Blood Capillary blood specimen / Unknown 04/02/2025 12:47 PM EDT Alaina Saavedra MD POINT OF CARE TEST [...] laterality, unspecified whether sciatica present Pancytopenia (CMS/HCC) Hypomagnesemia Disorders of magnesium metabolism History of alcohol abuse Nondependent alcohol abuse, in remission Gastroesophageal reflux disease without esophagitis Esophageal reflux Insomnia, unspecified type documented in this encounter Additional Health Concerns Assessment Noted Time PHQ-9 Depression Total Score: 23 025 1:08 PM EDT documented as of this encounter Care Teams Carpet Yarn Winder Operator Relationship Specialty Start Date End Date Lashay Rangel MD [address] [place] [id number] PCP - General Family Medicine 10/28/24 documented as of this encounter
--- NOTE | 2025-04-05 13:40 | ED.EPISTAXIS ---
History of Present Illness General Chief Complaint: Epistaxis Stated Complaint: NOSE BLEED Time Seen by Provider: 04/05/25 13:39 Source: patient, EMS, RN notes reviewed and old records reviewed Mode of arrival: EMS Limitations: no limitations History of Present Illness ED Provider: ELSI Ricardo [facility] Narrative: 55 yo male with medical history of alcohol use, alcoholic liver cirrhosis, T2DM, and hypertension. Patient states he was eating pizza when the left nostril began bleeding and soon in the right nostril begin bleeding as well. Patient packed his nose with gauze, states he has been blowing out large clots, and has had to repack approximately 6 times prior to arrival. Patient endorses mild headache this morning but has resolved at this time. Denies fall/trauma/injury, digital manipulation of the nostrils. Additionally patient states he is experiencing abdominal pain, has been imaged in the department and has follow up with GI in April. Patient states abdominal pain has stayed constant, has not changed in quality or intensity. Patient was seen in the department approximately 2 weeks ago with abdominal pain and CT abdomen revealed cirrhosis. Denies chest pain, shortness of breath, nausea, vomiting, visual changes Related Data Home Medications ?Medication ?Instructions ?Recorded ?Confirmed folic acid 1 mg tablet 1 mg PO DAILY 08/30/24 08/30/24 furosemide 20 mg tablet 20 mg PO DAILY 08/30/24 08/30/24 hydroxyzine pamoate 50 mg capsule 100 mg PO TID 08/30/24 08/30/24 insulin glargine 100 unit/mL (3 20 unit subcut BEDTIME 08/30/24 08/30/24 mL) subcutaneous pen (Lantus Solostar U-100 Insulin) insulin lispro 100 unit/mL See Protocol subcut QIDACHS 08/30/24 08/30/24 subcutaneous pen (Humalog KwikPen (U-100) Insulin) Previous Rx's ?Medication ?Instructions ?Recorded flash glucose sensor (FreeStyle #1 ea 03/23/24 Milan 14 Day Sensor kit) dicyclomine 20 mg tablet 20 mg PO TID #10 tabs 03/19/25 ondansetron 4 mg disintegrating 4 mg PO Q8H PRN nausea and 03/19/25 tablet vomiting #10 tabs acetaminophen 500 mg tablet 500 - 1,000 mg (1 - 2 x 500 mg) PO 03/26/25 (Tylenol Extra Strength) Q8H PRN pain #30 tabs cephalexin 500 mg capsule 500 mg PO QID 5 days #20 caps 03/26/25 ferrous sulfate 325 mg (65 mg 325 mg PO Q OTHER DAY #30 tabs 03/26/25 iron) tablet ondansetron HCl 4 mg tablet 4 mg PO Q8H #10 tabs 04/05/25 sucralfate 1 gram tablet 1 g PO BID #60 tabs 04/05/25 Allergies Allergy/AdvReac Type Severity Reaction Status Date / Time bupropion (From Wellbutrin) Allergy Shortness Verified 04/06/25 16:39 of Breath gabapentin Allergy Confusion Verified 04/06/25 16:39 seafood Allergy Anaphylaxis Verified 04/06/25 16:39 Review of Systems Review of Systems: CONST: Negative for fever, body aches and chills. HENT: Negative for neck pain/stiffness, headache, congestion, sore throat, swelling. POS nosebleed EYES: Negative for discharge/pain or vision changes. RESP: Negative for cough/hemoptysis and shortness of breath. CV: Negative chest pain, difficulty breathing, palpitations. ABD: Negative nausea, vomiting. POS diffuse abd pain : Negative increase frequency, dysuria, blood in urine or stool. MUSC: Negative for muscle aches, edema. SKIN: Negative rash, lesions/sores. NEURO: Negative headache, dizziness, weakness. Yes all other systems are reviewed and are negative PMFSH Past Medical History Attestation statement: The following information was validated with the patient. Source: old records reviewed and nursing notes reviewed Medical History Alcohol abuse Social History Social History Alcohol intake: current Alcohol intake frequency: 3 or more drinks per day Alcohol type: hard liquor Substance Use Type: Marijuana Advance Directives: No Advance Directives Information Provided: Yes Physical Exam Vital Signs: Vital Signs: Last Vital Signs Temp 97.9 F 04/05/25 16:05 Pulse 91 04/05/25 16:05 Resp 16 04/05/25 16:05 BP 108/71 04/05/25 16:05 Pulse Ox 95 04/05/25 16:05 O2 Del Method Room Air 04/05/25 16:05 BMI result Body Mass Index 23.9 GENERAL APPEARANCE: ?AxOx4, generally well-appearing, no acute distress. HEENT: ?NC, AT. MMM. EOMI, clear conjunctiva, oropharynx clear, nose is packed with gauze from home, no blood or blood clot noted in the posterior oropharynx, mild active bleeding noted of the left nostril, septal perforation noted NECK: ?Supple without lymphadenopathy.? No stiffness or restricted ROM. HEART:? Normal rate and regular rhythm, normal S1/S2, no m/r/g LUNGS:? CTAB, moving air well. No crackles or wheezes are heard. ABDOMEN: ?Soft, no rigidity, no guarding, diffuse tenderness of the entire abdomen on palpation, negative Deleon's sign, no rebound tenderness. EXTREMITIES: ?Without cyanosis, clubbing or edema. NEUROLOGICAL: ?Grossly nonfocal. Alert and oriented, moving all 4 extremities. Skin: ?Warm and dry without any rash. Course Course Course Narrative: Attending note, Dr. Gonzalez: I saw this patient with physician recreational assistant. At the time that I saw the patient he had already received oxymetazoline and topically applied cocaine. On my exam there was no active bleeding. The patient has a large chronic septal perforation. It was my impression at this site of recent bleeding was on the left side of the septum just beyond the septal perforation. I used silver nitrate sticks to cauterize this area. The patient was then observed and there was no recurrence of bleeding. The patient says that he was unaware that he has a perforated septum. It was my impression based on the size and appearance of the defect that this is a fairly longstanding condition. he has been advised to try to see an ENT doctor for further comment on this condition and further recommendations regarding recurrent nosebleeds. Medications Administered Discontinued Medications Generic Name Dose Route Start Last Admin Trade Name Freq PRN Reason Stop Dose Admin Cocaine HCl 4 ml 04/05/25 13:48 04/05/25 14:13 Cocaine Hcl 4 % 4 Ml Solution TOPICAL 04/05/25 13:49 4 ml ONCE ONE Administration Protocol Oxymetazoline HCl 2 spray 04/05/25 13:48 04/05/25 14:14 Oxymetazoline Hcl 0.05 % Nasal 15 Ml [place] NOSTRIL-B 04/05/25 13:49 2 spray ONCE ONE Administration Medical Decision Making Medical Decision Making [facility] Narrative: 55 yo male with medical history of alcohol use, alcoholic liver cirrhosis, diabetes, and hypertension presents to the ED by EMS due to nosebleed that began while he was eating lunch today. Nosebleed began in the left nostril and patient states both nostrils began to bleed. He self packed at home with gauze, reports changing packing at least 6 times prior to arrival. Additionally, patient complains of abdominal pain however patient was recently seen in the department approximately 2 weeks ago for same pain, which found cirrhosis, splenomegaly, varices. Patient has follow up with GI in April for further evaluation and management. Patient states this abdominal pain is his baseline and has not changed in quality or intensity since his last imaging done on 03/19/25. Plan: Labs Patient being medicated with Afrin, liquid cocaine, and silver nitrate Course 14:42- Labs reveal pancytopenia with leukopenia of 3.3, with a microcytic anemia with hemoglobin of 8, and hematocrit of 25.1, thrombocytopenia with a platelet count of 111, random serum glucose of 224, without anion gap, or electrolyte abnormality, alkaline phosphatase is elevated at 143. On chart review, patient has been seen in the department recently for abdominal pain and epistaxis. Abdominal pain has not changed in quality or intensity since his last visit. I believe pancytopenia is most likely due to alcoholic liver cirrhosis, patient does have patient follow up with GI in April. I do not believe abdominal pain needs further workup with advanced imaging as he just had CT done 2 weeks ago, no evidence of SBP today. I had my attending physician Dr. Ross Gonzalez evaluate the patient as well who visualized small vessel bleeding in the anterior L nostril and cauterized effectively with silver nitrate. Bleeding has been controlled after medicating with oxymetazoline, liquid cocaine, and cauterized with silver nitrate. No polyps visualized on nasal exam, however septal perforation is seen. I will refer patient to ENT for further evaluation and management of structural deformities and epistaxis. Patient stable today to return home for self-care. I counseled patient on the importance of following up with his GI appointment in April for further evaluation and management of alcohol induced cirrhosis. I counseled patient on strict return precautions. He is in agreement with the plan Differential Diagnosis Differential Diagnoses: The differential diagnosis associated with the presentation includes Digital trauma Sinusitis Septal deviation Septal perforation Admission/Observation Consideration of admission/observation: Escalation of care including admission/observation considered Lab Data [facility] Lab Attestation statement: I reviewed the patient's lab results. 04/05/25 14:27 04/05/25 14:27 Labs: Lab Results 04/05/25 Range/Units 14:27 WBC 3.3 L (4.8-10.8) X10*3/uL RBC 3.31 L (4.60-5.80) X10*6/uL Hgb 8.0 L (14.0-18.0) g/dl Hct 25.1 L (42.0-52.0) % MCV 75.8 L (80.0-98.0) fL MCH 24.2 L (27.0-33.0) pg MCHC 31.9 (31.0-36.0) g/dl RDW 17.3 H (11.0-16.0) % Plt Count 111 L D (160-400) X10*3/uL MPV Not Reportable Immature Gran % (Auto) 0.3 (0.0-0.4) % Neut % (Auto) 76.0 H (45-73) % Lymph % (Auto) 11.7 L (20-40) % Amador % (Auto) 8.4 (2-11) % Eos % (Auto) 3.0 (0-4) % Baso % (Auto) 0.6 (0-2) % Lymph # (Auto) 0.4 L (1.2-4.9) X10*3/uL Am[place] # (Auto) 0.3 (0.1-1.2) X10*3/uL Eos # (Auto) 0.1 (0.0-0.4) X10*3/uL Baso # (Auto) 0.0 (0.0-0.2) X10*3/uL Abs Immat Gran (auto) 0.01 (0.00-0.03) X10*3/uL Absolute Neuts (auto) 2.5 (2.0-8.3) x10*3/uL Absolute Nucleated RBC 0.000 (0.0-0.012) X10*3/uL Nucleated RBC % (auto) 0.0 (0.0-0.2) /100WBC PT 14.9 H (10.9-12.4) SEC INR 1.3 H (0.9-1.1) Sodium 140 (135-145) mmol/L Potassium 4.3 (3.3-5.1) mmol/L Chloride 108 (96-108) mmol/L Carbon Dioxide 23 (22-29) mmol/L Anion Gap 13 (12-20) BUN 15 (9-16) mg/dL Creatinine 0.86 (0.5-1.4) mg/dL Estim Creat Clear Calc 92.7 Estimated GFR > 60 Random Glucose 224 H (60-115) mg/dL Calcium 8.9 (8.4-10.2) mg/dL Magnesium 2.0 (1.6-2.6) mg/dL Total Bilirubin 0.9 (0.0-1.0) mg/dL AST 28 (5-37) U/L ALT 26 (0-40) U/L Alkaline Phosphatase 143 H (39-117) U/L Total Protein 7.1 (6.5-8.0) g/dL Albumin 3.7 (3.5-5.0) g/dL External Record Review External record reviewed: Inpatient record, Office record and Outpatient record Chronic Conditions Patient?s care impacted by: Other (Alcohol use disorder, cirrhosis, HTN, T2DM) Discharge Plan Discharge Clinical Impression: Epistaxis Patient Disposition: Home, Self-Care Instructions: Nosebleed (ED) Additional Instructions: You were evaluated in the ED today due to nosebleed. You were medicated in the department today with Afrin, liquid cocaine, and cautery performed with silver nitrate which controlled your bleeding well. You had abdominal pain however this abdominal pain has not changed in quality or intensity, I do not believe that you need advanced imaging at this time as you just had a CT of your abdomen and pelvis done 2 weeks ago which showed cirrhosis of the liver. You have follow up with GI in April, it is very important that you go to this appointment as you need further evaluation and management of cirrhosis. Additionally, I placed referral to ENT specialists for you, you need to call their office as they will not call you. It is important that you follow up with them as you have a large hole in the septum of your nose making you more susceptible to bleeding. Please follow up with ENT and speech teacher. You will be discharged with a new medication called sucralfate which is a medication that protects the lining of your stomach and intestines, and zofran for nausea while you await your GI appointment Please return to the emergency department if you experience additional nosebleeds, worsening abdominal pain, nausea, vomiting, inability to move your bowels, headaches, visual changes, or any new/worsening/concerning symptoms. Prescriptions: New sucralfate 1 gram tablet 1 g PO BID Qty: 60 0RF ondansetron HCl 4 mg tablet 4 mg PO Q8H Qty: 10 0RF No Action (DME) FreeStyle [place] 14 Day Sensor Kit See Rx Instructions .Route Qty: 1 0RF Rx Instructions: As directed hydroxyzine pamoate 50 mg capsule 100 mg PO TID folic acid 1 mg tablet 1 mg PO DAILY furosemide 20 mg tablet 20 mg PO DAILY insulin lispro [Humalog KwikPen Insulin] 100 unit/mL insulin pen See Protocol subcut QIDACHS Protocol: Insulin Correction Scale Less than or equal to 110 ---- Give (units): 0 111 to 150 Give (units): 0 151 to 200 Give (units): 2 201 to 250 Give (units): 4 251 to 300 Give (units): 6 301 to 350 Give (units): 8 Greater than 350 Give (units): 10 Call MD if Blood Glucose > : 350 insulin glargine [Lantus Solostar U-100 Insulin] 100 unit/mL (3 mL) insulin pen 20 unit subcut BEDTIME dicyclomine 20 mg tablet 20 mg PO TID Qty: 10 0RF ondansetron 4 mg tablet,disintegrating 4 mg PO Q8H PRN (Reason: nausea and vomiting) Qty: 10 0RF acetaminophen [Tylenol Extra Strength] 500 mg tablet 500 - 1,000 mg PO Q8H PRN (Reason: pain) Qty: 30 0RF ferrous sulfate 325 mg (65 mg iron) tablet 325 mg PO Q OTHER DAY Qty: 30 0RF cephalexin 500 mg capsule 500 mg PO QID 5 Days Qty: 20 0RF Referrals: [facility] [Provider Group, Ear, Nose, Throat] Referral Note: recurrent epistaxis, septal perforation appreciated on physical exam [facility] [Physician, Ear, Nose, Throat] Referral Note: recurrent epistaxis, septal perforation appreciated on physical exam Interventions: ED Discharge Assessment Last Done: 04/05/25 16:05 Discharge Date/Time: 04/05/25 16:13 Print Language: Namibian
[2025-04-05 13:41] VITALS: BP 162/90; PULSE 92; O2SAT 97
[2025-04-05 13:42] VITALS: BP 108/71; PULSE 91; RESP 16; TEMP 36.6; O2SAT 95; BMI 23.9
--- OUTSIDE RECORDS SUMMARY | 2025-04-05 13:58 | XMS_ITS | Encounter Summary ---
Author Organization [employer] Address [address] [facility] 7t [place] [address] Care Team Providers Care Make Up Worker Name Role Phone Lashay Rangel MD Primary Care Provider [phone] Encounter Details Date Type Department Care Team (Late st Contact Info) Description 01/28/2025 Orders Only [facility] Information Management [address] [place] [address] Lashay Rangel MD [address] [place] [address] Social History Tobacco Use Types Packs/Day Years [...] Description 05/02/2025 10:40 AM EDT Office Visit [facility] MEDICAL [address] [place] [address] Lashay Rangel MD [address] [place] [address] documented as of this encounter Procedures Procedure [...] on filedocumented in this encounter Care Teams Make Up Worker Relationship Specialty Start Date End Date Lashay Rangel MD [address] [place] [address] PCP - General Family Medicine 10/28/24 documented as of this encounter
--- OUTSIDE RECORDS SUMMARY | 2025-04-05 13:58 | XMS_ITS | Encounter Summary ---
Author Organization [employer] Address [address] [facility] [address] [place] [address] Care Team Providers Care Radio Board Operator Announcer Name Role Phone Lashay Rangel MD Primary Care Provider [phone] Reason for Visit * Reason Onset Date Comments RX lost/stolen, request new RX sent 01/15/2025 Encounter Details Date Type Department Care Team ([facility] st Contact Info) Description 01/15/2025 Telephone [facility] MEDICAL [address] [place] [address] Lashay Rangel MD [address] [place] [address] RX lost/stolen, request new RX sent Social [...] 2:38 PM EDT Cipriano ([employer]) called stating the patient put a glucose [...] company can say it's okay. Preferred Pharmacy: [id number] ([id number]) - [place], [place] - [address] [facility] [[id number]] Cipriano states she would like a call back at [phone] to discuss further, thank you! documented in this encounter Plan of Treatment Upcoming Encounters Date Type Department Care Team (Late st Contact Info) Description 05/02/2025 10:40 AM EDT Office Visit [place] [facility] MEDICAL [address] [place] [address] Lashay Rangel MD [address] [place] [address] documented as of this encounter Visit Diagnoses Diagnosis Insulin-requiring or dependent type II diabetes mellitus ([facility]) Type II or unspecified type diabetes mellitus without mention of complication, not stated as uncontrolled documented in this encounter Care Teams Radio Board Operator Announcer Relationship Specialty Start Date End Date Lashay Rangel MD [address] [place] [address] PCP - General Family Medicine 10/28/24 documented as of this encounter
--- OUTSIDE RECORDS SUMMARY | 2025-04-05 13:58 | XMS_ITS | Encounter Summary ---
Author Organization [employer] Address [address] [facility] 7t [place] [address] Care Team Providers Care Etl Lead Name Role Phone Lashay Rangel MD Primary Care Provider [phone] Encounter Details Date Type Department Care Team (Late Contact Info) Description 01/30/2025 Orders Only [facility] Information Management [address] [place] [address] Lashay Rangel MD [address] [place] [address] Social History Tobacco Use Types Packs/Day Years [...] Description 05/02/2025 10:40 AM EDT Office Visit [facility] MEDICAL [address] [place] [address] Lashay Rangel MD [address] [place] [address] documented as of this encounter Procedures Procedure [...] on filedocumented in this encounter Care Teams Etl Lead Relationship Specialty Start Date End Date Lashay Rangel MD [address] [place] [address] PCP - General Family Medicine 10/28/24 documented as of this encounter
--- OUTSIDE RECORDS SUMMARY | 2025-04-05 13:58 | XMS_ITS | Encounter Summary ---
Author Organization [employer] Address [address] [facility] 7t [place] [address] Care Team Providers Care Data Center Architect Name Role Phone Lashay Rangel MD Primary Care Provider [phone] Encounter Details Date Type Department Care Team (Late st Contact Info) Description 04/05/2025 Results Follow-Up [facility] MEDICAL [address] [place] [address] Alaina Saavedra MD [address] [place] [address] Albumin/Creatinine Ratio, Random Urine Social History Tobacco Use Types Packs/Day Years [...] Description 05/02/2025 10:40 AM EDT Office Visit [place] [facility] MEDICAL [address] [place] [address] Lashay Rangel MD [address] [place] [address] documented as of this encounter Visit Diagnoses Not on filedocumented in this encounter Additional Health Concerns Assessment Noted Time PHQ-9 Depression Total Score: 23 025 1:08 PM EDT documented as of this encounter Care Teams Data Center Architect Relationship Specialty Start Date End Date Lashay Rangel MD [address] [place] [address] PCP - General Family Medicine 10/28/24 documented as of this encounter
--- OUTSIDE RECORDS SUMMARY | 2025-04-05 13:58 | XMS_ITS | Encounter Summary ---
Author Organization [facility] Address [address] [facility] [address] [facility] [address] [place] [address] Phone Care Team Providers Care Specimen Collector Name Role Phone Jamie Maher Primary Care Provider [phone] Encounter Details Date Type Department Care Team (Late st Contact Info) Description 10/25/2024 Procedure Pass [facility], Ct Scan - [facility] [address] [place] [address] Social History Tobacco Use Types Packs/Day Years [...] housing (staying in a hotel, in a longterm, living outside on the street, on a [...] PM EDT Diamante Nuñez ma RN * [place] Suicide Severity Rating Scale (Screener/Recent Self-Report) Question [...] documented as of this encounter Care Teams Specimen Collector Relationship Specialty Start Date End Date Jamie Maher PA [address] [place] [address] PCP - General 08/13/24 documented as of this encounter Additional Source Comments The information contained in this document represents components of the legal health record. It is not the complete legal health record.[facility]
--- OUTSIDE RECORDS SUMMARY | 2025-04-05 13:58 | XMS_ITS | Encounter Summary ---
Author Organization [facility] Address [address] [facility] [address] [place] [address] Phone Care Team Providers Care Pest Controller Assistant Name Role Phone Jamie Maher Primary Care Provider [phone] Encounter Details Date Type Department Care Team (Late st Contact Info) Description 10/07/2024 Procedure Pass [facility] [address] [place] [address] Social History Tobacco Use Types Packs/Day Years [...] 10/07/2024 9:33 AM Sarah Randall RN * [place] Suicide Severity Rating Scale (Screener/Recent Self-Report) Question [...] documented as of this encounter Care Teams Pest Controller Assistant Relationship Specialty Start Date End Date Jamie Maher PA [address] [place] [address] PCP - General 08/13/24 documented as of this encounter Additional Source Comments The information contained in this document represents components of the legal health record. It is not the complete legal health record.[facility]
--- OUTSIDE RECORDS SUMMARY | 2025-04-05 13:58 | XMS_ITS | Encounter Summary ---
Author Organization [employer] Address [address] [facility] [address] [place] [address] Care Team Providers Care Harness And Bag Inspector Name Role Phone Lashay Rangel MD Primary Care Provider [phone] Reason for Referral * Consultation (Routine) - Pending Review Specialty Diagnoses / Procedures Referred By Alber gramajo Referred To Contact Otolaryngology Diagnoses Epistaxis Alaina Saavedra MD [address] [place] [address] Phone: tel: fax: [facility] [address] Phone: tel: fax: Referral ID Status Reason Start Date Expiration Date Visits Requested Visits Authorized [id number] Pending Review Specialty Services Required 04/03/2025 04/03/2026 1 1 Encounter Details Date Type Department Care Team (Late st Contact Info) Description 04/02/2025 Ari Alonso [facility] MEDICAL [address] [place] [address] Lashay Rangel MD [address] [place] [address] Epistaxis (Primary Dx); Cirrhosis of liver with [...] 2:25 PM EDT Pharmacy was changed to [facility] pharmacy [facility].Please sent medications. * Telephone Encounter - Lizbet Littlejohn - 04/02/2025 1:01 PM EDT Patient states that he spoke with Dr Saavedra today regarding his medications and he wants them sent to [facility]. Not the pharmacy affiliated with the program, patient made it clear that he wants [facility] to goto [facility] [place] on [address] documented in this encounter Plan of Treatment Upcoming Encounters Date Type Department Care Team (Late st Contact Info) Description 05/02/2025 10:40 AM EDT Office Visit [place] [facility] MEDICAL [address] [place] [address] Lashay Rangel MD [address] [place] [address] Scheduled Referrals Name Type Priority Associated Diagnoses [...] documented as of this encounter Care Teams Harness And Bag Inspector Relationship Specialty Start Date End Date Lashay Rangel MD [address] [place] [address] PCP - General Family Medicine 10/28/24 documented as of this encounter
--- OUTSIDE RECORDS SUMMARY | 2025-04-05 13:58 | XMS_ITS | Encounter Summary ---
Author Organization [facility] Address [address] [place] [address] Phone Care Team Providers Care Command Post Superintendent Name Role Phone Jamie Maher Primary Care Provider [phone] Encounter Details Date Type Department Care Team (Late st Contact Info) Description 10/25/2024 Procedure Pass [facility], Ct Scan - [facility] [address] [place] [address] Social History Tobacco Use Types Packs/Day Years [...] PM EDT Diamante Nuñez ma RN * [place] Suicide Severity Rating Scale (Screener/Recent Self-Report) Question [...] documented as of this encounter Care Teams Command Post Superintendent Relationship Specialty Start Date End Date Jamie Maher PA [address] [place] [id number] PCP - General 08/13/24 documented as of this encounter Additional Source Comments The information contained in this document represents components of the legal health record. It is not the complete legal health record.[facility]
--- OUTSIDE RECORDS SUMMARY | 2025-04-05 13:58 | XMS_ITS | Encounter Summary ---
Author Organization [facility] Address [address] [place] [address] Phone Care Team Providers Care Insole Coverer Name Role Phone Jack Howard MD Primary Care Provi keiry Jamie Maher Primary Care Provider [phone]- [phone] Encounter Details Date Type Department Care Team (Late st Contact Info) Description 04/28/2024 Procedure Pass [facility], Ct Scan - [address] [address] Social History Tobacco Use Types Packs/Day Years [...] 9:20 PM EDT Chata Wallace RN * [place] Suicide Severity Rating Scale (Screener/Recent Self-Report) Question [...] documented as of this encounter Care Teams Insole Coverer Relationship Specialty Start Date End Date Jack Howard MD [address] [place] [address] PCP - General Internal Medicine 07/01/20 04/29/24 Jamie Maher PA [address] [place] [address] PCP - General 08/13/24 documented as of this encounter Additional Source Comments The information contained in this document represents components of the legal health record. It is not the complete legal health record.[facility]
--- OUTSIDE RECORDS SUMMARY | 2025-04-05 13:58 | XMS_ITS | Encounter Summary ---
Author Organization [facility] Address [address] [place] [address] Care Team Providers Care Crate Icer Name Role Phone Physician, No Pcp Primary Care Provider Unavaila ble Encounter Details Date Type Department Care Team (Late st Contact Info) Description 07/31/2024 Lab Requisition [facility] - Main Lab [address] [place] [address] [place] [address] Other mcfp (current) drug therapy Social History Tobacco Use [...] AM EST Other mcfp (current) drug therapy BASIC METABOLIC PANEL Routine 07/31/2024 7:00 AM EST Other emt intermediate (current) drug therapy documented in this encounter Results * (ABNORMAL) Hemoglobin A1c (07/31/2024 7:00 AM EST) Hemoglobin A1C 7.1(H) <6.5 % LAB CHEMISTRY METHOD 07/31/2024 3:38 PM [facility] Mean Bld Glu Estim. 157 mg/dL LAB CHEMISTRY METHOD 07/31/2024 3:38 PM [facility] Blood Venous blood specimen / Unknown Venipuncture / Unknown 07/31/2024 7:00 AM EST 07/31/2024 12:30 PM EST Lorelei Samson NP LAB BLOOD ORDERABLES Final Res ult [facility] [address] [place] [address], * (ABNORMAL) Basic metabolic panel (07/31/2024 7:00 AM EST) Sodium 129(L) 133 - 145 mmol/L LAB CHEMISTRY METHOD 07/31/2024 3:34 PM [facility] Potassium 4.9 3.5 - 5.5 mmol/L LAB CHEMISTRY METHOD 07/31/2024 3:34 PM [facility] Chloride 99 96 - 110 mmol/L LAB CHEMISTRY METHOD 07/31/2024 3:34 PM [facility] CO2 27 21 - 32 mmol/L LAB CHEMISTRY METHOD 07/31/2024 3:34 PM [facility] Anion Gap 3 3 - 11 LAB CHEMISTRY METHOD 07/31/2024 3:34 PM [facility] Glucose 432(HH) 70 - 100 mg/dL LAB CHEMISTRY METHOD 07/31/2024 3:34 PM [facility] BUN 19 5 - 25 mg/dL LAB CHEMISTRY METHOD 07/31/2024 3:34 PM [facility] Creatinine 1.01 0.70 - 1.30 mg/dL LAB CHEMISTRY METHOD 07/31/2024 3:34 PM [facility] eGFR 88 >=60 mL/min/1. 73m2 LAB CHEMISTRY METHOD 07/31/2024 3:34 PM EST [facility] Comment:Calculation based on the Chronic Kidney Disease Epidemiology Collaboration (CKD-EPI) equation refit without adjustment for race. BUN/Creatinine Ratio 18.8 LAB CHEMISTRY METHOD 07/31/2024 3:34 PM EST [facility] Calcium 9.3 8.5 - 10.5 mg/dL LAB CHEMISTRY METHOD 07/31/2024 3:34 PM EST [facility] Blood Venous blood specimen / Unknown Venipuncture / Unknown 07/31/2024 7:00 AM EST 07/31/2024 12:30 PM EST us Lorelei Samson NP LAB BLOOD ORDERABLES Final Res ult [facility] [address] [place] [address], documented in this encounter Visit Diagnoses Diagnosis Other emt intermediate (current) drug therapy documented in this encounter Care Teams Crate Icer Relationship Specialty Start Date End Date Physician, No Pcp PCP - General 08/02/24 documented as of this encounter
--- OUTSIDE RECORDS SUMMARY | 2025-04-05 13:58 | XMS_ITS | Clinical Summary ---
Author Organization [employer] Address [address] [place] [address] Care Team Providers Care Laborer Concrete Plant Name Role Phone Lashay Rangel MD Primary Care Provider [phone] Allergies Active Allergy Reactions Criticality Noted Date [...] insulin pen needle (Global Ease Inject Pen [place]) 32G x 4 mm miscIndications: Insulin-requirin g [...] mg by mouth. 1-2 tabs bid prn 2024 Discontinued( Reorder (will not trigger notification [...] Encounters Date Type Department Care Team Description 04/05/2025 Results Follow-Up [facility] [address] [place] [address] Alaina Saavedra MD Albumin/Creatinine Ratio, Random Urine 04/02/2025 12:00 PM EDT Office Visit [facility] [address] [place] [address] Alaina Saavedar MD Cirrhosis of liver with ascites, unspecified hepatic cirrhosis type (CMS/HCC) (CMS/HCC) (Primary Dx); Insulin-requiring or dependent type II diabetes mellitus (CMS/HCC); Chronic low back pain, unspecified back pain laterality, unspecified whether sciatica present; Pancytopenia (CMS/HCC); Hypomagnesemia; History of alcohol abuse; Gastroesophageal reflux disease without esophagitis; Insomnia, unspecified type 04/02/2025 Refill [facility] [address] [place] [address] Lashay Rangel MD Epistaxis (Primary Dx); Cirrhosis of liver with ascites, unspecified hepatic cirrhosis type (CMS/HCC) (CMS/HCC); History of alcohol abuse 03/18/[address] [address] Lashay Rangel MD Care Coordination 03/06/[address] [facility] [address] [place] [address] Lashay Rangel MD Peptic ulcer 01/30/2025 Orders Only [facility] Information Management [address] [place] [address] Lashay Rangel MD 01/29/[address] [address] Lashay Rangel MD Care Coordination; Paperwork/Forms 01/28/2025 Orders Only [facility] Information [address] [address] Lashay Rangel MD 01/28/2025 Telephone [facility] Information [address] [address] Lashay Rangel MD 01/15/[address] [address] Lashay Rangel MD RX lost/stolen, request new RX sent 01/14/[address] [address] Lashay Rangel MD Medication Question; [facility] Health Admission ; Care Coordination 01/13/[address] [address] Lashay Rangel MD Prior Authorization (skyrizi) 01/07/[address] [address] Lashay Rangel MD Insulin-requiring or dependent type [...] your housing situation today? I have maxwell manasa 04/02/[address] you li [...] 05/02/2025 10:40 AM EDT Office Visit [facility] [address] [place] [address] Lashay Rangel MD [address] [place] [address] Health Maintenance Due Date Last Done Comments [...] Resulting Agency Comment Performed at: 01 - [facility] [id number] Office Mover: Bobbi Dia MD, Phone: [phone] Alaina Saavedra MD LAB URINE ORDERABLES Final Resul t [facility] 1 * (ABNORMAL) POCT glycosylated hemoglobin (Hgb A1c) (04/02/2025 12:47 PM EDT) Hemoglobin A1C 6.5(A) 4.0 - 5.7 % Blood Capillary blood specimen / Unknown 04/02/2025 12:47 PM EDT Result [facility] Alaina Saavedra MD POINT OF CARE TEST ENTER/EDIT OR DERABLES Final Result * CBC auto differential (01/28/2025 10:47 AM EDT) Blood Venous blood specimen / Unknown Lashay Rangel MD LAB BLOOD ORDERABLES Final [...] Final Result from Last 3 Months Insurance [facility] DUAL COMPLETE HMO [facility] STANDARD Care Teams Laborer Concrete Plant Relationship Specialty Start Date End Date Lashay Rangel MD [address] [place] [id number] PCP - General Family Medicine 10/28/24
--- OUTSIDE RECORDS SUMMARY | 2025-04-05 13:58 | XMS_ITS | Clinical Summary ---
Author Organization [facility] Address [address] [address] Phone Care Team Providers Care Forest And Conservation Worker Name Role Phone Jamie Maher Primary Care Provider [phone] Allergies Active Allergy Reactions Criticality Noted Date [...] to take PO and NO PIV, call [facility] to obtain order for glucagon Check blood [...] could be a precipitant. Per paperwork from [facility], pt was found in the street drinking alcohol by police and EMS and appeared to be manic and brought to [facility]. - Psychiatry following, appreciate recs - meets section 12a criteria, cannot leave AMA - ammonia level sent, discontinued celexa - started seroquel 50/50/100 standing, with prn doses qhs for insomnia and prn for agitation - [facility] monitoring Assessment & Plan (08/14/2024 12:48 AM [...] A1c 11.3 in 03/2024. Last admission to [facility], 04/2024, discharged on glargine 20 units QHS. 07/2023 A1c 8.8 - Increase glargine 22U QHS (from 20) - Increased lispro 7U TID (from 5U) w/ mod dose sliding scale Assessment & Plan (08/17/2024 11:30 AM EST): A1c 11.3 in 03/2024. Last admission to [facility], 04/2024, discharged on glargine 20 units QHS. 07/2023 A1c 8.8 - Increase glargine 20U QHS - Increased lispro 5U TID (from 2U) w/ mod dose sliding scale Assessment & Plan (08/16/2024 9:37 AM EST): A1c 11.3 in 03/2024. Last admission to [facility], 04/2024, discharged on glargine 20 units QHS. 07/2023 A1c 8.8 - Increase glargine 20U QHS - Continue lispro 2U TID w/ mod dose sliding scale Assessment & Plan (08/15/2024 5:12 PM EST): A1c 11.3 in 03/2024. Last admission to [facility], 04/2024, discharged on glargine 20 units QHS - F/u A1c - Increase glargine 18U QHS - Continue lispro 2U TID w/ mod dose sliding scale Assessment & Plan (08/14/2024 5:10 PM EST): A1c 11.3 in 03/2024. Last admission to [facility], 04/2024, discharged on glargine 20 units nightly. Titrate insulin with increasing appetite / diet. - continue glargine 15 u qHS - switched to lispro sliding scale with standing lispro 2 u TID, titrate prn Assessment & Plan (08/14/2024 1:12 AM EST): A1c 11.3 in 03/2024. Last admission to [facility], 04/2024, discharged on glargine 20 units [...] # Alcohol related cirrhosis Last seen by [facility] GI Dr. Sim 09/2020, ?follows with [facility] (message from GI 03/2024). Dx in [...] # Alcohol related cirrhosis Last seen by [facility] GI Dr. Sim 09/2020, ?follows with [facility] (message from GI 03/2024). Dx in 2014. [...] # Alcohol related cirrhosis Last seen by [facility] GI Dr. Sim 09/2020, ?follows with [facility] (message from GI 03/2024). Dx in 2014. [...] # Alcohol related cirrhosis Last seen by [facility] GI Dr. Sim 09/2020, ?follows with [facility] (message from GI 03/2024). Dx in 2014. [...] GI visit was with Dr. Sim at [facility] 09/2020. Diagnosed in 2014. Was previously treated [...] alcohol detox and was then hospitalized at [facility] where he reported drinking 1/2 [...] on any medications since his discharge from [facility] 04/09 Pancytopenia 04/28/2024 Assessment & [...] PM EDT): -Uncontrolled. Recent Hba1c 11.3 -At [facility] last month he was being [...] EDT - 01/14/2025 3:42 PM EDT Emergency [facility] [address] [place] [address] Stevan France MD Perez, Alberto Juan Ignacio, MD Discharge Disposition: Home or Self Care from [...] COLORECTAL CANCER SCREENING 11/05/2022 FOBT 11/05/2022 11/05/2021 HEMOGLOBIN A1C 02/17/2025 11/18/2024, 07/25, 07/31/2024, Additional history exists INFLUENZA VACCINE (#1) 2025 , 05/18/2020, 04/23/2020, Additional history exists COVID-19 VACCINE (2024- season) 2025 12/09/2020, 11/11/2020 SMOKING Hx and SMOKELESS TOBACCO SCREENING 10/25/2025 10/25/2024 POTASSIUM LEVEL 01/13/2026 01/13/2025, 0501/2025, 10/25/2024, Additional history exists Adult Td,Tdap Booster [...] AND DIFFERENTIAL STAT 01/13/2025 5:38 PM EDT HEMOGLOBIN A1C Routine 08/15/2024 8:01 AM [...] Glucose, POCT 248(H) 70 - 100 mg/dL [facility] 01/14/2025 3:08 PM EDT 01/14/2025 3:10 PM EDT us Juan Miguel Adams MD POINT OF CARE TEST ORDERABLES Final Result [facility] [address] [place] [address] * (ABNORMAL) Toxicology screen, urine (01/13/2025 9:49 PM EDT) [facility] URINE CANNABINOIDS Positive(A) NONE DETECTED [facility] Comment:Cutoff: 50 ng/mL URINE COCAINE METAB NONE DETECTED NONE DETECTED [facility] Comment:Cutoff: 300 ng/mL URINE AMPHETAMINES NONE DETECTED NONE DETECTED [facility] Comment:Cutoff: 1000 ng/mL URINE METHADONE NONE DETECTED NONE DETECTED [facility] Comment:Cutoff: 300 ng/mL URINE OPIATES NONE DETECTED NONE DETECTED [facility] Comment:Cutoff: 300 ng/mL URINE PHENCYCLIDINE NONE DETECTED NONE DETECTED [facility] Comment:Cutoff: 25 ng/mL URINE OXYCODONE NONE DETECTED NONE DETECTED [facility] Comment:Cutoff: 300 ng/mL URINE BARBITURATES NONE DETECTED NONE DETECTED [facility] Comment:Cutoff: 200 ng/mL URINE BENZODIAZEPINE NONE DETECTED NONE DETECTED [facility] Comment:Cutoff: 200 ng/mL URINE BUPRENORPHINE NONE DETECTED NONE DETECTED [facility] Comment:Cutoff: 5 ng/mL Fentanyl, urine NONE DETECTED NONE DETECTED [facility] Comment: Cutoff: 5 ng/mL INTERPRETATION FOR TOXICOLOGY PANEL: These results are unconfirmed and should be used for Medical Treatment purposes only. Urine (Urine) 01/13/2025 9:4 9 PM EDT 01/14/2025 2:09 PM EDT us Stevan France MD URINE ORDERABLES Final R esult Performing Organization Address City/[facility]/ZIP Co de Phone Number [address] [address] * ECG 12-LEAD (01/13/2025 5:54 PM EDT) Ventricular Rate EKG/MIN 94 BPM [facility] Atrial Rate 94 BPM [facility] ND Interval 182 ms [facility] QRS Duration 128 ms [facility] QT Interval 382 ms [facility] QTC Interval 477 ms [facility] P Holden 45 degrees [facility] R Wave Holden -8 degrees [facility] T Wave Holden 17 degrees [facility] 01/13/2025 5:54 PM EDT 01/15/2025 7:49 AM EDT Narrative [facility] - 01/15/2025 7:49 AM EDT Normal sinus rhythm Possible Left atrial enlargement Non-specific intra-ventricular conduction block Abnormal ECG When compared with ECG of 07-Dec-2024 18:55, Non-specific intra-ventricular conduction block has replaced Right bundle branch block Confirmed by Geovany Damon ([id number]) on 01/15/2025 7:49:13 AM us Barbara Paige PA-C ECG ORDERABLES Final Result Performing Organization Address City/[facility]/ZIP Co de Phone Number [email or web address] * (ABNORMAL) Acetaminophen level (01/13/2025 5:39 PM EDT) ACETAMINOPHEN <5.0(L) 15.0 - 30.0 ug/mL [facility] Blood 01/13/2025 5:39 PM EDT 01/13/2025 5:56 PM EDT Barbara Paige PA-C LAB BLOOD ORDERABLES Final R esult Performing Organization Address [facility]/[place] Co de Phone Number [address] [address] * (ABNORMAL) Salicylates (01/13/2025 5:39 PM EDT) SALICYLATES <0.3(L) 2.8 - 19.9 mg/dL [facility] Blood 01/13/2025 5:39 PM EDT 01/13/2025 5:56 PM EDT Barbara Paige PA-C LAB BLOOD ORDERABLES Final R esult Performing Organization Address [facility]/[place] Co de Phone Number [address] [address] * Ethanol, blood (01/13/2025 5:38 PM EDT) ETHANOL <10 <10 mg/dL [facility] Blood 01/13/2025 5:38 PM EDT 01/13/2025 5:55 PM EDT Stevan France MD LAB BLOOD ORDERABLES Fin al Result Performing Organization Address [facility]/[place] Co de Phone Number [address] [address] * (ABNORMAL) LFTs (hepatic panel) (01/13/2025 5:38 PM EDT) ALKALINE PHOSPHATASE 202(H) 39 - 117 U/L [facility] TOTAL BILIRUBIN 1.3(H) 0.0 - 1.2 mg/dL [facility] DIRECT BILIRUBIN 0.5(H) 0.0 - 0.2 mg/dL [facility] Bilirubin (Indirect) 0.8 0 - 1.5 mg/dL [facility] AST 55(H) 0 - 37 U/L [facility] ALT 37 0 - 40 U/L [facility] TOTAL PROTEIN 8.0 6.5 - 8.0 g/dL [facility] ALBUMIN 4.2 3.9 - 4.8 g/dL [facility] GLOBULIN 3.8 1 - 4.8 g/dL [facility] A/G Ratio 1.11 1.00 - 4.80 RATIO [facility] Blood 01/13/2025 5:38 PM EDT 01/13/2025 5:55 PM EDT us Stevan France MD LAB BLOOD ORDERABLES Fin al Result [facility] [address] [place] [address] * (ABNORMAL) CBC and differential (01/13/2025 5:38 PM EDT) WBC 5.08 4.00 - 11.00 K/uL [facility] RBC 4.36(L) 4.50 - 5.90 M/uL [facility] HGB 10.1(L) 13.5 - 17.5 g/dL [facility] HCT 33.0(L) 41.0 - 53.0 % [facility] PLT 108(L) 150 - 450 K/uL [facility] MCV 75.7(L) 80.0 - 100.0 fL [facility] MCH 23.2(L) 27.0 - 31.0 pg [facility] MCHC 30.6(L) 32.0 - 36.0 g/dL [facility] RDW 18.7(H) 11.5 - 14.5 % [facility] MPV Not measured 8.4 - 12.0 fL [facility] NRBC 0.00 0.00 /100 WBCs [facility] ABSOLUTE NRBC 0.00 0.00 K/uL [facility] DIFF METHOD Auto [facility] NEUTS 72.0 48.0 - 76.0 % [facility] LYMPHS 12.6(L) 18.0 - 41.0 % [facility] MONOS 12.0(H) 4.0 - 11.0 % [facility] EOS 1.8 0.0 - 5.0 % [facility] BASOS 1.2 0.0 - 1.5 % [facility] Granulocytes, immature (%) 0.4 0.0 - 0.9 % [facility] ABSOLUTE NEUTS 3.66 1.92 - 7.60 K/uL [facility] ABSOLUTE LYMPHS 0.64(L) 0.72 - 4.10 K/uL [facility] ABSOLUTE MONOS 0.61 0.16 - 1.10 K/uL [facility] ABSOLUTE EOS 0.09 0.00 - 0.50 K/uL [facility] ABSOLUTE BASOS 0.06 0.00 - 0.15 K/uL [facility] Granulocytes, immature 0.02 0.00 - 0.09 K/uL [facility] Blood 01/13/2025 5:38 PM EDT 01/13/2025 5:55 PM EDT us Stevan France MD LAB BLOOD ORDERABLES Fin al Result Performing Organization Address City/State/[place] Co de Phone Number [address] [address] * (ABNORMAL) Basic metabolic panel (01/13/2025 5:38 PM EDT) SODIUM 138 133 - 146 mmol/L [facility] CHLORIDE 103 96 - 108 mmol/L [facility] POTASSIUM 4.2 3.3 - 5.1 mmol/L [facility] CO2 26 21 - 35 mmol/L [facility] BUN 15 6 - 19 mg/dL [facility] CREATININE 0.80 0.5 - 1.5 mg/dL [facility] GLUCOSE 220(H) 70 - 99 mg/dL [facility] CALCIUM 9.8 8.4 - 10.3 mg/dL [facility] EGFR 105 >59 mL/min/1.7 3m2 [facility] Comment:Estimated glomerular filtration rate calculated using the CKD-EPI refit equation. ANION GAP 13 10 - 20 mmol/L [facility] Blood 01/13/2025 5:38 PM EDT 01/13/2025 5:55 PM EDT Stevan France MD LAB BLOOD ORDERABLES Fin al Result [facility] [address] [place] [address] * (ABNORMAL) Hemoglobin A1c (08/15/2024 8:01 AM EST) HEMOGLOBIN A1C 8.8(H) 4.2 - 5.6 % [facility] Comment: HbA1c levels 5.7-6.4% [...] 08/15/2024 9:11 AM EST Comment:#[place] [id number] 15 @1717 us Lyndsey Roy PA-C LAB BLOOD ORDERABLES Final Result [facility] [address] [place] [address] * Hepatitis acute panel (08/14/2024 6:25 AM EST) HBV SURFACE ANTIGEN Nonreactive (HBsAg Negative) Nonreactive (HBsAg Negative) [facility] Hepatitis A Antibody, IgM Nonreactive Nonreactive [facility] HEP B CORE IGM AB Nonreactive Nonreactive [facility] HCV Nonreactive Nonreactive [facility] Blood 08/14/2024 6:25 AM EST 08/14/2024 6:29 AM EST Rudy Hairston MD LAB BLOOD ORDERABLES Final Resu lt [facility] [address] [place] [address] * (ABNORMAL) Lipid panel (06/22/2020 11:01 AM EST) HDL 59 35 - 100 mg/dL [facility] CHOLESTEROL 178 <200 mg/dL [facility] TRIGLYCERIDES 387(H) 40 - 150 mg/dL [facility] LDL 42(L) 50 - 129 mg/dL [facility] CARDIAC RISK RATIO 3.0 0.0 - 5.0 [facility] NON-HDL CHOLESTEROL 119 mg/dL [facility] Comment:NCEP ATP III guideli claudio suggest a non-HDL cholesterol goal 30 mg/dl higher than the patient-specific LDL goal. 06/22/2020 11:0 1 AM EST 06/22/2020 12:47 PM EST Oly Yeager CNP LAB BLOOD ORDERABLES Final Re sult [address] [address] from Last 3 Months or Most Recently Relevant to Health Maintenance Insurance MEDICARE REPLACEMENT MEDICARE REPLACEMENT [facility] MEDICARE REPLACEMENT Member Subscriber Plan / Payer (Ef fective 2023-Present) Name:Kwame Xie Relation to Subscriber:Self Name:Kwame Xie Payer ID:[id number] (NAIC) Type:Medicare Address: [place] [id number] [facility] MEDICARE REPLACEMENT Advance Directives For more information, please contact: [phone] (9AM - 5PM [place], Monday-Monday) * Full Code (Latest Code Status on File) Date Activated Date Inactivated Comments 08/13/2024 10:29 PM Question Answer Comments Code Status Confirmed With: Patient * Full Code Date Activated Date Inactivated Comments 04/28/2024 8:28 PM 08/13/2024 10:29 PM Question Answer Comments Code Status Confirmed With: Patient Care Teams Forest And Conservation Worker Relationship Specialty Start Date End Date Jamie Maher PA [address] [place] [id number] PCP - General 08/13/24 Additional Source Comments The information contained in this document represents components of the legal health record. It is not the complete legal health record.[facility]
--- OUTSIDE RECORDS SUMMARY | 2025-04-05 13:58 | XMS_ITS | Encounter Summary ---
Author Organization [facility] Address [address] [place] [address] Phone Care Team Providers Care Industrial Automation Specialist Name Role Phone Jamie Maher Primary Care Provider +1- [phone] Encounter Details Date Type Department Care Team (Late st Contact Info) Description 10/07/2024 Procedure Pass OR Admitting Dept - Virtual Department [address] [place] [address] Social History Tobacco Use Types Packs/Day Years [...] housing (staying in a hotel, in a care home, living outside on the street, on [...] 10/07/2024 9:33 AM Sarah Randall RN * [place] Suicide Severity Rating Scale (Screener/Recent Self-Report) Question [...] documented as of this encounter Care Teams Industrial Automation Specialist Relationship Specialty Start Date End Date Jamie Maher PA [address] [place] [id number] PCP - General 08/13/24 documented as of this encounter Additional Source Comments The information contained in this document represents components of the legal health record. It is not the complete legal health record.[facility]
--- OUTSIDE RECORDS SUMMARY | 2025-04-05 13:58 | XMS_ITS | Encounter Summary ---
Author Organization [facility] Address [address] [place] [address] Phone Care Team Providers Care Guidance Consultant Name Role Phone Jamie Maher Primary Care Provider +1- [phone] Encounter Details Date Type Department Care Team (Late st Contact Info) Description 10/07/2024 Procedure Pass [facility], Ct Scan - [facility] [address] [place] [address] Social History Tobacco Use Types Packs/Day Years [...] 10/07/2024 9:33 AM Sarah Randall RN * [place] Suicide Severity Rating Scale (Screener/Recent Self-Report) Question [...] documented as of this encounter Care Teams Guidance Consultant Relationship Specialty Start Date End Date Jamie Maher PA [address] [place] [address] PCP - General 08/13/24 documented as of this encounter Additional Source Comments The information contained in this document represents components of the legal health record. It is not the complete legal health record.[facility]
--- OUTSIDE RECORDS SUMMARY | 2025-04-05 13:58 | XMS_ITS | Encounter Summary ---
Author Organization [facility] Address [address] [place] [address] Phone Care Team Providers Care Mortgage Assistant Name Role Phone Jack Howard MD Primary Care Provi keiry Jamie Maher Primary Care Provider +1- [phone] Encounter Details Date Type Department Care Team (Late st Contact Info) Description 04/28/2024 Procedure Pass [facility], Ct Scan - [address] [address] Social History Tobacco Use Types Packs/Day Years [...] 9:20 PM EDT Chata Wallace RN * [place] Suicide Severity Rating Scale (Screener/Recent Self-Report) Question [...] documented as of this encounter Care Teams Mortgage Assistant Relationship Specialty Start Date End Date Jack Howard MD [address] [place] [address] PCP - General Internal Medicine 07/01/20 04/29/24 Jamie Maher PA [address] [place] [id number] PCP - General 08/13/24 documented as of this encounter Additional Source Comments The information contained in this document represents components of the legal health record. It is not the complete legal health record.[facility]
--- OUTSIDE RECORDS SUMMARY | 2025-04-05 13:58 | XMS_ITS | Encounter Summary ---
Author Organization [facility] Address [address] [place] [address] Phone Care Team Providers Care Fur Finisher Seamstress Name Role Phone Jamie Maher Primary Care Provider +1- [phone] Encounter Details Date Type Department Care Team (Late st Contact Info) Description 10/07/2024 Procedure Pass [facility] [address] [place] [address] Social History Tobacco Use Types Packs/Day Years [...] housing (staying in a hotel, in a jail, living outside on the street, on a [...] 10/07/2024 9:33 AM Sarah Randall RN * [place] Suicide Severity Rating Scale (Screener/Recent Self-Report) Question [...] documented as of this encounter Care Teams Fur Finisher Seamstress Relationship Specialty Start Date End Date Jamie Maher PA [address] [place] [id number] PCP - General 08/13/24 documented as of this encounter Additional Source Comments The information contained in this document represents components of the legal health record. It is not the complete legal health record.[facility]
--- OUTSIDE RECORDS SUMMARY | 2025-04-05 13:58 | XMS_ITS | Encounter Summary ---
Author Organization [facility] Address [address] [place] [address] Phone Care Team Providers Care Manager Android Name Role Phone Jamie Maher Primary Care Provider +1- [phone] Encounter Details Date Type Department Care Team (Late st Contact Info) Description 08/13/2024 Procedure Pass [facility] [address] [place] [address] Social History Tobacco Use Types Packs/Day Years [...] 8:20 PM Mary Kate Zaragoza RN * [place] Suicide Severity Rating Scale (Screener/Recent Self-Report) Question [...] documented as of this encounter Care Teams Manager Android Relationship Specialty Start Date End Date Jamie Maher PA [address] [place] [id number] PCP - General 08/13/24 documented as of this encounter Additional Source Comments The information contained in this document represents components of the legal health record. It is not the complete legal health record.[facility]
--- OUTSIDE RECORDS SUMMARY | 2025-04-05 13:58 | XMS_ITS | Clinical Summary ---
Author Organization [address] [facility] Address [address] [place] [address] Phone Care Team Providers Care Forest Science Professor Name Role Phone Physician, No Pcp Primary [...] Problems Problem Noted Date Diagnosed Date Schizophrenia ([facility] [place]24, [facility] [place] [facility] V28) Encounters Date Type Department Care Team Description 02/20/2025 1:35 PM EDT - 02/20/2025 4:52 PM EDT Emergency [facility] Emergency [address] [place] [id number] Siddharth Cueva MD Encounter for medical screening examination (Primary Dx); Schizophrenia, unspecified type ([facility] V24, [facility] V28); Hypomagnesemia; Pancytopenia ([facility] [place] V24, [facility] [place] V28); Hepatic cirrhosis, unspecified hepatic cirrhosis type, unspecified whether ascites present ([facility] V24, [facility] V28) Discharge Disposition: Home or Self Care 02/06/2025 10:46 AM EDT - 02/06/2025 11:31 AM EDT [facility] Emergency [address] [place] [id number] Sprain of left ankle, unspecified ligament, subsequent encounter (Primary Dx) Discharge Disposition: Home or Self Care from Last 3 Months Surgical History Surgery Date Site/Laterality Comments ESOPHAGOGASTRODUODENOSCOPY W/ BANDING Per EMR Medical History Medical History Date Comments Schizophrenia ([facility] V24, [facility] V28) Alcoholic cirrhosis of liver with ascites ([facility] V24[facility] V28) per EMR Chronic anemia per emr HTN (hypertension) per emr 2019 Diabetes mellitus ([facility] V24, [facility] V28) per EMR 2019 Hyperlipidemia per EMR [...] A1C Routine 07/31/2024 7:00 AM EST Other see supervisor (current) drug therapy from Last 3 Months or Most Recently Relevant to Health Maintenance Results * ECG-Annotated (02/21/2025) us Provider Onbase MD ECG ORDERABLES Final Result * Drug abuse screen 8a panel, urine (02/20/2025 3:06 PM EDT) Amphetamine Screen, Ur Negative Negative LAB CHEMISTRY METHOD 02/20/2025 4:06 PM EDT [facility] Comment:Certain OTC medicati ons containing ephedrine, phenylephrine, pseudoephedrine and phenylpropanolamine can cause false positive results. Barbiturate Screen, Ur Negative Negative LAB CHE[facility]STR[facility] Benzodiazepine Screen, Ur Negative Negative LAB CHEMISTRY METHOD 02/20/2025 4:06 PM [facility] Cocaine Screen, Ur Negative Negative LAB CHEMISTRY METHOD 02/20/2025 4:[facility] Opiate Screen, Ur Negative Negative LAB CHEMISTRY METHOD 02/20/2025 4:06 PM [facility] Cannabinoid (THC) Screen, Ur Negative Negative LAB CHEMISTRY METHOD 02/20/2025 4:06 PM [facility] Comment:Specimens from patie nts taking pantoprazole sodium (Protonix) have been shown to produce false positive results. Oxycodone Screen, Ur Negative Negative LAB CHEMISTRY METHOD [facility]/20[facility]2025 4:[facility] PM [facility] Fentanyl, Ur Negative Negative LAB CHEMISTRY METHOD 02/20/2025 4:06 PM EDT [facility] Urine Urine specimen obtained by clean catch procedure / Unknown Non-blood Collection / Unknown 02/20/2025 3:06 PM EDT 02/20/2025 3:23 PM EDT Katherine [facility] - 02/20/2025 4:06 PM EDT [...] MD LAB URINE ORDERABLES Final Res ult [facility] [address] [place] [address], [place] [phone] * RHYTHM ECG, REPORT (02/20/2025 2:54 PM EDT) Siddharth Paiz MD - 02/20/2025 2:54 PM EDT Siddharth Cueva MD 02/20/2025 7:02 PM ECG Rhythm Interpretation and Report Date/Time: 02/20/2025 2:54 PM Performed by: Siddharth Cueva MD Authorized by: Siddharth Cueva MD ECG interpreted by ED Physician in the absence of a catering truck operator: yes Previous ECG: Previous ECG: Compared to [...] ECG 12 lead (02/20/2025 2:29 PM EDT) [facility] Ventricular Rate ECG 74 BPM GEMUSE Atrial Rate 74 BPM GEMUSE P-R Interval 188 ms GEMUSE QRS Duration 142 ms GEMUSE Q-T Interval 432 ms GEMUSE QTc 479 ms GEMUSE P Wave [place] 30 degrees GEMUSE R [place] -9 degrees GEMUSE T [place] 23 degrees GEMUSE ECG Interpretation Normal sinus rhythm Right bundle branch block Abnormal ECG When compared with ECG of 25-MAR-2024 19:01, Vent. rate has decreased BY 47 BPM Confirmed by Porsche PATINO JAMES ([id number]) on 02/20/2025 6:06:06 PM GEMUSE 02/20/2025 2:29 PM EDT 02/20/2025 6:06 PM EDT us Siddharth Cueva MD ECG ORDERABLES Final Result Performing Organization Address [facility] Co de Phone Number GEMUSE * Troponin I high sensitivity (02/20/2025 2:21 PM EDT) [facility] High Sensitivity Troponin I <3 <=79 ng/L LAB CHEMISTRY METHOD 02/20/2025 3:08 PM EDT [facility] Blood Venous blood specimen / Unknown Venipuncture / Unknown 02/20/2025 2:21 PM EDT 02/20/2025 2:41 PM EDT Narrative [facility] - 02/20/2025 3:08 PM EDT High levels of biotin in samples may falsely decrease hsTroponin values. Use caution when interpreting hsTroponin results in patients taking biotin who exhibit renal impairment (eGFR <60) or in patients taking more than 20 mg/day of biotin. us Siddharth Cueva MD LAB BLOOD ORDERABLES Final Res ult [facility] [address] [place] [address], [place] [phone] * (ABNORMAL) CBC auto differential (02/20/2025 2:21 PM EDT) [facility] WBC 3.2(L) 4.8 - 10.8 K/mcL LAB HEMETOLOGY METHOD 02/20/2025 3:36 PM [facility] RBC 3.90(L) 4.50 - 5.50 M/mcL LAB HEMETOLOGY METHOD 02/20/2025 3:36 PM [facility] Hemoglobin 9.0(L) 13.5 - 17.5 g/dL LAB HEMETOLOGY METHOD 02/20/2025 3:36 PM [facility] Hematocrit 29.9(L) 42.0 - 54.0 % LAB HEMETOLOGY METHOD 02/20/2025 3:36 PM [facility] MCV 76.5(L) 79.0 - 98.0 FL LAB HEMETOLOGY METHOD 02/20/2025 3:36 PM [facility] MCH 23.0(L) 27.0 - 32.0 pcg LAB HEMETOLOGY METHOD 02/20/2025 3:36 PM [facility] MCHC 30.1(L) 32.0 - 37.0 g/dL LAB HEMETOLOGY METHOD 02/20/2025 3:36 PM [facility] RDW 18.5(H) 11.0 - 15.0 % LAB HEMETOLOGY METHOD 02/20/2025 3:36 PM [facility] Platelets 87(L) 130 - 400 K/mcL LAB HEMETOLOGY METHOD 02/20/2025 3:36 PM [facility] Comment:reviewed by slide SHAISTA LAB HEMETOLOGY METHOD 02/20/2025 3:36 PM [facility] Comment:Not Measured NRBC 0.0 <1.0 % LAB HEMETOLOGY METHOD 02/20/2025 3:36 PM [facility] NRBC Absolute 0.00 <0.10 K/mcL LAB HEMETOLOGY METHOD 02/20/2025 3:36 PM EDT [facility] Neutrophils Relative 75.4 % LAB HEMETOLOGY METHOD 02/20/2025 3:36 PM EDT [facility] Lymphocytes Relative 11.7 % LAB HEMETOLOGY METHOD 02/20/2025 3:36 PM EDT [facility] Monocytes Relative 8.6 % LAB HEMETOLOGY METHOD 02/20/2025 3:36 PM EDT [facility] Eosinophils Relative 3.1 % LAB HEMETOLOGY METHOD 02/20/2025 3:36 PM EDT [facility] Basophils Relative 0.9 % LAB HEMETOLOGY METHOD 02/20/2025 3:36 PM [facility] Immature Granulocytes Relative 0.3 % LAB HEMETOLOGY METHOD 02/20/2025 3:36 PM EDT [facility] Neutrophils Absolute 2.44 1.50 - 7.00 K/mcL LAB HEMETOLOGY METHOD 02/20/2025 3:36 PM [facility] Lymphocytes Absolute 0.38(L) 1.00 - 5.00 K/mcL LAB HEMETOLOGY METHOD 02/20/2025 3:36 PM [facility] Monocytes Absolute 0.28 0.20 - 1.00 K/mcL LAB HEMETOLOGY METHOD 02/20/2025 3:36 PM EDT [facility] Eosinophils Absolute 0.10 0.00 - 0.50 K/mcL LAB HEMETOLOGY METHOD 02/20/2025 3:36 PM EDT [facility] Basophils Absolute 0.03 0.00 - 0.20 K/mcL LAB HEMETOLOGY METHOD 02/20/2025 3:36 PM [facility] Immature Granulocytes Absolute 0.01 0.00 - 0.03 K/mcL LAB HEMETOLOGY METHOD 02/20/2025 3:36 PM EDT [facility] Blood Venous blood specimen / Unknown Venipuncture / Unknown 02/20/2025 2:21 PM EDT 02/20/2025 2:41 PM EDT us Siddharth Cueva MD LAB BLOOD ORDERABLES Final Res ult Performing Organization Address [facility]/ZIP Co de Phone Number [facility] [address] [place] [address], [place] [phone] * (ABNORMAL) Prothrombin time with INR (02/20/2025 2:21 PM EDT) Protime 14.9(H) 10.6 - 13.9 sec LAB COAGULATION METHOD 02/20/2025 2:53 PM EDT [facility] INR 1.2 LAB COAGULATION METHOD 02/20/2025 2:53 PM EDT [facility] Blood Venous blood specimen / Unknown Venipuncture / Unknown 02/20/2025 2:21 PM EDT 02/20/2025 2:41 PM EDT us Siddharth Cueva MD LAB BLOOD ORDERABLES Final Res ult Performing Organization Address [facility]/ZIP Co de Phone Number [facility] [address] [place] [address], [place] [phone] * (ABNORMAL) Magnesium (02/20/2025 2:21 PM EDT) Magnesium 1.8(L) 1.9 - 2.6 mg/dL LAB CHEMISTRY METHOD 02/20/2025 3:09 PM EDT [facility] Blood Venous blood specimen / Unknown Venipuncture / Unknown 02/20/2025 2:21 PM EDT 02/20/2025 2:40 PM EDT us Siddharth Cueva MD LAB BLOOD ORDERABLES Final Res ult [facility] [address] [place] [address], [place] [phone] * Ethanol (02/20/2025 2:21 PM EDT) [facility] Ethanol Level <3 0 - 10 mg/dL LAB CHEMISTRY METHOD 02/20/2025 3:12 PM EDT [facility] Blood Venous blood specimen / Unknown Venipuncture / Unknown 02/20/2025 2:21 PM EDT 02/20/2025 2:40 PM EDT Siddharth Cueva MD LAB BLOOD ORDERABLES Final Res ult Performing Organization Address [facility]/ZIP Co de Phone Number [facility] [address] [place] [address], [place] [phone] * (ABNORMAL) Comprehensive metabolic panel (02/20/2025 2:21 PM EDT) [facility] Sodium 139 133 - 145 mmol/L LAB CHEMISTRY METHOD 02/20/2025 3:15 PM EDT [facility] Potassium 4.1 3.5 - 5.5 mmol/L LAB CHEMISTRY METHOD 02/20/2025 3:15 PM T [facility] Chloride 108 96 - 110 mmol/L LAB CHEMISTRY METHOD 02/20/2025 3:15 PM EDT [facility] CO2 26 21 - 32 mmol/L LAB CHEMISTRY METHOD 02/20/2025 3:15 PM EDT [facility] Anion Gap 5 3 - 11 LAB CHEMISTRY METHOD 02/20/2025 3:15 PM [facility] Glucose 106(H) 70 - 100 mg/dL LAB CHEMISTRY METHOD 02/20/2025 3:15 PM EDT [facility] BUN 13 5 - 25 mg/dL LAB CHEMISTRY METHOD 02/20/2025 3:15 PM EDT [facility] Creatinine 0.94 0.70 - 1.30 mg/dL LAB CHEMISTRY METHOD 02/20/2025 3:15 PM EDT [facility] eGFR 96 >=60 mL/min/1. 73m2 LAB CHEMISTRY METHOD 02/20/2025 3:15 PM T [facility] Comment:Calculation based on the Chronic Kidney Disease Epidemiology Collaboration (CKD-EPI) equation refit without adjustment for race. BUN/Creatinine Ratio 13.8 LAB CHEMISTRY METHOD 02/20/2025 3:15 PM EDT [facility] Calcium 9.3 8.5 - 10.5 mg/dL LAB CHEMISTRY METHOD 02/20/2025 3:15 PM T [facility] AST (SGOT) 32 10 - 42 unit/L LAB CHEMISTRY METHOD 02/20/2025 3:15 PM [facility] ALT (SGPT) 27 10 - 60 unit/L LAB CHEMISTRY METHOD 02/20/2025 3:15 PM [facility] Alkaline Phosphatase 148(H) 42 - 121 unit/L LAB CHEMISTRY METHOD 02/20/2025 3:15 PM [facility] Total Protein 7.7 6.0 - 8.0 g/dL LAB CHEMISTRY METHOD 02/20/2025 3:15 PM [facility] Albumin 3.7 3.2 - 5.0 g/dL LAB CHEMISTRY METHOD 02/20/2025 3:15 PM EDT [facility] Total Bilirubin 0.9 0.0 - 1.4 mg/dL LAB CHEMISTRY METHOD 02/20/2025 3:15 PM [facility] Blood Venous blood specimen / Unknown Venipuncture / Unknown 02/20/2025 2:21 PM EDT 02/20/2025 2:40 PM EDT us Siddharth Cueva MD LAB BLOOD ORDERABLES Final Res ult [facility] [address] [place] [address], [place] [phone] * (ABNORMAL) Hemoglobin A1c (07/31/2024 7:00 AM EST) Hemoglobin A1C 7.1(H) <6.5 % LAB CHEMISTRY METHOD 07/31/2024 3:38 PM EST [facility] Mean Bld Glu Estim. 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
[2025-04-05] MEDS: Cocaine HCl 4 % 4 ML SOLUTION TOPICAL (14:13)
[2025-04-05] MEDS: Oxymetazoline HCl 0.05 % Nasal 15 ML SPRAY 2 SPRAY NOSTRIL-B (14:14)
[2025-04-05 14:31] LABS: MANUAL DIFF FLAG NO
[2025-04-05 14:32] LABS: Hemoglobin 8.0 g/dl (14.0-18.0); Imm Gran Abs Auto 0.01 X10*3/uL (0.00-0.03); Imm Gran Pct Auto 0.3 % (0.0-0.4); NRBC Abs Auto 0.000 X10*3/uL (0.0-0.012); NRBC Pct Auto 0.0 /100WBC (0.0-0.2); SCAN SMEAR FLAG 1
[2025-04-05 14:34] LABS: Hematocrit 25.1 % (42.0-52.0); Lymphocytes Absolute Auto 0.4 X10*3/uL (1.2-4.9); Mean Corpuscular HGB Conc 31.9 g/dl (31.0-36.0); Mean Corpuscular Hemoglobin 24.2 pg (27.0-33.0); Mean Corpuscular Volume 75.8 fL (80.0-98.0); Platelet Count 111 X10*3/uL (160-400); Red Blood Count 3.31 X10*6/uL (4.60-5.80); White Blood Count 3.3 X10*3/uL (4.8-10.8)
[2025-04-05 14:36] LABS: PLT ABN DIST 1
[2025-04-05 14:40] LABS: INTERNATIONAL NORM RATIO 1.3 (0.9-1.1); Prothrombin Time 14.9 SEC (10.9-12.4)
[2025-04-05 14:52] LABS: Alanine Aminotransferase 26 U/L (0-40); Albumin Level 3.7 g/dL (3.5-5.0); Alkaline Phosphatase 143 U/L (39-117); Anion Gap 13 (12-20); Aspartate Amino Transferase 28 U/L (5-37); Blood Urea Nitrogen 15 mg/dL (9-16); Calcium 8.9 mg/dL (8.4-10.2); Carbon Dioxide 23 mmol/L (22-29); Chloride 108 mmol/L (96-108); Creatinine Clr Calc Pharmacy 92.7; Estimated Glomerular Filt Rate > 60; Magnesium 2.0 mg/dL (1.6-2.6); Potassium 4.3 mmol/L (3.3-5.1); Sodium 140 mmol/L (135-145); Total Protein 7.1 g/dL (6.5-8.0)
[2025-04-05 16:05] VITALS: BP 108/71; PULSE 91; RESP 16; TEMP 36.6; O2SAT 95
== END 2025-04-05 16:13 | disposition home or self-care (01) ==
PROVIDERS: Emergency Provider Emergency Medicine
DX: R04.0 Epistaxis (principal); E11.9 Type 2 diabetes mellitus without complications; I10 Essential (primary) hypertension; Z79.899 Other long term (current) drug therapy
CPT/HCPCS: 36415; 80053; 83735; 85025; 85610; 99282; 99283; C9143

== ENCOUNTER 2025-04-06 16:30 | Emergency (ER) | payer MEDICARE, MEDICAID, SELFPAY ==
--- OUTSIDE RECORDS SUMMARY | 2025-04-02 12:00 | XMS_ITS | Encounter Summary ---
Author Organization [employer] Address 75 [facility] 7t [place] [address] Care Team Providers Care Shoemaker Custom Name Role Phone Lashay Rangel MD Primary Care Provider [phone] Reason for Visit * Reason Comments Follow-up Hospital follow up Encounter Details Date Type Department Care Team (Late st Contact Info) Description 04/02/2025 12:00 PM EDT Office Visit [facility] MEDICAL [address] [place] [address] Alaina Saavedra MD [address] [place] [address] Cirrhosis of liver with ascites, unspecified hepatic [...] Questionnaire-2 Score 6 03/24 1:08 PM EDT Rmaesh Brown * Little interest or pleasure in [...] 12:00 PM EDT 04/01/25 Kwame Xie [id number] HPI: Kwame Xie is a 55 y.o. [...] available. Pt currently in inpatient program in [place] for drug and ETOH rehab. Pt sober [...] Anemia of chronic disease 11/11/2021 Hepatic cirrhosis ([facility]) 02/08/2021 Thrombocytopenia ([facility]) 03/31/2020 Esophageal varices ([facility]) 03/05/2020 Cholelithiasis 12/28/2019 Decompensated liver disease ([facility]) 12/10/2019 Gastroesophageal reflux disease without esophagitis 12/04/2018 Insulin-requiring or dependent type II diabetes mellitus ([facility]) 05/10/2017 Chronic back pain 07/29/2014 Medical History[1] [...] CBC auto differential - Comprehensive Metabolic Panel [[id number]]; Future - Comprehensive Metabolic Panel [[id number]] 2. Insulin-requiring or dependent type II diabetes [...] ER notes, will recheck today - Magnesium 512854; Future - Magnesium [id number] 6. History of alcohol abuse Pt requesting [...] insulin pen needle (Global Ease Inject Pen [place]) 32G x 4 mm [facility] Use as instructed 100 each 0 lactulose [...] 12 WEEKS THEREAFTER. 1 mL 2 therapeutic quousneunsxb-tcad-fefwnalx (Theragran-M) tablet Take 1 tablet by mouth [...] 05/02/2025 10:40 AM EDT Office Visit [facility] [address] [place] [address] Lashay Rangel MD [address] [place] [address] Scheduled Orders Name Type Priority Associated Diagnoses Orde r Schedule CBC auto differential Lab Routine Cirrhosis of liver with ascites, unspecified hepatic cirrhosis type (CMS/HCC) (CMS/HCC) Pancytopenia (CMS/HCC) Ordered: 04/02/2025 Comprehensive Metabolic Panel [[id number]] Lab Routine Cirrhosis of liver with ascites, unspecified hepatic cirrhosis type (CMS/HCC) (CMS/HCC) Expected: 04/02/2025, Expires: 04/02/2026 Magnesium [id number] Lab Routine Hypomagnesemia Expected: 04/02/2025, Expires: 04/02/2026 [...] Agency Comment Performed at: 01 - [facility] [address] [id number] Social Media Marketer: Bobbi Dia MD, Phone: [phone] Alaina Saavedra MD LAB URINE ORDERABLES Final [...] documented as of this encounter Care Teams Shoemaker Custom Relationship Specialty Start Date End Date Lashay Rangel MD [address] [place] [id number] PCP - General Family Medicine 10/28/24 documented as of this encounter
[2025-04-06 16:34] VITALS: BP 115/63; PULSE 104; RESP 16; TEMP 36.4; O2SAT 97; BMI 24.1
--- NOTE | 2025-04-06 16:41 | ED.GENADULT ---
HPI - General Adult General Chief complaint: Skin/Abscess/Foreign Body Stated complaint: ? hematoma on left forearm Time Seen by Provider: 04/06/25 18:31 History of Present Illness HPI narrative: Related Data Home Medications ?Medication ?Instructions ?Recorded ?Confirmed folic acid 1 mg tablet 1 mg PO DAILY 08/30/24 08/30/24 furosemide 20 mg tablet 20 mg PO DAILY 08/30/24 08/30/24 hydroxyzine pamoate 50 mg capsule 100 mg PO TID 08/30/24 08/30/24 insulin glargine 100 unit/mL (3 20 unit subcut BEDTIME 08/30/24 08/30/24 mL) subcutaneous pen (Lantus Solostar U-100 Insulin) insulin lispro 100 unit/mL See Protocol subcut QIDACHS 08/30/24 08/30/24 subcutaneous pen (Humalog KwikPen (U-100) Insulin) Previous Rx's ?Medication ?Instructions ?Recorded flash glucose sensor (FreeStyle #1 ea 03/23/24 [place] 14 Day Sensor kit) dicyclomine 20 mg tablet 20 mg PO TID #10 tabs 03/19/25 ondansetron 4 mg disintegrating 4 mg PO Q8H PRN nausea and 03/19/25 tablet vomiting #10 tabs acetaminophen 500 mg tablet 500 - 1,000 mg (1 - 2 x 500 mg) PO 03/26/25 (Tylenol Extra Strength) Q8H PRN pain #30 tabs cephalexin 500 mg capsule 500 mg PO QID 5 days #20 caps 03/26/25 ferrous sulfate 325 mg (65 mg 325 mg PO Q OTHER DAY #30 tabs 03/26/25 iron) tablet ondansetron HCl 4 mg tablet 4 mg PO Q8H #10 tabs 04/05/25 sucralfate 1 gram tablet 1 g PO BID #60 tabs 04/05/25 Allergies Allergy/AdvReac Type Severity Reaction Status Date / Time bupropion (From Wellbutrin) Allergy Shortness Verified 04/06/25 16:39 of Breath gabapentin Allergy Confusion Verified 04/06/25 16:39 seafood Allergy Anaphylaxis Verified 04/06/25 16:39 [facility] Past Medical History Medical History Alcohol abuse Social History Social History Alcohol intake: current Alcohol intake frequency: 3 or more drinks per day Alcohol type: hard liquor Substance Use Type: Marijuana Advance Directives: No Advance Directives Information Provided: Yes Physical Exam ED Vital Signs: Vital Signs - 24 hr 04/06/25 16:34 04/06/25 19:02 Temperature 97.5 F 98.2 F Pulse Rate 104 H 98 Respiratory Rate 16 18 Blood Pressure 115/63 120/74 Pulse Oximetry 97 98 Oxygen Delivery Method Room Air Room Air BMI result Body Mass Index 24.1 Course Course Course Narrative: Rapid medical examination performed in triage by Chery Sena PA-C. Patient is a 55 year old assigned male at presenting to the emergency department with left forearm bruising. Detailed physical exam and review of systems are deferred to the merchandise stocker. Patient placed back in the waiting room pending room availability. Patient seen and dispositioned by Chapin. Please see her note from 04/06/2025. Discharge Plan Discharge Clinical Impression: Hematoma Patient Disposition: Home, Self-Care Additional Instructions: You were evaluated in the ED today due to a small bruise on the left forearm. This bruise is consistent with hematoma which is a small collection of blood under the subcutaneous tissue. Your physical exam was reassuring as the arm was soft, there was no pulsatile masses felt under the bruise, there was no expanding redness indicating infection at this time. Treatment for hematoma includes compression, elevation and heat packs to allow the body to reabsorb the blood. Additionally, the patient needs to miner pick his prescriptions that were prescribed to him yesterday during his visit. Please arrange for miner pick of these prescriptions as they are essential for the patient's well-being. Please return to the emergency department if you develop fevers over 100.4?, if the left arm becomes stiff or hardened, if you have increased pain in your left arm, inability to move the left arm, or any new/worsening/concerning symptoms. Prescriptions: No Action (DME) FreeStyle [place] 14 Day Sensor Kit See Rx Instructions .Route Qty: 1 0RF Rx Instructions: As directed hydroxyzine pamoate 50 mg capsule 100 mg PO TID folic acid 1 mg tablet 1 mg PO DAILY furosemide 20 mg tablet 20 mg PO DAILY insulin lispro [Humalog KwikPen Insulin] 100 unit/mL insulin pen See Protocol subcut QIDACHS Protocol: Insulin Correction Scale Less than or equal to 110 ---- Give (units): 0 111 to 150 Give (units): 0 151 to 200 Give (units): 2 201 to 250 Give (units): 4 251 to 300 Give (units): 6 301 to 350 Give (units): 8 Greater than 350 Give (units): 10 Call MD if Blood Glucose > : 350 insulin glargine [Lantus Solostar U-100 Insulin] 100 unit/mL (3 mL) insulin pen 20 unit subcut BEDTIME dicyclomine 20 mg tablet 20 mg PO TID Qty: 10 0RF ondansetron 4 mg tablet,disintegrating 4 mg PO Q8H PRN (Reason: nausea and vomiting) Qty: 10 0RF acetaminophen [Tylenol Extra Strength] 500 mg tablet 500 - 1,000 mg PO Q8H PRN (Reason: pain) Qty: 30 0RF ferrous sulfate 325 mg (65 mg iron) tablet 325 mg PO Q OTHER DAY Qty: 30 0RF cephalexin 500 mg capsule 500 mg PO QID 5 Days Qty: 20 0RF sucralfate 1 gram tablet 1 g PO BID Qty: 60 0RF ondansetron HCl 4 mg tablet 4 mg PO Q8H Qty: 10 0RF Interventions: ED Discharge Assessment Last Done: 04/06/25 19:02 Discharge Date/Time: 04/06/25 19:03 Print Language: Sami
--- OUTSIDE RECORDS SUMMARY | 2025-04-06 17:46 | XMS_ITS | Encounter Summary ---
Author Organization [employer] Address [address] [facility] [address] [place] [address] Care Team Providers Care Hospitality Aide Name Role Phone Lashay Rangel MD Primary Care Provider [phone] Encounter Details Date Type Department Care Team (Late st Contact Info) Description 04/05/2025 Results Follow-Up [facility] MED[facility] [address] [place] [address] Alaina Saavedra MD [address] [place] [address] Albumin/Creatinine Ratio, Random Urine Social History Tobacco [...] Description 05/02/2025 10:40 AM EDT Office Visit [place] [facility] [address] [place] [address] Lashay Rangel MD [address] [place] [address] documented as of this encounter Visit Diagnoses Not on filedocumented in this encounter Additional Health Concerns Assessment Noted Time PHQ-9 Depression Total Score: 23 025 1:08 PM EDT documented as of this encounter Care Teams Hospitality Aide Relationship Specialty Start Date End Date Lashay Rangel MD [address] [place] [address] PCP - General Family Medicine 10/28/24 documented as of this encounter
--- OUTSIDE RECORDS SUMMARY | 2025-04-06 17:46 | XMS_ITS | Encounter Summary ---
Author Organization [employer] Address [address] [facility] [address] [place] [address] Care Team Providers Care Supervisor Blueprinting And Photocopy Name Role Phone Lashay Rangel MD Primary Care Provider [phone] Reason for Referral * Consultation (Routine) - Pending Review Specialty Diagnoses / Procedures Referred By Alber gramajo Referred To Contact Otolaryngology Diagnoses Epistaxis Alaina Saavedra MD [address] [place] [address] Phone: tel: fax: [facility] [address] Phone: tel: fax: Referral ID Status Reason Start Date Expiration Date Visits Requested Visits Authorized [id number] Pending Review Specialty Services Required 04/03/2025 04/03/2026 1 1 Encounter Details Date Type Department Care Team (Late st Contact Info) Description 04/02/2025 Ari Alonso [facility] MED[facility] [address] [place] [address] Lashay Rangel MD [address] [place] [address] Epistaxis (Primary Dx); Cirrhosis of liver with [...] 2:25 PM EDT Pharmacy was changed to [facility] pharmacy [facility].Please sent medications. * Telephone Encounter - Lizbet Littlejohn - 04/02/2025 1:01 PM EDT Patient states that he spoke with Dr Saavedra today regarding his medications and he wants them sent to [facility]. Not the pharmacy affiliated with the program, patient made it clear that he wants them to goto the [facility] in [place] on [address] documented in this encounter Plan of Treatment Upcoming Encounters Date Type Department Care Team (Late st Contact Info) Description 05/02/2025 10:40 AM EDT Office Visit [place] [facility] MED[facility] [address] [place] [address] Lashay Rangel MD [address] [place] [address] Scheduled Referrals Name Type Priority Associated Diagnoses [...] documented as of this encounter Care Teams Supervisor Blueprinting And Photocopy Relationship Specialty Start Date End Date Lashay Rangel MD [address] [place] [address] PCP - General Family Medicine 10/28/24 documented as of this encounter
--- OUTSIDE RECORDS SUMMARY | 2025-04-06 17:46 | XMS_ITS | Clinical Summary ---
Author Organization [employer] Address [address] [facility] 7[address] [place] [address] Care Team Providers Care Precinct Commanding Officer Name Role Phone Lashay Rangel MD Primary Care Provider [phone] Allergies Active Allergy Reactions Criticality Noted Date [...] insulin pen needle (Global Ease Inject Pen Ira) 32G x 4 mm miscIndications: Insulin-requirin g [...] Department Care Team Description 04/05/2025 Results Follow-Up [facility] [address] [place] [address] Alaina Saavedra MD Albumin/Creatinine Ratio, Random Urine 04/02/2025 12:00 PM EDT Office Visit [facility] [address] [place] [address] Alaina Saavedra MD Cirrhosis of liver with ascites, unspecified hepatic cirrhosis type (CMS/HCC) (CMS/HCC) (Primary Dx); Insulin-requiring or dependent type II diabetes mellitus (CMS/HCC); Chronic low back pain, unspecified back pain laterality, unspecified whether sciatica present; Pancytopenia (CMS/HCC); Hypomagnesemia; History of alcohol abuse; Gastroesophageal reflux disease without esophagitis; Insomnia, unspecified type 04/02/2025 Refill [facility] [address] [place] [address] Lashay Rangel MD Epistaxis (Primary Dx); Cirrhosis of liver with ascites, unspecified hepatic cirrhosis type (CMS/HCC) (CMS/HCC); History of alcohol abuse 03/18/[address] [address] Lashay Rangel MD Care Coordination 03/06/2025 Refill [facility] MEDICAL [address] [place] [address] Lashay Rangel MD Peptic ulcer 01/30/2025 Orders Only [facility] Information Management [address] [place] [address] Lashay Rangel MD 01/29/[address] [address] Lashay Rangel MD Care Coordination; Paperwork/Forms 01/28/2025 Orders Only [facility] Information [address] [address] Lashay Rangel MD 01/28/2025 Telephone [facility] Information [address] [address] Lashay Rangel MD 01/15/[address] [address] Lashay Rangel MD RX lost/stolen, request new RX sent 01/14/[address] [address] Lashay Rangel MD Medication Question; [facility] Health Admission ; Care Coordination 01/13/[address] [address] Lashay Rangel MD Prior Authorization (skyrizi) 01/07/[address] [address] Lashay Rangel MD Insulin-requiring or dependent type [...] 05/02/2025 10:40 AM EDT Office Visit [facility] [address] [place] [address] Lashay Rangel MD [address] [place] [address] Health Maintenance Due Date Last Done Comments [...] Resulting Agency Comment Performed at: 01 - [facility] [id number] Machine Technician: Bobbi Dia MD, Phone: [phone] Alaina Saavedra MD LAB URINE ORDERABLES Final Resul t [facility] 1 * (ABNORMAL) POCT glycosylated hemoglobin (Hgb A1c) (04/02/2025 12:47 PM EDT) Hemoglobin A1C 6.5(A) 4.0 - 5.7 % Blood Capillary blood specimen / Unknown 04/02/2025 12:[address] [facility] Alaina Saavedra MD POINT OF CARE [...] Final Result from Last 3 Months Insurance [facility] DUAL COMPLETE HMO [facility] STANDARD Care Teams Precinct Commanding Officer Relationship Specialty Start Date End Date Lashay Rangel MD [address] [place] [id number] PCP - General Family Medicine 10/28/24
--- OUTSIDE RECORDS SUMMARY | 2025-04-06 17:46 | XMS_ITS | Encounter Summary ---
Author Organization [employer] Address [address] [facility] [address] [place] [address] Care Team Providers Care Automatic Teller Machine Servicer Name Role Phone Lashay Rangel MD Primary Care Provider [phone] Reason for Visit * Reason Onset Date Comments RX lost/stolen, request new RX sent 01/15/2025 Encounter Details Date Type Department Care Team ([facility] st Contact Info) Description 01/15/2025 Telephone [facility] MEDICAL [address] [place] [address] Lashay Rangel MD [address] [place] [address] RX lost/stolen, request new RX sent Social [...] 2:38 PM EDT Cipriano ([facility] [place]) called stating the patient put a glucose [...] company can say it's okay. Preferred Pharmacy: [facility] [id number] ([id number]) - [place], [place] - [address] [facility] [[id number]] Cipriano states she would like a call back at [phone] to discuss further, thank you! documented in this encounter Plan of Treatment Upcoming Encounters Date Type Department Care Team (Late st Contact Info) Description 05/02/2025 10:40 AM EDT Office Visit [place] [facility] MED[facility] [address] [place] [address] Lashay Rangel MD [address] [place] [address] documented as of this encounter Visit Diagnoses Diagnosis Insulin-requiring or dependent type II diabetes mellitus ([facility]) Type II or unspecified type diabetes mellitus without mention of complication, not stated as uncontrolled documented in this encounter Care Teams Automatic Teller Machine Servicer Relationship Specialty Start Date End Date Lashay Rangel MD [address] [place] [address] PCP - General Family Medicine 10/28/24 documented as of this encounter
--- OUTSIDE RECORDS SUMMARY | 2025-04-06 17:47 | XMS_ITS | Clinical Summary ---
Author Organization [address] [facility] Address [address] [place] [address] Phone Care Team Providers Care Tie Binder Name Role Phone Physician, No Pcp Primary [...] Noted Date Diagnosed Date Schizophrenia ([facility] [place] [facility] [place] Encounters Date Type Department Care Team Description 02/20/2025 1:35 PM EDT - 02/20/2025 4:52 PM EDT Emergency [facility] Emergency [address] [place] [id number] Siddharth Cueva MD Encounter for medical screening examination (Primary Dx); Schizophrenia, unspecified type ([facility] V24, [facility] V28); Hypomagnesemia; Pancytopenia ([facility] [place], [facility]); Hepatic cirrhosis, unspecified hepatic cirrhosis type, unspecified whether ascites present ([facility] V24, [facility] V28) Discharge Disposition: Home or Self Care 02/06/2025 10:46 AM EDT - 02/06/2025 11:[address] [facility] Emergency [address] [place] [id number] Sprain of left ankle, unspecified ligament, subsequent encounter (Primary Dx) Discharge Disposition: Home or Self Care from Last 3 Months Surgical History Surgery Date Site/Laterality Comments ESOPHAGOGASTRODUODENOSCOPY W/ BANDING Per EMR Medical History Medical History Date Comments Schizophrenia ([facility] V24, [facility] V28) Alcoholic cirrhosis of liver with ascites ([facility] V24, [facility] V28) per EMR Chronic anemia per emr HTN (hypertension) per emr 2019 Diabetes mellitus ([facility] V24, [facility] V28) per EMR 2019 Hyperlipidemia per EMR [...] A1C Routine 07/31/2024 7:00 AM EST Other long term care administrator (current) drug therapy from Last 3 Months [...] Negative LAB CHEMISTRY [facility] Benzodiazepine Screen, Ur Negative Negative LAB CHEMISTRY METHOD 02/20/2025 4:06 PM [facility] Cocaine Screen, Ur Negative Negative LAB CHEMISTRY METHOD 02/20/2025 4:06 [facility] Opiate Screen, Ur Negative Negative LAB CHEMISTRY METHOD 02/20/2025 4:06 PM [facility] Cannabinoid (THC) Screen, Ur Negative Negative LAB CHEMISTRY METHOD 02/20/2025 4:06 PM [facility] Comment:Specimens from patie nts taking pantoprazole sodium (Protonix) have been shown to produce false positive results. Oxycodone Screen, Ur Negative Negative LAB CHEMISTRY METHOD 02/20/2025 4:06 [facility] Fentanyl, Ur Negative Negative LAB CHEMISTRY METHOD 02/20/2025 4:06 PM EDT [facility] Urine Urine specimen obtained by clean catch procedure / Unknown Non-blood Collection / Unknown 02/20/2025 3:06 PM EDT 02/20/2025 3:23 PM EDT Katherine [facility] - 02/20/2025 4:06 PM EDT Assay cutoffs: Amphetamines 1000 ng/mL Barbiturates 200 ng/mL Benzodiazepines 200 ng/mL Cocaine 300 ng/mL Fentanyl 1 ng/mL Opiates 300 ng/mL Oxycodone 100 ng/mL THC 50 ng/mL Semi-quantitative assay for screening purposes only. Unconfirmed screening result should not be used for non-medical purposes. *ALTERNATE METHOD CONFIRMATION DONE UPON REQUEST ONLY* us iSddharth Cueva MD LAB URINE ORDERABLES Final Res ult [facility] [address] [place] [address], [place] [phone] * RHYTHM ECG, REPORT (02/20/2025 2:54 PM EDT) Siddharth Paiz MD - 02/20/2025 2:54 PM EDT Siddharth Cueva MD 02/20/2025 7:02 PM ECG Rhythm Interpretation and Report Date/Time: 02/20/2025 2:54 PM Performed by: Siddharth Cueva MD Authorized by: Siddharth Cueva MD ECG interpreted by ED Physician in the absence of a developer support engineer: yes Previous ECG: Previous ECG: Compared to [...] ECG 12 lead (02/20/2025 2:29 PM EDT) [facility] Ventricular Rate ECG 74 BPM GEMUSE Atrial Rate 74 BPM GEMUSE P-R Interval 188 ms GEMUSE QRS Duration 142 ms GEMUSE Q-T Interval 432 ms GEMUSE QTc 479 ms GEMUSE P Wave [place] 30 degrees GEMUSE R [place] -9 degrees GEMUSE T [place] 23 degrees GEMUSE ECG Interpretation Normal sinus rhythm Right bundle branch block Abnormal ECG When compared with ECG of 25-MAR-2024 19:01, Vent. rate has decreased BY 47 BPM Confirmed by Porsche PATINO JAMES ([id number]) on 02/20/2025 6:06:06 PM GEMUSE 02/20/2025 2:29 PM EDT 02/20/2025 6:06 PM EDT us Siddharth Cueva MD ECG ORDERABLES Final Result Performing Organization Address [facility] Co de Phone Number GEMUSE * Troponin I high sensitivity (02/20/2025 2:21 PM EDT) [facility] High Sensitivity Troponin I <3 <=79 ng/L [...] Res ult [facility] [address] [place] [address], [place] [phone] * (ABNORMAL) CBC auto differential (02/20/2025 2:21 PM EDT) [facility] WBC 3.2(L) 4.8 - 10.8 K/mcL LAB HEMETOLOGY METHOD 02/20/2025 3:36 [facility] RBC 3.90(L) 4.50 - 5.50 M/mcL LAB HEMETOLOGY METHOD 02/20/2025 3:36 PM [facility] Hemoglobin 9.0(L) 13.5 - 17.5 g/dL LAB HEMETOLOGY METHOD 02/20/2025 3:36 [facility] Hematocrit 29.9(L) 42.0 - 54.0 % LAB HEMETOLOGY METHOD 02/20/2025 3:36 PM [facility] MCV 76.5(L) 79.0 - 98.0 FL LAB HEMETOLOGY METHOD 02/20/2025 3:36 PM [facility] MCH 23.0(L) 27.0 - 32.0 pcg LAB HEMETOLOGY METHOD 02/20/2025 3:36 PM [facility] MCHC 30.1(L) 32.0 - 37.0 g/dL LAB HEMETOLOGY METHOD 02/20/2025 3:36 PM [facility] RDW 18.5(H) 11.0 - 15.0 % LAB HEMETOLOGY METHOD 02/20/2025 3:36 PM [facility] Platelets 87(L) 130 - 400 K/mcL LAB HEMETOLOGY METHOD 02/20/2025 3:36 PM [facility] Comment:reviewed by slide SHAISTA LAB HEMETOLOGY METHOD 02/20/2025 3:36 PM [facility] Comment:Not Measured NRBC 0.0 <1.0 % LAB HEMETOLOGY METHOD 02/20/2025 3:36 PM [facility] NRBC Absolute 0.00 <0.10 K/mcL LAB HEMETOLOGY METHOD 02/20/2025 3:36 PM EDT [facility] Neutrophils Relative 75.4 % LAB HEMETOLOGY METHOD 02/20/2025 3:36 PM EDT [facility] Lymphocytes Relative 11.7 % LAB HEMETOLOGY METHOD 02/20/2025 3:36 PM EDT [facility] Monocytes Relative 8.6 % LAB HEMETOLOGY METHOD 02/20/2025 3:36 PM EDT [facility] Eosinophils Relative 3.1 % LAB HEMETOLOGY METHOD 02/20/2025 3:36 PM EDT [facility] Basophils Relative 0.9 % LAB HEMETOLOGY METHOD 02/20/2025 3:36 [facility] Immature Granulocytes Relative 0.3 % LAB HEMETOLOGY METHOD 02/20/2025 3:36 PM EDT [facility] Neutrophils Absolute 2.44 1.50 - 7.00 K/mcL LAB HEMETOLOGY METHOD 02/20/2025 3:36 [facility] Lymphocytes Absolute 0.38(L) 1.00 - 5.00 K/mcL LAB HEMETOLOGY METHOD 02/20/2025 3:36 PM [facility] Monocytes Absolute 0.28 0.20 - 1.00 K/mcL LAB HEMETOLOGY METHOD 02/20/2025 3:36 PM EDT [facility] Eosinophils Absolute 0.10 0.00 - 0.50 K/mcL LAB HEMETOLOGY METHOD 02/20/2025 3:36 PM EDT [facility] Basophils Absolute 0.03 0.00 - 0.20 K/mcL LAB HEMETOLOGY METHOD 02/20/2025 3:36 PM [facility] Immature Granulocytes Absolute 0.01 0.00 - 0.03 K/mcL LAB HEMETOLOGY METHOD 02/20/2025 3:36 PM EDT [facility] Blood Venous blood specimen / Unknown Venipuncture / Unknown 02/20/2025 2:21 PM EDT 02/20/2025 2:41 PM EDT us Siddharth Cueva MD LAB BLOOD ORDERABLES Final Res ult Performing Organization Address [facility]/ZIP Co de Phone Number [facility] [address] [place] [address], [place] [phone] * (ABNORMAL) Prothrombin time with INR (02/20/2025 [...] ORDERABLES Final Res ult Performing Organization Address [facility]/ZIP Co de Phone Number [facility] [address] [place] [address], [place] [phone] * (ABNORMAL) Magnesium (02/20/2025 2:21 PM EDT) Magnesium 1.8(L) 1.9 - 2.6 mg/dL LAB CHEMISTRY METHOD 02/20/2025 3:09 PM EDT [facility] Blood Venous blood specimen / Unknown Venipuncture / Unknown 02/20/2025 2:21 PM EDT 02/20/2025 2:40 PM EDT us Siddharth Cueva MD LAB BLOOD ORDERABLES Final Res ult [facility] [address] [place] [address], [place] [phone] * Ethanol (02/20/2025 2:21 PM EDT) [facility] Ethanol Level <3 0 - 10 mg/dL LAB CHEMISTRY METHOD 02/20/2025 3:12 PM EDT [facility] Blood Venous blood specimen / Unknown Venipuncture / Unknown 02/20/2025 2:21 PM EDT 02/20/2025 2:40 PM EDT Siddharth Cueva MD LAB BLOOD ORDERABLES Final Res ult Performing Organization Address [facility]/ZIP Co de Phone Number [facility] [address] [place] [address], [place] [phone] * (ABNORMAL) Comprehensive metabolic panel (02/20/2025 2:21 PM EDT) [facility] Sodium 139 133 - 145 mmol/L LAB CHEMISTRY METHOD 02/20/2025 3:15 PM EDT [facility] Potassium 4.1 3.5 - 5.5 mmol/L LAB CHEMISTRY METHOD 02/20/2025 3:15 PM T [facility] Chloride 108 96 - 110 mmol/L LAB CHEMISTRY METHOD 02/20/2025 3:15 PM EDT [facility] CO2 26 21 - 32 mmol/L LAB CHEMISTRY METHOD 02/20/2025 3:15 PM EDT [facility] Anion Gap 5 3 - 11 LAB CHEMISTRY METHOD 02/20/2025 3:15 PM [facility] Glucose 106(H) 70 - 100 mg/dL LAB CHEMISTRY METHOD 02/20/2025 3:15 PM EDT [facility] BUN 13 5 - 25 mg/dL LAB CHEMISTRY METHOD 02/20/2025 3:15 PM EDT [facility] Creatinine 0.94 0.70 - 1.30 mg/dL LAB CHEMISTRY METHOD 02/20/2025 3:15 PM EDT [facility] eGFR 96 >=60 mL/min/1. 73m2 LAB CHEMISTRY METHOD 02/20/2025 3:15 PM T [facility] Comment:Calculation based on the Chronic Kidney Disease Epidemiology Collaboration (CKD-EPI) equation refit without adjustment for race. BUN/Creatinine Ratio 13.8 LAB CHEMISTRY METHOD 02/20/2025 3:15 PM EDT [facility] Calcium 9.3 8.5 - 10.5 mg/dL LAB CHEMISTRY METHOD 02/20/2025 3:15 PM T [facility] AST (SGOT) 32 10 - 42 unit/L LAB CHEMISTRY METHOD 02/20/2025 3:15 PM [facility] ALT (SGPT) 27 10 - 60 unit/L LAB CHEMISTRY METHOD 02/20/2025 3:15 PM [facility] Alkaline Phosphatase 148(H) 42 - 121 unit/L LAB CHEMISTRY METHOD 02/20/2025 3:15 PM [facility] Total Protein 7.7 6.0 - 8.0 g/dL LAB CHEMISTRY METHOD 02/20/2025 3:15 PM [facility] Albumin 3.7 3.2 - 5.0 g/dL LAB CHEMISTRY METHOD 02/20/2025 3:15 PM EDT [facility] Total Bilirubin 0.9 0.0 - 1.4 mg/dL LAB CHEMISTRY METHOD 02/20/2025 3:15 PM [facility] Blood Venous blood specimen / Unknown Venipuncture / Unknown 02/20/2025 2:21 PM EDT 02/20/2025 2:40 PM EDT us Siddharth Cueva MD LAB BLOOD ORDERABLES Final Res ult [facility] [address] [place] [address], [place] [phone] * (ABNORMAL) Hemoglobin A1c (07/31/2024 7:00 AM [...] Res ult [facility] [address] [place] [address], [place] [phone] from Last 3 Months or Most Recently Relevant to Health Maintenance Insurance MEDICAID [place] [id number] Advance Directives Documents on File Type Date Recorded Patient Train Operations Manager Expl anation Health Care Decision (hx) 01/29/2024 AD BROWNLEE DIRECTIVE Health Care Decision (hx) 01/29/2024 AD BROWNLEE DIRECTIVE Care Teams Tie Binder Relationship Specialty Start Date End Date Physician, No Pcp PCP - General 08/02/24
--- OUTSIDE RECORDS SUMMARY | 2025-04-06 17:47 | XMS_ITS | Encounter Summary ---
Author Organization [employer] Address [address] [facility] [address] [place] [address] Care Team Providers Care Skylights Assembler Name Role Phone Lashay Rangel MD Primary Care Provider [phone] Encounter Details Date Type Department Care Team (Late Contact Info) Description 01/30/2025 Orders Only [facility] [address] [place] [address] Lashay Rangel MD [address] [place] [address] Social History Tobacco Use Types Packs/Day Years [...] Description 05/02/2025 10:40 AM EDT Office Visit [facility] [address] [place] [address] Lashay Rangel MD [address] [place] [address] documented as of this encounter Procedures Procedure [...] on filedocumented in this encounter Care Teams Skylights Assembler Relationship Specialty Start Date End Date Lashay Rangel MD [address] [place] [address] PCP - General Family Medicine 10/28/24 documented as of this encounter
--- OUTSIDE RECORDS SUMMARY | 2025-04-06 17:47 | XMS_ITS | Encounter Summary ---
Author Organization [facility] Address [address] [facility] [address] [place] [address] Phone Care Team Providers Care Track Service Worker Name Role Phone Jamie Maher Primary Care Provider [phone] Encounter Details Date Type Department Care Team (Late st Contact Info) Description 10/07/2024 Procedure Pass [facility] [address] [place] [address] Social History Tobacco Use Types Packs/Day Years [...] housing (staying in a hotel, in a usp, living outside on the street, on a [...] 10/07/2024 9:33 AM Sarah Randall RN * [place] Suicide Severity Rating Scale (Screener/Recent Self-Report) Question [...] documented as of this encounter Care Teams Track Service Worker Relationship Specialty Start Date End Date Jamie Maher PA [address] [place] [address] PCP - General 08/13/24 documented as of this encounter Additional Source Comments The information contained in this document represents components of the legal health record. It is not the complete legal health record.[facility]
--- OUTSIDE RECORDS SUMMARY | 2025-04-06 17:47 | XMS_ITS | Encounter Summary ---
Author Organization [facility] Address [address] [facility] [address] [place] [address] Phone Care Team Providers Care Mica Sizer Name Role Phone Jamie Maher Primary Care Provider [phone] Encounter Details Date Type Department Care Team (Late st Contact Info) Description 10/07/2024 Procedure Pass [place] Admitting Dept - Virtual Department [address] [place] [address] Social History Tobacco Use Types Packs/Day Years [...] housing (staying in a hotel, in a detention, living outside on the street, on a [...] 10/07/2024 9:33 AM Sarah Randall RN * [place] Suicide Severity Rating Scale (Screener/Recent Self-Report) Question [...] documented as of this encounter Care Teams Mica Sizer Relationship Specialty Start Date End Date Jamie Maher PA [address] [place] [address] PCP - General 08/13/24 documented as of this encounter Additional Source Comments The information contained in this document represents components of the legal health record. It is not the complete legal health record.[facility]
--- OUTSIDE RECORDS SUMMARY | 2025-04-06 17:47 | XMS_ITS | Encounter Summary ---
Author Organization [facility] Address [address] [facility] [address] [place] [address] Phone Care Team Providers Care Industrial Equipment Wirer Name Role Phone Jack Howard MD Primary Care Provi keiry Jamie Maher Primary Care Provider [phone] Encounter Details Date Type Department Care Team (Late st Contact Info) Description 04/28/2024 Procedure Pass [facility], Ct Scan - [address] [address] Social History Tobacco Use Types Packs/Day Years [...] 9:20 PM EDT Chata Wallace RN * [place] Suicide Severity Rating Scale (Screener/Recent Self-Report) Question [...] as of this encounter Care Teams Industrial Equipment Wirer Relationship Specialty Start Date End Date Jack Howard MD [address] [place] [address] PCP - General Internal Medicine 07/01/20 04/29/24 Jamie Maher PA [address] [place] [phone] PCP - General 08/13/24 documented as of this encounter Additional Source Comments The information contained in this document represents components of the legal health record. It is not the complete legal health record.[facility]
--- OUTSIDE RECORDS SUMMARY | 2025-04-06 17:47 | XMS_ITS | Encounter Summary ---
Author Organization [facility] Address [address] [facility] [address] [place] [address] Phone Care Team Providers Care Petroleum Terminal Plant Operator Name Role Phone Jack Howard MD Primary Care Provi keiry Jamie Maher Primary Care Provider [phone]- [phone] Encounter Details Date Type Department Care Team (Late st Contact Info) Description 04/28/[address] [facility], Ct Scan - [address] [address] Social History Tobacco Use Types Packs/Day Years [...] 9:20 PM EDT Chata Wallace RN * [place] Suicide Severity Rating Scale (Screener/Recent Self-Report) Question [...] documented as of this encounter Care Teams Petroleum Terminal Plant Operator Relationship Specialty Start Date End Date Jack Howard MD [address] [place] [address] PCP - General Internal Medicine 07/01/20 04/29/24 Jamie Maher PA [address] [place] [address] PCP - General 08/13/24 documented as of this encounter Additional Source Comments The information contained in this document represents components of the legal health record. It is not the complete legal health record.[facility]
--- OUTSIDE RECORDS SUMMARY | 2025-04-06 17:47 | XMS_ITS | Encounter Summary ---
Author Organization [facility] Address [address] [facility] [address] [place] [address] Phone Care Team Providers Care Ship Keeper Name Role Phone Jamie Maher Primary Care Provider [phone]- [phone] Encounter Details Date Type Department Care Team (Late st Contact Info) Description 10/25/2024 Procedure Pass [facility], [facility] - [facility] [address] [place] [address] Social History Tobacco Use Types Packs/Day Years [...] PM EDT Diamante Nuñez ma RN * [place] Suicide Severity Rating Scale (Screener/Recent Self-Report) Question [...] documented as of this encounter Care Teams Ship Keeper Relationship Specialty Start Date End Date Jaime Maher PA [address] [place] [address] PCP - General 08/13/24 documented as of this encounter Additional Source Comments The information contained in this document represents components of the legal health record. It is not the complete legal health record.[facility]
--- OUTSIDE RECORDS SUMMARY | 2025-04-06 17:47 | XMS_ITS | Encounter Summary ---
Author Organization [facility] Address [address] [facility] [address] [place] [address] Phone Care Team Providers Care Blintze Roller Name Role Phone Jamie Maher Primary Care Provider [phone]- [phone] Encounter Details Date Type Department Care Team (Late st Contact Info) Description 10/25/2024 Procedure Pass [facility], Ct Scan - [facility] [address] [place] [address] Social History Tobacco Use Types Packs/Day Years [...] PM EDT Diamante Nuñez ma RN * [place] Suicide Severity Rating Scale (Screener/Recent Self-Report) Question [...] documented as of this encounter Care Teams Blintze Roller Relationship Specialty Start Date End Date Jamie Maher PA [address] [place] [address] PCP - General 08/13/24 documented as of this encounter Additional Source Comments The information contained in this document represents components of the legal health record. It is not the complete legal health record.[facility]
--- OUTSIDE RECORDS SUMMARY | 2025-04-06 17:47 | XMS_ITS | Encounter Summary ---
Author Organization [facility] Address [address] [place] [address] Care Team Providers Care Dairy Science Teacher Name Role Phone Physician, No Pcp Primary Care Provider Unavaila ble Encounter Details Date Type Department Care Team (Late st Contact Info) Description 07/31/2024 Lab Requisition [facility] - Main Lab [address] [place] [address] [place] [address] Other [facility] (current) drug therapy Social History Tobacco Use [...] A1C Routine 07/31/2024 7:00 AM EST Other [facility] (current) drug therapy BASIC METABOLIC PANEL Routine 07/31/2024 7:00 AM EST Other middle or intermediate school principal (current) drug therapy documented in this encounter Results * (ABNORMAL) Hemoglobin A1c (07/31/2024 7:00 AM EST) Hemoglobin A1C 7.1(H) <6.5 % LAB CHEMISTRY METHOD 07/31/2024 3:38 PM [facility] Mean Bld Glu Estim. 157 mg/dL LAB CHEMISTRY METHOD 07/31/2024 3:38 PM [facility] Blood Venous blood specimen / Unknown Venipuncture / Unknown 07/31/2024 7:00 AM EST 07/31/2024 12:30 PM EST Lorelei Samson NP LAB BLOOD ORDERABLES Final Res ult [facility] [address] [place] [address], * (ABNORMAL) Basic metabolic panel (07/31/2024 7:00 AM EST) Sodium 129(L) 133 - 145 mmol/L LAB CHEMISTRY METHOD 07/31/2024 3:34 PM [facility] Potassium 4.9 3.5 - 5.5 mmol/L LAB CHEMISTRY METHOD 07/31/2024 3:34 PM [facility] Chloride 99 96 - 110 mmol/L LAB CHEMISTRY METHOD 07/31/2024 3:34 PM [facility] CO2 27 21 - 32 mmol/L LAB CHEMISTRY METHOD 07/31/2024 3:34 PM [facility] Anion Gap 3 3 - 11 LAB CHEMISTRY METHOD 07/31/2024 3:34 PM [facility] Glucose 432(HH) 70 - 100 mg/dL LAB CHEMISTRY METHOD 07/31/2024 3:34 PM [facility] BUN 19 5 - 25 mg/dL LAB CHEMISTRY METHOD 07/31/2024 3:34 PM [facility] Creatinine 1.01 0.70 - 1.30 mg/dL LAB CHEMISTRY METHOD 07/31/2024 3:34 PM [facility] eGFR 88 >=60 mL/min/1. 73m2 [...] Res ult [facility] [address] [place] [address], documented in this encounter Visit Diagnoses Diagnosis Other middle or intermediate school principal (current) drug therapy documented in this encounter Care Teams Dairy Science Teacher Relationship Specialty Start Date End Date Physician, No Pcp PCP - General 08/02/24 documented as of this encounter
--- OUTSIDE RECORDS SUMMARY | 2025-04-06 17:47 | XMS_ITS | Encounter Summary ---
Author Organization [facility] Address [address] [facility] [address] [place] [address] Phone Care Team Providers Care Cold Working Inspector Name Role Phone Jamie Maher Primary Care Provider [phone]- [phone] Encounter Details Date Type Department Care Team (Late st Contact Info) Description 10/07/2024 Procedure Pass [facility], Ct Scan - [facility] [address] [place] [address] Social History Tobacco Use Types Packs/Day Years [...] 10/07/2024 9:33 AM Sarah Randall RN * [place] Suicide Severity Rating Scale (Screener/Recent Self-Report) Question [...] documented as of this encounter Care Teams Cold Working Inspector Relationship Specialty Start Date End Date Jamie Maher PA [address] [place] [address] PCP - General 08/13/24 documented as of this encounter Additional Source Comments The information contained in this document represents components of the legal health record. It is not the complete legal health record.[facility]
--- OUTSIDE RECORDS SUMMARY | 2025-04-06 17:47 | XMS_ITS | Encounter Summary ---
Author Organization [facility] Address [address] [place] [address] Phone Care Team Providers Care Cigar Making Machine Operator Name Role Phone Jamie Maher Primary Care Provider [phone] Encounter Details Date Type Department Care Team (Late st Contact Info) Description 08/13/2024 Procedure Pass [facility] [address] [place] [address] Social History Tobacco Use Types Packs/Day Years [...] housing (staying in a hotel, in a prison, living outside on the street, on a [...] 8:20 PM Mary Kate Zaragoza RN * [place] Suicide Severity Rating Scale (Screener/Recent Self-Report) Question [...] documented as of this encounter Care Teams Cigar Making Machine Operator Relationship Specialty Start Date End Date Jamie Maher PA [address] [place] [id number] PCP - General 08/13/24 documented as of this encounter Additional Source Comments The information contained in this document represents components of the legal health record. It is not the complete legal health record.[facility]
--- OUTSIDE RECORDS SUMMARY | 2025-04-06 17:47 | XMS_ITS | Encounter Summary ---
Author Organization [employer] Address [address] [place] [address] Care Team Providers Care Tribal Council Member Name Role Phone Lashay Rangel MD Primary Care Provider [phone] Encounter Details Date Type Department Care Team (Late st Contact Info) Description 01/28/2025 Orders Only [facility] Information Management [address] [place] [address] Lashay Rangel MD [address] [place] [address] Social History Tobacco Use Types Packs/Day Years [...] Description 05/02/2025 10:40 AM EDT Office Visit [facility] MEDICAL [address] [place] [address] Lashay Rangel MD [address] [place] [address] documented as of this encounter Procedures Procedure [...] on filedocumented in this encounter Care Teams Tribal Council Member Relationship Specialty Start Date End Date Lashay Rangel MD [address] [place] [address] PCP - General Family Medicine 10/28/24 documented as of this encounter
--- OUTSIDE RECORDS SUMMARY | 2025-04-06 17:47 | XMS_ITS | Encounter Summary ---
Author Organization [facility] Address [address] [place] [address] Phone Care Team Providers Care Clinical Psychology Professor Name Role Phone Jamie Maher Primary Care Provider [phone] Encounter Details Date Type Department Care Team (Late st Contact Info) Description 10/07/2024 Procedure Pass [facility] [address] [place] [address] Social History Tobacco Use Types Packs/Day Years [...] 10/07/2024 9:33 AM Sarah Randall RN * [place] Suicide Severity Rating Scale (Screener/Recent Self-Report) Question [...] documented as of this encounter Care Teams Clinical Psychology Professor Relationship Specialty Start Date End Date Jamie Maher PA [address] [place] [id number] PCP - General 08/13/24 documented as of this encounter Additional Source Comments The information contained in this document represents components of the legal health record. It is not the complete legal health record.[facility]
--- OUTSIDE RECORDS SUMMARY | 2025-04-06 17:47 | XMS_ITS | Clinical Summary ---
Author Organization [facility] Address [address] [address] Phone Care Team Providers Care Flexographic Press Operator Name Role Phone Jamie Maher Primary Care Provider [phone] Allergies Active Allergy Reactions Criticality Noted Date [...] to take PO and NO PIV, call [facility]/LAUNDRY OPERATOR FINISHING to obtain order for glucagon Check blood [...] could be a precipitant. Per paperwork from [facility], pt was found in the street drinking alcohol by police and EMS and appeared to be manic and brought to [facility]. - Psychiatry following, appreciate recs - meets section 12a criteria, cannot leave AMA - ammonia level sent, discontinued celexa - started seroquel 50/50/100 standing, with prn doses qhs for insomnia and prn for agitation - [facility] monitoring Assessment & Plan (08/14/2024 12:48 [...] 11.3 in 03/2024. Last admission to [facility], 04/2024, discharged on glargine 20 units QHS. 07/2023 A1c 8.8 - Increase glargine 22U QHS (from 20) - Increased lispro 7U TID (from 5U) w/ mod dose sliding scale Assessment & Plan (08/17/2024 11:30 AM EST): A1c 11.3 in 03/2024. Last admission to [facility], 04/2024, discharged on glargine 20 units QHS. 07/2023 A1c 8.8 - Increase glargine 20U QHS - Increased lispro 5U TID (from 2U) w/ mod dose sliding scale Assessment & Plan (08/16/2024 9:37 AM EST): A1c 11.3 in 03/2024. Last admission to [facility], 04/2024, discharged on glargine 20 units QHS. 07/2023 A1c 8.8 - Increase glargine 20U QHS - Continue lispro 2U TID w/ mod dose sliding scale Assessment & Plan (08/15/2024 5:12 PM EST): A1c 11.3 in 03/2024. Last admission to [facility], 04/2024, discharged on glargine 20 units QHS - F/u A1c - Increase glargine 18U QHS - Continue lispro 2U TID w/ mod dose sliding scale Assessment & Plan (08/14/2024 5:10 PM EST): A1c 11.3 in 03/2024. Last admission to [facility], 04/2024, discharged on glargine 20 units nightly. Titrate insulin with increasing appetite / diet. - continue glargine 15 u qHS - switched to lispro sliding scale with standing lispro 2 u TID, titrate prn Assessment & Plan (08/14/2024 1:12 AM EST): A1c 11.3 in 03/2024. Last admission to [facility], 04/2024, discharged on glargine 20 units nightly. [...] # Alcohol related cirrhosis Last seen by [facility] GI Dr. Sim 09/2020, ?follows with [facility] (message from GI 03/2024). Dx [...] # Alcohol related cirrhosis Last seen by [facility] GI Dr. Sim 09/2020, ?follows with [facility] (message from GI 03/2024). Dx in 2014. [...] # Alcohol related cirrhosis Last seen by [facility] GI Dr. Sim 09/2020, ?follows with [facility] (message from GI 03/2024). Dx in 2014. [...] # Alcohol related cirrhosis Last seen by [facility] GI Dr. Sim 09/2020, ?follows with [facility] (message from GI 03/2024). Dx in 2014. [...] GI visit was with Dr. Sim at [facility] 09/2020. Diagnosed in 2014. Was previously treated [...] alcohol detox and was then hospitalized at [facility] where he reported drinking 1/2 handle [...] on any medications since his discharge from [facility] 04/09 Pancytopenia 04/28/2024 Assessment & Plan [...] PM EDT): -Uncontrolled. Recent Hba1c 11.3 -At [facility] last month he was being treated [...] 3:42 PM EDT Emergency [facility] [address] [place] [address] Stevan France MD Perez, Alberto Juan Ignacio, [...] Glucose, POCT 248(H) 70 - 100 mg/dL [facility] 01/14/2025 3:08 PM EDT 01/14/2025 3:10 PM EDT us Juan Miguel Adams MD POINT OF CARE TEST ORDERABLES Final Result [facility] [address] [place] [address] * (ABNORMAL) Toxicology screen, urine (01/13/2025 9:49 PM EDT) [facility] URINE CANNABINOIDS Positive(A) NONE DETECTED [facility] Comment:Cutoff: 50 ng/mL URINE COCAINE METAB NONE DETECTED NONE DETECTED [facility] Comment:Cutoff: 300 ng/mL URINE AMPHETAMINES NONE DETECTED NONE DETECTED [facility] Comment:Cutoff: 1000 ng/mL URINE METHADONE NONE DETECTED NONE DETECTED [facility] Comment:Cutoff: 300 ng/mL URINE OPIATES NONE DETECTED NONE DETECTED [facility] Comment:Cutoff: 300 ng/mL URINE PHENCYCLIDINE NONE DETECTED NONE DETECTED [facility] Comment:Cutoff: 25 ng/mL URINE OXYCODONE NONE DETECTED NONE DETECTED [facility] Comment:Cutoff: 300 ng/mL URINE BARBITURATES NONE DETECTED NONE DETECTED [facility] Comment:Cutoff: 200 ng/mL URINE BENZODIAZEPINE NONE DETECTED NONE DETECTED [facility] Comment:Cutoff: 200 ng/mL URINE BUPRENORPHINE NONE DETECTED NONE DETECTED [facility] Comment:Cutoff: 5 ng/mL Fentanyl, urine NONE DETECTED NONE DETECTED [facility] Comment: Cutoff: 5 ng/mL INTERPRETATION FOR TOXICOLOGY PANEL: These results are unconfirmed and should be used for Medical Treatment purposes only. Urine (Urine) 01/13/2025 9:4 9 PM EDT 01/14/2025 2:09 PM EDT us Stevan France MD URINE ORDERABLES Final R esult Performing Organization Address City/[facility]/ZIP Co de Phone Number [address] [address] * ECG 12-LEAD (01/13/2025 5:54 PM EDT) Ventricular Rate EKG/MIN 94 BPM [facility] Atrial Rate 94 BPM [facility] DE Interval 182 ms [facility] QRS Duration 128 ms [facility] QT Interval 382 ms [facility] QTC Interval 477 ms [facility] P [place] 45 degrees [facility] R Wave [place] -8 degrees [facility] T Wave [place] 17 degrees [facility] 01/13/2025 5:54 PM EDT [...] ECG ORDERABLES Final Result Performing Organization Address City/[facility]/ZIP Co de Phone Number [facility] * (ABNORMAL) Acetaminophen level (01/13/2025 5:39 PM EDT) ACETAMINOPHEN <5.0(L) 15.0 - 30.0 ug/mL [facility] Blood 01/13/2025 5:39 PM EDT 01/13/2025 5:56 PM EDT Barbara Paige PA-C LAB BLOOD ORDERABLES Final R esult Performing Organization Address [facility] Co de Phone Number [address] [address] * (ABNORMAL) Salicylates (01/13/2025 5:39 PM EDT) SALICYLATES <0.3(L) 2.8 - 19.9 mg/dL [facility] Blood 01/13/2025 5:39 PM EDT 01/13/2025 5:56 PM EDT Barbara Paige PA-C LAB BLOOD ORDERABLES Final R esult Performing Organization Address [facility] Co de Phone Number [address] [address] * Ethanol, blood (01/13/2025 5:38 PM EDT) ETHANOL <10 <10 mg/dL [facility] Blood 01/13/2025 5:38 PM EDT 01/13/2025 5:55 PM EDT Stevan France MD LAB BLOOD ORDERABLES Fin al Result Performing Organization Address [facility] Co de Phone Number [address] [address] * (ABNORMAL) LFTs (hepatic panel) (01/13/2025 5:38 PM EDT) ALKALINE PHOSPHATASE 202(H) 39 - 117 U/L [facility] TOTAL BILIRUBIN 1.3(H) 0.0 - 1.2 mg/dL [facility] DIRECT BILIRUBIN 0.5(H) 0.0 - 0.2 mg/dL [facility] Bilirubin (Indirect) 0.8 0 - 1.5 mg/dL [facility] AST 55(H) 0 - 37 U/L [facility] ALT 37 0 - 40 U/L [facility] TOTAL PROTEIN 8.0 6.5 - 8.0 g/dL [facility] ALBUMIN 4.2 3.9 - 4.8 g/dL [facility] GLOBULIN 3.8 1 - 4.8 g/dL [facility] A/G Ratio 1.11 1.00 - 4.80 RATIO [facility] Blood 01/13/2025 5:38 PM EDT 01/13/2025 5:55 PM EDT us Stevan France MD LAB BLOOD ORDERABLES Fin al Result [facility] [address] [place] [address] * (ABNORMAL) CBC and differential (01/13/2025 5:38 PM EDT) WBC 5.08 4.00 - 11.00 K/uL [facility] RBC 4.36(L) 4.50 - 5.90 M/uL [facility] HGB 10.1(L) 13.5 - 17.5 g/dL [facility] HCT 33.0(L) 41.0 - 53.0 % [facility] PLT 108(L) 150 - 450 K/uL [facility] MCV 75.7(L) 80.0 - 100.0 fL [facility] MCH 23.2(L) 27.0 - 31.0 pg [facility] MCHC 30.6(L) 32.0 - 36.0 g/dL [facility] RDW 18.7(H) 11.5 - 14.5 % [facility] MPV Not measured 8.4 - 12.0 fL [facility] NRBC 0.00 0.00 /100 WBCs [facility] ABSOLUTE NRBC 0.00 0.00 K/uL [facility] DIFF METHOD Auto [facility] NEUTS 72.0 48.0 - 76.0 % [facility] LYMPHS 12.6(L) 18.0 - 41.0 % [facility] MONOS 12.0(H) 4.0 - 11.0 % [facility] EOS 1.8 0.0 - 5.0 % [facility] BASOS 1.2 0.0 - 1.5 % [facility] Granulocytes, immature (%) 0.4 0.0 - 0.9 % [facility] ABSOLUTE NEUTS 3.66 1.92 - 7.60 K/uL [facility] ABSOLUTE LYMPHS 0.64(L) 0.72 - 4.10 K/uL [facility] ABSOLUTE MONOS 0.61 0.16 - 1.10 K/uL [facility] ABSOLUTE EOS 0.09 0.00 - 0.50 K/uL [facility] ABSOLUTE BASOS 0.06 0.00 - 0.15 K/uL [facility] Granulocytes, immature 0.02 0.00 - 0.09 K/uL [facility] Blood 01/13/2025 5:38 PM EDT 01/13/2025 5:55 PM EDT us Stevan France MD LAB BLOOD ORDERABLES Fin al Result Performing Organization Address City/State/[facility] Co de Phone Number [address] [address] * (ABNORMAL) Basic metabolic panel (01/13/2025 5:38 PM EDT) SODIUM 138 133 - 146 mmol/L [facility] CHLORIDE 103 96 - 108 mmol/L [facility] POTASSIUM 4.2 3.3 - 5.1 mmol/L [facility] CO2 26 21 - 35 mmol/L [facility] BUN 15 6 - 19 mg/dL [facility] CREATININE 0.80 0.5 - 1.5 mg/dL [facility] GLUCOSE 220(H) 70 - 99 mg/dL [facility] CALCIUM 9.8 8.4 - 10.3 mg/dL [facility] EGFR 105 >59 mL/min/1.7 3m2 [facility] Comment:Estimated glomerular filtration rate calculated using the CKD-EPI refit equation. ANION GAP 13 10 - 20 mmol/L [facility] Blood 01/13/2025 5:38 PM EDT 01/13/2025 5:55 PM EDT Stevan France MD LAB BLOOD ORDERABLES Fin al Result [facility] [address] [place] [address] * (ABNORMAL) Hemoglobin A1c (08/15/2024 8:01 AM EST) HEMOGLOBIN A1C 8.8(H) 4.2 - 5.6 % [facility] Comment: HbA1c levels 5.7-6.4% represent [...] 08/15/2024 9:11 AM EST Comment:#A1[place] [id number] @1717 us Lyndsey Roy PA-C LAB BLOOD ORDERABLES Final Result [facility] [address] [place] [id number] * Hepatitis acute panel (08/14/2024 6:25 AM EST) HBV SURFACE ANTIGEN Nonreactive (HBsAg Negative) Nonreactive (HBsAg Negative) [facility] Hepatitis A Antibody, IgM Nonreactive Nonreactive [facility] HEP B CORE IGM AB Nonreactive Nonreactive [facility] HCV Nonreactive Nonreactive [facility] Blood 08/14/2024 6:25 AM EST 08/14/2024 6:29 AM EST Rudy Hairston MD LAB BLOOD ORDERABLES Final Resu lt [facility] [address] [place] [id number] * (ABNORMAL) Lipid panel (06/22/2020 11:01 AM [...] CNP LAB BLOOD ORDERABLES Final Re sult [address] [address] from Last 3 Months or Most Recently Relevant to Health Maintenance Insurance MEDICARE REPLACEMENT MEDICARE REPLACEMENT [facility] MEDICARE REPLACEMENT Member Subscriber Plan / Payer (Ef fective 2023-Present) Name:Kwame Xie Relation to Subscriber:Self Name:Kwame Xie Payer ID:[id number] (NAIC) Type:Medicare Address: [place] [phone] [facility] MEDICARE REPLACEMENT Advance Directives For more information, please contact: [phone] (9AM - 5PM [place], Monday-Monday) * Full Code (Latest Code Status on File) Date Activated Date Inactivated Comments 08/13/2024 10:29 PM Question Answer Comments Code Status Confirmed With: Patient * Full Code Date Activated Date Inactivated Comments 04/28/2024 8:28 PM 08/13/2024 10:29 PM Question Answer Comments Code Status Confirmed With: Patient Care Teams Flexographic Press Operator Relationship Specialty Start Date End Date Jamie Maher PA [address] [place] [id number] PCP - General 08/13/24 Additional Source Comments The information contained in this document represents components of the legal health record. It is not the complete legal health record.[facility]
--- NOTE | 2025-04-06 18:48 | ED.GENADULT ---
HPI - General Adult General Chief complaint: Skin/Abscess/Foreign Body Stated complaint: ? hematoma on left forearm Time Seen by Provider: 04/06/25 18:31 Source: patient and RN notes reviewed Mode of arrival: ambulatory Limitations: no limitations History of Present Illness ED Provider: ELSI Ricardo HPI narrative: 55 yo male with medical history of alcohol use, alcoholic liver cirrhosis, T2DM, and hypertension presents to the ED with concerns of a bruise on his left arm that occurred yesterday after IV placement when patient was seen in the department for epistaxis. Patient reports the area is tender when he presses on it. MD complaint: hematoma of L forearm Related Data Home Medications ?Medication ?Instructions ?Recorded ?Confirmed folic acid 1 mg tablet 1 mg PO DAILY 08/30/24 08/30/24 furosemide 20 mg tablet 20 mg PO DAILY 08/30/24 08/30/24 hydroxyzine pamoate 50 mg capsule 100 mg PO TID 08/30/24 08/30/24 insulin glargine 100 unit/mL (3 20 unit subcut BEDTIME 08/30/24 08/30/24 mL) subcutaneous pen (Lantus Solostar U-100 Insulin) insulin lispro 100 unit/mL See Protocol subcut QIDACHS 08/30/24 08/30/24 subcutaneous pen (Humalog KwikPen (U-100) Insulin) Previous Rx's ?Medication ?Instructions ?Recorded flash glucose sensor (FreeStyle #1 ea 03/23/24 [place] 14 Day Sensor kit) dicyclomine 20 mg tablet 20 mg PO TID #10 tabs 03/19/25 ondansetron 4 mg disintegrating 4 mg PO Q8H PRN nausea and 03/19/25 tablet vomiting #10 tabs acetaminophen 500 mg tablet 500 - 1,000 mg (1 - 2 x 500 mg) PO 03/26/25 (Tylenol Extra Strength) Q8H PRN pain #30 tabs cephalexin 500 mg capsule 500 mg PO QID 5 days #20 caps 03/26/25 ferrous sulfate 325 mg (65 mg 325 mg PO Q OTHER DAY #30 tabs 03/26/25 iron) tablet ondansetron HCl 4 mg tablet 4 mg PO Q8H #10 tabs 04/05/25 sucralfate 1 gram tablet 1 g PO BID #60 tabs 04/05/25 Allergies Allergy/AdvReac Type Severity Reaction Status Date / Time bupropion (From Wellbutrin) Allergy Shortness Verified 04/06/25 16:39 of Breath gabapentin Allergy Confusion Verified 04/06/25 16:39 seafood Allergy Anaphylaxis Verified 04/06/25 16:39 Review of Systems Review of Systems: CONST: Negative for fever, body aches and chills. HENT: Negative for neck pain/stiffness, headache, congestion, sore throat, swelling. EYES: Negative for discharge/pain or vision changes. RESP: Negative for cough/hemoptysis and shortness of breath. CV: Negative chest pain, difficulty breathing, palpitations. ABD: Negative pain, nausea, vomiting. : Negative increase frequency, dysuria, blood in urine or stool. MUSC: Negative for muscle aches, edema. SKIN: Negative rash, lesions/sores. POS for tender bruise of L forearm NEURO: Negative headache, dizziness, weakness. Yes all other systems are reviewed and are negative PMFSH Past Medical History Attestation statement: The following information was validated with the patient. Source: old records reviewed Medical History Alcohol abuse Social History Social History Alcohol intake: current Alcohol intake frequency: 3 or more drinks per day Alcohol type: hard liquor Substance Use Type: Marijuana Advance Directives: No Advance Directives Information Provided: Yes Physical Exam ED Vital Signs: Vital Signs - 24 hr 04/06/25 16:34 Temperature 97.5 F Pulse Rate 104 H Respiratory Rate 16 Blood Pressure 115/63 Pulse Oximetry 97 Oxygen Delivery Method Room Air BMI result Body Mass Index 24.1 GENERAL APPEARANCE: ?AxOx4, generally well-appearing, no acute distress. HEENT: ?NC, AT. MMM. EOMI, clear conjunctiva, oropharynx clear. NECK: ?Supple without lymphadenopathy.? No stiffness or restricted ROM. HEART:? Normal rate and regular rhythm, normal S1/S2, no m/r/g LUNGS:? CTAB, moving air well. No crackles or wheezes are heard. EXTREMITIES: ?Without cyanosis, clubbing or edema. L dorsal forearm with an approximately 2cm x2cm stage 2 ecchymosis, compartments soft, no induration felt under ecchymosis, not pulsatile in nature, SILT, ROM intact NEUROLOGICAL: ?Grossly nonfocal. Alert and oriented, moving all 4 extremities. Observed to ambulate with normal gait. Skin: ?Warm and dry without any rash. Medical Decision Making Medical Decision Making MDM Narrative: 55 yo male with medical history of alcohol use, alcoholic liver cirrhosis, T2DM, and hypertension presents to the ED with concerns of a bruise on his left arm that occurred yesterday after IV placement when patient was seen in the department for epistaxis. Patient reports the area is tender when he presses on it. On physical exam there is an approximately 2 cm x 2 cm hematoma on the dorsal aspect of the left forearm, without bulging, compartments soft, no pulsatile masses appreciated, no neurovascular compromise, no warmth, no edema or erythema noted. This is a simple hematoma. I counseled patient on compression, heat pack, and elevation to help the body reabsorb the blood. I counseled patient to follow up with his primary care doctor. I counseled patient on strict return precautions, he is stable for home self care. He is in agreement with the plan Differential Diagnosis Differential Diagnoses: The differential diagnosis associated with the presentation includes Compartment syndrome Hematoma Cellulitis Admission/Observation Consideration of admission/observation: Escalation of care including admission/observation considered External Record Review External record reviewed: Inpatient record, Office record and Outpatient record Prescription Management I considered prescription management with: Antibiotic I considered antibiotic however no evidence of cellulitis over this area at this time. This is a simple hematoma that just needs compression elevation and heat pack for treatment. Chronic Conditions Patient?s care impacted by: Diabetes, Hypertension and Other (Alcohol use disorder, alcoholic liver cirrhosis,) Social Determinants Patient?s care significantly limited by Social Determinants of Health including: Other Social Determinant of Health Discharge Plan Discharge Clinical Impression: Hematoma Patient Disposition: Home, Self-Care Additional Instructions: You were evaluated in the ED today due to a small bruise on the left forearm. This bruise is consistent with hematoma which is a small collection of blood under the subcutaneous tissue. Your physical exam was reassuring as the arm was soft, there was no pulsatile masses felt under the bruise, there was no expanding redness indicating infection at this time. Treatment for hematoma includes compression, elevation and heat packs to allow the body to reabsorb the blood. Additionally, the patient needs to orange picker machine operator his prescriptions that were prescribed to him yesterday during his visit. Please arrange for orange picker machine operator of these prescriptions as they are essential for the patient's well-being. Please return to the emergency department if you develop fevers over 100.4?, if the left arm becomes stiff or hardened, if you have increased pain in your left arm, inability to move the left arm, or any new/worsening/concerning symptoms. Prescriptions: No Action (DME) FreeStyle [place] 14 Day Sensor Kit See Rx Instructions .Route Qty: 1 0RF Rx Instructions: As directed hydroxyzine pamoate 50 mg capsule 100 mg PO TID folic acid 1 mg tablet 1 mg PO DAILY furosemide 20 mg tablet 20 mg PO DAILY insulin lispro [Humalog KwikPen Insulin] 100 unit/mL insulin pen See Protocol subcut QIDACHS Protocol: Insulin Correction Scale Less than or equal to 110 ---- Give (units): 0 111 to 150 Give (units): 0 151 to 200 Give (units): 2 201 to 250 Give (units): 4 251 to 300 Give (units): 6 301 to 350 Give (units): 8 Greater than 350 Give (units): 10 Call MD if Blood Glucose > : 350 insulin glargine [Lantus Solostar U-100 Insulin] 100 unit/mL (3 mL) insulin pen 20 unit subcut BEDTIME dicyclomine 20 mg tablet 20 mg PO TID Qty: 10 0RF ondansetron 4 mg tablet,disintegrating 4 mg PO Q8H PRN (Reason: nausea and vomiting) Qty: 10 0RF acetaminophen [Tylenol Extra Strength] 500 mg tablet 500 - 1,000 mg PO Q8H PRN (Reason: pain) Qty: 30 0RF ferrous sulfate 325 mg (65 mg iron) tablet 325 mg PO Q OTHER DAY Qty: 30 0RF cephalexin 500 mg capsule 500 mg PO QID 5 Days Qty: 20 0RF sucralfate 1 gram tablet 1 g PO BID Qty: 60 0RF ondansetron HCl 4 mg tablet 4 mg PO Q8H Qty: 10 0RF Print Language: Marshallese
[2025-04-06 19:02] VITALS: BP 120/74; PULSE 98; RESP 18; TEMP 36.8; O2SAT 98
== END 2025-04-06 19:03 | disposition home or self-care (01) ==
PROVIDERS: Emergency Provider Emergency Medicine Emergency Medical Services
DX: S50.12XA Contusion of left forearm, initial encounter (principal); E11.9 Type 2 diabetes mellitus without complications; I10 Essential (primary) hypertension; X58.XXXA Exposure to other specified factors, initial encounter; Y93.9 Activity, unspecified; Y92.9 Unspecified place or not applicable; Y99.8 Other external cause status; Z79.899 Other long term (current) drug therapy; Z79.4 Long term (current) use of insulin
CPT/HCPCS: 99282

== ENCOUNTER 2025-04-13 08:24 | Emergency (ER) | payer MEDICARE, MEDICAID, SELFPAY ==
[2025-04-13 08:35] VITALS: BP 118/67; PULSE 98; RESP 16; TEMP 36.8; O2SAT 98; BMI 24.2
[2025-04-13] MEDS: Oxymetazoline HCl 0.05 % Nasal 15 ML SPRAY 2 SPRAY NOSTRIL-B (08:46)
--- NOTE | 2025-04-13 08:47 | ED.EPISTAXIS ---
History of Present Illness General Chief Complaint: Epistaxis Stated Complaint: nose bleed Time Seen by Provider: 04/13/25 08:42 Source: patient Mode of arrival: ambulatory Limitations: no limitations History of Present Illness ED Provider: ESTRELLA Major HPI Narrative: 55-year-old male past medical history significant for alcohol use disorder, cirrhosis, hypertension, depression, recurrent epistaxis presenting with concerns of nosebleed earlier this morning. Patient reports he was covered in blood. He does not know why he keeps getting nosebleeds however they keep happening. He has been seen multiple times in the hospital for this. He denies nose picking or any nose trauma. He tells me that he has not yet seen a specialist. Denies lightheadedness, fevers, chills, chest pain, shortness of breath, nausea, vomiting, weakness. Patient not on blood thinners. Related Data Home Medications ?Medication ?Instructions ?Recorded ?Confirmed folic acid 1 mg tablet 1 mg PO DAILY 08/30/24 08/30/24 furosemide 20 mg tablet 20 mg PO DAILY 08/30/24 08/30/24 hydroxyzine pamoate 50 mg capsule 100 mg PO TID 08/30/24 08/30/24 insulin glargine 100 unit/mL (3 20 unit subcut BEDTIME 08/30/24 08/30/24 mL) subcutaneous pen (Lantus Solostar U-100 Insulin) insulin lispro 100 unit/mL See Protocol subcut QIDACHS 08/30/24 08/30/24 subcutaneous pen (Humalog KwikPen (U-100) Insulin) Previous Rx's ?Medication ?Instructions ?Recorded flash glucose sensor (FreeStyle #1 ea 03/23/24 [place] 14 Day Sensor kit) dicyclomine 20 mg tablet 20 mg PO TID #10 tabs 03/19/25 ondansetron 4 mg disintegrating 4 mg PO Q8H PRN nausea and 03/19/25 tablet vomiting #10 tabs acetaminophen 500 mg tablet 500 - 1,000 mg (1 - 2 x 500 mg) PO 03/26/25 (Tylenol Extra Strength) Q8H PRN pain #30 tabs cephalexin 500 mg capsule 500 mg PO QID 5 days #20 caps 03/26/25 ferrous sulfate 325 mg (65 mg 325 mg PO Q OTHER DAY #30 tabs 03/26/25 iron) tablet ondansetron HCl 4 mg tablet 4 mg PO Q8H #10 tabs 04/05/25 sucralfate 1 gram tablet 1 g PO BID #60 tabs 04/05/25 Allergies Allergy/AdvReac Type Severity Reaction Status Date / Time bupropion (From Wellbutrin) Allergy Shortness Verified 04/13/25 08:36 of Breath gabapentin Allergy Confusion Verified 04/13/25 08:36 seafood Allergy Anaphylaxis Verified 04/13/25 08:36 Review of Systems Review of Systems: Yes all other systems are reviewed and are negative [facility] Past Medical History Attestation statement: The following information was validated with the patient. Source: old records reviewed and nursing notes reviewed Medical History Alcohol abuse Social History Social History Alcohol intake: current Alcohol intake frequency: 3 or more drinks per day Alcohol type: hard liquor Substance Use Type: Marijuana Advance Directives: No Advance Directives Information Provided: Yes Physical Exam Exam: Exam: Appearance: Alert.? Oriented X3.? No acute distress.? Head: Normocephalic, atraumatic, no step-offs or deformities Eyes: Pupils equal, round and reactive to light.? ENT: Pharynx normal.?+ dried blood b/l nares w/ mild bleeding (unable to identify where its coming from) Neck: Normal inspection.? Neck supple.? CVS: Normal heart rate and rhythm.? Pulses normal.? Respiratory: No respiratory distress.? Breath sounds normal.? Abdomen: Soft and nontender.? Skin: Skin warm and dry.? Normal skin color.? Normal skin turgor.? Extremities: No lower extremity edema.? No calf ttp. 5/5 strength to bilateral upper and lower extremities Back: No midline tenderness, no C-spine tenderness, full range of motion, no CVA tenderness bilaterally Neuro: Oriented X 3.? No motor deficit.? No sensory deficit. CN 2-12 intact Vital Signs: Vital Signs: Last Vital Signs Temp 98.2 F 04/13/25 08:35 Pulse 98 04/13/25 08:35 Resp 16 04/13/25 08:35 BP 118/67 04/13/25 08:35 Pulse Ox 98 04/13/25 08:35 O2 Del Method Room Air 04/13/25 08:35 BMI result Body Mass Index 24.2 vss Course Reevaluation(s) Reevaluation #1: Upon chart review it appears as though patient has been seen on 3 different occasions March 26 of April 04 and April 05 of this year for epistaxis. He has had it cauterized and he has had cocaine to the area. Patient was transfused on 03/26 due to anemia. Time: 08:49 Reevaluation #2: Dr Deluna recommends that patient go to a center that has interventional radiology incase embolization is needed. [facility] [place] Time: 09:29 Reevaluation #3: CBC with a microcytic anemia likely in the setting of acute epistaxis. No indication for transfusion at this time. Chemistry with elevated glucose 501 patient denies history of diabetes will give fluids and insulin. Waiting for a call back from [facility] transfer line. Time: 09:59 Additional Reevaluation(s): 1002- Spoke to Doctor Jessica states can be ED to ED if still bleeding. ED accepting Discussed this with patient. He is where he is being transferred across [facility] due to non availability at [facility] and [facility] feeling like he needs higher level of care. Patient also now tells me that he used to be a diabetic however they took white insulin because he was doing much better ( years ago) Medications Administered Discontinued Medications Generic Name Dose Route Start Last Admin Trade Name Annette PRN Reason Stop Dose Admin Oxymetazoline HCl 2 spray 04/13/25 08:42 04/13/25 08:46 Oxymetazoline Hcl 0.05 % Nasal 15 Ml [place] NOSTRIL-B 04/13/25 08:43 2 spray ONCE ONE Administration Tranexamic Acid 500 mg 04/13/25 08:51 04/13/25 09:15 Tranexamic Acid 1,000 Mg/10 Ml Vial INTRANASAL 04/13/25 08:52 500 mg ONCE ONE Administration Medical Decision Making Medical Decision Making [facility] Narrative: 0847 55-year-old male presents with recurrent nosebleed. Not currently bleeding however he reports this morning he was covered in blood. Not on a blood thinner, no history of bleeding disorder. Physical exam dried blood noted in the b/l nares. Mild active bleeding. History and physical exam concerning for epistaxis most likely posterior epistaxis. No visualized abrasions or scrapes. No foreign bodies and nose. Will rule out anemia and electrolyte abnormality Plan will sprite Afrin and clamped patient's nose and obtain basic labs to ensure no anemia Differential Diagnosis Differential Diagnoses: The differential diagnosis associated with the presentation includes (History and physical exam concerning for epistaxis most likely posterior epistaxis. No visualized abrasions or scrapes. No foreign bodies and nose. Will rule out anemia and electrolyte abnormality) Admission/Observation Consideration of admission/observation: Escalation of care including admission/observation considered Lab Data MDM Lab Attestation statement: I reviewed the patient's lab results. 04/13/25 08:51 04/13/25 08:51 Labs: Lab Results 04/13/25 Range/Units 08:51 WBC 2.3 L (4.8-10.8) X10*3/uL RBC 3.56 L (4.60-5.80) X10*6/uL Hgb 8.6 L (14.0-18.0) g/dl Hct 27.0 L (42.0-52.0) % MCV 75.8 L (80.0-98.0) fL MCH 24.2 L (27.0-33.0) pg MCHC 31.9 (31.0-36.0) g/dl RDW 17.8 H (11.0-16.0) % Plt Count 72 L D (160-400) X10*3/uL MPV TNP Immature Gran % (Auto) 0.4 (0.0-0.4) % Neut % (Auto) 68.7 (45-73) % Lymph % (Auto) 15.4 L (20-40) % [place] % (Auto) 9.3 (2-11) % Eos % (Auto) 5.3 H (0-4) % Baso % (Auto) 0.9 (0-2) % Lymph # (Auto) 0.4 L (1.2-4.9) X10*3/uL [place] # (Auto) 0.2 (0.1-1.2) X10*3/uL Eos # (Auto) 0.1 (0.0-0.4) X10*3/uL Baso # (Auto) 0.0 (0.0-0.2) X10*3/uL Abs Immat Gran (auto) 0.01 (0.00-0.03) X10*3/uL Absolute Neuts (auto) 1.6 L (2.0-8.3) x10*3/uL Absolute Nucleated RBC 0.000 (0.0-0.012) X10*3/uL Nucleated RBC % (auto) 0.0 (0.0-0.2) /100WBC Smear Tech's Comments VERIFIED Sodium 134 L (135-145) mmol/L Potassium 4.4 (3.3-5.1) mmol/L Chloride 101 (96-108) mmol/L Carbon Dioxide 26 (22-29) mmol/L Anion Gap 11 L (12-20) BUN 13 (9-16) mg/dL Creatinine 1.03 (0.5-1.4) mg/dL Estim Creat Clear Calc 74.8 Estimated GFR > 60 Random Glucose 501 H* (60-115) mg/dL Calcium 9.0 (8.4-10.2) mg/dL Total Bilirubin 1.2 H (0.0-1.0) mg/dL AST 39 H (5-37) U/L ALT 24 (0-40) U/L Alkaline Phosphatase 147 H (39-117) U/L Total Protein 7.1 (6.5-8.0) g/dL Albumin 3.8 (3.5-5.0) g/dL Prescription Management I considered prescription management with: Other (Afrin) Chronic Conditions Patient?s care impacted by: Other (Alcohol use disorder, recurrent epistaxis, depression) Critical Care Time Critical Care Time Critical Care Time: Yes Total Critical Care Time: 35 Attestation: I attest to this time spent taking care of the patient, obtaining history, physical, reviewing labs, imaging, speaking to my attending and or speaking to specialist. Or preforming a procedure Discharge Plan Discharge Clinical Impression: Epistaxis, Blood glucose elevated Patient Disposition: Xfer [facility] [place] [facility] [place]: Nosebleed (ED), Nondiabetic Hyperglycemia (ED) Prescriptions: No Action (DME) FreeStyle [place] 14 Day Sensor Kit See Rx Instructions .Route Qty: 1 0RF Rx Instructions: As directed hydroxyzine pamoate 50 mg capsule 100 mg PO TID folic acid 1 mg tablet 1 mg PO DAILY furosemide 20 mg tablet 20 mg PO DAILY insulin lispro [Humalog KwikPen Insulin] 100 unit/mL insulin pen See Protocol subcut QIDACHS Protocol: Insulin Correction Scale Less than or equal to 110 ---- Give (units): 0 111 to 150 Give (units): 0 151 to 200 Give (units): 2 201 to 250 Give (units): 4 251 to 300 Give (units): 6 301 to 350 Give (units): 8 Greater than 350 Give (units): 10 Call MD if Blood Glucose > : 350 insulin glargine [Lantus Solostar U-100 Insulin] 100 unit/mL (3 mL) insulin pen 20 unit subcut BEDTIME dicyclomine 20 mg tablet 20 mg PO TID Qty: 10 0RF ondansetron 4 mg tablet,disintegrating 4 mg PO Q8H PRN (Reason: nausea and vomiting) Qty: 10 0RF acetaminophen [Tylenol Extra Strength] 500 mg tablet 500 - 1,000 mg PO Q8H PRN (Reason: pain) Qty: 30 0RF ferrous sulfate 325 mg (65 mg iron) tablet 325 mg PO Q OTHER DAY Qty: 30 0RF cephalexin 500 mg capsule 500 mg PO QID 5 Days Qty: 20 0RF sucralfate 1 gram tablet 1 g PO BID Qty: 60 0RF ondansetron HCl 4 mg tablet 4 mg PO Q8H Qty: 10 0RF Referrals: [facility] [Provider Group, Ear, Nose, Throat] - 1 day Physician,None [Primary Care Provider, Medical] Stand Alone Forms: Work/School Release Print Language: Martiniquais
--- OUTSIDE RECORDS SUMMARY | 2025-04-13 08:47 | XMS_ITS | Clinical Summary ---
Author Organization [facility] Address [address] [place] [address] Phone Care Team Providers Care Reconciliation Manager Name Role Phone Physician, No Pcp Primary [...] Problems Problem Noted Date Diagnosed Date Schizophrenia ([facility] V24, [facility] V28) Encounters Date Type Department Care Team Description 02/20/2025 10:03 PM EDT - 02/21/2025 1:06 AM EDT [facility] [address] [place] [phone] Discharge Disposition: Home or Self Care 02/20/2025 1:35 PM EDT - 02/20/2025 4:52 PM EDT [facility] [address] [place] [phone] Siddharth Cueva MD Encounter for medical screening examination (Primary Dx); Schizophrenia, unspecified type ([facility] V24, [facility] V28); Hypomagnesemia; Pancytopenia ([facility] V24, [facility] V28); Hepatic cirrhosis, unspecified hepatic cirrhosis type, unspecified whether ascites present ([facility] V24, [facility] V28) Discharge Disposition: Home or Self Care 02/20/2025 1:27 PM EDT - 02/20/2025 1:30 PM EDT [facility] [address] [place] [phone] Discharge Disposition: Home or Self Care 02/06/2025 10:46 AM EDT - 02/06/2025 11:31 AM EDT [facility] [address] [place] [phone] Sprain of left ankle, unspecified ligament, subsequent encounter (Primary Dx) Discharge Disposition: Home or Self Care 01/30/2025 6:00 PM EDT - 01/31/2025 12:58 AM EDT [facility] [address] [place] [phone] Chester Ramires MD Chest wall contusion, left, subsequent encounter (Primary Dx); Closed head injury, subsequent encounter; Dental abscess Discharge Disposition: Home or Self Care from Last 3 Months Surgical History Surgery Date Site/Laterality Comments ESOPHAGOGASTRODUODENOSCOPY W/ BANDING Per EMR Medical History Medical History Date Comments Schizophrenia ([facility] V24, [facility] V28) Alcoholic cirrhosis of liver with ascites ([facility] V24, [facility] V28) per EMR Chronic anemia per emr HTN (hypertension) per emr 2019 Diabetes mellitus ([facility] V24, [facility] V28) per EMR 2019 Hyperlipidemia per EMR Chronic bilateral pleural effusions per EMR Cholelithiasis 03/2020 per EMR DJD (degenerative joint disease) per EMR Social History Tobacco Use Types Packs/Day Years Used Date Smoking Tobacco: Unknown Tobacco Cessation:Counseling Given: Not Answered Sex and Gender Information Value Date Recorded Sex Assigned at Male 04/09/2025 12:45 PM EDT Legal Sex Male 11:02 AM EDT Gender Identity Male 04/09/2025 12:45 PM EDT Sexual Orientation Straight 04/09/2025 12 :45 PM EDT Obstetrics History Last Filed Vital Signs Vital Sign Reading Time Taken Comments Blood Pressure 95/71 02/20/2025 10:12 PM EDT Pulse 76 02/20/2025 10:12 PM EDT Temperature 36.6 C (97.8 F) 02/20/2025 10:12 PM EDT Respiratory Rate 16 02/20/2025 10:12 PM EDT Oxygen Saturation 99% 02/20/2025 10:12 PM EDT Inhaled Oxygen Concentration - - Weight 70.8 kg (156 lb) 02/20/2025 10:12 PM EDT Height 167.6 cm (5' 6 ) 02/20/2025 10:12 PM EDT Body Mass Index 25.18 02/20/2025 10:12 PM EDT Plan of Treatment Health Maintenance [...] PCV) 04/23/2021 04/23/2020 Colorectal Cancer Screening: Colonoscopy 03/20/2024 HIV Screening 03/20/2024 Medicare Annual Wellness Visit 03/20/2024 Social Influencers of Health Screening 03/20/2024 Depression Screening 07/24/2024 COVID-19 Vaccine ( season) 2025 Influenza Vaccine (#1) 2025 , 04/23/2020, 10/22/2019, Additional history exists Diabetes: Annual Urine Albumin-Creatinine Ratio (uACR) 04/09/2025 Diabetes: Blood Sugar Control Test (HGBA1C) 05/20/2025 11/18/2024, 07/31/2024 Cholesterol Screening (Lipid Panel) 06/22/2025 06/22/2020 Diabetes: Annual GFR (Glomerular Filtration Rate) 02/20/2026 02/20/2025, 01/30/2025, 08/14/2024, Additional history exists Hypertension/CHF/CAD Annual BMP Blood Test 02/20/2026 02/20/2025, 01/30/2025, 08/14/2024, Additional history exists DTaP,Tdap,and Td Vaccines (3 - Td or Tdap) 07/28/2033 07/28/2023, 06/21/2016 RSV Immunization Adult Patients (1 - 1-dose 75+ series) 2044 Hepatitis C Screening Completed 08/14/2024, 020 HIB [...] EDT ETHANOL STAT 02/20/2025 2:[address] ABDOMEN PELVIS W CONTRAST STAT 01/30/2025 6:52 PM EDT PATHOLOGIST REVIEW BLOOD SMEAR Routine 01/30/2025 3:24 PM EDT CBC WITH AUTO DIFFERENTIAL STAT 01/30/2025 3:24 PM EDT LIPASE STAT 01/30/2025 3:24 PM EDT COMPREHENSIVE METABOLIC PANEL STAT 01/30/2025 3:24 PM EDT CBC AND DIFFERENTIAL STAT 01/30/2025 3:24 PM EDT [place] URINE CULTURE TUBE STAT 01/30/2025 2:50 PM EDT URINALYSIS WITH REFLEX MICROSCOPIC AND CULTURE STAT 01/30/2025 2:50 PM EDT URINALYSIS WITH REFLEX MICROSCOPIC AND CULTURE STAT 01/30/2025 2:50 PM EDT HEMOGLOBIN A1C Routine 07/31/2024 7:00 AM EST Other intermediate accountant (current) drug therapy from Last 3 Months or Most Recently Relevant to Health Maintenance Results * ECG-Annotated (02/21/2025) us Provider Onbase MD ECG ORDERABLES Final Result * Drug abuse screen 8a panel, urine (02/20/2025 3:06 PM EDT) Amphetamine Screen, Ur Negative Negative LAB CHEMISTRY METHOD 02/20/2025 4:06 PM EDT [facility] Comment:Certain OTC medicati ons containing ephedrine, phenylephrine, pseudoephedrine and phenylpropanolamine can cause false positive results. Barbiturate Screen, Ur Negative Negative LAB CHEMISTRY METHOD 02/20/2025 4:06 PM EDT [facility] Benzodiazepine Screen, Ur Negative Negative LAB CHEMISTRY METHOD 02/20/2025 4:06 PM EDT [facility] Cocaine Screen, Ur Negative Negative LAB CHEMISTRY METHOD 02/20/2025 4:06 PM EDT [facility] Opiate Screen, Ur Negative Negative LAB CHEMISTRY METHOD 02/20/2025 4:06 PM EDT [facility] Cannabinoid (THC) Screen, Ur Negative Negative LAB CHEMISTRY METHOD 02/20/2025 4:06 PM EDT [facility] Comment:Specimens from patie nts taking pantoprazole sodium (Protonix) have been shown to produce false positive results. Oxycodone Screen, Ur Negative Negative LAB CHEMISTRY METHOD 02/20/2025 4:06 PM EDT [facility] Fentanyl, Ur Negative Negative LAB CHEMISTRY METHOD 02/20/2025 4:06 PM EDT [facility] Urine Urine specimen obtained by clean catch procedure / Unknown Non-blood Collection / Unknown 02/20/2025 3:06 PM EDT 02/20/2025 3:23 PM EDT Katherine [facility] - 02/20/2025 4:06 PM EDT Assay cutoffs: Amphetamines 1000 ng/mL Barbiturates 200 ng/mL Benzodiazepines 200 ng/mL Cocaine 300 ng/mL Fentanyl 1 ng/mL Opiates 300 ng/mL Oxycodone 100 ng/mL THC 50 ng/mL Semi-quantitative assay for screening purposes only. Unconfirmed screening result should not be used for non-medical purposes. *ALTERNATE METHOD CONFIRMATION DONE UPON REQUEST ONLY* Siddharth Cueva MD LAB URINE ORDERABLES Final Res ult [facility] [address] [place] [address], [place] [phone] * RHYTHM ECG, REPORT (02/20/2025 2:54 PM EDT) Siddharth Paiz MD - 02/20/2025 2:54 PM EDT Siddharth Cueva MD 02/20/2025 7:02 PM ECG Rhythm Interpretation and Report Date/Time: 02/20/2025 2:54 PM Performed by: Siddharth Cueva MD Authorized by: Siddharth Cueva MD ECG interpreted by ED Physician in the absence of a manager cleaning: yes Previous ECG: Previous ECG: Compared to [...] ECG 12 lead (02/20/2025 2:29 PM EDT) Ventricular Rate ECG 74 BPM GEMUSE Atrial Rate 74 BPM GEMUSE P-R Interval 188 ms GEMUSE QRS Duration 142 ms GEMUSE Q-T Interval 432 ms GEMUSE QTc 479 ms GEMUSE P Wave [place] 30 degrees GEMUSE R [place] -9 degrees GEMUSE T [place] 23 degrees GEMUSE ECG Interpretation Normal sinus rhythm Right bundle branch block Abnormal ECG When compared with ECG of 25-MAR-2024 19:01, Vent. rate has decreased BY 47 BPM Confirmed by Porsche PATINO JAMES ([id number]) on 02/20/2025 6:06:06 PM GEMUSE 02/20/2025 2:29 PM EDT 02/20/2025 6:06 PM EDT us Siddharth Cueva MD ECG ORDERABLES Final Result Performing Organization Address [facility]/ZIP Co de Phone Number GEMUSE * Troponin I high sensitivity (02/20/2025 2:21 PM EDT) [facility] High Sensitivity Troponin I <3 <=79 ng/L LAB CHEMISTRY METHOD 02/20/2025 3:08 PM EDT [facility] Blood Venous blood specimen / Unknown Venipuncture / Unknown 02/20/2025 2:21 PM EDT 02/20/2025 2:41 PM EDT Narrative [facility] - 02/20/2025 3:08 PM EDT High levels of biotin in samples may falsely decrease hsTroponin values. Use caution when interpreting hsTroponin results in patients taking biotin who exhibit renal impairment (eGFR <60) or in patients taking more than 20 mg/day of biotin. us Siddharth Cueva MD LAB BLOOD ORDERABLES Final Res ult [facility]) [facility] [address] [place] [address], [place] [phone] * (ABNORMAL) CBC auto differential (02/20/2025 2:21 PM EDT) Only the most recent of2 resultswithin the time period is included. [facility] WBC 3.2(L) 4.8 - 10.8 K/mcL LAB HEMETOLOGY METHOD 02/20[facility]2025 3[facility] RBC 3.90(L) 4.50 - 5.50 M/mcL LAB HEMETOLOGY METHOD 02/20/2025 3:36 [facility] Hemoglobin 9.0(L) 13.5 - 17.5 g/dL LAB HEMETOLOGY METHOD 02/20/2025 3:36 PM [facility] Hematocrit 29.9(L) 42.0 - 54.0 % LAB HEMETOLOGY METHOD 02/20/2025 3:36 PM [facility] MCV 76.5(L) 79.0 - 98.0 FL LAB HEMETOLOGY METHOD 02/20/2025 3:36 PM [facility] MCH 23.0(L) 27.0 - 32.0 pcg LAB HEMETOLOGY METHOD 02/20/2025 3:36 PM [facility] MCHC 30.1(L) 32.0 - 37.0 g/dL LAB HEMETOLOGY METHOD 02/20/2025 3:36 PM [facility] RDW 18.5(H) 11.0 - 15.0 % LAB HEMETOLOGY METHOD 02/20/2025 3:36 PM [facility] Platelets 87(L) 130 - 400 K/mcL LAB HEMETOLOGY METHOD 02/20/2025 3:36 PM [facility] Comment:reviewed by slide SHAISTA LAB HEMETOLOGY METHOD 02/20/2025 3:36 PM [facility] Comment:Not Measured NRBC 0.0 <1.0 % LAB HEMETOLOGY METHOD 02/20/2025 3:36 [facility] NRBC Absolute 0.00 <0.10 K/mcL LAB HEMETOLOGY METHOD 02/20/2025 3:36 PM EDT [facility] Neutrophils Relative 75.4 % LAB HEMETOLOGY METHOD 02/20/2025 3:36 PM [facility] Lymphocytes Relative 11.7 % LAB HEMETOLOGY METHOD 02/20/2025 3:36 PM EDT [facility] Monocytes Relative 8.6 % LAB HEMETOLOGY METHOD 02/20/2025 3:36 PM EDT [facility] Eosinophils Relative 3.1 % LAB HEMETOLOGY METHOD 02/20/2025 3:36 PM EDT [facility] Basophils Relative 0.9 % LAB HEMETOLOGY METHOD 02/20/2025 3:36 PM [facility] Immature Granulocytes Relative 0.3 % LAB HEMETOLOGY METHOD 02/20/2025 3:36 PM [facility] Neutrophils Absolute 2.44 1.50 - 7.00 K/mcL LAB HEMETOLOGY METHOD 02/20/2025 3:36 PM [facility] Lymphocytes Absolute 0.38(L) 1.00 - 5.00 K/mcL LAB HEMETOLOGY METHOD 02/20/2025 3:36 PM [facility] Monocytes Absolute 0.28 0.20 - 1.00 K/mcL LAB HEMETOLOGY METHOD 02/20/2025 3:36 PM EDT [facility] Eosinophils Absolute 0.10 0.00 - 0.50 K/mcL LAB HEMETOLOGY METHOD 02/20/2025 3:36 PM EDT [facility] Basophils Absolute 0.03 0.00 - 0.20 K/mcL LAB HEMETOLOGY METHOD 02/20/2025 3:36 PM [facility] Immature Granulocytes Absolute 0.01 0.00 - 0.03 K/mcL LAB HEMETOLOGY METHOD 02/20/2025 3:36 PM EDT [facility] Blood Venous blood specimen / Unknown Venipuncture / Unknown 02/20/2025 2:21 PM EDT 02/20/2025 2:41 PM EDT us Siddharth Cueva MD LAB BLOOD ORDERABLES Final Res ult Performing Organization Address City/[facility]/ZIP Co de Phone Number [facility] [address] [place] [address], [place] [phone] * (ABNORMAL) Prothrombin time with INR (02/20/2025 2:21 PM EDT) Protime 14.9(H) 10.6 - 13.9 sec LAB COAGULATION METHOD 02/20/2025 2:53 PM EDT [facility] INR 1.2 LAB COAGULATION METHOD 02/20/2025 2:53 PM EDT [facility] Blood Venous blood specimen / Unknown Venipuncture / Unknown 02/20/2025 2:21 PM EDT 02/20/2025 2:41 PM EDT us Siddharth Cueva MD LAB BLOOD ORDERABLES Final Res ult Performing Organization Address City/[facility]/ZIP Co de Phone Number [facility] [address] [place] [address], [place] [phone] * (ABNORMAL) Magnesium (02/20/2025 2:21 PM EDT) Magnesium 1.8(L) 1.9 - 2.6 mg/dL LAB CHEMISTRY METHOD 02/20/2025 3:09 PM EDT [facility] Blood Venous blood specimen / Unknown Venipuncture / Unknown 02/20/2025 2:21 PM EDT 02/20/2025 2:40 PM EDT us Siddharth Cueva MD LAB BLOOD ORDERABLES Final Res ult Performing Organization Address City/[facility]/ZIP Co de Phone Number [facility] [address] [place] [address], [place] [phone] * Ethanol (02/20/2025 2:21 PM EDT) Ethanol Level <3 0 - 10 mg/dL LAB CHEMISTRY METHOD 02/20/2025 3:12 PM EDT [facility] Blood Venous blood specimen / Unknown Venipuncture / Unknown 02/20/2025 2:21 PM EDT 02/20/2025 2:40 PM EDT Siddharth Cueva MD LAB BLOOD ORDERABLES Final Res ult Performing Organization Address [facility]/ZIP Co de Phone Number [facility] [address] [place] [address], [place] [phone] * (ABNORMAL) Comprehensive metabolic panel (02/20/2025 2:21 PM EDT) Only the most recent of2 resultswithin the time period is included. Sodium 139 133 - 145 mmol/L LAB CHEMISTRY METHOD 02/20/2025 3:15 PM EDT [facility] Potassium 4.1 3.5 - 5.5 mmol/L LAB CHEMISTRY METHOD 02/20/2025 3:15 PM EDT [facility] Chloride 108 96 - 110 mmol/L LAB CHEMISTRY METHOD 02/20/2025 3:15 PM EDT [facility] CO2 26 21 - 32 mmol/L LAB CHEMISTRY METHOD 02/20/2025 3:15 PM EDT [facility] Anion Gap 5 3 - 11 LAB CHEMISTRY METHOD 02/20/2025 3:15 PM EDT [facility] Glucose 106(H) 70 - 100 mg/dL LAB CHEMISTRY METHOD 02/20/2025 3:15 PM EDT [facility] BUN 13 5 - 25 mg/dL LAB CHEMISTRY METHOD 02/20/2025 3:15 PM [facility] Creatinine 0.94 0.70 - 1.30 mg/dL LAB CHEMISTRY METHOD 02/20/2025 3:15 PM [facility] eGFR 96 >=60 mL/min/1. 73m2 LAB CHEMISTRY METHOD 02/20/2025 3:15 PM [facility] Comment:Calculation based on the Chronic Kidney Disease Epidemiology Collaboration (CKD-EPI) equation refit without adjustment for race. BUN/Creatinine Ratio 13.8 LAB CHEMISTRY METHOD 02/20/2025 3:15 PM [facility] Calcium 9.3 8.5 - 10.5 mg/dL LAB CHEMISTRY METHOD 02/20/2025 3:15 PM [facility] AST (SGOT) 32 10 - 42 unit/L LAB CHEMISTRY METHOD 02/20/2025 3:15 PM [facility] ALT (SGPT) 27 10 - 60 unit/L LAB CHEMISTRY METHOD 02/20/2025 3:15 PM [facility] Alkaline Phosphatase 148(H) 42 - 121 unit/L LAB CHEMISTRY METHOD 02/20/2025 3:15 PM [facility] Total Protein 7.7 6.0 - 8.0 g/dL LAB CHEMISTRY METHOD 02/20/2025 3:15 PM [facility] Albumin 3.7 3.2 - 5.0 g/dL LAB CHEMISTRY METHOD 02/20/2025 3:15 PM [facility] Total Bilirubin 0.9 0.0 - 1.4 mg/dL LAB CHEMISTRY METHOD 02/20/2025 3:15 PM [facility] Blood Venous blood specimen / Unknown Venipuncture / Unknown 02/20/2025 2:21 PM EDT 02/20/2025 2:40 PM EDT us Siddharth Cueva MD LAB BLOOD ORDERABLES Final Res ult [facility] ([facility]) [facility] [address] [place] [address], * CT Abdomen Pelvis w Contrast (01/30/2025 6:52 PM EDT) Anatomical Region Laterality Modality Body Computed Tomogra phy 01/30/2025 7:26 PM EDT Impressions 01/30/2025 7:26 PM EDT Impression: Changes of cirrhosis and portal hypertension with mild ascites. Cholelithiasis. No hydronephrosis. Mildly prominent retroperitoneal adenopathy may be reactive but technically indeterminate recommend comparison to previous or follow-up. This document has been electronically signed by: Huan Mcleod MD on 01/30/2025 19:26:20 Narrative 01/30/2025 7:26 PM EDT INDICATION: Flank pain, kidney stone suspected CT of the abdomen and pelvis utilizing intravenous contrast. No comparison. Findings: There are changes of cirrhosis. Cholelithiasis. No ureteral stones or hydronephrosis. Splenomegaly with multiple varices. No definite pancreatic abnormality. No abdominal aortic aneurysm. There is mildly prominent retroperitoneal adenopathy that is technically indeterminate. There is mild ascites with diffuse mesenteric edema. Moderate stool in the colon. Normal appendix. No bowel obstruction. The bladder is nondilated. Procedure Note Cornelio Mcleod MD - 01/30/2025 INDICATION: Flank pain, kidney stone suspected CT of the abdomen and pelvis utilizing intravenous contrast. No comparison. Findings: There are changes of cirrhosis. Cholelithiasis. No ureteral stones or hydronephrosis. Splenomegaly with multiple varices. No definite pancreatic abnormality. No abdominal aortic aneurysm. There is mildly prominent retroperitoneal adenopathy that is technically indeterminate. There is mild ascites with diffuse mesenteric edema. Moderate stool in the colon. Normal appendix. No bowel obstruction. The bladder is nondilated. IMPRESSION: Impression: Changes of cirrhosis and portal hypertension with mild ascites. Cholelithiasis. No hydronephrosis. Mildly prominent retroperitoneal adenopathy may be reactive but technically indeterminate recommend comparison to previous or follow-up. This document has been electronically signed by: Huan Mcleod MD on 01/30/2025 19:26:20 us Leonard Elias MD IMG CT PROCEDURES Final Result * Pathology review, blood smear (01/30/2025 3:24 PM EDT) Pathologist Review Blood Smear Anemia, thrombocytopenia and leukopenia: smear not diagnostic of etiology; possible causes include medication/toxin effects, nutritional deficiencies, infection, splenomegaly, or other etiologies. (See note.) Anemia with microcytic red blood cells; consider iron deficiency/blood loss, a hemoglobinopathy or other causes. Thrombocytopenia is confirmed (no significant platelet clumps are identified). Note: According to clinic notes available in the electronic medical record (records scheduled to be merged with this chart), the patient has a history of cirrhosis and splenomegaly, which may at least in part contribute to the patient's cytopenias. Clinical correlation is recommended. 01/31/2025 8:37 AM EDT [facility] Blood Venous blood specimen / Unknown Venipuncture / Unknown 01/30/2025 3:24 PM EDT 01/30/2025 3:43 PM EDT us Leonard Elias MD LAB BLOOD ORDERABLES Final Resu lt Performing Organization Address City/[facility]/ZIP Co de Phone Number [facility] [address] [place] [address], * Lipase (01/30/2025 3:24 PM EDT) Lipase 62 13 - 75 unit/L LAB CHEMISTRY METHOD 01/30/2025 4:13 PM EDT [facility] Blood Venous blood specimen / Unknown Venipuncture / Unknown 01/30/2025 3:24 PM EDT 01/30/2025 3:43 PM EDT us Leonard Elias MD LAB BLOOD ORDERABLES Final Resu lt [facility] [address] [place] [address], [place] [phone] * (ABNORMAL) Urinalysis with reflex microscopic and culture (01/30/2025 2:50 PM EDT) Specific [place] Urine 1.033(H) 1.003 - 1.030 LAB URINALYSIS - AUTOMATED METHOD 01/30/2025 3:12 PM EDT [facility] pH, Urine 7.0 5.0 - 8.0 pH LAB URINALYSIS - AUTOMATED METHOD 01/30/2025 3:[facility] Leukocytes, Urine Negative Negative LAB URINALYSIS - AUTOMATED METHOD 01/30/2025 3:12 PM [facility] Nitrite, Urine Negative Negative LAB URINALYSIS - AUTOMATED METHOD 01/30/2025 3:12 PM [facility] Protein, Urine Trace <=Trace mg/dL LAB URINALYSIS - AUTOMATED METHOD 01/30/2025 3:12 PM [facility] Glucose, Urine 250(A) Negative mg/dL LAB URINALYSIS - AUTOMATED METHOD 01/30/2025 3:12 PM [facility] Ketones, Urine Trace(A) Negative mg/dL LAB URINALYSIS - AUTOMATED METHOD 01/30/2025 3:12 PM T [facility] Urobilinogen, Urine 1.0 0.2 - 1.0 mg/dL LAB URINALYSIS - AUTOMATED METHOD 01/30/2025 3:12 PM [facility] Bilirubin, Urine Negative Negative LAB URINALYSIS - AUTOMATED METHOD 01/30/2025 3:12 PM [facility] Blood, Urine Negative Negative LAB URINALYSIS - AUTOMATED METHOD 01/30/2025 3:12 PM [facility] Urine Urine specimen obtained by clean catch procedure / Unknown Non-blood Collection / Unknown 01/30/2025 2:50 PM EDT 01/30/2025 3:01 PM EDT Leonard Elias MD LAB URINE ORDERABLES Final Resu lt Performing Organization Address [facility]/ZIP Co de Phone Number [facility] [address] [place] [address], [place] [phone] * [place] urine culture tube (01/30/2025 2:50 PM EDT) Pathologist [facility] Extra Tube Hold for add-ons. 01/30/2025 5:01 PM EDT [facility] Comment:Auto resulted. Urine Urine specimen obtained by clean catch procedure / Unknown Non-blood Collection / Unknown 01/30/2025 2:50 PM EDT 01/30/2025 3:01 PM EDT Leonard Elias MD LAB URINE ORDERABLES Final Resu lt Performing Organization Address [facility]/ZIP Co de Phone Number [facility] [address] [place] [address], [place] [phone] * (ABNORMAL) Hemoglobin A1c (07/31/2024 7:00 AM EST) Pathologist [facility] Hemoglobin A1C 7.1(H) <6.5 % LAB CHEMISTRY METHOD 07/31/2024 3:38 PM EST [facility] Mean Bld Glu Estim. 157 mg/dL LAB CHEMISTRY METHOD 07/31/2024 3:38 PM EST [facility] Blood Venous blood specimen / Unknown Venipuncture / Unknown 07/31/2024 7:00 AM EST 07/31/2024 12:30 PM EST Lorelei Samson NP LAB BLOOD ORDERABLES Final Res ult Performing Organization Address City/[facility]/ZIP Co de Phone Number [facility] [address] [place] [address], [place] [phone] from Last 3 Months or Most Recently Relevant to Health Maintenance Insurance [place] [employer] [place] Member Subscriber Plan / Payer (Ef fective 2024-Present) Name:ALMA ROSASTEPHANIE Relation to Subscriber:Self Name:Stephanie Xie Payer ID:[id number] Group ID:Not on file Type:Not on file Address: [facility] ATTN:[employer] [address] [place] [id number] [place] [address] Advance Directives Documents on File Type Date Recorded Patient Neuro Psych Sales Specialist Expl anation Health Care Decision (hx) 01/29/2024 AD BROWNLEE DIRECTIVE Health Care Decision (hx) 01/29/2024 AD BROWNLEE DIRECTIVE Care Teams Reconciliation Manager Relationship Specialty Start Date End Date Physician, No Pcp PCP - General 08/02/24
--- OUTSIDE RECORDS SUMMARY | 2025-04-13 08:47 | XMS_ITS | Clinical Summary ---
Author Organization [facility] Address [address] [facility] [address] [place] [address] Phone Care Team Providers Care Ammunition And Explosives Handler Name Role Phone Jamie Maher Primary Care Provider [phone] Clayton Luis Unavailable [phone] Allergies Active Allergy Reactions Criticality Noted Date [...] and 100 mg at 1400 and 2100. 5 Active COMB NO.42-FOLIC ACID ORAL Take 1 [...] to take PO and NO PIV, call [facility] REM[facility] to obtain order for glucagon Check blood [...] could be a precipitant. Per paperwork from [facility], pt was found in the street drinking alcohol by police and EMS and appeared to be manic and brought to [facility]. - Psychiatry following, appreciate recs - meets section 12a criteria, cannot leave AMA - ammonia level sent, discontinued celexa - started seroquel 50/50/100 standing, with prn doses qhs for insomnia and prn for agitation - [facility] monitoring Assessment & Plan (08/14/2024 12:48 AM [...] A1c 11.3 in 03/2024. Last admission to [facility], 04/2024, discharged on glargine 20 units QHS. 07/2023 A1c 8.8 - Increase glargine 22U QHS (from 20) - Increased lispro 7U TID (from 5U) w/ mod dose sliding scale Assessment & Plan (08/17/2024 11:30 AM EST): A1c 11.3 in 03/2024. Last admission to [facility], 04/2024, discharged on glargine 20 units QHS. 07/2023 A1c 8.8 - Increase glargine 20U QHS - Increased lispro 5U TID (from 2U) w/ mod dose sliding scale Assessment & Plan (08/16/2024 9:37 AM EST): A1c 11.3 in 03/2024. Last admission to [facility], 04/2024, discharged on glargine 20 units QHS. 07/2023 A1c 8.8 - Increase glargine 20U QHS - Continue lispro 2U TID w/ mod dose sliding scale Assessment & Plan (08/15/2024 5:12 PM EST): A1c 11.3 in 03/2024. Last admission to [facility], 04/2024, discharged on glargine 20 units QHS - F/u A1c - Increase glargine 18U QHS - Continue lispro 2U TID w/ mod dose sliding scale Assessment & Plan (08/14/2024 5:10 PM EST): A1c 11.3 in 03/2024. Last admission to [facility], 04/2024, discharged on glargine 20 units nightly. Titrate insulin with increasing appetite / diet. - continue glargine 15 u qHS - switched to lispro sliding scale with standing lispro 2 u TID, titrate prn Assessment & Plan (08/14/2024 1:12 AM EST): A1c 11.3 in 03/2024. Last admission to [facility], 04/2024, discharged on glargine 20 units nightly. [...] # Alcohol related cirrhosis Last seen by [facility] Sim 09/2020, ?follows with [facility] (message from GI 03/2024). Dx in [...] # Alcohol related cirrhosis Last seen by [facility] [place] Sim 09/2020, ?follows with [facility] (message from GI 03/2024). Dx in [...] # Alcohol related cirrhosis Last seen by [facility] [place] Sim 09/2020, ?follows with [facility] (message from GI 03/2024). Dx in 2014. [...] # Alcohol related cirrhosis Last seen by [facility] [place] Sim 09/2020, ?follows with [facility] (message from GI 03/2024). Dx in 2014. [...] GI visit was with Dr. Sim at [facility] 09/2020. Diagnosed in 2014. Was previously treated [...] alcohol detox and was then hospitalized at [facility] where he reported drinking 1/2 handle of alcohol per day -He was restarted on his diuretics, as well as his other meds and follow up appointments were made for him. He was unable to get transportation for any of this. He has not taken his meds since discharge Mayank Discriminant Function: 29.54 Calculated using: PT*: 17.9 [...] on any medications since his discharge from [facility] 04/09 Pancytopenia 04/28/2024 Assessment & Plan (08/18/2024 [...] PM EDT): -Uncontrolled. Recent Hba1c 11.3 -At [facility] last month he was being treated with [...] 3:42 PM EDT Emergency [facility] [address] [place] [address] Stevan France MD Perez, Alberto Juan Ignacio, [...] 01/13/2025 5:17 PM EDT Plan of Treatment Upcoming Encounters Date Type Department Care Team (Late st Contact Info) Description 05/15/2025 10:00 AM EDT Office Visit [facility] at [address] [address] Clayton Luis, ISIS [address] [place] [address] [email or web address] Health Maintenance Due Date Last Done Comments [...] 05/18/2020, 04/23/2020, Additional history exists COVID-19 VACCINE ( season) 2025 12/09/2020, 11/11/2020 SMOKING Hx and [...] of2 resultswithin the time period is included. Pathologist [facility] Glucose, POCT 248(H) 70 - 100 mg/dL [facility] 01/14/2025 3:08 PM EDT 01/14/2025 3:10 PM EDT us Juan Miguel Adams MD POINT OF CARE TEST ORDERABLES Final Result [facility] [address] [place] [address] * (ABNORMAL) Toxicology screen, urine (01/13/2025 9:49 PM EDT) [facility] URINE CANNABINOIDS Positive(A) NONE DETECTED [facility] Comment:Cutoff: 50 ng/mL URINE COCAINE METAB NONE DETECTED NONE DETECTED [facility] Comment:Cutoff: 300 ng/mL URINE AMPHETAMINES NONE DETECTED NONE DETECTED [facility] Comment:Cutoff: 1000 ng/mL URINE METHADONE NONE DETECTED NONE DETECTED [facility] Comment:Cutoff: 300 ng/mL URINE OPIATES NONE DETECTED NONE DETECTED [facility] Comment:Cutoff: 300 ng/mL URINE PHENCYCLIDINE NONE DETECTED NONE DETECTED [facility] Comment:Cutoff: 25 ng/mL URINE OXYCODONE NONE DETECTED NONE DETECTED [facility] Comment:Cutoff: 300 ng/mL URINE BARBITURATES NONE DETECTED NONE DETECTED [facility] Comment:Cutoff: 200 ng/mL URINE BENZODIAZEPINE NONE DETECTED NONE DETECTED [facility] Comment:Cutoff: 200 ng/mL URINE BUPRENORPHINE NONE DETECTED NONE DETECTED [facility] Comment:Cutoff: 5 ng/mL Fentanyl, urine NONE DETECTED NONE DETECTED [facility] Comment: Cutoff: 5 ng/mL INTERPRETATION FOR TOXICOLOGY PANEL: These results are unconfirmed and should be used for Medical Treatment purposes only. Urine (Urine) 01/13/2025 9:4 9 PM EDT 01/14/2025 2:09 PM EDT us Stevan France MD URINE ORDERABLES Final R esult [address] [address] * ECG 12-LEAD (01/13/2025 5:54 PM EDT) Ventricular Rate EKG/MIN 94 BPM [facility] Atrial Rate 94 BPM [facility] MD Interval 182 ms [facility] QRS Duration 128 ms [facility] QT Interval 382 ms [facility] QTC Interval 477 ms [facility] P Suring 45 degrees [facility] R Wave Suring -8 degrees [facility] T Wave Suring 17 degrees [facility] 01/13/2025 5:54 PM EDT 01/15/2025 7:49 AM EDT Narrative [facility] - 01/15/2025 7:49 AM EDT Normal sinus rhythm Possible Left atrial enlargement Non-specific intra-ventricular conduction block Abnormal ECG When compared with ECG of 07-Dec-2024 18:55, Non-specific intra-ventricular conduction block has replaced Right bundle branch block Confirmed by Geovany Damon ([id number]) on 01/15/2025 7:49:13 AM Barbara Paige PA-C ECG ORDERABLES Final Result Performing Organization Address [facility] de Phone Number [email or web address] * (ABNORMAL) Acetaminophen level (01/13/2025 5:39 PM EDT) ACETAMINOPHEN <5.0(L) 15.0 - 30.0 ug/mL [facility] Blood 01/13/2025 5:39 PM EDT 01/13/2025 5:56 PM EDT Barbara Paige PA-C LAB BLOOD ORDERABLES Final R esult Performing Organization Address [facility] de Phone Number [address] [address] * (ABNORMAL) Salicylates (01/13/2025 5:39 PM EDT) SALICYLATES <0.3(L) 2.8 - 19.9 mg/dL [facility] Blood 01/13/2025 5:39 PM EDT 01/13/2025 5:56 PM EDT Barbara Paige PA-C LAB BLOOD ORDERABLES Final R esult Performing Organization Address [facility] Co de Phone Number [address] [address] * Ethanol, blood (01/13/2025 5:38 PM EDT) ETHANOL <10 <10 mg/dL [facility] Blood 01/13/2025 5:38 PM EDT 01/13/2025 5:55 PM EDT Stevan France MD LAB BLOOD ORDERABLES Fin al Result [address] [address] * (ABNORMAL) LFTs (hepatic panel) (01/13/2025 5:38 PM EDT) Pathologist [facility] ALKALINE PHOSPHATASE 202(H) 39 - 117 U/L [facility] TOTAL BILIRUBIN 1.3(H) 0.0 - 1.2 mg/dL [facility] DIRECT BILIRUBIN 0.5(H) 0.0 - 0.2 mg/dL [facility] Bilirubin (Indirect) 0.8 0 - 1.5 mg/dL [facility] AST 55(H) 0 - 37 U/L [facility] ALT 37 0 - 40 U/L [facility] TOTAL PROTEIN 8.0 6.5 - 8.0 g/dL [facility] ALBUMIN 4.2 3.9 - 4.8 g/dL [facility] GLOBULIN 3.8 1 - 4.8 g/dL [facility] A/G Ratio 1.11 1.00 - 4.80 RATIO [facility] Blood 01/13/2025 5:38 PM EDT 01/13/2025 5:55 PM EDT us Stevan France MD LAB BLOOD ORDERABLES Fin al Result [address] [address] * (ABNORMAL) CBC and differential (01/13/2025 5:38 PM EDT) Pathologist [facility] WBC 5.08 4.00 - 11.00 K/uL [facility] RBC 4.36(L) 4.50 - 5.90 M/uL [facility] HGB 10.1(L) 13.5 - 17.5 g/dL [facility] HCT 33.0(L) 41.0 - 53.0 % [facility] PLT 108(L) 150 - 450 K/uL [facility] MCV 75.7(L) 80.0 - 100.0 fL [facility] MCH 23.2(L) 27.0 - 31.0 pg [facility] MCHC 30.6(L) 32.0 - 36.0 g/dL [facility] RDW 18.7(H) 11.5 - 14.5 % [facility] MPV Not measured 8.4 - 12.0 fL [facility] NRBC 0.00 0.00 /100 WBCs [facility] ABSOLUTE NRBC 0.00 0.00 K/uL [facility] DIFF METHOD Auto [facility] NEUTS 72.0 48.0 - 76.0 % [facility] LYMPHS 12.6(L) 18.0 - 41.0 % [facility] MONOS 12.0(H) 4.0 - 11.0 % [facility] EOS 1.8 0.0 - 5.0 % [facility] BASOS 1.2 0.0 - 1.5 % [facility] Granulocytes, immature (%) 0.4 0.0 - 0.9 % [facility] ABSOLUTE NEUTS 3.66 1.92 - 7.60 K/uL [facility] ABSOLUTE LYMPHS 0.64(L) 0.72 - 4.10 K/uL [facility] ABSOLUTE MONOS 0.61 0.16 - 1.10 K/uL [facility] ABSOLUTE EOS 0.09 0.00 - 0.50 K/uL [facility] ABSOLUTE BASOS 0.06 0.00 - 0.15 K/uL [facility] Granulocytes, immature 0.02 0.00 - 0.09 K/uL [facility] Blood 01/13/2025 5:38 PM EDT 01/13/2025 5:55 PM EDT us Stevan France MD LAB BLOOD ORDERABLES Fin al Result [address] [id number] * (ABNORMAL) Basic metabolic panel (01/13/2025 5:38 PM EDT) SODIUM 138 133 - 146 mmol/L [facility] CHLORIDE 103 96 - 108 mmol/L [facility] POTASSIUM 4.2 3.3 - 5.1 mmol/L [facility] CO2 26 21 - 35 mmol/L [facility] BUN 15 6 - 19 mg/dL [facility] CREATININE 0.80 0.5 - 1.5 mg/dL [facility] GLUCOSE 220(H) 70 - 99 mg/dL [facility] CALCIUM 9.8 8.4 - 10.3 mg/dL [facility] EGFR 105 >59 mL/min/1.7 3m2 [facility] Comment:Estimated glomerular filtration rate calculated using the CKD-EPI refit equation. ANION GAP 13 10 - 20 mmol/L [facility] Blood 01/13/2025 5:38 PM EDT 01/13/2025 5:55 PM EDT us Stevan France MD LAB BLOOD ORDERABLES Fin al Result [address] [address] * (ABNORMAL) Hemoglobin A1c (08/15/2024 8:01 AM EST) HEMOGLOBIN A1C 8.8(H) 4.2 - 5.6 % [facility] Comment: HbA1c levels 5.7-6.4% represent [...] 08/15/2024 9:11 AM EST Comment:#A1[place] [id number] 15 @[id number] us Lyndsey Roy PA-C LAB BLOOD ORDERABLES Final Result [facility] [address] [place] [address] * Hepatitis acute panel (08/14/2024 6:25 AM EST) HBV SURFACE ANTIGEN Nonreactive (HBsAg Negative) Nonreactive (HBsAg Negative) [facility] Hepatitis A Antibody, IgM Nonreactive Nonreactive [facility] HEP B CORE IGM AB Nonreactive Nonreactive [facility] HCV Nonreactive Nonreactive [facility] Blood 08/14/2024 6:25 AM EST 08/14/2024 6:29 AM EST Rudy Hairston MD LAB BLOOD ORDERABLES Final Resu lt Performing Organization Address [facility] Co de Phone Number [facility] [address] [place] [phone] * (ABNORMAL) Lipid panel (06/22/2020 11:01 AM EST) Pathologist [facility] HDL 59 35 - 100 mg/dL [facility] CHOLESTEROL 178 <200 mg/dL [facility] TRIGLYCERIDES 387(H) 40 - 150 mg/dL [facility] LDL 42(L) 50 - 129 mg/dL [facility] CARDIAC RISK RATIO 3.0 0.0 - 5.0 [facility] NON-HDL CHOLESTEROL 119 mg/dL [facility] Comment:NCEP ATP III guideli claudio suggest a non-HDL cholesterol goal 30 mg/dl higher than the patient-specific LDL goal. 06/22/2020 11:0 1 AM EST 06/22/2020 12:47 PM EST Oly Yeager CNP LAB BLOOD ORDERABLES Final Re sult [facility] [address] [place] [address] from Last 3 Months or Most Recently Relevant to Health Maintenance [place] [address] [employer] MEDICARE REPLACEMENT MEDICARE REPLACEMENT MEDICARE REPLACEMENT MEDICARE REPLACEMENT MEDICARE REPLACEMENT MEDICARE REPLACEMENT Advance Directives For more information, please contact: [phone] (9AM - 5PM [facility], Monday-Monday) * Full Code (Latest Code Status on File) Date Activated Date Inactivated Comments 08/13/2024 10:29 PM Question Answer Comments Code Status Confirmed With: Patient * Full Code Date Activated Date Inactivated Comments 04/28/2024 8:28 PM 08/13/2024 10:29 PM Question Answer Comments Code Status Confirmed With: Patient Care Teams Ammunition And Explosives Handler Relationship Specialty Start Date End Date Jamie Maher PA [address] [place] [id number] PCP - General 08/13/24 Clayton Luis MBBS [address] [place] [address] [email or web address] Internal Medicine 04/08/25 Additional Source Comments The information contained in this document represents components of the legal health record. It is not the complete legal health record.[facility]
--- OUTSIDE RECORDS SUMMARY | 2025-04-13 08:47 | XMS_ITS | Encounter Summary ---
Author Organization [facility] Address [address] [place] [address] Care Team Providers Care Review Assistant Name Role Phone Physician, No Pcp Primary Care Provider Unavaila ble Encounter Details Date Type Department Care Team (Late st Contact Info) Description 07/31/2024 Lab Requisition [facility] [address] [place] [phone] [place] [id number] Other jail (current) drug therapy Social History Tobacco Use Types Packs/Day Years Used Date Smoking Tobacco: Never Assessed Sex and Gender Information Value Date Recorded Sex Assigned at Male 04/09/2025 12:45 PM EDT Legal Sex Male 11:02 AM EDT Gender Identity Male 04/09/2025 12:45 PM EDT Sexual Orientation Straight 04/09/2025 12 :45 PM EDT documented as of this encounter Plan of Treatment Not on file documented as of this encounter Procedures Procedure Name Priority Date/Time Associated Diagnosis Comments HEMOGLOBIN A1C Routine 07/31/2024 7:00 AM EST Other adjunct faculty for medical terminology (current) drug therapy BASIC METABOLIC PANEL Routine 07/31/2024 7:00 AM EST Other adjunct faculty for medical terminology (current) drug therapy documented in this encounter [...] NP LAB BLOOD ORDERABLES Final Res ult [facility] [address] [place] [address], * (ABNORMAL) Basic metabolic panel (07/31/2024 7:00 [...] LAB CHEMISTRY METHOD 07/31/2024 3:34 PM EST [facility] Comment:Calculation based on the Chronic Kidney Disease Epidemiology Collaboration (CKD-EPI) equation refit without adjustment for race. BUN/Creatinine Ratio 18.8 LAB CHEMISTRY METHOD 07/31/2024 3:34 PM EST [facility] Calcium 9.3 8.5 - 10.5 mg/dL LAB CHEMISTRY METHOD 07/31/2024 3:34 PM EST [facility] Blood Venous blood specimen / Unknown Venipuncture / Unknown 07/31/2024 7:00 AM EST 07/31/2024 12:30 PM EST us Lorelei Samson NP LAB BLOOD ORDERABLES Final Res ult [facility] [address] [place] [address], documented in this encounter Visit Diagnoses Diagnosis Other jail (current) drug therapy documented in this encounter Care Teams Review Assistant Relationship Specialty Start Date End Date Physician, No Pcp PCP - General 08/02/24 documented as of this encounter
--- OUTSIDE RECORDS SUMMARY | 2025-04-13 08:47 | XMS_ITS | Encounter Summary ---
Author Organization [facility] Address [address] [place] [address] Phone Care Team Providers Care Underwater Photographer Name Role Phone Jamie Maher Primary Care Provider [phone] Clayton Luis Unavailable [phone] Reason for Visit * Reason Onset Date Comments ADS NEW [facility]EME- Pancytopenia 12/26/2024 Encounter Details Date Type Department Care Team (Late st Contact Info) Description 12/26/2024 Telephone [facility] [address] [place] [address] Unknown, Unknown, ADS [place]- Pancytopenia Social History Tobacco Use Types Packs/Day Years [...] Date of Assessment Author No Risk Indicated 01/13/2025 5:25 PM EDT Juana Melvin RN * [place] Suicide Severity Rating Scale (Screener/Recent Self-Report) Question Answer Date of Assessment Author 1. Wish to be (Past 1 Month) No 025 5:25 PM EDT Juana Melvin RN 2. Non-Specific Active Suici toni Thoughts (Past 1 Month) No 01/13/2025 5:25 PM EDT Motha, Juana G, RN 6. Suicidal Behavior (Lifetime) No 5:25 PM EDT Juana Melvin RN documented as of this encounter Progress Notes * Vanessa Gallegos - 04/08/2025 10:35 AM EDT Rec'd call from worker at [facility], scheduled New Hematology Appointment 05/15 w/ ADS, will mail out forms closer to appt * Katarzyna Isaac - 01/07/2025 9:16 AM EDT 3rd VM left asking for a c/b. * Katarzyna Isaac - 12/31/2024 3:27 PM EDT Called pt to schedule, no answer. VM left asking for a c/b. * Katarzyna Isaac - 12/26/2024 12:14 PM EDT Called pt regarding Hematology referral received from PCP - Pancytopenia No answer, unable to LVM Will reach back out if no call received from pt. documented in this encounter Plan of Treatment Upcoming Encounters Date Type Department Care Team (Late st Contact Info) Description 05/15/2025 10:00 AM EDT Office Visit [facility] at [address] [address] Clayton Luis, ISIS [address] [place] [address] [email or web address] documented as of this encounter Visit Diagnoses Not on filedocumented in this encounter Care Teams Underwater Photographer Relationship Specialty Start Date End Date Jamie Maher PA NPI: [id number] [place] [id number] PCP - General 08/13/24 Clayton Luis MBBS [address] [place] [address] [email or web address] Internal Medicine 04/08/25 documented as of this encounter Additional Source Comments The information contained in this document represents components of the legal health record. It is not the complete legal health record.[facility]
--- OUTSIDE RECORDS SUMMARY | 2025-04-13 08:47 | XMS_ITS | Encounter Summary ---
Author Organization [facility] Address [address] [place] [address] Care Team Providers Care Software Asset Manager Name Role Phone Lashay Rangel MD Primary Care Provider [phone] Encounter Details Date Type Department Care Team (Late st Contact Info) Description 01/28/2025 Orders Only [facility] Information Management [address] [place] [address] Lashay Rangel MD [address] [place] [address] Social History Tobacco Use Types Packs/Day Years [...] Description 05/02/2025 10:40 AM EDT Office Visit [facility] [address] [place] [address] Lashay Rangel MD [address] [place] [address] documented as of this encounter Procedures Procedure [...] on filedocumented in this encounter Care Teams Software Asset Manager Relationship Specialty Start Date End Date Lashay Rangel MD [address] [place] [address] PCP - General Family Medicine 10/28/24 documented as of this encounter
--- OUTSIDE RECORDS SUMMARY | 2025-04-13 08:47 | XMS_ITS | Encounter Summary ---
Author Organization [facility] Address [address] [place] [address] Phone Care Team Providers Care Restaurant Assistant Manager Name Role Phone Jamie Maher Primary Care Provider [phone] Clayton Luis Unavailable [phone] Encounter Details Date Type Department Care Team (Late st Contact Info) Description 10/07/2024 Procedure Pass [facility] [address] [place] [address] Social History Tobacco Use Types Packs/Day Years [...] 10/07/2024 9:33 AM Sarah Randall RN * [place] Suicide Severity Rating Scale (Screener/Recent Self-Report) Question Answer Date of Assessment Author 1. Wish to be (Past 1 Month) No 10/07/2024 9:33 AM Sarah Randall RN 2. Non-Specific Active Suici toni Thoughts (Past 1 Month) No 10/07/2024 9:33 AM Ninfa Randall cia, RN 6. Suicidal Behavior (Lifetime) No 9:33 AM EDT Sarah Chery RN documented as of this encounter Plan of Treatment Upcoming Encounters Date Type Department Care Team (Late st Contact Info) Description 05/15/2025 10:00 AM EDT Office Visit [facility] at [facility] [address] [place] [address] Clayton Luis MBBS [address] [place] [address] [email or web address] documented as of this encounter Visit Diagnoses Not on filedocumented in this encounter Additional Health Concerns Infection Onset Date Last Indicated Resolved Time CoV-Risk 10/25/2024 10/25/2024 11/05/2024 1:23 AM EDT documented as of this encounter Care Teams Restaurant Assistant Manager Relationship Specialty Start Date End Date Jamie Maher PA [address] [place] [address] PCP - General 08/13/24 Clayton Luis MBBS [address] [place] [address] [email or web address] Medicine 04/08/25 documented as of this encounter Additional Source Comments The information contained in this document represents components of the legal health record. It is not the complete legal health record.[facility]
--- OUTSIDE RECORDS SUMMARY | 2025-04-13 08:47 | XMS_ITS | Encounter Summary ---
Author Organization [facility] Address [address] [place] [address] Phone Care Team Providers Care Thoracic Surgeon Name Role Phone Jamie Maher Primary Care Provider [phone] Clayton Luis Unavailable [phone] Encounter Details Date Type Department Care Team (Late st Contact Info) Description 08/13/2024 Procedure Pass [facility] [address] [place] [address] Social History Tobacco Use Types Packs/Day Years [...] Author No Risk Indicated 08/13/2024 8:20 PM EST Mary Kate Lund RN * [place] Suicide Severity Rating Scale (Screener/Recent Self-Report) Question Answer Date of Assessment Author 1. Wish to be (Past 1 Month) No 08/13/2024 8:20 PM Mary Kate Madrid RN 2. Non-Specific Active Suicidal Thoughts (Past 1 Month) No 08/13/2024 8:20 PM Mary Kate Madrid RN 6. Suicidal Behavior (Lifetime) No 08/13/2024 8:20 PM EST Mary Kate Perdomo RN documented as of this encounter Plan of Treatment Upcoming Encounters Date Type Department Care Team (Late st Contact Info) Description 05/15/2025 10:00 AM EDT Office Visit [facility] [address] [place] [address] Clayton Luis MBBS [address] [place] [phone] [email or web address] documented as of this encounter Visit Diagnoses [...] documented as of this encounter Care Teams Thoracic Surgeon Relationship Specialty Start Date End Date Jamie Maher PA [address] [place] [address] PCP - General 08/13/24 Clayton Luis MBBS [address] [place] [address] [email or web address] Internal Medicine 04/08/25 documented as of this encounter Additional Source Comments The information contained in this document represents components of the legal health record. It is not the complete legal health record.[facility]
--- OUTSIDE RECORDS SUMMARY | 2025-04-13 08:47 | XMS_ITS | Encounter Summary ---
Author Organization [facility] Address [address] [place] [address] Phone Care Team Providers Care Customs Compliance Manager Name Role Phone Jamie Maher Primary Care Provider [phone] Clayton Luis Unavailable Encounter Details Date Type Department Care Team (Late st Contact Info) Description 10/25/2024 Procedure Pass [facility], Ct Scan - [address] [address] Social History Tobacco Use Types Packs/Day Years [...] housing (staying in a hotel, in a fdc, living outside on the street, on a [...] Indicated 10/25/2024 3:08 PM EDT Diamante Nuñez ma, RN * [place] Suicide Severity Rating Scale (Screener/Recent Self-Report) Question Answer Date of Assessment Author 1. Wish to be (Past 1 Month) No 025 3:08 PM EDT Francie Nuñez, RN 2. Non-Specific Active Suici toni Thoughts (Past 1 Month) No 10/25/2024 3:08 PM EDT Francie Nuñez, RN 6. Suicidal Behavior (Lifetime) No 3:08 PM EDT Savannah, Francie, RN documented as of this encounter Plan of Treatment Upcoming Encounters Date Type Department Care Team (Late st Contact Info) Description 05/15/2025 10:00 AM EDT Office Visit [facility] [address] [place] [address] Clayton Luis MBBS [address] [place] [phone] [email or web address] documented as of this encounter Visit Diagnoses Not on filedocumented in this encounter Additional Health Concerns Infection Onset Date Last Indicated Resolved Time CoV-Risk 10/25/2024 10/25/2024 11/05/2024 1:23 AM EDT documented as of this encounter Care Teams Customs Compliance Manager Relationship Specialty Start Date End Date Jamie Maher PA [address] [place] [address] PCP - General 08/13/24 Clayton Luis MBBS [address] [place] [address] [email or web address] Internal Medicine 04/08/25 documented as of this encounter Additional Source Comments The information contained in this document represents components of the legal health record. It is not the complete legal health record.[facility]
--- OUTSIDE RECORDS SUMMARY | 2025-04-13 08:47 | XMS_ITS | Encounter Summary ---
Author Organization [facility] Address [address] [place] [address] Phone Care Team Providers Care Staff Midwife/Apprenticeship Director Name Role Phone Jamie Maher Primary Care Provider [phone] Clayton Luis Unavailable [phone] Encounter Details Date Type Department Care Team (Late st Contact Info) Description 10/07/2024 Procedure Pass [facility] [address] [place] [address] Social History Tobacco Use Types Packs/Day Years [...] 10/07/2024 9:33 AM Sarah Randall RN * [place] Suicide Severity Rating Scale (Screener/Recent Self-Report) Question [...] Description 05/15/2025 10:00 AM EDT Office Visit [facility] [address] [place] [address] Clayton Luis MBBS [address] [place] [address] [email or web address] documented as of this encounter Visit Diagnoses Not on filedocumented in this encounter Additional Health Concerns Infection Onset Date Last Indicated Resolved Time CoV-Risk 10/25/2024 10/25/2024 11/05/2024 1:23 AM EDT documented as of this encounter Care Teams Staff Midwife/Apprenticeship Director Relationship Specialty Start Date End Date Jamie Maher PA [address] [place] [address] PCP - General 08/13/24 Clayton Luis MBBS [address] [place] [phone] [email or web address] Internal Medicine 04/08/25 documented as of this encounter Additional Source Comments The information contained in this document represents components of the legal health record. It is not the complete legal health record.[facility]
--- OUTSIDE RECORDS SUMMARY | 2025-04-13 08:47 | XMS_ITS | Encounter Summary ---
Author Organization [facility] Address [address] [place] [address] Phone Care Team Providers Care Clock Mechanic Name Role Phone Jack Howard MD Primary Care Provi keiry Jamie Maher Primary Care Provider [phone] Clayton Luis MBBS Unavailable [phone] Encounter Details Date Type Department Care Team (Late st Contact Info) Description 04/28/2024 Procedure Pass [facility], Ct Scan - [facility] [address] [place] [address] Social History Tobacco Use Types Packs/Day Years [...] 9:20 PM EDT Chata Wallace RN * [place] Suicide Severity Rating Scale (Screener/Recent Self-Report) Question Answer Date of Assessment Author 1. Wish to be (Past 1 Month) No 024 9:20 PM EDT Chata Wallace RN 2. Non-Specific Active Suici toni Thoughts (Past 1 Month) No 04/28/2024 9:20 PM EDT Cj Wallace RN 6. Suicidal Behavior (Lifetime) No 4 9:20 PM EDT Chata Wallace RN 6. Suicidal Behavior (3 Months) No 4 9:20 PM EDT Chata Wallace RN documented as of this encounter Plan of Treatment Upcoming Encounters Date Type Department Care Team (Late st Contact Info) Description 05/15/2025 10:00 AM EDT Office Visit [facility] at [address] [address] Clayton Luis, ISIS [address] [place] [phone] [email or web address] documented as of this encounter Visit Diagnoses [...] documented as of this encounter Care Teams Clock Mechanic Relationship Specialty Start Date End Date Jack Howard MD [address] [place] [phone] PCP - General Internal Medicine 07/01/20 04/29/24 Jamie Maher PA [address] [place] [address] PCP - General 08/13/24 Clayton Luis MBBS [address] [place] [phone] [email or web address] Internal Medicine 04/08/25 documented as of this encounter Additional Source Comments The information contained in this document represents components of the legal health record. It is not the complete legal health record.[facility]
--- OUTSIDE RECORDS SUMMARY | 2025-04-13 08:47 | XMS_ITS | Encounter Summary ---
Author Organization [employer] Address [address] [facility] 7[address] [place] [address] Care Team Providers Care Pipeline Systems Operator Name Role Phone Lashay Rangel MD Primary Care Provider [phone] Encounter Details Date Type Department Care Team (Late Contact Info) Description 01/30/2025 Orders Only [facility] [address] [place] [address] Lashay Rangel MD [address] [place] [address] Social History Tobacco Use Types Packs/Day Years [...] Description 05/02/2025 10:40 AM EDT Office Visit [facility] MED[facility] [address] [place] [address] Lashay Rangel MD [address] [place] [address] documented as of this encounter Procedures Procedure [...] on filedocumented in this encounter Care Teams Pipeline Systems Operator Relationship Specialty Start Date End Date Lashay Rangel MD [address] [place] [address] PCP - General Family Medicine 10/28/24 documented as of this encounter
--- OUTSIDE RECORDS SUMMARY | 2025-04-13 08:47 | XMS_ITS | Encounter Summary ---
Author Organization [employer] Address [address] [facility] 7t [place] [address] Care Team Providers Care Tour Bus Driver Name Role Phone Lashay Rangel MD Primary Care Provider [phone] Encounter Details Date Type Department Care Team (Late st Contact Info) Description 04/05/2025 Results Follow-Up [facility] MED[facility] [address] [place] [address] Alaina Saavedra MD [address] [place] [address] Albumin/Creatinine Ratio, Random Urine Social History Tobacco [...] Description 05/02/2025 10:40 AM EDT Office Visit [facility] [address] [place] [address] Lashay Rangel MD [address] [place] [address] documented as of this encounter Visit Diagnoses Not on filedocumented in this encounter Additional Health Concerns Assessment Noted Time PHQ-9 Depression Total Score: 23 025 1:08 PM EDT documented as of this encounter Care Teams Tour Bus Driver Relationship Specialty Start Date End Date Lashay Rangel MD [address] [place] [address] PCP - General Family Medicine 10/28/24 documented as of this encounter
--- OUTSIDE RECORDS SUMMARY | 2025-04-13 08:47 | XMS_ITS | Encounter Summary ---
Author Organization [employer] Address [address] [facility] 7 [place] [address] Care Team Providers Care Artist Consultant Name Role Phone Lashay Rangel MD Primary Care Provider [phone] Reason for Visit * Reason Onset Date Comments RX lost/stolen, request new RX sent 01/15/2025 Encounter Details Date Type Department Care Team ([facility] st Contact Info) Description 01/15/2025 Telephone [facility] MED[facility] [address] [place] [address] Lashay Rangel MD [address] [place] [address] RX lost/stolen, request new RX sent Social [...] 2:38 PM EDT Cipriano ([facility] [place]) called stating the patient put a glucose [...] company can say it's okay. Preferred Pharmacy: [id number] ([id number]) - [place], [place] - [address] [facility] [[id number]] Cipriano states she would like a call back at [phone] to discuss further, thank you! documented in this encounter Plan of Treatment Upcoming Encounters Date Type Department Care Team (Late st Contact Info) Description 05/02/2025 10:40 AM EDT Office Visit [facility] [address] [place] [address] Lashay Rangel MD [address] [place] [address] documented as of this encounter Visit Diagnoses Diagnosis Insulin-requiring or dependent type II diabetes mellitus ([facility]) Type II or unspecified type diabetes mellitus without mention of complication, not stated as uncontrolled documented in this encounter Care Teams Artist Consultant Relationship Specialty Start Date End Date Lashay Rangel MD [address] [place] [address] PCP - General Family Medicine 10/28/24 documented as of this encounter
--- OUTSIDE RECORDS SUMMARY | 2025-04-13 08:47 | XMS_ITS | Clinical Summary ---
Author Organization [employer] Address [address] [facility] 7t [place] [address] Care Team Providers Care Model Photographers' Name Role Phone Lashay Rangel MD Primary Care Provider [phone] Allergies Active Allergy Reactions Criticality Noted Date [...] insulin pen needle (Global Ease Inject Pen Booker) 32G x 4 mm miscIndications: Insulin-requirin g [...] Department Care Team Description 04/05/2025 Results Follow-Up [facility] [address] [place] [address] Alaina Saavedra MD Albumin/Creatinine Ratio, Random Urine 04/02/2025 12:00 PM EDT Office Visit [facility] [address] [place] [address] Alaina Saavedra MD Cirrhosis of liver with ascites, unspecified hepatic cirrhosis type (CMS/HCC) (CMS/HCC) (Primary Dx); Insulin-requiring or dependent type II diabetes mellitus (CMS/HCC); Chronic low back pain, unspecified back pain laterality, unspecified whether sciatica present; Pancytopenia (CMS/HCC); Hypomagnesemia; History of alcohol abuse; Gastroesophageal reflux disease without esophagitis; Insomnia, unspecified type 04/02/2025 Refill [facility] [address] [place] [address] Lashay Rangel MD Epistaxis (Primary Dx); Cirrhosis of liver with ascites, unspecified hepatic cirrhosis type (CMS/HCC) (CMS/HCC); History of alcohol abuse 03/18/[address] [address] Lashay Rangel MD Care Coordination 03/06/2025 Refill [facility] [address] [place] [address] Lashay Rangel MD Peptic ulcer 01/30/2025 Orders Only [facility] Information Management [address] [place] [address] Lashay Rangel MD 01/29/[address] [address] Lashay Rangel MD Care Coordination; Paperwork/Forms 01/28/2025 Orders Only [facility] Information [facility] [address] [place] [address] Lashay Rangel MD 01/28/2025 Telephone [facility] Information [address] [address] Lashay Rangel MD 01/15/[address] [address] Lashay Rangel MD RX lost/stolen, request new RX sent 01/14/[address] [address] Lashay Rangel MD Medication Question; [facility] Health Admission ; Care Coordination 01/13/[address] [address] Lashay Rangel MD Prior Authorization (severo) from Last 3 Months Social History Tobacco [...] EDT Office Visit [facility] [address] [place] [address] Lashay Rangel MD [address] [place] [address] Health Maintenance Due Date Last Done Comments [...] 2 - PCV) 04/23/2021 04/23/2020 COVID-19 Vaccine ( - season) 2025 12/09/2020, 11/11/2020 Influenza Vaccine [...] Insulin-requiring or dependent type II diabetes mellitus (CMS/[facility]) CBC WITH AUTO DIFFERENTIAL Routine 01/28/2025 10:47 [...] Agency Comment Performed at: 01 - [facility] [id number] Drafter Civil: Bobbi Dia MD, Phone: [phone] Alaina Saavedra MD LAB URINE ORDERABLES Final Resul t [facility] 1 * (ABNORMAL) POCT glycosylated hemoglobin (Hgb A1c) (04/02/2025 12:47 PM EDT) Hemoglobin A1C 6.5(A) 4.0 - 5.7 % Blood Capillary blood specimen / Unknown 04/02/2025 12:47 PM EDT Result [facility] Alaina Saavedra MD POINT OF CARE TEST ENTER/EDIT OR DERABLES Final Result * CBC auto differential (01/28/2025 10:47 AM EDT) Blood Venous blood specimen / Unknown Result [facility] Lashay Rangel MD LAB BLOOD ORDERABLES Final Res ult * ECG 12 lead (01/28/2025 10:46 AM EDT) Lashay Rangel MD ECG ORDERABLES Final Result * CT Cervical Spine w/o Contrast (01/27/2025 10:14 AM EDT) Anatomical Region Laterality Modality Spine, C-spine Computed Tomogra phy Lashay Rangel MD IMG CT PROCEDURES Final Result * CT HEAD WO CONTRAST (01/27/2025 10:13 AM EDT) Anatomical Region Laterality Modality Computed Tomogra phy Lashay Rangel MD IMG CT PROCEDURES Final Result from Last 3 Months Insurance [facility] [employer] [facility] Care Teams Model Photographers' Relationship Specialty Start Date End Date Lashay Rangel MD [address] [place] [address] [place] [address] PCP - General Family Medicine 10/28/24
--- OUTSIDE RECORDS SUMMARY | 2025-04-13 08:47 | XMS_ITS | Encounter Summary ---
Author Organization [facility] Address [address] [place] [address] Phone Care Team Providers Care Carpet Layer Name Role Phone Jamie Maher Primary Care Provider [phone] Clayton Luis Unavailable [phone] Encounter Details Date Type Department Care Team (Late st Contact Info) Description 10/07/2024 Procedure Pass OR Admitting Dept - Virtual Department [address] [place] [address] Social History Tobacco Use Types Packs/Day Years [...] 10/07/2024 9:33 AM Sarah Randall RN * [place] Suicide Severity Rating Scale (Screener/Recent Self-Report) Question Answer Date of Assessment Author 1. Wish to be (Past 1 Month) No 10/07/2024 9:33 AM Sarah Randall RN 2. Non-Specific Active Suici toni Thoughts (Past 1 Month) No 10/07/2024 9:33 AM Ninfa Randall cia, RN 6. Suicidal Behavior (Lifetime) No 9:33 AM EDT Sarah Chery, RN documented as of this encounter Plan of Treatment Upcoming Encounters Date Type Department Care Team (Late st Contact Info) Description 05/15/2025 10:00 AM EDT Office Visit [facility] [address] [place] [address] Clayton Luis MBBS [address] [place] [address] [email or web address] documented as of this encounter Visit Diagnoses Not on filedocumented in this encounter Additional Health Concerns Infection Onset Date Last Indicated Resolved Time CoV-Risk 10/25/2024 10/25/2024 11/05/2024 1:23 AM EDT documented as of this encounter Care Teams Carpet Layer Relationship Specialty Start Date End Date Jamie Maher PA [address] [place] [address] PCP - General 08/13/24 Clayton Luis MBBS [address] [place] [address] [email or web address] Internal Medicine 04/08/25 documented as of this encounter Additional Source Comments The information contained in this document represents components of the legal health record. It is not the complete legal health record.[facility]
--- OUTSIDE RECORDS SUMMARY | 2025-04-13 08:47 | XMS_ITS | Encounter Summary ---
Author Organization [facility] Address [address] [facility] [address] [place] [address] Phone Care Team Providers Care Time Cycle Operator Name Role Phone Jamie Maher Primary Care Provider [phone] Clayton Luis Unavailable [phone] Encounter Details Date Type Department Care Team (Late st Contact Info) Description 10/07/2024 Procedure Pass [facility], Ct Scan - [address] [address] Social History Tobacco Use Types Packs/Day Years [...] 10/07/2024 9:33 AM Sarah Randall RN * [place] Suicide Severity Rating Scale (Screener/Recent Self-Report) Question Answer Date of Assessment Author 1. Wish to be (Past 1 Month) No 10/07/2024 9:33 AM Sarah Randall RN 2. Non-Specific Active Suici toni Thoughts (Past 1 Month) No 10/07/2024 9:33 AM JOANT Ninfa Chery cia, RN 6. Suicidal Behavior (Lifetime) No 9:33 AM EDT Sarah Chery, RN documented as of this encounter Plan of Treatment Upcoming Encounters Date Type Department Care Team (Late st Contact Info) Description 05/15/2025 10:00 AM EDT Office Visit [facility] [address] [place] [address] Clayton Luis MBBS [address] [place] [address] [email or web address] documented as of this encounter Visit Diagnoses Not on filedocumented in this encounter Additional Health Concerns Infection Onset Date Last Indicated Resolved Time CoV-Risk 10/25/2024 10/25/2024 11/05/2024 1:23 AM EDT documented as of this encounter Care Teams Time Cycle Operator Relationship Specialty Start Date End Date Jamie Maher PA [address] [place] [phone] PCP - General 08/13/24 Clayton Luis MBBS [address] [place] [address] [email or web address] Internal Medicine 04/08/25 documented as of this encounter Additional Source Comments The information contained in this document represents components of the legal health record. It is not the complete legal health record.[facility]
--- OUTSIDE RECORDS SUMMARY | 2025-04-13 08:47 | XMS_ITS | Encounter Summary ---
Author Organization [employer] Address [address] [facility] 7 [place] [address] Care Team Providers Care Panelboard Assembler Name Role Phone Lashay Rangel MD Primary Care Provider [phone] Reason for Referral * Consultation (Routine) - Pending Review Specialty Diagnoses / Procedures Referred By Alber gramajo Referred To Contact Otolaryngology Diagnoses Epistaxis Alaina Saavedra MD [address] [place] [address] Phone: tel: fax: [facility] [address] Phone: tel: fax: Referral ID Status Reason Start Date Expiration Date Visits Requested Visits Authorized [id number] Pending Review Specialty Services Required 04/03/2025 04/03/2026 1 1 Encounter Details Date Type Department Care Team (Late st Contact Info) Description 04/02/2025 Ari Alonso [facility] [address] [place] [address] Lashay Rangel MD [address] [place] [address] Epistaxis (Primary Dx); Cirrhosis of liver with [...] 2:25 PM EDT Pharmacy was changed to [facility] pharmacy [facility].Please sent medications. * Telephone Encounter - Lizbet Littlejohn - 04/02/2025 1:01 PM EDT Patient states that he spoke with Dr Saavedra today regarding his medications and he wants them sent to [facility]. Not the pharmacy affiliated with the program, patient made it clear that he wants [facility] to goto [facility] [place] on [address] documented in this encounter Plan of Treatment Upcoming Encounters Date Type Department Care Team (Late st Contact Info) Description 05/02/2025 10:40 AM EDT Office Visit [facility] [address] [place] [address] Lashay Rangel MD [address] [place] [address] Scheduled Referrals Name Type Priority Associated Diagnoses [...] documented as of this encounter Care Teams Panelboard Assembler Relationship Specialty Start Date End Date Lashay Rangel MD [address] [place] [address] PCP - General Family Medicine 10/28/24 documented as of this encounter
--- OUTSIDE RECORDS SUMMARY | 2025-04-13 08:47 | XMS_ITS | Encounter Summary ---
Author Organization [facility] Address [address] [facility] [address] [place] [address] Phone Care Team Providers Care Superintendent General Name Role Phone Jamie Maher Primary Care Provider [phone] Clayton Luis Unavailable [phone] Encounter Details Date Type Department Care Team (Late st Contact Info) Description 10/25/2024 Procedure Pass [facility], Ct Scan - [address] [address] Social History Tobacco Use Types Packs/Day Years [...] housing (staying in a hotel, in a chcf, living outside on the street, on a [...] PM EDT Diamante Nuñez ma, RN * [place] Suicide Severity Rating Scale (Screener/Recent Self-Report) [...] Description 05/15/2025 10:00 AM EDT Office Visit [facility] [place] [facility] [address] [place] [address] Clayton Luis MBBS [address] [place] [address] [email or web address] documented as of this encounter Visit Diagnoses Not on filedocumented in this encounter Additional Health Concerns Infection Onset Date Last Indicated Resolved Time CoV-Risk 10/25/2024 10/25/2024 11/05/2024 1:23 AM EDT documented as of this encounter Care Teams Superintendent General Relationship Specialty Start Date End Date Jamie Maher PA [address] [place] [address] PCP - General 08/13/24 Clayton Luis MBBS [address] [place] [address] [email or web address] Internal Medicine 04/08/25 documented as of this encounter Additional Source Comments The information contained in this document represents components of the legal health record. It is not the complete legal health record.[facility]
--- OUTSIDE RECORDS SUMMARY | 2025-04-13 08:47 | XMS_ITS | Encounter Summary ---
Author Organization [facility] Address [address] [facility] [address] [place] [address] Phone Care Team Providers Care Supervisor Incising Name Role Phone Jack Howard MD Primary Care Provi keiry Jamie Maher Primary Care Provider [phone] Clayton Luis MBBS Unavailable [phone] Encounter Details Date Type Department Care Team (Late st Contact Info) Description 04/28/2024 Procedure Pass [facility], Ct Scan - [facility] [address] [place] [address] Social History Tobacco Use Types Packs/Day Years [...] 9:20 PM EDT Chata Wallace RN * [place] Suicide Severity Rating Scale (Screener/Recent Self-Report) Question [...] 05/15/2025 10:00 AM EDT Office Visit [facility] at [address] [address] Clayton Luis, ISIS [address] [place] [address] [email or web address] documented as of this encounter Visit [...] as of this encounter Care Teams Supervisor Incising Relationship Specialty Start Date End Date Jack Howard MD [address] [place] [phone] PCP - General Internal Medicine 07/01/20 04/29/24 Jamie Maher PA [address] [place] [phone] PCP - General 08/13/24 Clayton Luis MBBS [address] [place] [address] [email or web address] Internal Medicine 04/08/25 documented as of this encounter Additional Source Comments The information contained in this document represents components of the legal health record. It is not the complete legal health record.[facility]
--- NOTE | 2025-04-13 09:06 | PC.NURSE ---
Pt coming in today with continued bilat nostril bleeding. Pt reportng he has been dealing with this for an extended time with multiple interventions that have not helped longterm. Pt has been unable to follow up with ENT d/t tryng to fnd one. Affrin spray and clamp applied, PA at bedside. Pt in agreement with current plan, call sharma within reach. Ice chips and mouth wash given or patient to wash his mouth out. Pt stating he has been coughing out and swallowing large clots. Bleeding seems to be controlled at this time, dry blood noted in both nostrils.
[2025-04-13 09:11] LABS: Hemoglobin 8.6 g/dl (14.0-18.0); Imm Gran Abs Auto 0.01 X10*3/uL (0.00-0.03); Imm Gran Pct Auto 0.4 % (0.0-0.4); MANUAL DIFF FLAG SCAN; NRBC Abs Auto 0.000 X10*3/uL (0.0-0.012); NRBC Pct Auto 0.0 /100WBC (0.0-0.2); SCAN SMEAR FLAG 1
[2025-04-13 09:13] LABS: Hematocrit 27.0 % (42.0-52.0); Lymphocytes Absolute Auto 0.4 X10*3/uL (1.2-4.9); Mean Corpuscular HGB Conc 31.9 g/dl (31.0-36.0); Mean Corpuscular Hemoglobin 24.2 pg (27.0-33.0); Mean Corpuscular Volume 75.8 fL (80.0-98.0); Red Blood Count 3.56 X10*6/uL (4.60-5.80)
[2025-04-13] MEDS: Tranexamic Acid 1,000 MG/10 ML VIAL 500 MG INTRANASAL (09:15)
[2025-04-13 09:19] LABS: PLT ABN DIST 1; Platelet Count 72 X10*3/uL (160-400); White Blood Count 2.3 X10*3/uL (4.8-10.8)
[2025-04-13 09:54] LABS: Alanine Aminotransferase 24 U/L (0-40); Albumin Level 3.8 g/dL (3.5-5.0); Alkaline Phosphatase 147 U/L (39-117); Anion Gap 11 (12-20); Aspartate Amino Transferase 39 U/L (5-37); Blood Urea Nitrogen 13 mg/dL (9-16); Calcium 9.0 mg/dL (8.4-10.2); Carbon Dioxide 26 mmol/L (22-29); Chloride 101 mmol/L (96-108); Creatinine Clr Calc Pharmacy 74.8; Estimated Glomerular Filt Rate > 60; Potassium 4.4 mmol/L (3.3-5.1); Sodium 134 mmol/L (135-145); Total Protein 7.1 g/dL (6.5-8.0)
[2025-04-13 10:23] VITALS: BP 134/73; PULSE 88; RESP 18; O2SAT 99
--- NOTE | 2025-04-13 11:48 | PC.NURSE ---
IV placed, meds given per SEP. Pt in agreement with plan to transfer. nurse to nurse given at 1149 by this RN.
[2025-04-13 11:49] VITALS: BP 134/73; PULSE 88; RESP 18; TEMP 37; O2SAT 99
== END 2025-04-13 11:52 | disposition short-term general hospital (02) ==
PROVIDERS: Physician Assistant; Emergency Provider Emergency Medicine; PCP Physician Assistant Medical
DX: R04.0 Epistaxis (principal); E11.65 Type 2 diabetes mellitus with hyperglycemia; R11.0 Nausea; Z79.899 Other long term (current) drug therapy; Z79.4 Long term (current) use of insulin
CPT/HCPCS: 36415; 80053; 85025; 96360; 99284; 99285